=== PATIENT | female | born 1975 | race Caucasian/White ===

== ENCOUNTER 2016-12-26 18:05 | Emergency (ER) | payer MEDICAID ==
[~2016-12-26] VITALS: Ht 165.1 cm; Wt 81.6 kg
[~2016-12-26 18:05] MED LIST: BACTRIM DS 8001 TAB PO; CYMBALTA60 MG PO; IBUPROFEN800 MG PO; KLONOPIN 0.5MG0.5 MG PO; LAMICTAL200 MG PO; LEVOTHYROXINE0.1 MG PO; MIGRAINE RELIE1 EACH PO; NEURONTIN600 MG PO; PRAVACHOL20 MG PO; PYRIDIUM200 MG PO; TOPROL XL 50MG50 MG PO; VOLTAREN50 MG PO
[2016-12-26] MEDS ORDERED: TIZANIDINE2 MG OR (18:30)
[2016-12-26] MEDS ORDERED: TOPAMAX100 MG PO (18:31)
--- NOTE | 2016-12-26 18:31 | Urgent Treatment Center Report ---
History of Present Issue Date/Time Seen by Provider 12/26/16 1830 Visit Reason Pt arrived:Walked Presenting Problem:PT STATES SHE HAS ONGOING BACK PAIN AND HX OF BACK INJURIES. PT FELL IN THE SHOWER 3 DAYS AGO AND HAS HAD PAIN. PAIN SHOOTS DOWN HER LEG. Location if Accident: Onset of symptoms date/time:/ or onset unknown for:MEDICAL HX UNKNOWN Have you (or family members/close friends) recently traveled outside the [place]? If Yes, where/when: Have you had exposure to infectious disease within the past month? TB? Other? Specify: c/o low back pain. Hx of chronic low back pain but currently w/ acute flare. PCP Barbara Pickard. Reports a hx of scoliosis dx at 28, lumbar disc herniation, cervical disc herniation, right hip dislocation as a child, spinal stenosis and then 3 years ago, was told she needed back surgery but hasn't followed through. 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 Despite gabapentin and zanaflex, pain has been slowly increasing over the last 3-4 weeks. Fell out of the shower 3 days ago, hitting lower back on toilet. Then today, was moving boxes for a friend that was having a yard sale when it started raining. Went on in to work but pain too intense and had to leave. Requesting work note. Pain currently 8/10, ceferino low back with right shooting into buttock. Worse with movement or too much rest. "I can be walking and just step the wrong way and pain shoots into my butt and hip". Denies N/T. No incontinence or difficulty urinating. Has had scheduled gabapentin, dose unsure, this morning and at 5pm. Scheduled zanaflex this morning. Hasn't taken any tylenol or ibuprofen. Source patient Exam Limitations no limitations ALLERGIES Coded Allergies: ceftriaxone (From ROCEPHIN) (SHOCK 01/19/16) Home Medications Reported Medications Clonazepam (Klonopin 0.5MG) 0.5 MG PO TID DULOXETINE HCL (Cymbalta 60MG) 60 MG PO DAILY Lamotrigine (Lamictal) 200 MG PO DAILY LEVOTHYROXINE SOD (Synthroid) 0.1 MG PO DAILY Metoprolol Succinate Xl (Toprol Xl) 50 MG PO DAILY Gabapentin (Neurontin) 600 MG PO TID Pravastatin Sodium (Pravachol) 10 MG PO QHS Diclofenac Sodium (Voltaren 50mg) 75 MG PO BID Ibuprofen (Ibuprofen 800MG) 800 MG PO TIDP PRN PAIN Aspirin/Acetaminophen/Caffeine (Migraine Relief Caplet) 1 EACH PO PRN PRN MIGRAINE TIZANIDINE HCL (Tizanidine) 2 MG OR BID Topiramate (Topamax) 100 MG PO BID History Medical History General CAD? No Angina: No [place]: No Hypertension? Yes Hyperlipidemia? Yes CHF? No DVT? No PE? No COPD? Yes Asthma? Yes Anemia? No GERD? No Gastric ulcers? No GI Bleed? No Hernia? No Thyroid Problems? Yes Hypothyroidism? No CVA? No Seizures? No Diabetes? No Renal Insuffiency? No UTI? No Stones? No BPH? No GB Disease: No Nephritic Syndrome? No Asplenia? No Hepatitis? No Sickle Cell Disease? No Arthritis? Yes Migraines? No Cataracts? No Glaucoma? No MRSA? No HIV? No TB? No Anxiety? Yes Depression? Yes Cancer? No More? Yes Additional hx: OSTEOARTHRITIS Immunization HX DT/Tetanus NOT SURE Flu NEVER Pneumonia NEVER Surgical Hx Previous Surgery?Y PARTIAL THYROIDECTOMY X2 THYROID Family History Family HX Diabetes Yes CAD No Hypertension Yes Hyperlipidemia No Cancer Yes TB No Social History Smoking Hx Packs/day < 1 Pack Alcohol Alcohol: No Review of Systems All Other Systems Reviewed and Negative Constitutional denies fever, denies malaise Musculoskeletal see HPI Skin denies change in color, denies lesions Psychiatric/Neurological see HPI Physical Exam Vital Signs Vital Signs Date Time Temp Pulse Resp B/P Pulse O2 O2 Flow FiO2 Ox Delivery Rate 12/26 1855 20 12/26 1828 98.0 78 18 142/77 98 12/26 1809 98.0 78 18 142/77 98 General Appearance moving slow, guarding low back, wincing/moaning with some movements Respiratory Status No: respiratory distress. Cardiovascular no peripheral edema Peripheral Pulses Pulses normal Yes (DP/PT) Back normal inspection, no vertebral tenderness, bowel/bladder continent, gait abnormality (slow, shuffling), strt leg raising(L)-NML, strt leg raising(R)-NML, mild tenderness ceferino lumbar regions w/ mild tenderness left SI joint and moderate tenderness right SI joint, slighlty limited spinal ROM in all directions, c/o "uncomfortable" with ROM Extremities non-tender (BLE), normal range of motion (BLE), normal inspection ( BLE) Strength 5 Lower Ext (L), 5 Lower Ext (R) Neurologic alert, no motor/sensory deficits, oriented x 3 Reflexes Reflexes normal Yes (patellar) Mental status normal mood/affect Skin normal color, warm/dry Medical Decision Making LABS/Meds/Orders Pt receiving controlled substance in ED? No Results/Orders Current Medication Orders Sig/[place] Start time Last Medication Dose Route Stop Time Status Admin Ketorolac 60 MG ONCE ONE 12/26 1844 DC 12/26 Tromethamine IM 12/26 Ketorolac 0 .STK-MED ONE 12/26 1840 DC Tromethamine .ROUTE Orders Procedure Date/time Status LUMBAR SPINE 5 VIEWS 12/26 1838 Active XRAY/CT/US XRAY/CT/US XRAY L-spine XR interpretation by reviewed by me (w/ Dr. Jacobs) Xray Results chronic findings, no acute findings Departure Departure Time of Disposition 1955 Disposition DC Home or Self Care(routine) Clinical Impression Primary Impression: Acute exacerbation of chronic low back pain Condition STABLE Referrals BARBARA PICKARD APRN (Family) Call tomorrow. Schedule follow up appointment. Seek treatment immediately for new or worsening symptoms Patient Instructions DI for Low Back Pain Additional Instructions * Start steroids this evening. Be sure to follow up with primary care * Continue gabapentin and zanaflex * Ibuprofen every 6 hours with meal as needed for pain/inflammation. * Remember you had a toradol shot in clinic. * No additional anti-inflammatories like motrin, aleve, advil with the above amount of ibuprofen. You CAN still take Tylenol every 4 hours as needed if you need something more for pain. * Ice x15-20 mins 3-4 times a day for first 48 hours after the initial injury followed by moist heat x15-20 mins 3-4 times a day to affected area * Keep this area active. No movement leads to more stiffness. However, take it easy too and avoid heavy lifting, pushing, pulling. Discharge Counseling Counseled pt/family regarding diagnosis, test results, medications/RX, home care, follow up needs Prescriptions Current Visit Scripts Methylprednisolone (Medrol Dose Carlos) 4 MG PO UD #1 CARLOS TAKE DIRECTED ON PACKAGING at 2000
[2016-12-26] MEDS ORDERED: MEDROL 4MG. DOSE4 MG PO (19:59)
[2016-12-26 20:01] VITALS: BP 142/77
--- NOTE | 2016-12-27 05:32 | RADIOLOGY REPORT PS360 ---
EXAM: LUMBAR SPINE 5 VIEWS HISTORY: chronic back pain w/ fall 2-3 days ago out of tub, pain ORDERING PHYSICIAN: NORMA OLIVERA APRN PATIENT AGE: 41 years COMPARISON: None FINDINGS: Normal alignment. No fracture or dislocation. No lytic or blastic change. There is degenerative disc disease at L4-L5 and to a lesser degree at L5-S1 with mild facet arthritic changes also at those levels. Unremarkable SI joints. IMPRESSION: Degenerative disc disease with facet arthritic change at L4-5 and L5-S1 No acute fracture
== END 2016-12-26 20:03 | disposition home or self-care (01) ==
LOC: ER 18:05 → UTC 18:05
DX: M54.5 Low back pain (principal); I10 Essential (primary) hypertension; J44.9 Chronic obstructive pulmonary disease, unspecified; F41.8 Other specified anxiety disorders; Z79.899 Other long term (current) drug therapy

== ENCOUNTER 2017-02-11 03:29 | Emergency (ER) | payer MEDICAID ==
[~2017-02-11] VITALS: Ht 165.1 cm; Wt 77.1 kg
[~2017-02-11 03:29] MED LIST changes: +MEDROL 4MG. DOSE4 MG PO; +TIZANIDINE2 MG OR; +TOPAMAX100 MG PO
--- NOTE | 2017-02-11 05:15 | Emergency Room Report ---
History of Present Illness Time Seen by MD Barrow Presenting Problem in Triage Pt arrived:Walked Presenting Problem:MIGRAINE STARTED YESTERDAY, STATES SHE CANT GET ANY RELIEF FROM IT. NO N/VL Onset of symptoms date/time:02/10/17 or onset unknown for: Treatment Prior to Arrival: IBUPROFEN, [employer] MIGRAINES [employer] GUIDE Provided by:SELF Sepsis Risk Assessment: Temp: 97.7 B/P: 155/87 MAP: 109 Pulse: 58 Resp: 18 Recent fever? N Clinical Suspician of Infection? N Mental Status: 1 - Regular (Normal Baseline) Sepsis Risk:Low Sepsis Risk Have you (or family members/close friends) recently traveled outside the [place]? N If Yes, where/when: Have you had exposure to infectious disease within the past month? N TB? Other? Specify: Source patient, RN notes reviewed, EMS, old records Exam Limitations no limitations Comment pt with hx of guillen with hx of migraines Cardiac Chest Pain Chest pain indicative of cardiac No Timing/Duration this evening Severity moderate ALLERGIES Coded Allergies: ceftriaxone (From ROCEPHIN) (SHOCK 01/19/16) Home Medications Active Scripts Methylprednisolone (Medrol Dose Jesse) 4 MG PO UD #1 JESSE Prov: 12/26/16 Reported Medications Clonazepam (Klonopin 0.5MG) 0.5 MG PO TID DULOXETINE HCL (Cymbalta 60MG) 60 MG PO DAILY Lamotrigine (Lamictal) 200 MG PO DAILY LEVOTHYROXINE SOD (Synthroid) 0.1 MG PO DAILY Metoprolol Succinate Xl (Toprol Xl) 50 MG PO DAILY Gabapentin (Neurontin) 600 MG PO TID Pravastatin Sodium (Pravachol) 10 MG PO QHS Diclofenac Sodium (Voltaren 50mg) 75 MG PO BID Ibuprofen (Ibuprofen 800MG) 800 MG PO TIDP PRN PAIN Aspirin/Acetaminophen/Caffeine (Migraine Relief Caplet) 1 EACH PO PRN PRN MIGRAINE TIZANIDINE HCL (Tizanidine) 2 MG OR BID Topiramate (Topamax) 100 MG PO BID History Medical History General CAD? No Angina: No [place]: No Hypertension? Yes Hyperlipidemia? Yes CHF? No DVT? No PE? No COPD? Yes Asthma? Yes Anemia? No GERD? No Gastric ulcers? No GI Bleed? No Hernia? No Thyroid Problems? Yes Hypothyroidism? No CVA? No Seizures? No Diabetes? No Renal Insuffiency? No End Stage Renal Disease? No UTI? No Stones? No BPH? No GB Disease: No Nephritic Syndrome? No Asplenia? No Hepatitis? No Sickle Cell Disease? No Arthritis? Yes Migraines? No Cataracts? No Glaucoma? No MRSA? No HIV? No TB? No Anxiety? Yes Depression? Yes Cancer? No More? 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 Respiratory denies cough, denies shortness of breath Cardiovascular denies chest pain, denies syncope Gastrointestinal denies abdominal pain, denies diarrhea, denies vomiting Genitourinary denies: dysuria, frequency, hesitancy, hematuria. Musculoskeletal denies back pain, denies joint pain, denies neck pain Skin denies rash Psychiatric/Neurological see HPI, headache, denies seizure Physical Exam Vital Signs Vital Signs Date Time Temp Pulse Resp B/P Pulse O2 O2 Flow FiO2 Ox Delivery Rate 02/11 0330 97.7 58 18 155/87 97 - WBC >12,000 or <4,000 or 10% bands? 2 or more SIRS Criteria Met? B/P:155/87 MAP:109 Creatinine >2.0? UA output<0.5ml/kg/hr for 2 hrs? Platelet count >100,000? Lactate >2.0mmol/1? INR >1.2 or PTT > than 60 sec? Evidence of Organ Dysfunction? Provider documented clinical suspician of infection? N Sepsis Criteria Count: 0 Sepsis Risk: Low Sepsis Risk General Appearance no apparent distress Eye Exam - bilateral eye PERRL, bilateral eye EOMI Ear, Nose, Throat normal ENT inspection Neck supple Respiratory Status No: respiratory distress. Cardiovascular regular rate/rhythm Peripheral Pulses Pulses normal Yes Gastrointestinal soft Extremities normal inspection Strength 4 Upper Ext (L), 4 Upper Ext (R), 4 Lower Ext (L), 4 Lower Ext (R) Neurologic alert, hadoop developer II-XII nml as tested, no motor/sensory deficits Reflexes Reflexes normal No Mental status normal mood/affect Skin intact Medical Decision Making LABS/Meds/Orders Pt receiving controlled substance in ED? No Results/Orders Laboratory Tests 02/11/17 0342: CSF Appearance Cancelled, CSF Color Cancelled, CSF WBC Cancelled, CSF RBC Cancelled, CSF Mononuclear Cells Cancelled, CSF Polynuclear WBCs Cancelled Orders Procedure Date/time Status DIET-NOTHING BY MOUTH 02/[address] HEAD W/O CONTRAST 02/[address] HEAD REQ 02/11 342 Active XRAY/CT/US XRAY/CT/US CT head CT interpretation by discussed w/radiologist Time results known: 512 CT Results normal/NAD Departure Departure Time of Disposition 512 Disposition DC Home or Self Care(routine) Clinical Impression Primary Impression: Headache Qualifiers: Headache type: unspecified Headache chronicity pattern: acute headache Intractability: not intractable Qualified Code: R51 - Headache Condition STABLE Referrals LUIS PICKARD APRN (Family) Patient Instructions DI for Headache Additional Instructions see pcp for follow up Discharge Counseling Counseled pt/family regarding diagnosis, test results, follow up needs ED Critical Care Critical Care No at 0514
--- NOTE | 2017-02-11 05:15 | Emergency Room Report ---
History of Present Illness Time Seen by MD Barrow Presenting Problem in Triage Pt arrived:Walked Presenting Problem:MIGRAINE STARTED YESTERDAY, STATES SHE CANT GET ANY RELIEF FROM IT. 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 N Clinical Suspician of Infection? N Mental Status: 1 - Regular (Normal Baseline) Sepsis Risk:Low Sepsis Risk Have you (or family members/close friends) recently traveled outside the [place]? N If Yes, where/when: Have you had exposure to infectious disease within the past month? N TB? Other? Specify: Source patient, RN notes reviewed, EMS, old records Exam Limitations no limitations Comment pt with hx of guillen with hx of migraines Cardiac Chest Pain Chest pain indicative of cardiac No Timing/Duration this evening Severity moderate ALLERGIES Coded Allergies: ceftriaxone (From ROCEPHIN) (SHOCK 01/19/16) Home Medications Active Scripts Methylprednisolone (Medrol Dose Jesse) 4 MG PO UD #1 JESSE Prov: 12/26/16 Reported Medications Clonazepam (Klonopin 0.5MG) 0.5 MG PO TID DULOXETINE HCL (Cymbalta 60MG) 60 MG PO DAILY Lamotrigine (Lamictal) 200 MG PO DAILY LEVOTHYROXINE SOD (Synthroid) 0.1 MG PO DAILY Metoprolol Succinate Xl (Toprol Xl) 50 MG PO DAILY Gabapentin (Neurontin) 600 MG PO TID Pravastatin Sodium (Pravachol) 10 MG PO QHS Diclofenac Sodium (Voltaren 50mg) 75 MG PO BID Ibuprofen (Ibuprofen 800MG) 800 MG PO TIDP PRN PAIN Aspirin/Acetaminophen/Caffeine (Migraine Relief Caplet) 1 EACH PO PRN PRN MIGRAINE TIZANIDINE HCL (Tizanidine) 2 MG OR BID Topiramate (Topamax) 100 MG PO BID History Medical History General CAD? No Angina: No [place]: No Hypertension? Yes Hyperlipidemia? Yes CHF? No DVT? No PE? No COPD? Yes Asthma? Yes Anemia? No GERD? No Gastric ulcers? No GI Bleed? No Hernia? No Thyroid Problems? Yes Hypothyroidism? No CVA? No Seizures? No Diabetes? No Renal Insuffiency? No End Stage Renal Disease? No UTI? No Stones? No BPH? No GB Disease: No Nephritic Syndrome? No Asplenia? No Hepatitis? No Sickle Cell Disease? No Arthritis? Yes Migraines? No Cataracts? No Glaucoma? No MRSA? No HIV? No TB? No Anxiety? Yes Depression? Yes Cancer? No More? 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 Respiratory denies cough, denies shortness of breath Cardiovascular denies chest pain, denies syncope Gastrointestinal denies abdominal pain, denies diarrhea, denies vomiting Genitourinary denies: dysuria, frequency, hesitancy, hematuria. Musculoskeletal denies back pain, denies joint pain, denies neck pain Skin denies rash Psychiatric/Neurological see HPI, headache, denies seizure Physical Exam Vital Signs Vital Signs Date Time Temp Pulse Resp B/P Pulse O2 O2 Flow FiO2 Ox Delivery Rate 02/11 0330 97.7 58 18 155/87 97 - WBC >12,000 or <4,000 or 10% bands? 2 or more SIRS Criteria Met? B/P:155/87 MAP:109 Creatinine >2.0? UA output<0.5ml/kg/hr for 2 hrs? Platelet count >100,000? Lactate >2.0mmol/1? INR >1.2 or PTT > than 60 sec? Evidence of Organ Dysfunction? Provider documented clinical suspician of infection? N Sepsis Criteria Count: 0 Sepsis Risk: Low Sepsis Risk General Appearance no apparent distress Eye Exam - bilateral eye PERRL, bilateral eye EOMI Ear, Nose, Throat normal ENT inspection Neck supple Respiratory Status No: respiratory distress. Cardiovascular regular rate/rhythm Peripheral Pulses Pulses normal Yes Gastrointestinal soft Extremities normal inspection Strength 4 Upper Ext (L), 4 Upper Ext (R), 4 Lower Ext (L), 4 Lower Ext (R) Neurologic alert, heel pricker II-XII nml as tested, no motor/sensory deficits Reflexes Reflexes normal No Mental status normal mood/affect Skin intact Medical Decision Making LABS/Meds/Orders Pt receiving controlled substance in ED? No Results/Orders Laboratory Tests 02/11/17 0342: CSF Appearance Cancelled, CSF Color Cancelled, CSF WBC Cancelled, CSF RBC Cancelled, CSF Mononuclear Cells Cancelled, CSF Polynuclear WBCs Cancelled Orders Procedure Date/time Status DIET-NOTHING BY MOUTH 02/[address] HEAD W/O CONTRAST 02/[address] HEAD REQ 02/11 342 Active XRAY/CT/US XRAY/CT/US CT head CT interpretation by discussed w/radiologist Time results known: 512 CT Results normal/NAD Departure Departure Time of Disposition 512 Disposition DC Home or Self Care(routine) Clinical Impression Primary Impression: Headache Qualifiers: Headache type: unspecified Headache chronicity pattern: acute headache Intractability: not intractable Qualified Code: R51 - Headache Condition STABLE Referrals LUIS PICKRAD APRN (Family) Patient Instructions DI for Headache Additional Instructions see pcp for follow up Discharge Counseling Counseled pt/family regarding diagnosis, test results, follow up needs ED Critical Care Critical Care No at 0514
[2017-02-11 06:03] VITALS: BP 138/77
--- NOTE | 2017-02-11 09:34 | RADIOLOGY REPORT PS360 ---
CT HEAD W/O CONTRAST HISTORY: Severe headache MIGRAINE ORDERING PHYSICIAN: Sergio Jacobs MD PATIENT AGE: 41 years COMPARISON: 04/09/2015 TECHNIQUE: Axial images obtained without contrast. Brain and bone windows reviewed. FINDINGS: No midline shift, mass effect, intracranial hemorrhage, hydrocephalus, or extra-axial fluid collection is evident. The calvarium has an unremarkable appearance. No mastoid effusion. The visualized paranasal sinuses are unremarkable. IMPRESSION: Negative CT head without contrast. No acute finding.
--- OUTSIDE RECORDS SUMMARY | 2017-02-12 03:08 | External Medical Summary Rpt | CCD ---
Author Author , QIANA Organization QIANA Address Unknown Phone Care Team Providers Care Gear Finisher Name Role Phone BIRGIT SOLARES MD, PSC, Unavailable Unavailable BIRGIT SOLARES MD, PSC MARYCHUY OVIEDO, Unavailable Unavailable MARYCHUY OVIEDO MANDUJANO, MANDUJANO Unavailable Unavailable MANDUJANO ALL, MANDUJANO ALL Unavailable Unavailable MARNI MEIR, MARNI Unavailable Unavailable MEIR MARNI MEIR, MARNI Unavailable Unavailable MEIR RUIZ MANDY, RUIZ Unavailable Unavailable MANDY REYES JUS, REYES Unavailable Unavailable JUS REYES JUS, REYES Unavailable Unavailable JUS [facility] Unavailable Unavailable AND REHA, [facility] REHA NATHANAEL ANKIT, Unavailable Unavailable NATHANAEL ANKIT MARY HUFFMAN, Unavailable Unavailable NATHANAEL, MARY DUFF JESSICA, DUFF JESSICA Unavailable Unavailable LISA TAYLOR, Unavailable Unavailable LISA TAYLOR LISA TAYLOR, Unavailable Unavailable LISA TAYLOR HABASH KEF, HABASH Unavailable Unavailable KEF HABASH LUZ, HABASH Unavailable Unavailable LUZ HABASH LUZ, HABASH Unavailable Unavailable LUZ HABASH, KEFAH, Unavailable Unavailable HABASH, KEFAH HAGENSCHELLIS PANKAJ, Unavailable Unavailable HAGENSCHNEIDER PANKAJ [facility] Unavailable Unavailable INC, [facility] CLIFF ALVES, Unavailable Unavailable CLIFF ALVES [facility], Unavailable Unavailable [facility] Unavailable Unavailable [facility] Unavailable Unavailable INC, [facility] NEERAJ, NEERAJ Unavailable Unavailable NEERAJ NAN, NEERAJ Unavailable Unavailable NAN NEERAJ NAN, NEERAJ Unavailable Unavailable NAN RYAN II ELA, RYAN Unavailable Unavailable II ELA [facility] Unavailable Unavailable IM[facility], [facility] ENRIKE KAREEN, ENRIKE KAREEN Unavailable Unavailable ENRIKE KAREEN, ENRIKE KAREEN Unavailable Unavailable [id number], Unavailable Unavailable [id number] # Unavailable Unavailable [id number], [facility] # [id number] [facility] # Unavailable Unavailable [id number], [facility] # [id number] [facility] Unavailable [facility]available [facility], [facility]available Unavailable [facility], [facility] Unavailable Unavailable [facility] Unavailable Unavailable [facility] SHANT TINSLEY, Unavailable Unavailable SHANT TINSLEY KATHERINE AALIYAH, KATHERINE Unavailable Unavailable AALIYAH [facility] CATRACHO MAO, Unavailable Unavailable CATRACHO MAO DENSON AHMET, DENSON Unavailable Unavailable AHMET [facility] Unavailable Unavailable [facility], [facility] HAMLET MOJICA, NIKOLE Unavailable Unavailable F, HAM[facility] MOJICA, CAROL SHELTON, Unavailable Unavailable CAROL STOUT R [facility], TECHNOLOGY AUDITOR JOS[facility] Unavailable Unavailable [facility], [facility] TECHNOLOGY AUDITOR [facility], Unavailable Unavailable BARB BAR[facility] Unavailable Unavailable [facility], [facility], Unavailable Unavailable [facility] Unavailable Unavailable URGENT TREAT, [facility]available [facility] PETTEY JAM, PETTEY Unavailable Unavailable JAM SCIFRES ANG, SCIFRES Unavailable Unavailable ANG SCIFRES ANG, SCIFRES Unavailable Unavailable ANG [facility], Unavailable Unavailable [facility] Unavailable Unavailable [facility], [facility] Unavailable Unavailable [facility], [facility], Unavailable Unavailable [facility] Unavailable Unavailable [place], [facility] Unavailable Unavailable [facility], [facility] CROWDER ANG, Unavailable Unavailable [facility] LAKESHA ANG, Unavailable Unavailable TEMITOPE MCHUGH A, Unavailable Unavailable TEMITOPE BIANCHI A [facility] Unavailable Unavailable #[id number], [id number], Unavailable [facility]available [facility], Unavailable Unavailable [facility] Purpose Continuity of Care Document - 06-30-2007 through 2016 Problems Code Diagnosis DOS Provider Status [id number] MIGRAINE 12-27-2016 [facility] W/O [facility] NOT INTRACT SOLUTIONS W/O STAT IN MIGRAIN J060 ACUTE 12-27-2016 [facility] LARYNGOPHAR HEALTH YNGITIS SOLUTIONS IN M545 LOW BACK 12-27-2016 [facility] PAIN HEALTH SOLUTIONS IN [id number] SPONDYLOSIS 12-26-2016 [facility] [place] W/[facility] MEDICAL MYELOPATH/R IMAGING ASS ADICULOPATH Y LUMB RGN M5136 OTH 12-26-2016 [place] [place] INTERVERTEB MEDICAL RAL DISC IMAGING ASS DEGEN LUMBAR REGION N3001 ACUTE 07-22-2016 [facility] CYSTITIS [facility] WITH HOLDINGS HEMATURIA R309 PAINFUL 07-22-2016 [facility] MICTURITION [facility] UNSPECIFIED R319 HEMATURIA 07-22-2016 [facility] UNSPECIFIED [facility] HOLDINGS Z23 ENCOUNTER 02-25-2016 [facility] IMMUNIZATIO URGENT N TREAT [id number] ENCOUNTER 02-23-2016 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 [facility] OF GENERAL RTN [facility] W/ABNORMAL FIND [id number] ENCOUNTER 02-23-2016 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 [facility] OF GENERAL RTN [facility] W/O ABNORMAL FIND E038 OTHER 02-22-2016 [facility] SPECIFIED [facility] HYPOTHYROID HOLDINGS ISM [id number] UNSPECIFIED 02-15-2016 [place] OVARIAN MEDICAL CYST LEFT IMAGING ASS SIDE N938 OTHER SPEC 02-15-2016 [place] ABNORMAL MEDICAL UTERINE & IMAGING ASS VAGINAL BLEEDING R102 PELVIC AND 02-15-2016 [place] PERINEAL MEDICAL PAIN IMAGING ASS [id number] RIGHT LOWER 02-15-2016 [facility] ABD[facility] TENDERNESS S93934 LEFT LOWER 02-15-2016 [facility] ABDOMINAL INC TENDERNESS R938 ABNORMAL 02-15-2016 [place] [place] FIND ON DX MEDICAL IMAGING OTH IMAGING ASS SPEC BODY STRCT [id number] PAIN IN 01-19-2016 [facility] L67793 PAIN IN 01-19-2016 [facility] M4806 SPINAL 01-19-2016 BIRGIT SOLARES, STENOSIS , PSC LUMBAR REGION M5126 OTH 01-19-2016 BIRGIT SOLARES INTERVERTTEODORO BRAY, PSC RAL DISC DISPLACEMEN T LUMBAR RGN R1011 RIGHT UPPER 12-11-2015 [place] [facility] ASS G608 OTHER 12-07-2015 [facility] IDIOPATH[facility] TREAT NEUROPATHIE S B399 HISTOPLASMO 11-25-2015 [facility] UNSPECIFIED [id number] STAPHYLOMA 11-25-2015 [facility] POSTICUM ANG RIGHT EYE H5211 MYOPIA 11-25-2015 [facility] RIGHT EYE ANG R66218 UNSPECIFIED 11-25-2015 [facility] AMBLYOPIA ANG RIGHT EYE B394 HISTOPLASMO 11-18-2015 [facility] SIS CAPSULATI UNSPECIFIED 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 M39557 REGULAR 11-18-2015 [facility] ASTIGMATISM BILATERAL H524 PRESBYOPIA 11-18-2015 [facility] SCH[facility]TE N925 OTHER 04-17-2015 [facility] IRREGULAR URGENT MENSTRUATIO TREAT N R68651 PAIN IN 04-16-2015 [facility] UNSPECIFIED CLINIC KNEE [facility] H9319 TINNITUS 04-09-2015 [place] UNSPECIFIED MEDICAL EAR IMAGING ASS R569 UNSPECIFIED 04-09-2015 [facility] [place] IMAGING ASS M5117 INTERVERTEB 01-30-2015 [facility] D/O INC W/RADICULOP ATHY LS RGN M5127 OT 01-30-2015 [place] [facility] MEDICAL RAL DISC IMAGING ASS DISPLACEMEN T LS REGION M5137 OT 01-30-2015 [place] INTER[facility]TE[facility] MEDICAL RAL DISC IMAGING ASS DEGEN LUMBOSACRAL REGION 74005 PAIN IN 12-25-2014 [facility] JOINT, [facility] MULTIPLE [facility] SITES 94326 DISPLCMT 12-25-2014 [facility] LUMBAR CLINIC INTERVERT [facility] DISC W/O MYELOPATHY 7231 CERVICALGIA 12-25-2014 [facility] 7242 LUMBAGO 12-25-2014 [facility] 7295 PAIN IN 12-25-2014 [facility] SOFT [facility] TISSUES OF [facility] LIMB 7820 DISTURBANCE 12-25-2014 [facility] OF SKIN CLINIC SENSATION [facility] 7840 HEADACHE 12-25-[address] [place] [facility] V5869 LONG-TERM 12-25-2014 [facility] (CURRENT) CLINIC USE OF [facility] OTHER MEDICATIONS 2448 OTHER 10-30-2014 [facility] SPECIFIED CLINIC ACQUIRED [facility] HYPOTHYROID ISM 2720 PURE 10-30-2014 [facility] HYPERCHOLES CLINIC TEROLEMIA [facility] 66901 RESTLESS 10-30-2014 [facility] LEGS CLINIC SYNDROME [facility] 92675 EXTRINSIC 10-30-2014 [facility] ASTHMA, CLINIC UNSPECIFIED [facility] V571 OTHER 10-29-2014 [facility] THERAPY [place] 27981 ACUTE 05-26-2014 [facility] ATOPIC CONJUNCTIVI TIS 24612 CHEST PAIN 05-26-2014 ENRIKE KAREEN UNSPECIFIED 7962 ELEVATED BP 05-26-2014 [facility] READING WITHOUT DX HYPERTENSIO N V8533 BODY MASS 05-26-2014 [facility] INDEX 33.0-33.9 ADULT 31390 BORDERLINE 04-08-2014 HABASH LUZ GLAUC OPEN ANGLE BL FINDINGS LOW RSK 3674 PRESBYOPIA 04-08-2014 HABASH LUZ 67454 UNSPECIFIED 02-17-2014 [facility] AND ARTHROPATHY [facility]HA OTHER SPECIFIED SITES 7213 LUMBOSACRAL 02-17-2014 [facility] SLEEP AND SPONDYLOSIS REHA WITHOUT MYELOPATHY 20130 DEGEN 02-17-2014 [facility] LUMBAR/LUMB H SLEEP AND OSACRAL REHA INTERVERTEB RAL DISC 27561 SPINAL STEN 02-17-2014 [facility] LUMB REG H SLEEP AND W/O REHA NEUROGENIC CLAUDICATIO N 7244 THORACIC/CARLOS 02-17-2014 [facility] MBOSACRAL H SLEEP AND NEURITIS/RA REHA DICULITIS UNSPEC 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 67521 SCOLIOSIS , 11-11-[address] [facility] IDIOPATHIC EAST V141 PERSONAL 11-11-[address] [facility] HISTORY EAST ALLERGY 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 AGENT 7177 CHONDROMALA 08-30-2013 [facility] OF PHYSICIANS PATELL[facility] GROUP 7262 OTHER 08-30-2013 [facility] AFFECTIONS PHYSICIANS OF SHOULDER GROUP REGION NEC 93322 LEUKOCYTOSI 08-08-2013 [facility] UNSPECIFIED 66148 OSTEOARTHRO 08-06-2013 [facility] UNSPEC RADIOLOGY WHETHER ASSOCIAT GEN/LOC LOWER LEG 51091 PAIN IN 08-06-2013 [facility], RADIOLOGY LOWER LEG ASSOCIAT 3671 MYOPIA 05-31-2013 [facility] 1120 CANDIDIASIS 04-29-2011 [facility] 2449 UNSPECIFIED 04-29-2011 [facility] HYPOTHYROID INTERNAL ISM MED 490 BRONCHITIS 04-29-2011 [facility] NOT VALLEY SPECIFIED INTERNAL ACUTE OR MED CHRONIC 4910 SIMPLE 04-29-2011 [facility] 24601 ASTHMA, 04-29-2011 [facility] UNSPECIFIED HOME , MEDICAL UNSPECIFIED EQUIPME STATUS 87533 UNSPECIFIED 04-15-2011 [facility] NAN ARTHROPATHY , LOWER LEG 7821 RASH AND 04-15-2011 [facility] KELLER OTHER NONSPECIFIC SKIN ERUPTION 31215 OTHER 03-18-2011 [facility] KELLER ANXIETY STATES 7292 UNSPECIFIED 03-18-2011 [facility] KELLER NEURALGIA NEURITIS AND RADICULITIS 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 462 ACUTE 02-09-2011 [facility] PHARYNGITIS [facility] INTERNAL MEDI 4871 INFLUENZA 02-09-2011 [facility] WITH OTHER VALLEY RESPIRATORY INTERNAL MEDI MANIFESTATI ONS 00147 PAIN IN 01-24-2011 [facility] JOINT, VALLEY FOREARM INTERNAL MEDI 7245 UNSPECIFIED 01-24-2011 [facility] BACKACHE VAL[facility] INTERNAL MEDI 27022 OTHER 12-17-2010 [facility] CHRONIC [facility] PAIN INTERNAL MEDI 2409 GOITER, 11-04-2010 [facility] UNSPECIFIED RADIOLOGY ASSOCIAT 13321 UNSPECIFIED 09-24-2010 [facility] ARTHROPATHY INTERNAL MULTIPLE MEDI SITES 48820 ABDOMINAL 04-22-2010 [facility] PAIN RIGHT VALLEY UPPER INTERNAL QUADRANT MEDI 26572 ABDOMINAL 04-22-2010 [facility] PAIN, VALLEY EPIGASTRIC INTERNAL MEDI 5718 OTHER 04-16-2010 [facility] NONALCOHOLI C LIVER DISEASE 98821 DIARRHEA 04-16-2010 [facility] 26654 ESOPHAGEAL 04-07-2010 [facility] REFLUX [facility] INTERNAL MEDI 7226 DEGENERATIO 04-07-2010 [facility] N [facility] INTERVERTEB INTERNAL RAL DISC MEDI SITE UNSPEC 71282 OTH 11-27-2009 [facility] EXTRAPYRAMI [facility] 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 5206 DISTURBANCE 10-23-2009 [facility] S IN TO[facility] 7862 COUGH 10-12-2009 [facility] 53026 UNSPECIFIED 10-10-2009 [facility] SIS RETINITIS 3670 HYPERMETROP 10-10-2009 [facility] 08048 OTHER 10-10-2009 [facility] FIELD DEFECT 81670 PAIN IN 07-10-2009 [facility] TAYLOR PELVIC REGION AND THIGH 18317 OSTEOARTHRO 06-26-2009 [facility] S UNSPEC RADIOLOGY GEN/LOC ASSOCIATES PELV PSC REGION&THIG H 4730 CHRONIC 03-29-2009 [facility] SINUSITIS 4731 CHRONIC 03-29-2009 [facility] SINUSITIS 90994 SPASM OF 01-01-2009 [facility] MUSCLE [facility] INTERNAL MED 66372 SPONDYLOSIS 12-02-2008 [facility] RADIOLOGY SITE W/O ASSOCIATES MENTION PSC MYELOPATHY 7831 ABNORMAL 11-28-2008 [facility] WEIGHT GAIN [facility] INTERNAL MED 70696 ANOMALY OF 09-01-2008 [facility] TOOTH IIIC N02 POSITION UNSPECIFIED 7881 DYSURIA 07-15-2008 [facility] 226 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 2459 UNSPECIFIED 06-12-2008 [facility]LEY THYROIDITIS 5210 DENTAL 04-01-2008 [facility] TRAN CARIES IIIPS N02 14530 CONTACT 08-08-2007 [facility] DERMATITIS& [facility]LEY OTH ECZEMA INTERNAL DUE OTH TECHNICIAN AGENT 7248 OTHER 06-30-2007 [facility] REFERABLE TO BACK 8470 NECK SPRAIN 06-30-2007 [facility] Medications Na ND Rx Da Fi Fi Am Da Di Ph RX Ph St me C No te ll ll ou ys ag ar # ys at rm s nt no ma ic us Or Da si cy ia de te s n re d WA 00 09 10 55 10 00 MA Ac ED 14 -1 -1 .0 00 L- ti NI 39 4- 3- 00 07 MA ve SO 74 20 20 50 RT NE 01 17 17 95 5 0 61 PH AR MG MA CY TA BL #5 ET 91 GA 00 09 10 90 30 00 MA Ac BA 22 -1 -1 .0 00 L- ti PE 82 7- 3- 00 04 MA ve NT 63 20 20 53 RT IN 65 17 17 17 0 43 PH 60 AR 0 MA MG CY TA #5 BL 91 ET CY 68 08 09 30 15 00 MA Ac CL 64 -2 -2 .0 00 L- ti OB 50 9- 2- 00 07 MA ve EN 51 20 20 50 RT ZA 79 17 17 66 WA 0 26 PH IN AR E MA 5 CY MG #5 TA 91 BL ET AM 00 08 09 20 10 00 WA Ac OX 14 -2 -2 .0 00 L- ti IC 39 9- 2- 00 07 MA ve IL 95 20 20 50 RT LI 10 17 17 66 N 1 27 PH 87 AR 5 MA MG CY TA #5 BL 91 ET NA 65 08 09 60 30 00 WA Ac WA 16 -2 -2 .0 00 L- ti OX 20 9- 2- 00 07 MA ve EN 19 20 20 50 RT 01 17 17 66 50 1 28 PH 0 AR MG MA CY TA BL #5 ET 91 TO 68 08 09 30 30 00 WA Ac PI 38 -2 -2 .0 00 L- ti RA 20 9- 2- 00 07 MA ve MA 14 20 20 50 RT TE 01 17 17 66 4 29 PH 10 AR 0 MA MG CY TA #5 BL 91 ET ME 59 08 09 21 6 00 WA Ac TH 74 -2 -2 .0 00 L- ti YL 60 9- 2- 00 07 MA ve WA 00 20 20 50 RT ED 10 17 17 64 NI 3 98 PH SO AR LO MA NE CY 4 #5 MG 91 DO SE PK JACKSON 55 08 09 9. 9 00 WA Ac MA 11 -2 -1 00 00 L- ti TR 10 1- 5- 0 07 MA ve IP 29 20 20 50 RT TA 30 17 17 51 N 9 02 PH JACKSON AR CC MA CY 10 0 #5 MG 91 TA BL ET GA 00 08 09 90 30 00 MA Ac BA 22 -2 -1 .0 00 L- ti PE 82 1- 5- 00 04 MA ve NT 63 20 20 53 RT IN 65 17 17 17 0 43 PH 60 AR 0 MA MG CY TA #5 BL 91 ET DU 57 07 08 60 30 00 MA Ac LO 23 -2 -2 .0 00 L- ti XE 70 8- 5- 00 07 MA ve TI 01 20 20 66 RT NE 93 17 17 89 0 97 PH HC AR L MA DR CY 60 #5 71 MG CA P ME 62 07 08 30 30 00 MA Ac TO 03 -2 -2 .0 00 L- ti WA 70 8- 5- 00 07 MA ve OL 83 20 20 66 RT OL 11 17 17 89 0 95 PH JACKSON AR CC MA CY ER #5 50 71 MG TA B WA 54 07 08 30 30 00 MA Ac AV 45 -2 -2 .0 00 L- ti 80 8- 5- 00 07 MA ve TA 92 20 20 66 RT TI 71 17 17 89 N 6 94 PH SO AR DI MA UM CY 10 #5 71 MG TA B TI 55 07 08 60 30 00 WA Ac ZA 11 -2 -2 .0 00 L- ti NI 10 8- 5- 00 07 MA ve DI 18 20 20 66 RT NE 01 17 17 89 5 96 PH HC AR L MA 4 CY MG #5 TA 71 BL ET LE 00 07 08 30 30 00 WA Ac VO 78 -2 -1 .0 00 L- ti TH 15 1- 8- 00 07 MA ve YR 18 20 20 66 RT OX 69 17 17 24 IN 2 66 PH E AR 12 MA 5 CY MC G #5 TA 71 BL ET TO 68 07 08 30 30 00 WA Ac PI 38 -2 -1 .0 00 L- ti RA 20 1- 8- 00 07 MA ve MA 13 20 20 66 RT TE 91 17 17 60 4 61 PH 50 AR MA MG CY TA #5 BL 71 ET CL 16 07 08 90 30 00 WA Ac ON 72 -2 -1 .0 00 L- ti AZ 90 5- 8- 00 04 MA ve EP 13 20 20 54 RT AM 61 17 17 39 6 49 PH 0. AR 5 MA MG CY TA #5 BL 71 ET GA 00 07 08 90 30 00 WA Ac BA 22 -2 -1 .0 00 L- ti PE 82 5- 8- 00 04 MA ve NT 63 20 20 54 RT IN 65 17 17 39 0 47 PH 60 AR 0 MA MG CY TA #5 BL 71 ET LA 69 07 08 30 30 00 WA Ac MO 09 -2 -1 .0 00 L- ti TR 70 1 8- 00 07 MA ve IG 15 20 20 67 RT IN 20 17 17 35 E 3 76 PH 20 AR 0 MA MG CY TA #5 BL 71 ET JACKSON 55 07 08 9. 9 00 WA Ac MA 11 -2 -1 00 00 L- ti TR 10 3- 8- 0 07 MA ve IP 29 20 20 66 RT TA 30 17 17 24 N 9 59 PH JACKSON AR CC MA CY 10 0 #5 MG 71 TA BL ET WA 54 06 07 30 30 00 WA Ac AV 45 -2 -2 .0 00 L- ti 80 7- 1- 00 07 MA ve TA 92 20 20 66 RT TI 71 17 17 89 N 6 94 PH SO AR DI MA UM CY 10 #5 71 MG TA B ME 62 06 07 30 30 00 WA Ac TO 03 -2 -2 .0 00 L- ti WA 70 7- 1- 00 07 MA ve OL 83 20 20 66 RT OL 11 17 17 89 0 95 PH JACKSON AR CC MA CY ER #5 50 71 MG TA B TI 55 06 07 60 30 00 WA Ac ZA 11 -2 -2 .0 00 L- ti NI 10 7- 1- 00 07 MA ve DI 18 20 20 66 RT NE 01 17 17 89 5 96 PH HC AR L MA 4 CY MG #5 TA 71 BL ET DU 57 06 07 60 30 00 WA Ac LO 23 -2 -2 .0 00 L- ti XE 70 7- 1- 00 07 MA ve TI 01 20 20 66 RT NE 93 17 17 89 0 97 PH HC AR L MA DR CY 60 #5 71 MG CA P LA 69 06 07 30 30 00 WA Ac MO 09 -2 -2 .0 00 L- ti TR 70 3- 1- 00 07 MA ve IG 15 20 20 66 RT IN 20 17 17 24 E 3 49 PH 20 AR 0 MA MG CY TA #5 BL 71 ET GA 00 06 07 90 30 00 WA Ac BA 22 -2 -2 .0 00 L- ti PE 82 3- 1- 00 07 MA ve NT 63 20 20 66 RT IN 65 17 17 24 0 39 PH 60 AR 0 MA MG CY TA #5 BL 71 ET LE 00 06 07 30 30 00 WA Ac VO 78 -2 -2 .0 00 L- ti TH 15 3- 1- 00 07 MA ve YR 18 20 20 66 RT OX 69 17 17 24 IN 2 66 PH E AR 12 MA 5 CY MC G #5 TA 71 BL ET PN 00 06 07 0. 1 00 WA Ac EU 00 -1 -1 50 00 L- ti MO 64 6- 4- 0 07 MA ve VA 94 20 20 66 RT X 30 17 17 69 23 0 63 PH AR MA AL CY #5 71 TO 68 10 05 30 30 00 MA Ac PI 38 -1 -0 .0 00 L- ti RA 20 2- 7- 00 07 MA ve MA 13 20 20 66 RT TE 91 17 17 60 4 61 PH 50 AR MA MG CY TA #5 BL 71 ET DU 57 05 06 60 30 00 MA Ac LO 23 -2 -2 .0 00 L- ti XE 70 5- 3- 00 07 MA ve TI 01 20 20 66 RT NE 93 17 17 24 0 67 PH HC AR L MA DR CY 60 #5 71 MG CA P LE 00 05 06 30 30 00 WA Ac VO 78 -2 -2 .0 00 L- ti TH 15 5- 3- 00 07 MA ve YR 18 20 20 66 RT OX 69 17 17 24 IN 2 66 PH E AR 12 MA 5 CY MC G #5 TA 71 BL ET TO 68 05 06 30 30 00 MA Ac PI 38 -2 -2 .0 00 L- ti RA 20 5- 3- 00 07 MA ve MA 13 20 20 66 RT TE 81 17 17 24 4 63 PH 25 AR MA MG CY TA #5 BL 71 ET JACKSON 55 05 06 9. 9 00 WA Ac MA 11 -2 -2 00 00 L- ti TR 10 5- 3- 0 07 MA ve IP 29 20 20 66 RT TA 30 17 17 24 N 9 59 PH JACKSON AR CC MA CY 10 0 #5 MG 71 TA BL ET TI 55 05 06 60 30 00 WA Ac ZA 11 -2 -2 .0 00 L- ti NI 10 5- 3- 00 07 MA ve DI 18 20 20 66 RT NE 01 17 17 24 5 41 PH HC AR L MA 4 CY MG #5 TA 71 BL ET GA 00 05 06 90 30 00 WA Ac BA 22 -2 -2 .0 00 L- ti PE 82 5- 3- 00 07 MA ve NT 63 20 20 66 RT IN 65 17 17 24 0 39 PH 60 AR 0 MA MG CY TA #5 BL 71 ET ME 62 05 06 30 30 00 WA Ac TO 03 -2 -2 .0 00 L- ti WA 70 5- 3- 00 07 MA ve OL 83 20 20 66 RT OL 11 17 17 24 0 48 PH JACKSON AR CC MA CY ER #5 50 71 MG TA B WA 54 05 06 30 30 00 WA Ac AV 45 -2 -2 .0 00 L- ti 80 5- 3- 00 07 MA ve TA 92 20 20 66 RT TI 71 17 17 24 N 2 68 PH SO AR DI MA UM CY 10 #5 71 MG TA B LA 69 05 06 30 30 00 WA Ac MO 09 -2 -2 .0 00 L- ti TR 70 5- 3- 00 07 MA ve IG 15 20 20 66 RT IN 20 17 17 24 E 3 49 PH 20 AR 0 MA MG CY TA #5 BL 71 ET CL 16 05 06 90 30 00 WA Ac ON 72 -3 -2 .0 00 L- ti AZ 90 0- 3- 00 04 MA ve EP 13 20 20 54 RT AM 61 17 17 30 6 67 PH 0. AR 5 MA MG CY TA #5 BL 71 ET TO 68 05 05 30 30 00 SO Ac PI 38 -0 -2 .0 00 PE ti RA 20 1- 6- 00 00 RS ve MA 13 20 20 56 TE 81 17 17 21 FA 4 78 MO [address] UG TA BL ET JACKSON 65 05 05 9. 10 00 SO Ac MA 86 -0 -2 00 00 PE ti TR 20 1- 6- 0 00 RS ve IP 14 20 20 56 TA 83 17 17 21 FA N 6 82 MO JACKSON LY CC DR 10 UG 0 MG TA BL ET DU 57 05 05 60 30 00 SO Ac LO 23 -0 -2 .0 00 PE ti XE 70 1- 6- 00 00 RS ve TI 01 20 20 54 NE 99 17 17 84 FA 9 20 MO HC LY L DR DR UG 60 MG CA P LA 51 05 05 30 30 00 SO Ac MO 67 -0 -2 .0 00 PE ti TR 24 - 6- 00 00 RS ve IG 13 20 20 54 IN 30 17 17 84 FA E 4 23 MO [address] UG TA BL ET ME 62 05 05 30 30 00 SO Ac TO 03 -0 -2 .0 00 PE ti WA 70 - 6- 00 RS ve OL 83 20 20 54 OL 11 17 17 81 FA 0 56 MO JACKSON LY CC DR ER UG 50 MG TA B CL 00 05 05 90 30 00 SO Ac ON 18 -0 -2 .0 00 PE ti AZ 50 1- 6- 00 00 RS ve EP 06 20 20 56 AM 30 17 17 21 FA 5 77 MO 0. LY [address] UG TA BL ET LE 00 05 05 30 30 00 SO Ac VO 37 -0 -2 .0 00 PE ti TH 81 1- 6- 00 00 RS ve YR 81 20 20 55 OX 37 17 17 37 FA IN 7 65 MO E LY [address] MC UG G TA BL ET WA 68 05 05 30 30 00 SO Ac AV 46 -0 -2 .0 00 PE ti 20 1- 6- 00 00 RS ve TA 19 20 20 54 TI 59 17 17 84 FA N 0 18 MO SO LY DI UM DR UG 10 MG TA B NI 00 05 05 28 28 00 SO Ac CO 53 -0 -2 .0 00 PE ti TI 65 1- 6- 00 00 RS ve NE 89 20 20 56 68 17 17 21 FA 21 8 79 MO LY MG /2 DR 4H UG R PA TC H GA 69 04 05 90 30 00 SO Ac BA 09 -1 -1 .0 00 PE ti PE 70 4- 2- 00 00 RS ve NT 81 20 20 55 IN 21 17 17 37 FA 2 64 MO [address] UG TA BL ET TI 57 04 05 60 30 00 SO Ac ZA 66 -1 -1 .0 00 PE ti NI 40 7- 2- 00 00 RS ve DI 50 20 20 55 NE 31 17 17 77 FA 8 95 MO HC LY L 4 DR MG UG TA BL ET JACKSON 55 03 04 9. 10 00 SO Ac MA 11 -2 -2 00 00 PE ti TR 10 4- 1- 0 00 RS ve IP 29 20 20 55 TA 30 17 17 96 FA N 9 81 MO [place] LY CC DR 10 UG 0 MG TA BL ET ME 62 03 04 30 30 00 SO Ac TO 03 -2 -2 .0 00 PE ti WA 70 4- 1- 00 00 RS ve OL 83 20 20 54 OL 11 17 17 81 FA 0 56 MO [place] LY CC DR ER UG 50 MG TA B LA 51 03 04 30 30 00 SO Ac MO 67 -2 -2 .0 00 PE ti TR 24 4- 1- 00 00 RS ve IG 13 20 20 54 IN 30 17 17 84 FA E 4 23 MO [address] UG TA BL ET DU 57 03 04 60 30 00 SO Ac LO 23 -2 -2 .0 00 PE ti XE 70 4- 1- 00 00 RS ve TI 01 20 20 54 NE 99 17 17 84 FA 9 20 MO HC LY L DR COX UG 60 MG CA P LE 00 03 04 30 30 00 SO Ac VO 37 -2 -2 .0 00 PE ti TH 81 4- 1- 00 00 RS ve YR 81 20 20 55 OX 37 17 17 37 FA IN 7 65 MO E LY [address] MC UG G TA BL ET CL 00 03 04 90 30 00 SO Ac ON 18 -2 -2 .0 00 PE ti AZ 50 4- 1- 00 00 RS ve EP 06 20 20 55 AM 30 17 17 96 FA 5 78 MO 0. LY [address] UG TA BL ET PH 75 03 04 9. 3 00 SO Ac EN 82 -2 -2 00 00 PE ti AZ 60 4- 1- 0 00 RS ve OP 11 20 20 55 YR 41 17 17 96 FA ID 0 79 MO IN LY E 10 DR 0 UG MG TA B CI 16 03 04 20 10 00 SO Ac WA 57 -2 -2 .0 00 PE ti OF 10 4- 1- 00 00 RS ve LO 41 20 20 55 XA 25 17 17 96 FA CI 0 80 MO N LY HC L DR 50 UG 0 MG TA B WA 68 03 04 30 30 00 SO Ac AV 46 -2 -1 .0 00 PE ti 20 1- 4- 00 00 RS ve TA 19 20 20 54 TI 59 17 17 84 FA N 0 18 MO SO LY DI UM DR UG 10 MG TA B GA 69 03 04 90 30 00 SO Ac BA 09 -1 -0 .0 00 PE ti PE 70 5- 7- 00 00 RS ve NT 81 20 20 55 IN 21 17 17 37 FA 2 64 MO [address] UG TA BL ET TI 57 03 03 60 30 00 SO Ac ZA 66 -0 -3 .0 00 PE ti NI 40 3- 1- 00 00 RS ve DI 50 20 20 55 NE 31 17 17 77 FA 8 95 MO HC LY L 4 DR MG UG TA BL ET CL 00 02 03 90 30 00 SO Ac ON 18 -2 -1 .0 00 PE ti AZ 50 1- 7- 00 00 RS ve EP 06 20 20 55 AM 30 17 17 68 FA 5 48 MO 0. LY [address] UG TA BL ET GA 69 02 03 90 30 00 SO Ac BA 09 -1 -1 .0 00 PE ti PE 70 3- 0- 00 00 RS ve NT 81 20 20 55 IN 21 17 17 37 FA 2 64 MO [address] UG TA BL ET DU 57 02 03 60 30 00 SO Ac LO 23 -1 -1 .0 00 PE ti XE 70 0- 0- 00 00 RS ve TI 01 20 20 54 NE 99 17 17 84 FA 9 20 MO HC LY L DR UG 60 MG CA P LA 51 02 03 30 30 00 SO Ac MO 67 -1 -1 .0 00 PE ti TR 24 0- 0- 00 00 RS ve IG 13 20 20 54 IN 30 17 17 84 FA E 4 23 MO [address] ABRIL TA BL ET ME 62 02 03 30 30 00 SO Ac TO 03 -1 -1 .0 00 PE ti WA 70 0- 0- 00 00 RS ve OL 83 20 20 54 OL 11 17 17 81 FA 0 56 MO [place] LY CC DR ER UG 50 MG TA B WA 68 02 03 30 30 00 SO Ac AV 46 -1 -1 .0 00 PE ti 20 0- 0- 00 00 RS ve TA 19 20 20 54 TI 59 17 17 84 FA N 0 18 MO SO LY DI UM DR UG 10 MG TA B VE 00 02 03 18 25 00 SO Ac NT 17 -1 -1 .0 00 PE ti OL 30 0- 0- 00 00 RS ve IN 68 20 20 53 22 17 17 86 FA HF 0 44 MO A LY 90 DR MC UG G IN KENNY LE R TI 57 01 02 60 30 00 SO Ac ZA 66 -3 -2 .0 00 PE ti NI 40 1- 4- 00 00 RS ve DI 50 20 20 54 NE 31 17 17 84 FA 8 19 MO HC LY L 4 DR MG UG TA BL ET CL 00 05 02 89 30 00 SO Ac ON 18 -1 -1 .0 00 PE ti AZ 50 7- 0- 00 00 RS ve EP 06 20 20 55 AM 30 17 17 37 FA 5 63 MO 0. LY [address] UG TA BL ET LE 00 05 02 30 30 00 SO Ac VO 37 -1 -1 .0 00 PE ti TH 81 7- 0- 00 00 RS ve YR 81 20 20 55 OX 37 17 17 37 FA IN 7 65 MO E LY [address] DAHIANA UG G TA BL ET GA 69 05 02 89 30 00 SO Ac BA 09 -1 -1 .0 00 PE ti PE 70 2- 0- 00 00 RS ve NT 81 20 20 54 IN 21 17 17 08 FA 2 85 MO [address] UG TA BL ET TI 57 12 60 30 00 SO Ac ZA 66 -2 -2 .0 00 PE ti NI 40 3- 0- 00 00 RS ve DI 50 20 20 54 NE 31 16 17 84 FA 8 19 MO HC LY L 4 DR MG UG TA BL ET LA 51 12 30 30 00 SO Ac MO 67 -0 -0 .0 00 PE ti TR 24 9- 9- 00 00 RS ve IG 13 20 20 54 IN 30 16 17 84 FA E 4 23 MO [address] UG TA BL ET IB 67 12 30 00 SO Ac UP 87 -0 -0 .0 00 PE ti RO 70 9- 9- 00 00 RS ve FE 32 20 20 54 N 10 16 17 69 FA 80 5 72 MO [address] TA UG BL ET ME 62 12 30 30 00 SO Ac TO 03 -0 -0 .0 00 PE ti WA 70 9- 9- 00 00 RS ve OL 83 20 20 54 OL 11 16 17 81 FA 0 56 MO [place] LY CC DR ER UG 50 MG TA B DU 57 12 60 30 00 SO Ac LO 23 -0 -0 .0 00 PE ti XE 70 9- 9- 00 00 RS ve TI 01 20 20 54 NE 99 16 17 84 FA 9 20 MO HC LY L DR DR UG 60 MG CA P CL 00 03 31 90 30 00 SO Ac ON 18 -0 -0 .0 00 PE ti AZ 50 8- 9- 00 00 RS ve EP 06 20 20 55 AM 31 16 17 05 FA 0 57 MO 0. LY [address] UG TA BL ET WA 68 12 01 30 30 00 SO Ac AV 46 -0 -0 .0 00 PE ti 20 9- 9- 00 00 RS ve TA 19 20 20 54 TI 59 16 17 84 FA N 0 18 MO SO LY DI UM DR UG 10 MG TA B LE 00 12 01 30 30 00 SO Ac VO 37 -0 -0 .0 00 PE ti TH 81 9- 9- 00 00 RS ve YR 81 20 20 54 OX 37 16 17 80 FA IN 7 75 MO E LY [address] DAHIANA UG G TA BL ET GA 69 12 01 90 30 00 SO Ac BA 36 -1 -0 .0 00 PE ti PE 70 3- 9- 00 00 RS ve NT 13 20 20 54 IN 40 16 17 08 FA 6 85 MO [address] ABRIL TA BL ET GA 68 08 10 5 30 30 SO 38 BE Ac BA 46 -1 -2 .0 PE 17 SS ti PE 20 9- 8- 00 RS 78 ON ve NT 12 20 20 IN [address] 5 MO EP 60 LY HE [address] Kevin SAMUELS TA BL ET LE 00 09 10 5 30 30 SO 38 BE Ac VO 52 -2 -2 .0 PE 52 SS ti TH 71 6- 6- 00 RS 17 ON ve YR 34 20 20 OX [address] IN 0 MO EP E LY HE [address] Kevin TALBOT UG G TA BL ET WA 60 10 10 0 12 6 SO 38 HU Ac OM 43 -1 -1 0. PE 68 NT ti ET 20 2- 2- 00 RS 25 ER ve KENNY 60 20 20 0 ZI 41 11 11 FA NA NE 6 MO NC -D LY Y M C SY DR PIERRE UG P 00 10 10 0 30 7 SO 38 MC Ac 59 -0 -0 .0 PE 58 KE ti 10 3- 3- 00 RS 61 MO ve 34 20 20 E 90 11 11 FA JR 5 MO LY WI LL DR IA UG M F GA 68 08 09 5 30 30 SO 38 BE Ac BA 46 -1 -3 .0 PE 17 SS ti PE 20 9- 0- 00 RS 78 ON ve NT 12 20 20 IN [address] 5 MO EP 60 LY HE [address] A UG TA BL ET CY 59 09 09 0 7. 7 SO 38 HU Ac CL 74 -2 -2 00 PE 54 NT ti OB 60 8- 9- 0 RS 82 ER ve EN 21 20 20 ZA 11 11 11 FA NA WA 0 MO NC IN LY Y E C 5 DR UG TA BL ET 59 08 09 5 8. 15 SO 38 BE Ac 31 -1 -2 50 PE 17 SS ti 00 9- 8- 0 RS 75 ON ve 57 20 20 [address] 0 MO EP LY HE N DR Kevin SAMUELS CI 65 08 09 5 30 30 SO 38 BE Ac TA 16 -1 -2 .0 PE 17 SS ti LO 20 9- 8- 00 RS 76 ON ve WA 05 20 20 AM [address] 0 MO EP HB LY HE R N 40 DR Kevin SAMUELS MG TA BL ET 00 09 09 0 30 7 SO 38 BE Ac 59 -2 -2 .0 PE 52 SS ti 10 6- 6- 00 RS 15 ON ve 34 20 20 [address] 5 MO EP LY HE N DR Brown UG 00 09 09 0 55 10 SO 38 BE Ac 14 -2 -2 .0 PE 52 SS ti 31 6- 6- 00 RS 16 ON ve 47 20 20 [address] 0 MO EP LY HE N DR Kevin SAMUELS LE 00 09 09 5 30 30 SO 38 BE Ac VO 52 -2 -2 .0 PE 52 SS ti TH 71 6- 6- 00 RS 17 ON ve YR 34 20 20 OX [address] IN 0 MO EP E LY HE [address] Kevin TALBOT UG G TA BL ET GA 68 08 09 5 30 30 SO 38 BE Ac BA 46 -1 -0 .0 PE 17 SS ti PE 20 9- 2- 00 RS 78 ON ve NT 12 20 20 IN [address] 5 MO EP 60 LY HE [address] Brown UG TA BL ET 00 08 08 0 12 30 SO 38 MC Ac 59 -1 -2 0. PE 18 KE ti 10 9- 3- 00 RS 07 MO ve 34 20 20 0 E 90 11 11 FA JR 5 MO LY WI LL DR ZHENG SAMUELS M F 59 08 08 5 8. 15 SO 38 BE Ac 31 -1 -1 50 PE 17 SS ti 00 9- 9- 0 RS 75 ON ve 57 20 20 [address] 0 MO EP LY HE N DR Kevin SAMUELS CI 65 08 08 5 30 30 SO 38 BE Ac TA 16 -1 -1 .0 PE 17 SS ti LO 20 9- 9- 00 RS 76 ON ve WA 05 20 20 AM [address] 0 MO EP HB LY HE R N 40 DR A UG MG TA BL ET ET 51 08 08 2 60 30 SO 38 BE Ac OD 67 -1 -1 .0 PE 17 SS ti OL 24 9 00 RS 77 ON ve AC 01 20 20 [address] 40 1 MO EP 0 LY HE MG N DR A TA UG BL ET GA 00 06 07 1 30 30 SO 37 HU Ac BA 22 -2 -2 .0 PE 72 NT ti PE 82 8- 8- 00 RS 96 ER ve NT 63 20 20 IN 65 11 11 FA NA 0 MO NC 60 LY Y [address] UG TA BL ET 00 06 06 0 55 10 SO 37 HU Ac 14 -2 -2 .0 PE 74 NT ti 31 9 9 00 RS 13 ER ve 47 20 20 51 11 11 FA NA 0 MO NC LY Y C DR UG IB 55 06 06 0 90 30 SO 37 FL Ac UP 11 -2 -2 .0 PE 72 OR ti RO 10 8- RS 95 EN ve FE 68 20 20 CE N 40 11 11 FA 80 5 MO SA 0 LY RA MG H DR L TA UG BL ET GA 00 06 06 1 30 30 SO 37 FL Ac BA 22 -2 -2 .0 PE 72 OR ti PE 82 8- 8- 00 RS 96 EN ve NT 63 20 20 CE IN 65 11 11 FA 0 MO SA 60 LY RA [address] L UG TA BL ET GA 68 05 05 2 30 30 HO 10 HU Ac BA 46 -3 -3 .0 PK 17 NT ti PE 20 1- 1- 00 IN 01 ER ve NT 12 20 20 S 0 IN [address] NA 1 UG NC 60 Y 0 CO C MG MP AN TA Y BL IN ET C AZ 59 05 05 6. 5 HO 10 HU Ac IT 76 -2 -2 00 PK 16 NT ti HR 23 7- 7- 0 IN 99 ER ve OM 06 20 20 S 0 YC [address] NA IN 1 UG NC Y 25 CO C 0 MP MG AN Y TA IN BL C ET WA 60 05 05 12 6 HO 10 HU Ac OM 43 -2 -2 0. PK 16 NT ti ET 20 7- 7- 00 IN 99 ER ve KENNY 60 20 20 0 S 1 ZI [address] ISAURO NE 6 UG NC -D Y M CO C SY MP RU AN P Y IN C WA 00 05 05 14 7 HO 10 HU Ac ED 60 -2 -2 .0 PK 16 NT ti NI 35 7- 7- 00 IN 99 ER ve SO 33 20 20 S 2 NE [address] UG NC 10 Y CO C MG MP AN TA Y BL IN ET C LE 00 05 05 0 90 90 KR 61 LA Ac VO 52 -2 -2 .0 OG 23 WS ti TH 71 5- 5- 00 ER 60 ON ve YR 34 20 20 0 OX 31 11 11 PH IN [address] E MA OR 75 CY G # MC G 24 TA 71 BL 2 ET GA 53 03 05 5 30 30 HO 10 HU Ac BA 74 -0 -0 .0 PK 15 NT ti PE 60 2- 2- 00 IN 50 ER ve NT 10 20 20 S 8 IN [address] UG NC 30 Y 0 CO C MG MP AN CA Y PS IN UL C E GA 53 03 03 5 30 30 HO 10 HU Ac BA 74 -0 -3 .0 PK 15 NT ti PE 60 2- 1- 00 IN 50 ER ve NT 10 20 20 S 8 IN [address] UG NC 30 Y 0 CO C MG MP AN CA Y PS IN UL C E 00 03 03 30 7 HO 10 MC Ac 59 -1 -1 .0 PK 15 KE ti 10 0- 0- 00 IN 74 MO ve 34 20 20 S 9 E [address] MOJICA 5 UG WI CO LL MP IA AN M Y F IN C WA 00 03 03 55 10 HO 10 HU Ac ED 60 -0 -0 .0 PK 15 NT ti NI 35 3- 3- 00 IN 53 ER ve SO 33 20 20 S 3 NE [address] 1 UG NC Y MG CO C MP TA AN BL Y ET IN C GA 53 03 03 5 30 30 HO 10 HU Ac BA 74 -0 -0 .0 PK 15 NT ti PE 60 2- 2- 00 IN 50 ER ve NT 10 20 20 S 8 IN [address] UG NC 30 Y 0 CO C MG MP AN CA Y PS IN UL C E 00 03 03 30 7 HO 10 HU Ac 59 -0 -0 .0 PK 15 NT ti 10 2- 2- 00 IN 50 ER ve 34 20 20 S [address] UG NC Y CO C MP AN Y IN C AM 00 03 03 5 30 30 HO 10 HU Ac IT 60 -0 -0 .0 PK 15 NT ti RI 32 2- 2- 00 IN 50 ER ve PT 21 20 20 S 5 YL [address] NA IN 2 UG NC E Y HC CO C L MP 50 AN Y MG IN C TA B CI 13 03 03 4. 7 HO 10 HU Ac TA 66 -0 -0 00 PK 15 NT ti LO 80 2- 2- 0 IN 50 ER ve WA 01 20 20 S 3 AM [address] NA 1 UG NC HB Y R CO C 20 MP AN MG Y IN TA C BL ET IB 55 07 01 3 90 30 HO 10 FL Ac UP 11 -3 -2 .0 PK 10 OR ti RO 10 0- 5- 00 IN 05 EN ve FE 68 20 20 S 2 CE N [address] 80 5 UG SA 0 RA MG CO H MP L TA AN BL Y ET IN C GA 62 08 01 2 30 30 HO 10 MC Ac BA 75 -2 -2 .0 PK 10 KE ti PE 60 5- 5- 00 IN 04 MO ve NT 13 20 20 S 1 E IN [address] JR 5 UG 30 WI 0 CO LL MG MP IA AN M CA Y F PS IN UL C E 59 12 01 3 8. 25 HO 10 BE Ac 31 -0 -2 50 PK 13 SS ti 00 8- 5- 0 IN 40 ON ve 57 20 20 S [address] 0 UG EP HE CO N MP A AN Y IN C LE 00 01 01 4 90 90 KR 60 LA Ac VO 52 -0 -0 .0 OG 31 WS ti TH 71 7- 1- 00 ER 84 ON ve YR 34 20 20 2 OX 31 10 11 PH IN [address] E MA OR 75 CY G # MC G 24 TA 71 BL 2 ET 00 12 12 30 7 HO 10 BE Ac 59 -2 -2 .0 PK 13 SS ti 10 3- 3- 00 IN 82 ON ve 34 20 20 S [address] 5 UG EP HE CO N MP A AN Y IN C 00 12 12 30 7 HO 10 BE Ac 59 -0 -0 .0 PK 13 SS ti 10 8- 8- 00 IN 41 ON ve 34 20 20 S [address] 5 UG EP HE CO N MP A AN Y IN C GA 62 08 12 2 30 30 HO 10 MC Ac BA 75 -2 -0 .0 PK 10 KE ti PE 60 5- 8- 00 IN 04 MO ve NT 13 20 20 S 1 E IN [address] JR 5 UG 30 WI 0 CO LL MG MP IA AN M CA Y F PS IN UL C E 59 12 12 3 8. 25 HO 10 BE Ac 31 -0 -0 50 PK 13 SS ti 00 8- 8- 0 IN 40 ON ve 57 20 20 S [address] 0 UG EP HE CO N MP A AN Y IN C WA 37 12 12 2 56 28 HO 10 HU Ac IL 00 -0 -0 .0 PK 13 NT ti OS 00 8- 8- 00 IN 40 ER ve EC 45 20 20 S [address] NA OT 3 UG NC C Y 20 CO C .6 MP AN MG Y IN TA C BL ET WA 00 12 12 30 15 HO 10 HU Ac ED 60 -0 -0 .0 PK 13 NT ti NI 35 8- 8- 00 IN 39 ER ve SO 33 20 20 S 9 NE [address] NA 2 UG NC 10 Y CO C MG MP AN TA Y BL IN ET C LE 00 01 09 4 90 90 KR 60 LA Ac VO 52 -0 -3 .0 OG 31 WS ti TH 71 7- 0- 00 ER 84 ON ve YR 34 20 20 2 OX 31 10 10 PH IN [address] E MA OR 75 CY G # MC G 24 TA 71 BL 2 ET GA 62 08 08 2 30 30 HO 10 MC Ac BA 75 -2 -2 .0 PK 10 KE ti PE 60 5- 5- 00 IN 04 MO ve NT 13 20 20 S 1 E IN [address] JR 5 UG 30 WI 0 CO LL MG MP IA AN M CA Y F PS IN UL C E IB 55 07 08 3 90 30 HO 10 FL Ac UP 11 -3 -2 .0 PK 10 OR ti RO 10 0- 5- 00 IN 05 EN ve FE 68 20 20 S 2 CE N [address] 80 5 UG SA 0 RA MG CO H MP L TA AN BL Y ET IN C 00 06 06 0 24 4 KR 45 MC Ac 59 -2 -2 .0 OG 64 LA ti 10 5- 5- 00 ER 57 UR ve 54 20 20 5 IN 00 10 10 PH 5 AR DO MA NA CY LD # R 24 70 9 IB 53 06 06 0 30 7 KR 64 MC Ac UP 74 -2 -2 .0 OG 33 LA ti RO 60 5- 5- 00 ER 44 UR ve FE 46 20 20 3 IN N 60 10 10 PH 80 5 AR DO 0 MA NA MG CY LD # R TA BL 24 ET 70 9 AM 65 06 06 0 21 7 KR 64 MC Ac OX 86 -2 -2 .0 OG 33 LA ti IC 20 5- 5- 00 ER 44 UR ve IL 01 20 20 4 IN LI 70 10 10 PH N 5 AR DO 50 MA NA 0 CY LD MG # R CA 24 PS 70 UL 9 E 00 06 06 0 24 4 KR 45 MC Ac 59 -2 -2 .0 OG 64 LA ti 10 5- 5- 00 ER 57 UR ve 54 20 20 5 IN 00 10 10 PH 5 AR DO MA NA CY LD # R 24 70 9 59 06 06 8. 25 HO 10 HU Ac 31 -2 -2 50 PK 08 NT ti 00 4- 4- 0 IN 42 ER ve 57 20 20 S [address] NA 0 UG NC Y CO C MP AN Y IN C DO 00 06 06 20 10 HO 10 BE Ac XY 14 -1 -1 .0 PK 08 SS ti CY 33 4- 4- 00 IN 18 ON ve CL 14 20 20 S 2 IN [address] E 5 UG EP HY HE CL CO N AT MP A E AN 10 Y 0 IN MG C CA P 60 06 06 1 12 2 HO 10 BE Ac 25 -1 -1 0. PK 08 SS ti 80 4- 4- 00 IN 18 ON ve 23 20 20 0 S [address] 6 UG EP HE CO N MP A AN Y IN C LE 00 01 06 4 90 90 KR 60 LA Ac VO 52 -0 -0 .0 OG 31 WS ti TH 71 7- 3- 00 ER 84 ON ve YR 34 20 20 2 OX 30 10 10 PH IN [address] E MA OR 75 CY G # MC G 24 TA 71 BL 2 ET 00 04 04 60 10 HO 10 HU Ac 59 -0 -0 .0 PK 06 NT ti 10 2- 2- 00 IN 07 ER ve 34 20 20 S [address] NA 5 UG NC Y CO C MP AN Y IN C 00 03 03 30 5 HO 10 BE Ac 59 -2 -2 .0 PK 05 SS ti 10 6- 6- 00 IN 88 ON ve 34 20 20 S [address] 5 UG EP HE CO N MP A AN Y IN C 00 03 03 30 6 HO 10 BE Ac 59 -2 -2 .0 PK 05 SS ti 10 2- 2- 00 IN 74 ON ve 34 20 20 S [address] 5 UG EP HE CO N MP A AN Y IN C 59 06 03 4 8. 25 HO 10 HU Ac 31 -1 -2 50 PK 00 NT ti 00 6- 2- 0 IN 35 ER ve 57 20 20 S [address] NA 0 UG NC Y CO C MP AN Y IN C ME 51 03 03 21 6 HO 10 FL Ac TH 99 -1 -1 .0 PK 05 OR ti YL 10 2- 2- 00 IN 40 EN ve WA 18 20 20 S 8 CE ED [address] NI 1 UG SA SO RA LO CO H NE MP L 4 AN Y MG IN C DO SE PK DI 16 03 03 1 60 30 HO 10 FL Ac CL 57 -1 -1 .0 PK 05 OR ti OF 10 2- 2- 00 IN 40 EN ve EN 20 20 20 S 7 CE AC [address] 0 UG SA SO RA D CO H EC MP L AN 75 Y IN MG C TA B LE 00 01 02 00 90 90 KR 60 LA Ac VO 52 -0 -1 .0 OG 31 WS ti TH 71 7- 1- 00 ER 84 ON ve YR 34 20 20 2 OX 30 10 10 PH IN [address] E M OR 75 L- G 71 MC 2 G TA BL ET IB 53 01 02 00 30 7 KR 60 MC Ac UP 74 -2 -1 .0 OG 31 LA ti RO 60 9- 1- 00 ER 84 UR ve FE 46 20 20 1 IN N 60 10 10 PH 80 5 AR DO 0 M NA MG L- LD 71 R TA 2 BL ET 00 01 02 00 24 4 KR 44 MC Ac 60 -2 -1 .0 OG 94 LA ti 33 9- 1- 00 ER 08 UR ve 88 20 20 1 IN 82 10 10 PH 8 AR DO M NA L- LD 71 R 2 PE 67 12 12 00 30 7 HO 10 AL Ac NI 25 -2 -3 .0 PK 02 LE ti CI 30 2- 1- 00 IN 92 N ve LL 20 20 20 S 2 BR IN [address] AN 0 UG DO VK N CO I 50 0 IN MG C TA BL ET 59 06 12 01 8. 25 HO 10 HU Ac 31 -1 -1 50 PK 00 NT ti 00 6- 7- 0 IN 35 ER ve 57 20 20 S [address] NA 0 UG NC Y CO C IN C CE 65 11 12 00 28 7 HO 10 HERRERA Ac PH 86 -3 -1 .0 PK 02 SE ti AL 20 0- 7- 00 IN 12 ve EX 01 20 20 S 0 T. IN [address] 5 UG LO 50 RE 0 CO NZ MG O IN MD CA C PS HERRERA UL SE E 59 06 10 00 8. 25 HO 10 HU Ac 31 -1 -2 50 PK 00 NT ti 00 6- 2- 0 IN 35 ER ve 57 20 20 S [address] NA 0 UG NC Y CO C IN C LE 00 03 10 02 90 90 HO 99 LA Ac VO 37 -0 -2 .0 PK 32 WS ti TH 81 3- 2- 00 IN 75 ON ve YR 80 20 20 S OX [address] IN [address] E OR 75 CO G MC IN G C TA BL ET AM 65 09 09 00 30 10 KR 60 SA Ac OX 86 -1 -2 .0 OG 05 MA ti IC 20 3- 4- 00 ER 92 DI ve IL 01 20 20 8 LI 70 09 09 PH N 5 AR JA 50 M YA 0 L- MG 71 2 CA PS UL E CY 59 09 09 00 60 30 HO 99 HU Ac CL 74 -0 -1 .0 PK 89 NT ti OB 60 3- 0- 00 IN 26 ER ve EN 17 20 20 S ZA [address] [place] 6 UG NC IN Y E CO C 10 IN MG C TA BL ET WA 00 09 09 00 36 12 HO 99 HU Ac ED 59 -0 -1 .0 PK 89 NT ti NI 15 3- 0- 00 IN 27 ER ve SO 44 20 20 S NE [address] UG NC 10 Y CO C MG IN TA C BL ET 00 08 08 00 28 7 HO 99 BE Ac 14 -1 -2 .0 PK 81 SS ti 31 3- 7- 00 IN 87 ON ve 47 20 20 S [address] 1 UG EP HE CO N A IN C ET 51 07 08 00 60 30 HO 99 HU Ac OD 67 -3 -1 .0 PK 78 NT ti OL 24 1- 3- 00 IN 31 ER ve AC 01 20 20 S [address] 1 UG NC 0 Y MG CO C TA IN BL C ET CY 00 07 08 00 30 30 HO 99 HU Ac CL 59 -3 -1 .0 PK 78 NT ti OB 13 1- 3- 00 IN 30 ER ve EN 25 20 20 S ZA [address] NA WA 1 UG NC IN Y E CO C 5 MG IN C TA BL ET 59 06 07 00 8. 25 HO 99 HU Ac 31 -1 -0 50 PK 65 NT ti 00 6- 2- 0 IN 35 ER ve 57 20 20 S [address] NA 0 UG NC Y CO C IN C LE 00 03 07 01 90 90 HO 99 LA Ac VO 37 -0 -0 .0 PK 32 WS ti TH 81 3- 2- 00 IN 75 ON ve YR 80 20 20 S OX [address] IN [address] E OR 75 CO G MC IN G C TA BL ET 59 05 05 00 8. 17 HO 99 HU Ac 31 -1 -2 50 PK 57 NT ti 00 4- 1- 0 IN 01 ER ve 57 20 20 S [address] NA 0 UG NC Y CO C IN C 00 05 05 00 24 4 KR 44 MC Ac 60 -0 -2 .0 OG 59 LA ti 33 4- 1- 00 ER 02 UR ve 88 20 20 3 IN 82 09 09 PH 8 AR DO M NA L- LD 71 R 2 AM 00 03 03 00 30 30 HO 99 HU Ac IT 78 -2 -2 .0 PK 39 NT ti RI 11 0- 6- 00 IN 63 ER ve PT 48 20 20 S YL [address] NA IN 1 UG NC E Y HC CO C L 25 IN C MG TA B 59 04 03 01 8. 17 HO 99 HU Ac 31 -0 -1 50 PK 21 NT ti 00 9- 2- 0 IN 16 ER ve 57 20 20 S [address] NA 0 UG NC Y CO C IN C LE 00 03 03 00 90 90 HO 99 LA Ac VO 37 -0 -1 .0 PK 32 WS ti TH 81 3- 2- 00 IN 75 ON ve YR 80 20 20 S OX [address] IN [address] E OR 75 CO G MC IN G C TA BL ET 59 04 01 00 8. 17 HO 99 HU Ac 31 -0 -3 50 PK 21 NT ti 00 9- 0- 0 IN 16 ER ve 57 20 20 S [address] NA 0 UG NC Y CO C IN C LE 00 01 01 00 30 30 HO 99 LA Ac VO 37 -2 -3 .0 PK 21 WS ti TH 81 1- 0- 00 IN 15 ON ve YR 80 20 20 S OX [address] IN [address] E OR 75 CO G MC IN G C TA BL ET 00 12 12 00 24 4 WA 44 MO Ac 40 -0 -1 .0 L- 72 RR ti 60 2- 8- 00 MA 44 IS ve 36 20 20 RT 5 30 08 08 RO 1 PH BE AR RT MA H CY #1 14 0 VE 68 10 11 00 56 28 HO 98 No Ac NL 38 -2 -0 .0 PK 91 t ti AF 20 2- 7- 00 IN 74 Av ve AX 01 20 20 S ai IN [address] sheryl E 1 UG bl HC e L CO 25 IN MG C TA BL ET TR 51 10 11 00 30 7 HO 98 No Ac IA 67 -2 -0 .0 PK 91 t ti MC 21 1- 7- 00 IN 36 Av ve IN 28 20 20 S ai OL [address] saucedo ON 2 UG bl E e 0. CO 1% IN CR C EA M AM 00 10 11 00 30 30 HO 98 No Ac IT 78 -2 -0 .0 PK 91 t ti RI 11 1- 7- 00 IN 37 Av ve PT 48 20 20 S ai YL [address] saucedo IN 1 UG bl E e HC CO L 25 IN C MG TA B LE 00 10 10 03 90 90 HO 97 No Ac VO 37 -2 -2 .0 PK 96 t ti TH 81 9- 3- 00 IN 15 Av ve YR 80 20 20 S ai OX [address] saucedo IN 1 UG bl E e 75 CO MC IN G C TA BL ET LE 00 10 07 02 90 90 HO 97 No Ac VO 37 -2 -1 .0 PK 96 t ti TH 81 9- 7- 00 IN 15 Av ve YR 80 20 20 S ai OX [address] saucedo IN 1 UG bl E e 75 CO MC IN G C TA BL ET 59 04 07 01 17 20 HO 98 No Ac 93 -0 -1 .0 PK 31 t ti 01 9- 7- 00 IN 54 Av ve 56 20 20 S ai [address] saucedo 1 UG bl e CO IN C VE 00 04 04 00 60 30 HO 98 No Ac NL 09 -0 -2 .0 PK 31 t ti AF 37 9- 4- 00 IN 58 Av ve AX 38 20 20 S ai IN [address] saucedo E 1 UG bl HC e L CO 75 IN MG C TA BL ET 59 04 04 00 17 20 HO 98 No Ac 93 -0 -2 .0 PK 31 t ti 01 9- 4- 00 IN 54 Av ve 56 20 20 S ai [address] saucedo 1 UG bl e CO IN C TR 51 04 04 00 30 14 HO 98 No Ac IA 67 -0 -2 .0 PK 31 t ti MC 21 9- 4- 00 IN 56 Av ve IN 28 20 20 S ai OL [address] saucedo ON 2 UG bl E e 0. CO 1% IN CR C EA M LE 00 10 04 01 90 90 HO 97 No Ac VO 37 -2 -1 .0 PK 96 t ti TH 81 9- 0- 00 IN 15 Av ve YR 80 20 20 S ai OX [address] saucedo IN 1 UG bl E e 75 CO MC IN G C TA BL ET Immunization Name Date Rout CVX Reac Dose Comm Prov Is Faci e tion ent ider Refu lity Give sed n IIV3 10-2 141 ALCALA No KATIE 7-20 ER [place] VACC 16 NAN INE COUN SPLI TY T URGE VIRU NT S TU 0.5 T ML DOSA GE IM USE Procedures Procedure DOS Code Location Performer Comment CURRENT 1034F [employer] TOBACCO 7 HEALTH SMOKER SOLUTIONS IN TOBACCO 1000F [employer] USE 7 HEALTH ASSESSED SOLUTIONS IN BODY MASS 3008F [employer] INDEX 7 HEALTH DOCUMENTE SOLUTIONS D IN RADEX 47582 [place] [place] [facility] SPINE 7 MEDICAL LUMBOSACR IMAGING AL ASS MINIMUM 4 VIEWS SUSCEPTIB 75560 [facility] LTY STDY 7 POPPY POPPY ANTIMICRB HOLDINGS HOLDINGS IAL MICRO/AGA R DILUTJ CULTURE 54886 [facility] BACTERIAL 7 POPPY POPPY [facility] HOLD[facility] QUANTTATI VE COLONY COUNT URINE CULTURE 21223 [facility] BCT 7 POPPY POPPY ISOL&PRSM HOLDINGS HOLDINGS PTV ID ISOLATE EA URINE IIV3 [id number] JOSY PICKARD VACCINE 6 [facility] SPLIT URGENT VIRUS 0.5 TREAT ML DOSAGE IM USE IM ADM 08322 JOSY PICKARD PRQ ID 6 [facility] SUBQ/IM URGENT NJXS 1 TREAT VACCINE CYTP 28706 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/ 6 Y [facility] OF Y [facility] OF VAGINAL POPPY POPPY REQ H H INTERP PHYSICIAN CYTP C/V 10-25-201 36445 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 AUTO THIN 6 Y [facility] OF Y [facility] OF LYR POPPY POPPY PREPJ [place] [address] [facility] THYROID 6 POPPY POPPY STIMULATI [place] [address] [facility] TRANSVAGI 6 [facility] NAL [facility] HOSPITAL G0463 L[facility] OUTPATIEN 6 [facility] T CLIN INC [place] VISIT [place] [address] [facility] THYROID 6 POPPY POPPY STIMULATI [place] [address] [place] [facility] ALL ABDOMINAL 6 MEDICAL REAL IMAGING TIME ASS W/IMAGE LIMITED OPHTH 31914 AMY REYES MEDICAL 6 JUS JUS XM&EVAL COMPRE NEW PT 1/> VST COMPUTERI 19811 AMY REYES ZED 6 JUS JUS OPHTHALMI C IMAGING RETINA URINE 53623 JOSY PICKARD 5 [facility] URGENT VISUAL TREAT COLOR CMPRSN [facility] RAD[facility]I [address] EXAMINATI CLINIC ON KNEE PPLLC 1/[address] [place] [address] [facility] HEAD/BRAI 5 [facility] N W/O INC INC CONTRAST MATERIAL ELECTROEN 32409 [facility] CEPHALOGR 5 [facility] AM W/REC INC INC AWAKE&KACY WSY 3D 14077 [facility] RENDERING 5 [facility] W/INTERP INC INC & POSTPROCE SS SUPERVISI ON MRI 48526 [facility] SPINAL 5 [facility] CANAL INC INC LUMBAR W/O CONTRAST MATERIAL PHYSICAL 38542 [facility] THERAPY 5 [facility] RADIOLOGI 93642 [facility] EXAM 5 CHEST 2 VIEWS FRONTAL&L ATERAL XTRNL 64079 HABASH HABASH OCULAR 4 LUZ LUZ PHOTOG W/I&R DOCMT MEDICAL PROGRE VISUAL 05387 HABASH HABASH FIELD XM 4 LUZ LUZ UNI/BI W/INTERP INTERMED EXAM FUNDUS 83828 [facility]ASH HABASH PHOTOGRAP 4 LUZ LUZ HY W/INTERPR ETATION & REPORT 3D 64283 MICKY PERKINSUTCHER RENDERING 4 MEDICAL ANKIT W/INTERP IMAGING & ASS POSTPROCE SS SUPERVISI ON MRI 88614 [facility] SPINAL 4 [facility] CANAL INC INC LUMBAR W/O CONTRAST MATERIAL BLOOD 33646 [facility] AHMET PERIPHERA L INTERP PHYS W/WRIT REPORT HANDLG&/O 21395 Arachno, R CONVEY 4 TECHNOLOGY AUDITOR TECHNOLOGY AUDITOR OF SPEC JOSY FERRIS FOR TR CO HOS CO HOS FROM PT TO LAB RADIOLOGI 73932 Arachno, C 4 TECHNOLOGY AUDITOR TECHNOLOGY AUDITOR EXAMINATI JOSY FERRIS ON KNEE 3 CO HOS CO HOS VIEWS RADIOLOGI 81186 [place] [facility] EXAM 4 [facility] KNEE RADIOLOGY COMPLETE ASSOCIAT 4/MORE VIEWS OPHTH 68180 SCIFRES SCIFRES MEDICAL 4 ANG ANG XM&EVAL COMPRE NEW PT 1/> VST ADMN SET A7003 YOUR YOUR SM VOL 1 PHARMACY [facility] PNEUMAT NEBULIZR DISPBL NEBULIZER E0570 NIC LUCERO WITH 1 HOME HOME COMPRESSO MEDICAL MEDICAL R EQUIPME EQUIPME MRI 56019 [facility] SPINAL 1 [facility] CANAL INC INC LUMBAR W/O CONTRAST MATERIAL 3D 82204 [facility] AGUERO RENDERING 1 [facility] W/INTERP INC INC & POSTPROCE SS SUPERVISI ON US SOFT 02914 MINERVA RUIZ TISSUE 1 [facility] & RADIOLOGY [place] [address] [place] ABDOMINAL 0 [facility] [place] REAL RADIOLOGY TIME ASSOCIAT W/IMAGE LIMITED SCANNING 64534 [facility] OPHTHALMI 0 [facility] POSTERIOR SGM UNI VISUAL 51615 [facility] FIELD XM 0 [facility] W/INTERP EXTENDED EXAM FUNDUS 25189 [facility], PHOTOGRAP [address] [facility] W/INTERPR ETATION & REPORT DETERMINA 74547 [facility], TION 0 [facility] [place] [address] LACI AGUERO THYROID 0 [facility] STIMULATI INC INC NG HORMONE TSH CALCIUM 16013 LACI AGUERO TOTAL 0 [place] [address] LACI AGUERO FREE 0 [facility] [place] [address] MARY C NATHANAEL, SPINAL 0 NATHANAEL MARY CANAL LUMBAR W/O CONTRAST MATERIAL ANTINUCLE 42566 JOSY FERRIS AR 0 CO CO ANTIBODIE [facility] S DEVIN RHEUMATOI 05894 JOSY FERRIS D FACTOR 0 CO CO QUANTITAT [facility] ESAU SEDIMENTA 55327 JOSY FERRIS TION RATE 0 CO CO RBC [facility] NON-AUTOM ATED RADEX HIP 95426 JOSY FERRIS 0 CO CO UNILATERA [facility] L COMPLETE MINIMUM 2 VIEWS BLOOD 87175 JOSY FERRIS COUNT 0 CO CO COMPLETE [facility] AUTO&AUTO DIFRNTL WBC COLLECTIO 35187 JOSY FERRIS N VENOUS 0 CO MS BLOOD [facility] VENIPUNCT URE COMPREHEN 45220 JOSY FERRIS SIVE 0 CO CO METABOLIC [facility] PANEL RADEX 53445 JOSY FERRIS SPINE 9 CO CO CERVICAL [facility] 4 OR 5 VIEWS RADEX 21673 LAUREN ALVES, SPINE 9 CLIFF S CERVICAL RADIOLOGY 6 OR MORE VIEWS ASSOCIATE S PSC RADEX 36476 JOSY FERRIS SPINE 9 CO CO LUMBOSACR [facility] AL MINIMUM 4 VIEWS URNLS DIP 41550 LICK[place] MCKEMIE 9 DYLAN JR, STICK/TAB INTERNAL NIKOLE F LET RGNT MED NON-AUTO W/[place] [address] LACI AGUERO THYROID 9 [facility] STIMULATI INC INC NG HORMONE TSH CALCIUM 62163 LACI LACI TOTAL 9 [place] [address] LACI AGUERO FREE 9 [facility] [place] [address] LACI AGUERO THYROXINE 9 [facility] TOTAL INC INC Encounters Encounter Start End Date Code Location Performer Type Date OFFICE 20787 [facility] OUTPATIEN 7 7 [facility]ALTH T VISIT SOLUTIONS 25 IN MINUTES [facility] - 6 6 [facility] T OFFICE 50364 BIRGIT ELDER [facility] OUTPATI[facility] 6 6 MD BECK, T NEW 30 PSC MINUTES [facility] - 6 6 [facility] LACI - 6 6 [facility] OUTPATIEN INC T OFFICE 71681 JOSY NEERAJ OUTPATIEN 6 6 [facility] T VISIT URGENT 25 TREAT MINUTES OFFICE 68317 LAKESHA CROWDER OUTPATIEN 6 6 [facility] ANG T NEW 45 MINUTES OFFICE 97311 TATUM MURPHY OUTPATIEN 6 6 [facility] VISIT CLINIC 25 PPLLC MINUTES OFFICE 59030 JOSY NEERAJ OUTPATIEN 5 5 [facility] T VISIT URGENT 10 TREAT MINUTES OFFICE 75473 TATUM KATHERINE OUTPATIEN 5 5 [facility] VISIT CLINIC 25 PPLLC MINUTES [facility]OSPITAL LACI - 5 5 [facility] INC T OFFICE 75845 JOSY NEERAJ OUTPATIEN 5 5 [facility] T VISIT URGENT 15 TREAT MINUTES HOSPITAL LACI - 5 5 [facility] OUTPATIEN INC T OFFICE 24708 TATUM ERNSTKATHERINE CONSULTAT 5 5 [facility] CLIN[facility] NEW/ESTAB PPLLC PATIENT 40 MIN OFFICE 92060 MT MARNI OUTPATIEN 5 5 [facility] [facility] [address] [facility] - 5 5 [facility] OUT[facility]IEN ANDRIA T OFFICE 96935 MARNI GRIDER OUTPATIEN 5 5 MEIR WORLEY T NEW 30 MINUTES OFFICE 58030 HABASH HABASH OUTPATIEN 4 4 LUZ LUZ T NEW 45 MINUTES OFFICE 13026 [facility] RYAN II OUTPATIEN 4 4 [facility] SLEEP ELA T VISIT AND REHA 25 MINUTES [facility]OSPITAL [facility] - 4 4 [facility] T OFFICE 24413 [facility] RYAN II OUTPATIEN 4 4 [facility] SLEEP ELA T NEW [address] [facility] - 4 4 [facility] T [facility] 01457 [facility] 4 [facility] T NEW 30 MINUTES OFFICE 92739 [facility] PETTEY OUTPATIEN 4 4 PHYSICIAN JAM T NEW 30 S GROUP MINUTES [facility]OSP[facility], - 4 4 TECHNOLOGY AUDITOR OUTPATIEN [facility], - 4 4 TECHNOLOGY AUDITOR OUTPATIEN JOS[facility] T [facility] OFFICE 68880 [facility] 1 1 [facility] T VISIT INTERNAL 15 MED MINUTES [facility]OSP[facility] - 1 1 [facility] T OFFICE 13715 NEERAJ NEERAJ OUTPATIEN 1 1 ARIANNA KELLER T VISIT 15 MINUTES OFFICE 78513 NEERAJ NEERAJ OUTPATIEN 1 1 ARIANNA KELLER T VISIT 15 MINUTES OFFICE 39479 [place] NEERAJ OUTPATIEN 1 1 DYLAN NAN T VISIT INTERNAL 15 MEDI MINUTES OFFICE 64585 [place] NEERAJ OUTPATIEN 1 1 DYLAN KELLER T VISIT INTERNAL 15 MEDI MINUTES OFFICE 57314 [place] NEERAJ OUTPATIEN 1 1 DYLAN KELLER T VISIT INTERNAL 15 MEDI MINUTES OFFICE 74905 [place] NEERAJ OUTPATIEN 1 1 DYLAN KELLER T VISIT INTERNAL 15 MEDI MINUTES OFFICE 59470 [place] NEERAJ OUTPATIEN 0 0 DYLAN KELLER T VISIT INTERNAL 10 MEDI MINUTES HOSPITAL [facility] - 0 0 [facility] T OFFICE 89657 [place] NEERAJ OUTPATIEN 0 0 DYLAN NAN T VISIT INTERNAL 15 MEDI MINUTES OFFICE 56652 [place] LISA OUTPATIEN 0 0 DYLAN VAZQUEZ T VISIT INTERNAL 15 MEDI MINUTES OFFICE 46214 [facility] 25 MINUTES OFFICE 35436 [facility], OUTPATIEN 0 0 IMPLANT & CAROL R T VISIT 5 ORAL MINUT[address] [facility] OFFICE 36998 [place] B[facility]ON, OUTPATIEN 0 0 [facility] T VISIT INTERNAL 15 MED MINUTES OFFICE 39988 [facility], OUTPATIEN 0 0 [facility] T NEW 45 CENTER MINUTES OFFICE 54760 [place] [facility], CONSULTAT 0 0 MEDICAL TEMITOPE MANTILLA SERV NEW/ESTAB FOUNDATIO PATIENT 40 MIN OFFICE 58713 [place] MCKEMIE OUTPATIEN 0 0 [facility], T VISIT INTERNAL NIKOLE F 10 MED MINUTES HOSPITAL [facility] - 0 0 [facility] OFF[facility] 94762 LISA LISA OUTPATIEN 0 0 [facility] VAZQUEZ T VISIT 15 MINUTES OFFICE 02998 [facility], OUTPATIEN 0 0 [facility] T VISIT INTERNAL 15 MED MINUTES HOSPITAL [facility] - 0 0 [facility] T EMERGENCY 09538 [facility] 9 9 [facility] LIMITED/M INOR PROB EMERGENCY 86164 JOSY MAO, 9 9 [facility] T VISIT MODERATE SEVERITY HOSPITAL JOSY - 9 9 [facility] T OFFICE 63116 [place] MCKEMIE OUTPATIEN 9 9 [facility], T VISIT INTERNAL NIKOLE F 15 MED MINUTES HOSPITAL JOSY - 9 9 [facility] T OFFICE 32584 [place] MCKEMIE OUTPATIEN 9 9 [facility], T VISIT INTERNAL NIKOLE F 15 MED MINUTES OFFICE 50126 MAHIN STOUT OUTPATIEN 9 9 [facility] N02 MIN[facility]ES OFF[facility] 18342 [place] MCKEMIE OUTPATIEN 9 9 [facility], T VISIT INTERNAL NIKOLE F 15 MED MINUTES [facility]OSP[facility] - 9 9 [facility] 32249 LAUREANO TINSLEY, OUTPATIEN 9 9 SHANT Don T VISIT 10 MINUTES OFFICE 35887 MAHIN BARAHONA OUTPATIEN 8 8 [facility]B [facility] N02 [facility]ES OFF[facility] 52699 [place] IVELISSE OUTPATIEN 8 8 DYLAN MARYCHUY Kevin T VISIT INTERNAL 15 MED MINUTES EMERGENCY 90418 JOSY MAO, 8 8 [facility] T [facility]ISIT LIMITED/M INOR PROB HOSPITAL JOSY - 8 8 [facility]
--- OUTSIDE RECORDS SUMMARY | 2017-02-12 03:08 | External Medical Summary Rpt | CCD ---
Author Author , QIANA Organization [facility]IANA Address Unknown Phone Care Team Providers [employer] Foreperson Name Role Phone BIRGIT SOLARES MD, PSC, Unavailable Unavailable BIRGIT SOLARES MD, PSC MARYCHUY OVIEDO, Unavailable Unavailable MARYCHUY OVIEDO MANDUJANO, MANDUJANO Unavailable Unavailable MANDUJANO ALL, MANDUJANO ALL Unavailable Unavailable MARNI MEIR, MARNI Unavailable Unavailable MEIR MARNI MEIR, MARNI Unavailable Unavailable MEIR RUIZ MANDY, RUIZ Unavailable Unavailable MANDY REYES JUS, REYES Unavailable Unavailable JUS REYES JUS, REYES Unavailable Unavailable JUS [facility] Unavailable Unavailable AND REHA, [facility] NATHANAEL ANKIT, Unavailable Unavailable [...] INC CLIFF ALVES, Unavailable Unavailable CLIFF ALVES [facility], Unavailable Unavailable [facility], Unavailable Unavailable [facility] Unavailable Unavailable INC, [facility] NEERJA, NEERAJ Unavailable Unavailable NEERAJ NAN, NEERAJ Unavailable Unavailable NAN NEERAJ NAN, NEERAJ Unavailable Unavailable NAN RYAN II ELA, RYAN Unavailable Unavailable II ELA [facility] Unavailable Unavailable [facility], [facility] ENRIKE KAREEN, ENRIKE KAREEN Unavailable Unavailable ENRIKE KAREEN, ENRIKE KAREEN Unavailable Unavailable [id number], Unavailable Unavailable [id number] # Unavailable Unavailable [id number], [facility] # [id number] [facility] # Unavailable Unavailable [id number], [facility] # [id number] [facility] Unavailable Unavailable [facility], LAB [...] MAO DENSON AHMET, DENSON Unavailable Unavailable AHMET [facility] Unavailable Unavailable ASSOC[facility]AT, [facility] HAMLET MOJICA, NIKOLE Unavailable Unavailable F, HAMLET MOJICA, CAROL SHELTON, Unavailable Unavailable CAROL STOUT R [facility] Unavailable Unavailable CO [facility], [facility] BARB BARAHONA, Unavailable Unavailable BARB BARAHONA [facility] Unavailable Unavailable [facility], [facility], Unavailable Unavailable [facility] Unavailable Unavailable URGENT TREAT, [facility] Unavailable [facility] PETTEY JAM, PETTEY Unavailable Unavailable JAM SCIFRES ANG, SCIFRES Unavailable Unavailable ANG SCIFRES ANG, SCIFRES Unavailable Unavailable ANG [facility], Unavailable Unavailable [facility] Unavailable Unavailable [facility], [facility] Unavailable Unavailable [facility], [facility], Unavailable Unavailable [facility] Unavailable Unavailable [place] Unavailable Unavailable [facility], [facility], Unavailable Unavailable [facility] LAKESHA ANG, Unavailable Unavailable TEMITOPE MCHUGH A, Unavailable Unavailable TEMITOPE BIANCHI A [facility] Unavailable Unavailable #[id number], [id number], Unavailable [facility]available [facility], Unavailable Unavailable [facility] Purpose Continuity of Care Document - 06-30-2007 through 2016 Problems Code Diagnosis DOS Provider Status [id number] MIGRAINE 12-27-2016 [facility] W/O [facility] NOT INTRACT SOLUTIONS W/O STAT IN MIGRAIN J060 ACUTE 12-27-2016 [facility] LARYNGOPHAR HEALTH YNGITIS SOLUTIONS IN M545 LOW BACK 12-27-2016 [facility] PAIN HEALTH SOLUTIONS IN [id number] SPONDYLOSIS 12-26-2016 [facility] W/O MEDICAL MYELOPATH/R IMAGING ASS ADICULOPATH Y LUMB RGN M5136 OTH 12-26-2016 [facility] INTERVERTEB [facility]ICAL RAL DISC IMAGING ASS DEGEN LUMBAR REGION N3001 ACUTE 07-22-2016 [facility] CYSTITIS POPPY WITH HOLDINGS HEMATURIA R309 PAINFUL 07-22-2016 [facility] MICTURITION POP[facility] HOLDINGS UNSPECIFIED R319 HEMATURIA 07-22-2016 [facility] UNSPECIFIED POPPY HOLDINGS Z23 ENCOUNTER 02-25-2016 [facility] IMMUNIZATIO URGENT N TREAT [id number] 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 BRITTANI OF GENERAL RTN POPPY H W/ABNORMAL FIND F18508 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 BRITTANI OF GENERAL RTN POPPY H W/O ABNORMAL FIND E038 OTHER 02-22-2016 [facility] SPECIFIED POPPY HYPOTHYROID HOLDINGS ISM [id number] UNSPECIFIED 02-15-2016 [facility] OVARIAN MEDICAL CYST LEFT IMAGING ASS SIDE N938 OTHER SPEC 02-15-2016 [facility] ABNORMAL MEDICAL UTERINE & IMAGING ASS VAGINAL BLEEDING R102 PELVIC AND 02-15-2016 [facility] PERINEAL [facility]ICAL PAIN IMAGING ASS [id number] RIGHT LOWER 02-15-2016 [facility] ABD[facility] TENDERNESS U02543 LEFT LOWER 02-15-2016 [facility] ABDOM[facility]AL INC TENDERNESS R938 ABNORMAL 02-15-2016 [facility] FIND ON DX MEDICAL IMAGING OTH IMAGING ASS SPEC BODY STRCT P52866 PAIN IN 01-19-2016 [facility] INC B42794 PAIN IN 01-19-2016 [facility] M4806 SPINAL 01-19-2016 BIRGIT SOLARES, STENOSIS , PSC LUMBAR REGION M5126 OTH 01-19-2016 BIRGIT SOLARES INTERVERTTEODORO BRAY, PSC RAL DISC DISPLACEMEN T LUMBAR RGN R1011 RIGHT UPPER 12-11-2015 [facility] G608 OTHER 12-07-2015 [facility] IDIOPATHIC TREAT NEUROPATHIE S B399 HISTOPLASMO 11-25-2015 [facility] SIS [facility]G UNSPECIFIED Q45738 STAPHYLOMA 11-25-2015 [facility] POSTICUM ANG RIGHT EYE H5211 MYOPIA 11-25-2015 [facility] RIGHT EYE ANG T52468 UNSPECIFIED 11-25-2015 [facility] AMBLYOPIA ANG RIGHT EYE B394 HISTOPLASMO 11-18-2015 [facility] SIS CAPSULATI UNSPECIFIED 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 G85327 REGULAR 11-18-2015 [facility] ASTIGMATISM BILATERAL H524 PRESBYOPIA 11-18-2015 [facility] SCH[facility]TE N925 OTHER 04-17-2015 [facility] IR[facility]RGENT MENSTRUATIO TREAT N W41791 PAIN IN 04-16-2015 [facility] UNSPECIFIED CLINIC KNEE [facility] H9319 TINNITUS 04-09-2015 [facility] UNSPECIFIED [facility]ICAL EAR IMAGING ASS R569 UNSPECIFIED 04-09-2015 [facility] IM[facility] ASS M5117 INTERVERTEB 01-30-2015 [facility] D/O INC W/RADICULOP ATHY LS RGN M5127 OT 01-30-2015 [facility] RAL DISC IMAGING ASS DISPLACEMEN T LS REGION M5137 OT 01-30-2015 [facility] RAL DISC IMAGING ASS DEGEN LUMBOSACRAL REGION 06884 PAIN IN 12-25-2014 [facility] JOINT, [facility] MULTIPLE [facility] SITES 76428 DISPLCMT 12-25-2014 [facility] LUMBAR CLINIC INTERVERT [facility] DISC W/O MYELOPATHY 7231 CERVICALGIA 12-25-2014 [facility] 7242 LUMBAGO 12-25-2014 [facility] 7295 PAIN IN 12-25-2014 [facility] SOFT [facility] TISSUES OF [facility] LIMB 7820 DISTURBANCE 12-25-2014 [facility] OF SKIN CLINIC SENSATION [facility] 7840 HEADACHE 12-25-2014 [facility] V5869 LONG-TERM 12-25-2014 [facility] (CURRENT[facility] USE OF [facility] OTHER MEDICATIONS 2448 OTHER 10-30-2014 [facility] SPECIFIED CLINIC ACQUIRED [facility] HYPOTHYROID ISM 2720 PURE 10-30-2014 [facility] HYPERCHOLES CLINIC TEROLEMIA [facility] 50378 RESTLESS 10-30-2014 [facility] LEGS CLINIC SYNDROME [facility] 13287 EXTRINSIC 10-30-2014 [facility] ASTHMA, CLINIC UNSPECIFIED [facility] V571 OTHER 10-29-2014 [facility] THERAPY [place] 00847 ACUTE 05-26-2014 MARNI WORLEY ATOPIC CONJUNCTIVI TIS 02092 CHEST PAIN 05-26-2014 ENRIKE KAREEN UNSPECIFIED 7962 ELEVATED BP 05-26-2014 [facility] READING WITHOUT DX HYPERTENSIO N V8533 BODY MASS 05-26-2014 [facility] WOR[facility] INDEX 33.0-33.9 ADULT 54190 BORDERLINE 04-08-2014 HABASH ULZ GLAUC OPEN ANGLE BL FINDINGS LOW RSK 3674 PRESBYOPIA 04-08-2014 [facility] LUZ 14306 UNSPECIFIED 02-17-2014 [facility] ARTHROPATH[facility] OTHER SPECIFIED SITES 7213 LUMBOSACRAL 02-17-2014 [facility] SLE[facility] AND SPONDYLOSIS REHA WITHOUT MYELOPATHY 16325 DEGEN 02-17-2014 [facility] LUMBAR/LUMB H SLEEP AND OSACRAL REHA INTERVERTEB RAL DISC 93816 SPINAL STEN 02-17-2014 [facility] LUMB REG H SLEEP AND W/O REHA NEUROGENIC CLAUDICATIO N 7244 THORACIC/CARLOS 02-17-2014 [facility] MBOSACRAL H SLEEP AND NEURITIS/RA REHA DICULITIS UNSPEC 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 17123 SCOLIOSIS , 11-11-2013 [facility] IDIOPATHIC EAST V141 PERSONAL 11-11-2013 [facility] HISTORY EAST ALLERGY 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 AGENT 7177 CHONDROMALA 08-30-2013 [facility] ROMAN OF PHYSICIANS [place] GROUP 7262 OTHER 08-30-2013 [facility] AFFECTIONS PHYSICIANS OF SHOULDER GROUP REGION NEC 54992 LEUKOCYTOSI 08-08-2013 [facility] UNSPECIFIED 94580 OSTEOARTHRO 08-06-2013 [facility] UNSPEC RADIOLOGY WHETHER ASSOCIAT GEN/LOC LOWER LEG 35841 PAIN IN 08-06-2013 [facility] JOINT, RADIOLOGY LOWER LEG ASSOCIAT 3671 MYOPIA 05-31-2013 [facility] 1120 CANDIDIASIS 04-29-2011 [facility] INTERNAL MED 2449 UNSPECIFIED 04-29-2011 [facility] HYPOTHYROID INTERNAL ISM MED 490 BRONCHITIS 04-29-2011 [facility] NOT [facility] SPECIFIED INTERNAL ACUTE OR MED CHRONIC 4910 SIMPLE 04-29-2011 [facility] 28651 ASTHMA, 04-29-2011 [facility] UNSPECIFIED HOME , MEDICAL UNSPECIFIED EQUIPME STATUS 71332 UNSPECIFIED 04-15-2011 NEERAJ NAN ARTHROPATHY , LOWER LEG 7821 RASH AND 04-15-2011 NEER[facility] KELLER OTHER NONSPECIFIC SKIN ERUPTION 75605 OTHER 03-18-2011 [facility] KELLER ANXIETY STATES 7292 UNSPECIFIED 03-18-2011 [facility] KELL[facility] NEURALGIA NEURITIS AND RADICULITIS 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 462 ACUTE 02-09-2011 [facility] PHARYNGITIS [facility] INTERNAL MEDI 4871 INFLUENZA 02-09-2011 [facility] WITH OTHER [facility] RESPIRATORY INTERNAL MEDI MANIFESTATI ONS 90838 PAIN IN 01-24-2011 [facility] JOINT, [facility] FOREARM INTERNAL MEDI 7245 UNSPECIFIED 01-24-2011 [facility] BACKACHE VAL[facility] INTERNAL MEDI 84775 OTHER 12-17-2010 [facility] CHRONIC [facility] PAIN INTERNAL MEDI 2409 GOITER, 11-04-2010 [facility] UNSPECIFIED RADIOLOGY ASSOCIAT 41421 UNSPECIFIED 09-24-2010 [facility] ARTHROPATHY INTERNAL MULTIPLE MEDI SITES 30560 ABDOMINAL 04-22-2010 [facility] PAIN RIGHT [facility] UPPER INTERNAL QUADRANT MEDI 81163 ABDOMINAL 04-22-2010 [facility] PAIN, [facility] EPIGASTRIC INTERNAL MEDI 5718 OTHER 04-16-2010 [facility] NONALCOHOLI C LIVER DISEASE 17659 DIARRHEA 04-16-2010 [facility] 97995 ESOPHAGEAL 04-07-2010 [facility] REFLUX [facility] INTERNAL MEDI 7226 DEGENERATIO 04-07-2010 [facility] N [facility] INTERVERTEB INTERNAL RAL DISC MEDI SITE UNSPEC 65471 OTH 11-27-2009 [facility] EXTRAPYRAMI [facility] 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 5206 DISTURBANCE 10-23-2009 [facility] 7862 COUGH 10-12-2009 [facility] INTERNAL MED 39425 UNSPECIFIED 10-10-2009 [facility] SIS RETINITIS 3670 HYPERMETROP 10-10-2009 [facility] 05109 OTHER 10-10-2009 [facility] FIELD DEFECT 67144 PAIN IN 07-10-2009 [facility] PELVIC REGION AND THIGH 70923 OSTEOARTHRO 06-26-2009 [facility] S UNSPEC RADIOLOGY GEN/LOC ASSOCIATES PELV PSC REGION&THIG H 4730 CHRONIC 03-29-2009 [facility] SINUSITIS 4731 CHRONIC 03-29-2009 [facility] 61736 SPASM OF 01-01-2009 [facility] MUSCLE [facility] INTERNAL MED 04285 SPONDYLOSIS 12-02-2008 [facility] RADIOLOGY SITE W/O ASSOCIATES MENTION PSC MYELOPATHY 7831 ABNORMAL 11-28-2008 [facility] WEIGHT GAIN [facility] INTERNAL MED 30566 ANOMALY OF 09-01-2008 [facility] TOOTH IIIC N02 POSITION UNSPECIFIED 7881 DYSURIA 07-15-2008 [facility] INTERNAL MED 226 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 2459 UNSPECIFIED 06-12-2008 [facility] THYROIDITIS 5210 DENTAL 04-01-2008 [facility] TRAN CARIES IIIPS N02 43336 CONTACT 08-08-2007 [facility] DERMATITIS& VALLEY OTH ECZEMA INTERNAL 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 7248 OTHER 06-30-2007 [facility] REFERABLE TO BACK 8470 NECK SPRAIN 06-30-2007 [facility] Medications Na ND Rx Da Fi Fi Am Da Di Ph RX Ph St me C No te ll ll ou ys ag ar # ys at rm s nt no ma ic us Or Da si cy ia de te s n re d NV 00 09 10 55 10 00 ID Ac ED 14 -1 -1 .0 00 L- ti NI 39 4- 3- 00 07 MA ve SO 74 20 20 50 RT NE 01 17 17 95 5 0 61 PH AR MG MA CY TA BL #5 ET 91 GA 00 09 10 90 30 00 ID Ac BA 22 -1 -1 .0 00 L- ti PE 82 7- 3- 00 04 MA ve NT 63 20 20 53 RT IN 65 17 17 17 0 43 PH 60 AR 0 MA MG CY TA #5 BL 91 ET CY 68 08 09 30 15 00 ID Ac CL 64 -2 -2 .0 00 L- ti OB 50 9- 2- 00 07 MA ve EN 51 20 20 50 RT ZA 79 17 17 66 NV 0 26 PH IN AR E MA [...] 08 09 60 30 00 WA Ac NV 16 -2 -2 .0 00 L- ti [...] 60 9- 2- 00 07 MA ve NV 00 20 20 50 RT ED 10 [...] GA 00 08 09 90 30 00 ID Ac BA 22 -2 -1 .0 00 L- ti PE 82 1- 5- 00 04 MA ve NT 63 20 20 53 RT IN 65 17 17 17 0 43 PH 60 AR 0 MA MG CY TA #5 BL 91 ET DU 57 07 08 60 30 00 ID Ac LO 23 -2 -2 .0 00 L- ti XE 70 8- 5- 00 07 MA ve TI 01 20 20 66 RT NE 93 17 17 89 0 97 PH HC AR L MA DR CY 60 #5 71 MG CA P ME 62 07 08 30 30 00 ID Ac TO 03 -2 -2 .0 00 L- ti NV 70 8- 5- 00 07 MA ve OL 83 20 20 66 RT OL 11 17 17 89 0 95 PH JACKSON AR CC MA CY ER #5 50 71 MG TA B NV 54 07 08 30 30 00 ID Ac AV 45 -2 -2 .0 00 [...] 0 #5 MG 71 TA BL ET NV 54 06 07 30 30 00 WA [...] 03 -2 -2 .0 00 L- ti NV 70 7- 1- 00 07 MA ve [...] TO 68 10 05 30 30 00 ID Ac PI 38 -1 -0 .0 00 L- ti RA 20 2- 7- 00 07 MA ve MA 13 20 20 66 RT TE 91 17 17 60 4 61 PH 50 AR MA MG CY TA #5 BL 71 ET DU 57 05 06 60 30 00 ID Ac LO 23 -2 -2 .0 00 [...] TO 68 05 06 30 30 00 ID Ac PI 38 -2 -2 .0 00 [...] 03 -2 -2 .0 00 L- ti NV 70 5- 3- 00 07 MA ve OL 83 20 20 66 RT OL 11 17 17 24 0 48 PH JACKSON AR CC MA CY ER #5 50 71 MG TA B NV 54 05 06 30 30 00 WA [...] 81 17 17 21 FA 4 78 NV [address] UG TA BL ET JACKSON 65 05 05 9. 10 00 SO Ac MA 86 -0 -2 00 00 PE ti TR 20 1- 6- 0 00 RS ve IP 14 20 20 56 TA 83 17 17 21 FA N 6 82 NV [place] LY CC DR 10 UG 0 MG TA BL ET DU 57 05 05 60 30 00 SO Ac LO 23 -0 -2 .0 00 PE ti XE 70 1- 6- 00 00 RS ve TI 01 20 20 54 NE 99 17 17 84 FA 9 20 NV HC LY L DR DR UG 60 MG CA P LA 51 05 05 30 30 00 SO Ac MO 67 -0 -2 .0 00 PE ti TR 24 - 6- 00 00 RS ve IG 13 20 20 54 IN 30 17 17 84 FA E 4 23 NV [address] UG TA BL ET ME 62 05 05 30 30 00 SO Ac TO 03 -0 -2 .0 00 PE ti NV 70 - 6- 00 RS ve OL 83 20 20 54 OL 11 17 17 81 FA 0 56 [place] LY CC DR ER UG 50 MG TA B CL 00 05 05 90 30 00 SO Ac ON 18 -0 -2 .0 00 PE ti AZ 50 1- 6- 00 00 RS ve EP 06 20 20 56 AM 30 17 17 21 FA 5 77 NV 0. LY [address] UG TA BL ET LE 00 05 05 30 30 00 SO Ac VO 37 -0 -2 .0 00 PE ti TH 81 1- 6- 00 00 RS ve YR 81 20 20 55 OX 37 17 17 37 FA IN 7 65 NV E LY [address] MC UG G TA BL ET NV 68 05 05 30 30 00 SO Ac AV 46 -0 -2 .0 00 PE ti 20 1- 6- 00 00 RS ve TA 19 20 20 54 TI 59 17 17 84 FA N 0 18 NV SO LY DI UM DR UG 10 MG TA B NI 00 05 05 28 28 00 SO Ac CO 53 -0 -2 .0 00 PE ti TI 65 1- 6- 00 00 RS ve NE 89 20 20 56 68 17 17 21 FA 21 8 79 NV LY MG /2 DR 4H UG R PA TC H GA 69 04 05 90 30 00 SO Ac BA 09 -1 -1 .0 00 PE ti PE 70 4- 2- 00 00 RS ve NT 81 20 20 55 IN 21 17 17 37 FA 2 64 NV [address] UG TA BL ET TI 57 04 05 60 30 00 SO Ac ZA 66 -1 -1 .0 00 PE ti NI 40 7- 2- 00 00 RS ve DI 50 20 20 55 NE 31 17 17 77 FA 8 95 NV HC LY L 4 DR MG UG TA BL ET JACKSON 55 03 04 9. 10 00 SO Ac MA 11 -2 -2 00 00 PE ti TR 10 4- 1- 0 00 RS ve IP 29 20 20 55 TA 30 17 17 96 FA N 9 81 NV [place] LY CC DR 10 UG 0 MG TA BL ET ME 62 03 04 30 30 00 SO Ac TO 03 -2 -2 .0 00 PE ti NV 70 4- 1- 00 00 RS ve OL 83 20 20 54 OL 11 17 17 81 FA 0 56 NV [place] LY CC DR ER UG 50 MG TA B LA 51 03 04 30 30 00 SO Ac MO 67 -2 -2 .0 00 PE ti TR 24 4- 1- 00 00 RS ve IG 13 20 20 54 IN 30 17 17 84 FA E 4 23 NV [address] UG TA BL ET DU 57 03 04 60 30 00 SO Ac LO 23 -2 -2 .0 00 PE ti XE 70 4- 1- 00 00 RS ve TI 01 20 20 54 NE 99 17 17 84 FA 9 20 NV HC LY L DR COX UG 60 MG CA P LE 00 03 04 30 30 00 SO Ac VO 37 -2 -2 .0 00 PE ti TH 81 4- 1- 00 00 RS ve YR 81 20 20 55 OX 37 17 17 37 FA IN 7 65 NV E LY [address] MC UG G TA BL ET CL 00 03 04 90 30 00 SO Ac ON 18 -2 -2 .0 00 PE ti AZ 50 4- 1- 00 00 RS ve EP 06 20 20 55 AM 30 17 17 96 FA 5 78 NV 0. LY [address] UG TA BL ET PH 75 03 04 9. 3 00 SO Ac EN 82 -2 -2 00 00 PE ti AZ 60 4- 1- 0 00 RS ve OP 11 20 20 55 YR 41 17 17 96 FA ID 0 79 NV IN LY E 10 DR 0 UG MG TA B CI 16 03 04 20 10 00 SO Ac NV 57 -2 -2 .0 00 PE ti OF 10 4- 1- 00 00 RS ve LO 41 20 20 55 XA 25 17 17 96 FA CI 0 80 NV N LY HC L DR 50 UG 0 MG TA B NV 68 03 04 30 30 00 SO Ac AV 46 -2 -1 .0 00 PE ti 20 1- 4- 00 00 RS ve TA 19 20 20 54 TI 59 17 17 84 FA N 0 18 NV SO LY DI UM DR UG 10 MG TA B GA 69 03 04 90 30 00 SO Ac BA 09 -1 -0 .0 00 PE ti PE 70 5- 7- 00 00 RS ve NT 81 20 20 55 IN 21 17 17 37 FA 2 64 NV [address] UG TA BL ET TI 57 03 03 60 30 00 SO Ac ZA 66 -0 -3 .0 00 PE ti NI 40 3- 1- 00 00 RS ve DI 50 20 20 55 NE 31 17 17 77 FA 8 95 NV HC LY L 4 DR MG UG TA BL ET CL 00 02 03 90 30 00 SO Ac ON 18 -2 -1 .0 00 PE ti AZ 50 1- 7- 00 00 RS ve EP 06 20 20 55 AM 30 17 17 68 FA 5 48 NV 0. LY [address] UG TA BL ET GA 69 02 03 90 30 00 SO Ac BA 09 -1 -1 .0 00 PE ti PE 70 3- 0- 00 00 RS ve NT 81 20 20 55 IN 21 17 17 37 FA 2 64 NV [address] UG TA BL ET DU 57 02 03 60 30 00 SO Ac LO 23 -1 -1 .0 00 PE ti XE 70 0- 0- 00 00 RS ve TI 01 20 20 54 NE 99 17 17 84 FA 9 20 NV HC LY L DR UG 60 MG CA P LA 51 02 03 30 30 00 SO Ac MO 67 -1 -1 .0 00 PE ti TR 24 0- 0- 00 00 RS ve IG 13 20 20 54 IN 30 17 17 84 FA E 4 23 NV [address] ABRIL TA BL ET ME 62 02 03 30 30 00 SO Ac TO 03 -1 -1 .0 00 PE ti NV 70 0- 0- 00 00 RS ve OL 83 20 20 54 OL 11 17 17 81 FA 0 56 NV [place] LY CC DR ER UG 50 MG TA B NV 68 02 03 30 30 00 SO Ac AV 46 -1 -1 .0 00 PE ti 20 0- 0- 00 00 RS ve TA 19 20 20 54 TI 59 17 17 84 FA N 0 18 NV SO LY DI UM DR UG 10 MG TA B VE 00 02 03 18 25 00 SO Ac NT 17 -1 -1 .0 00 PE ti OL 30 0- 0- 00 00 RS ve IN 68 20 20 53 22 17 17 86 FA HF 0 44 NV A LY 90 DR MC UG G IN KENNY LE R TI 57 01 02 60 30 00 SO Ac ZA 66 -3 -2 .0 00 PE ti NI 40 1- 4- 00 00 RS ve DI 50 20 20 54 NE 31 17 17 84 FA 8 19 NV HC LY L 4 DR MG UG TA BL ET CL 00 05 02 89 30 00 SO Ac ON 18 -1 -1 .0 00 PE ti AZ 50 7- 0- 00 00 RS ve EP 06 20 20 55 AM 30 17 17 37 FA 5 63 NV 0. LY [address] UG TA BL ET LE 00 05 02 30 30 00 SO Ac VO 37 -1 -1 .0 00 PE ti TH 81 7- 0- 00 00 RS ve YR 81 20 20 55 OX 37 17 17 37 FA IN 7 65 NV E LY [address] DAHIANA UG G TA BL ET GA 69 05 02 89 30 00 SO Ac BA 09 -1 -1 .0 00 PE ti PE 70 2- 0- 00 00 RS ve NT 81 20 20 54 IN 21 17 17 08 FA 2 85 NV [address] UG TA BL ET TI 57 12 60 30 00 SO Ac ZA 66 -2 -2 .0 00 PE ti NI 40 3- 0- 00 00 RS ve DI 50 20 20 54 NE 31 16 17 84 FA 8 19 NV HC LY L 4 DR MG UG TA BL ET LA 51 12 30 30 00 SO Ac MO 67 -0 -0 .0 00 PE ti TR 24 9- 9- 00 00 RS ve IG 13 20 20 54 IN 30 16 17 84 FA E 4 23 NV [address] UG TA BL ET IB 67 12 30 00 SO Ac UP 87 -0 -0 .0 00 PE ti RO 70 9- 9- 00 00 RS ve FE 32 20 20 54 N 10 16 17 69 FA 80 5 72 NV [address] TA UG BL ET ME 62 12 30 30 00 SO Ac TO 03 -0 -0 .0 00 PE ti NV 70 9- 9- 00 00 RS ve OL 83 20 20 54 OL 11 16 17 81 FA 0 56 NV [place] LY CC DR ER UG 50 MG TA B DU 57 12 60 30 00 SO Ac LO 23 -0 -0 .0 00 PE ti XE 70 9- 9- 00 00 RS ve TI 01 20 20 54 NE 99 16 17 84 FA 9 20 NV HC LY L DR DR UG 60 MG CA P CL 00 03 31 90 30 00 SO Ac ON 18 -0 -0 .0 00 PE ti AZ 50 8- 9- 00 00 RS ve EP 06 20 20 55 AM 31 16 17 05 FA 0 57 NV 0. LY [address] UG TA BL ET NV 68 12 01 30 30 00 SO Ac AV 46 -0 -0 .0 00 PE ti 20 9- 9- 00 00 RS ve TA 19 20 20 54 TI 59 16 17 84 FA N 0 18 NV SO LY DI UM DR UG 10 MG TA B LE 00 12 01 30 30 00 SO Ac VO 37 -0 -0 .0 00 PE ti TH 81 9- 9- 00 00 RS ve YR 81 20 20 54 OX 37 16 17 80 FA IN 7 75 NV E LY [address] DAHIANA UG G TA BL ET GA 69 12 01 90 30 00 SO Ac BA 36 -1 -0 .0 00 PE ti PE 70 3- 9- 00 00 RS ve NT 13 20 20 54 IN 40 16 17 08 FA 6 85 NV [address] ABRIL TA BL ET GA 68 08 10 5 30 30 SO 38 BE Ac BA 46 -1 -2 .0 PE 17 SS ti PE 20 9- 8- 00 RS 78 ON ve NT 12 20 20 IN [address] 5 NV EP 60 LY HE [address] Kevin SAMUELS TA BL ET LE 00 09 10 5 30 30 SO 38 BE Ac VO 52 -2 -2 .0 PE 52 SS ti TH 71 6- 6- 00 RS 17 ON ve YR 34 20 20 OX [address] IN 0 NV EP E LY HE [address] Kevin TALBOT UG G TA BL ET NV 60 10 10 0 12 6 SO 38 HU Ac OM 43 -1 -1 0. PE 68 NT ti ET 20 2- 2- 00 RS 25 ER ve KENNY 60 20 20 0 ZI 41 11 11 FA NA NE 6 NV NC -D LY Y M C SY DR PIERRE UG P 00 10 10 0 30 7 SO 38 MC Ac 59 -0 -0 .0 PE 58 KE ti 10 3- 3- 00 RS 61 NV ve 34 20 20 E 90 11 11 FA JR 5 NV LY WI LL DR IA UG M F GA 68 08 09 5 30 30 SO 38 BE Ac BA 46 -1 -3 .0 PE 17 SS ti PE 20 9- 0- 00 RS 78 ON ve NT 12 20 20 IN [address] 5 NV EP 60 LY HE [address] A UG TA BL ET CY 59 09 09 0 7. 7 SO 38 HU Ac CL 74 -2 -2 00 PE 54 NT ti OB 60 8- 9- 0 RS 82 ER ve EN 21 20 20 ZA 11 11 11 FA NA NV 0 NV NC IN LY Y E C 5 DR UG TA BL ET 59 08 09 5 8. 15 SO 38 BE Ac 31 -1 -2 50 PE 17 SS ti 00 9- 8- 0 RS 75 ON ve 57 20 20 [address] 0 NV EP LY HE N DR Kevin SAMUELS CI 65 08 09 5 30 30 SO 38 BE Ac TA 16 -1 -2 .0 PE 17 SS ti LO 20 9- 8- 00 RS 76 ON ve NV 05 20 20 AM [address] 0 NV EP HB LY HE R N 40 DR Kevin SAMUELS MG TA BL ET 00 09 09 0 30 7 SO 38 BE Ac 59 -2 -2 .0 PE 52 SS ti 10 6- 6- 00 RS 15 ON ve 34 20 20 [address] 5 NV EP LY HE N DR Brown UG 00 09 09 0 55 10 SO 38 BE Ac 14 -2 -2 .0 PE 52 SS ti 31 6- 6- 00 RS 16 ON ve 47 20 20 [address] 0 NV EP LY HE N DR Kevin SAMUELS LE 00 09 09 5 30 30 SO 38 BE Ac VO 52 -2 -2 .0 PE 52 SS ti TH 71 6- 6- 00 RS 17 ON ve YR 34 20 20 OX [address] IN 0 NV EP E LY HE [address] Kevin [place] UG G TA BL ET GA 68 08 09 5 30 30 SO 38 BE Ac BA 46 -1 -0 .0 PE 17 SS ti PE 20 9- 2- 00 RS 78 ON ve NT 12 20 20 IN [address] 5 NV EP 60 LY HE [address] Brown UG TA BL ET 00 08 08 0 12 30 SO 38 MC Ac 59 -1 -2 0. PE 18 KE ti 10 9- 3- 00 RS 07 NV ve 34 20 20 0 E 90 11 11 FA JR 5 NV LY WI LL DR ZHENG SAMUELS M F 59 08 08 5 8. 15 SO 38 BE Ac 31 -1 -1 50 PE 17 SS ti 00 9- 9- 0 RS 75 ON ve 57 20 20 [address] 0 NV EP LY HE N DR Kevin SAMUELS CI 65 08 08 5 30 30 SO 38 BE Ac TA 16 -1 -1 .0 PE 17 SS ti LO 20 9- 9- 00 RS 76 ON ve NV 05 20 20 AM [address] 0 NV EP HB LY HE R N 40 DR A UG MG TA BL ET ET 51 08 08 2 60 30 SO 38 BE Ac OD 67 -1 -1 .0 PE 17 SS ti OL 24 9 00 RS 77 ON ve AC 01 20 20 [address] 40 1 NV EP 0 LY HE MG N DR A TA UG BL ET GA 00 06 07 1 30 30 SO 37 HU Ac BA 22 -2 -2 .0 PE 72 NT ti PE 82 8- 8- 00 RS 96 ER ve NT 63 20 20 IN 65 11 11 FA NA 0 NV NC 60 LY Y [address] UG TA BL ET 00 06 06 0 55 10 SO 37 HU Ac 14 -2 -2 .0 PE 74 NT ti 31 9 9 00 RS 13 ER ve 47 20 20 51 11 11 FA NA 0 NV NC LY Y C DR UG IB 55 06 06 0 90 30 SO 37 FL Ac UP 11 -2 -2 .0 PE 72 OR ti RO 10 8- RS 95 EN ve FE 68 20 20 CE N 40 11 11 FA 80 5 NV SA 0 LY RA MG H DR L TA UG BL ET GA 00 06 06 1 30 30 SO 37 FL Ac BA 22 -2 -2 .0 PE 72 OR ti PE 82 8- 8- 00 RS 96 EN ve NT 63 20 20 CE IN 65 11 11 FA 0 NV SA 60 LY RA 0 H MG [...] AN Y TA IN BL C ET NV 60 05 05 12 6 HO 10 HU Ac OM 43 -2 -2 0. PK 16 NT ti ET 20 7- 7- 00 IN 99 ER ve KENNY 60 20 20 0 S 1 ZI [address] ISAURO NE 6 UG NC -D Y M CO C SY MP RU AN P Y IN C NV 00 05 05 14 7 HO 10 [...] ti 10 0- 0- 00 IN 74 NV ve 34 20 20 S 9 E [address] MOJICA 5 UG WI CO LL MP IA AN M Y F IN C NV 00 03 03 55 10 HO 10 [...] 2- 2- 0 IN 50 ER ve NV 01 20 20 S 3 AM 00 [...] PE 60 5- 5- 00 IN 04 NV ve NT 13 20 20 S 1 [...] PE 60 5- 8- 00 IN 04 NV ve NT 13 20 20 S 1 [...] N MP A AN Y IN C NV 37 12 12 2 56 28 HO 10 HU Ac IL 00 -0 -0 .0 PK 13 NT ti OS 00 8- 8- 00 IN 40 ER ve EC 45 20 20 S [address] NA OT 3 UG NC C Y 20 CO C .6 MP AN MG Y IN TA C BL ET NV 00 12 12 30 15 HO 10 [...] PE 60 5- 5- 00 IN 04 NV ve NT 13 20 20 S 1 [...] 2- 2- 00 IN 40 EN ve NV 18 20 20 S 8 CE ED [...] S ZA [address] B[address] NV 6 UG NC IN Y E CO C 10 IN MG C TA BL ET NV 00 09 09 00 36 12 HO [...] S ZA [address] NA NV 1 UG NC IN Y E CO [...] DOS Code Location Performer Comment CURRENT 1034F spotflux TOBACCO 7 HEALTH SMOKER SOLUTIONS IN TOBACCO 1000F spotflux USE 7 HEALTH ASSESSED SOLUTIONS IN BODY MASS 3008F spotflux INDEX 7 HEALTH DOCUMENTE SOLUTIONS D IN RADEX 08283 IOWA MANDUJANO SPINE 7 MEDICAL LUMBOSACR IMAGING AL ASS MINIMUM 4 VIEWS SUSCEPTIB 13958 [facility] LTY STDY 7 POPPY POPPY ANTIMICRB HOLDINGS HOLDINGS IAL MICRO/AGA R DILUTJ CULTURE 47161 [facility] BACTERIAL 7 POPPY POPPY HOLDINGS HOLDINGS QUANTTATI VE COLONY COUNT URINE CULTURE 43294 [facility] BCT 7 POPPY POPPY ISOL&PRSM HOLDINGS HOLDINGS PTV ID ISOLATE EA URINE [id number] JOSY PICKARD VACCINE 6 [facility] SPLIT URGENT VIRUS 0.5 TREAT ML DOSAGE IM USE IM ADM 33729 JOSY PICKARD PRQ ID 6 [facility] SUBQ/IM URGENT NJXS 1 TREAT VACCINE CYTP 84001 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/ 6 Y BRITTANI OF Y BRITTANI OF VAGINAL POPPY POPPY REQ H H INTERP PHYSICIAN CYTP C/V 10-25-201 35371 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 AUTO THIN 6 Y BRITTANI OF Y BRITTANI OF LYR POPPY POPPY PREPJ [place] [address] [facility] THYROID 6 POPPY POPPY STIMULATI [place] [address] L[facility]I AGUERO TRANSVAGI 6 [facility] G0463 LACI AGUERO OUTPATIEN 6 [facility] T CLIN INC INC VISIT ASSESS & [place] [address] LAB [facility] BR[facility] THYROID 6 POPPY POPPY ST[place]ULAT[facility] [place] [address] IOWA MANDUJANO ALL ABDOMINAL 6 MEDICAL REAL IMAGING TIME ASS W/IMAGE LIMITED OPHTH 23179 AMY REYES MEDICAL 6 JUS JUS XM&EVAL COMPRE NEW PT 1/> VST COMPUTERI 25293 AMY REYES ZED 6 JUS JUS OPHTHALMI C IMAGING RETINA URINE 03290 JOSY PICKARD [facility] URGENT VISUAL TREAT COLOR CMPRSN [facility] RADIOLOGI [address] EXAMINATI CLINIC ON KNEE PPLLC 1/[address] [place] [address] L[facility]I AGU[facility] HEAD/BRAI 5 [facility] N W/O INC INC CONTRAST MATERIAL ELECTROEN 00912 [facility] CEPHALOGR 5 [facility] AM W/REC INC INC AWAKE&KACY WSY 3D 55962 [facility] RENDERING 5 [facility] W/INTERP INC INC & POSTPROCE SS SUPERVISI ON MRI 61428 [facility] SPINAL 5 [facility] CANAL INC INC LUMBAR W/O CONTRAST MATERIAL PHYSICAL 54048 [facility] THERAPY 5 [facility] 48815 [facility] EXAM 5 CHEST 2 VIEWS FRONTAL&L ATERAL XTRNL 42810 [facility] H[facility] OCULAR 4 LUZ LUZ PHOTOG W/I&R DOCMT MEDICAL PROGRE VISUAL 24733 [facility] HABASH FIELD XM 4 LZU LUZ UNI/BI W/INTERP INTERMED EXAM FUNDUS 44940 [facility] PHOTOGRAP 4 LUZ LUZ HY W/INTERPR ETATION & REPORT 3D 89158 MICKY PERKINSUTCHER RENDERING 4 MEDICAL ANKIT W/INTERP IMAGING & ASS POSTPROCE SS SUPERVISI ON MRI 61007 [facility] SPINAL 4 [facility] CANAL INC INC LUMBAR W/O CONTRAST MATERIAL BLOOD 71438 [facility] AHMET PERIPHERA L INTERP PHYS W/WRIT REPORT HANDLG&/O 87003 [employer] [place], R CONVEY 4 WAITER/WAITRESS THIRD CLASS WAITER/WAITRESS THIRD CLASS OF SPEC JOSY FERRIS FOR TR CO HOS CO HOS FROM PT TO LAB RADIOLOGI 35511 [employer] [place], C 4 WAITER/WAITRESS THIRD CLASS WAITER/WAITRESS THIRD CLASS EXAMINATI JOSY FERRIS ON KNEE 3 CO HOS CO HOS VIEWS RADIOLOGI 46633 [facility] [place] C EXAM 4 [facility] KNEE RADIOLOGY COMPLETE ASSOCIAT 4/MORE VIEWS OPHTH 07860 SCIFRES SCIFRES MEDICAL 4 ANG ANG XM&EVAL COMPRE NEW PT 1/> VST ADMN SET A7003 YOUR YOUR SM VOL 1 [facility] P[facility] NEBULIZR DISPBL NEBULIZER E0570 NIC LUCERO WITH 1 HOME HOME COMPRESSO MEDICAL MEDICAL R EQUIPME EQUIPME MRI 20777 [facility] SPINAL 1 [facility] CANAL INC INC LUMBAR W/O CONTRAST MATERIAL 3D 53180 [facility] AGU[facility] RENDERING 1 [facility] W/INTERP INC INC & POSTPROCE SS SUPERVISI ON US SOFT 40239 HYDE RUIZ TISSUE 1 MANDY HEAD & RADIOLOGY NECK [place] [address] [place] [place] ABDOMINAL 0 [facility] [place] REAL RADIOLOGY TIME ASSOCIAT W/IMAGE LIMITED SCANNING 73495 [facility] OPHTHALMI 0 [facility] POSTERIOR SGM UNI VISUAL 95059 [facility] FIELD XM 0 [facility] UNI/BI CENTER W/INTERP EXTENDED EXAM FUNDUS 99987 [facility], PHOTOGRAP 0 [facility] W/INTERPR ETATION & REPORT DETERMINA 09782 [facility], TION 0 [facility] [place] [address] LACI AGUERO THYROID 0 [facility] STIMULATI INC INC NG HORMONE TSH CALCIUM 79347 LACI AGUERO TOTAL 0 [place] [address] LACI AGUERO FREE 0 [facility] THYROXINE INC INC MRI 00889 MARY C NATHANAEL, SPINAL 0 NATHANAEL MARY CANAL LUMBAR W/O CONTRAST MATERIAL ANTINUCLE 02866 JOSY FERRIS AR 0 CO CO ANTIBODIE [facility] S DEVIN RHEUMATOI 52834 JOSY FERRIS D FACTOR 0 CO CO QUANTITAT [facility] ESAU SEDIMENTA 75476 JOSY FERRIS TION RATE 0 CO CO RBC [facility] NON-AUTOM ATED RADEX HIP 87526 JOSY FERRIS 0 CO CO UNILATERA [facility] L COMPLETE MINIMUM 2 VIEWS BLOOD 37310 JOSY FERRIS COUNT 0 CO CO COMPLETE [facility] AUTO&AUTO DIFRNTL WBC COLLECTIO 49753 JOSY FERRIS N VENOUS 0 CO SC BLOOD [facility] VENIPUNCT URE COMPREHEN 83865 JOSY FERRIS SIVE 0 CO CO METABOLIC [facility] PANEL RADEX 58440 JOSY FERRIS SPINE 9 CO CO CERVICAL [facility] 4 OR 5 VIEWS RADEX 00083 LAUREN ALVES, SPINE 9 CLIFF S CERVICAL RADIOLOGY 6 OR MORE VIEWS ASSOCIATE S PSC RADEX 02562 JOSY FERRIS SPINE 9 CO CO LUMBOSACR [facility] AL MINIMUM 4 VIEWS URNLS DIP 01115 [place] MCKEMIE 9 DYLAN JR, STICK/TAB INTERNAL NIKOLE F LET RGNT MED NON-AUT[place] W/[place] [address] L[facility]I AGU[facility] THYROID 9 [facility] STIMULATI INC INC NG HORMONE TSH CALCIUM 82720 LACI LACI TOTAL 9 [place] [address] LACI AGUERO FREE 9 [facility] [place] [address] LACI AGUERO THYROXINE 9 [facility] TOTAL INC INC Encounters Encounter Start End Date Code Location Performer Type Date OFFICE 60973 ANDRIA PICKARD OUTPATIEN 7 7 HEALTH T VISIT SOLUTIONS 25 IN MINUTES [facility]OSPITAL [facility] - 6 6 [facility] T OFFICE 15339 [facility] OUT[facility] 6 6 MD BECK, T NEW 30 PSC MINUTES [facility] 6 [facility] L[facility] - 6 6 [facility] OUTPATI[facility] INC T OFFICE 69785 JOSY NEERAJ OUTPATIEN 6 6 [facility] T VISIT URGENT 25 TREAT MINUTES OFFICE 18064 LAKESHA CROWDER OUTPATIEN 6 6 [facility] ANG T NEW 45 MINUTES OFFICE 07905 [facility]AT[facility] MURPHY OUTPATIEN 6 6 [facility] AALIYAH T VISIT CLINIC 25 PPLLC MINUTES OFFICE 62618 JOSY NEERAJ OUTPATIEN 5 5 [facility] T VISIT URGENT 10 TREAT MINUTES OFFICE 19274 TATUM KATHERINE OUTPATIEN 5 5 [facility] AALIYAH T VISIT CLINIC 25 PPLLC MINUTES HOSPITAL LACI - 5 5 [facility] OUTPATIEN INC T OFFICE 75313 JOSY NEERAJ OUTPATIEN 5 5 [facility] T VISIT URGENT 15 TREAT MINUTES HOSPITAL LACI - 5 5 [facility] OUTPATIEN INC T OFFICE 18672 TATUM ERNSTKATHERINE CONSULTAT 5 5 [facility] AALIYAH ION CLINIC NEW/ESTAB PPLLC PATIENT 40 MIN OFFICE 69517 MT MARNI OUTPATIEN 5 5 [facility] MEIR T VISIT CLINIC [address] [facility] - 5 5 [facility] OUT[facility] T OFFICE 11277 MARNI GRIDER OUTPATIEN 5 5 MEIR WORLEY T NEW 30 MINUTES OFFICE 51665 HABASH HABASH OUTPATIEN 4 4 LUZ LUZ T NEW 45 MINUTES OFFICE 39571 [facility] RYAN II OUTPATIEN 4 4 [facility] SLEEP ELA T VISIT AND REHA 25 MINUTES HOSPITAL LACI - 4 4 [facility] OUTPATIEN INC T OFFICE 28293 [facility]ON[facility] RYAN II OUTPATIEN 4 4 [facility] SLEEP ELA T NEW [address] [facility] - 4 4 [facility] OUTPATIEN T OFFICE 08446 [facility] OUTPATIEN 4 4 [facility] T NEW 30 MINUTES OFFICE 40393 [facility] PETTEY OUTPATIEN 4 4 PHYSICIAN JAM T NEW 30 S GROUP MINUTES HOSPITAL MHC INC, - 4 4 WAITER/WAITRESS THIRD CLASS OUTPATIEN JOSY T CO HOS [facility]PITAL [facility], - 4 4 WAITER/WAITRESS THIRD CLASS OUTPATIEN JOSY T CO HOS OFFICE 38663 [place] OUT[facility] 1 1 [place] T VISIT INTERNAL 15 MED MINUTES HOSPITAL LACI - 1 1 [facility] OUTPATIEN INC T OFFICE 50288 NEERAJ NEERAJ OUTPATIEN 1 1 ARIANNA KELLER T VISIT 15 MINUTES OFFICE 20550 NEERAJ NEERAJ OUTPATIEN 1 1 ARIANNA KELLER T VISIT 15 MINUTES OFFICE 64122 [place] NEERAJ OUTPATIEN 1 1 DYLAN NAN T VISIT INTERNAL 15 MEDI MINUTES OFFICE 34904 [place] NEERAJ OUTPATIEN 1 1 DYLAN KELLER T VISIT INTERNAL 15 MEDI MINUTES OFFICE 55627 [place] NEERAJ OUTPATIEN 1 1 DYLAN KELLER T VISIT INTERNAL 15 MEDI MINUTES OFFICE 31989 [place] NEERAJ OUTPATIEN 1 1 DYLAN KELLER T VISIT INTERNAL 15 MEDI MINUTES OFFICE 57369 [place] NEERAJ OUTPATIEN 0 0 DYLAN KELLER T VISIT INTERNAL 10 MEDI MINUTES HOSPITAL JOSY - 0 0 [facility] T OFFICE 63340 [place] NEERAJ OUTPATIEN 0 0 DYLAN NAN T VISIT INTERNAL 15 MEDI MINUTES OFFICE 87469 [place] LISA OUTPATIEN 0 0 DYLAN VAZQUEZ T VISIT INTERNAL 15 MEDI MINUTES OFFICE 78049 [facility] OUTPATIEN 0 0 [facility] VISIT CENTER 25 MINUTES OFFICE 40966 [facility], OUTPATIEN 0 0 IMPLANT & CAROL R T VISIT 5 ORAL [address] [facility] OFFICE 69868 [place] BESSON, OUTPATIEN 0 0 [facility] T VISIT INTERNAL 15 MED MINUTES OFFICE 08923 [facility], OUTPATIEN 0 0 [facility] LICENSE [facility] T NEW 45 CENTER MINUTES OFFICE 80205 [place] ARIAS, CONSULTAT 0 0 MEDICAL TEMITOPE MANTILLA SERV NEW/ESTAB FOUNDATIO PATIENT 40 MIN OFFICE 15007 [place] MCKEMIE OUTPATIEN 0 0 [facility], T VISIT INTERNAL NIKOLE F 10 MED MINUTES HOSPITAL LACI - 0 0 [facility] 40376 LISA LISA OUTPATIEN 0 0 TAYLOR VAZQUEZ T VISIT 15 MINUTES OFFICE 61070 [place] B[facility], OUTPATIEN 0 0 [facility] T VISIT INTERNAL 15 MED MINUTES HOSPITAL JOSY - 0 0 [facility] T EMERGENCY 48573 JOSY [address] [facility] T VISIT LIMITED/M INOR PROB EMERGENCY 31755 JOSY MAO, 9 9 [facility] T VISIT MODERATE SEVERITY HOSPITAL JOSY - 9 9 [facility] T OFFICE 98553 [place] MCKEMIE OUTPATIEN 9 9 [facility], T VISIT INTERNAL NIKOLE F 15 MED MINUTES HOSPITAL JOSY - 9 9 [facility] T OFFICE 48415 [place] MCKEMIE OUTPATIEN 9 9 [facility], T VISIT INTERNAL NIKOLE F 15 MED MINUTES OFFICE 09257 MAHIN STOUT OUTPATIEN 9 9 [facility] 10 N02 MINUTES OFFICE 29139 [place] MCKEMIE OUTPATIEN 9 9 [facility], T VISIT INTERNAL NIKOLE F 15 MED MINUTES HOSPITAL LACI - 9 9 [facility] OFF[facility] 84597 LAUREANO TINSLEY, OUTPATIEN 9 9 SHANT Don T VISIT 10 MINUTES OFFICE 29476 MAHIN BARAHONA OUTPATIEN 8 8 [facility]B [facility] 10 N02 MINUTES OFFICE 69720 [place] IVELISSE OUTPATIEN 8 8 DYLAN MARYCHUY Kevin T VISIT INTERNAL 15 MED MINUTES EMERGENCY 89888 JOSY MAO, 8 8 [facility] T VISIT LIMITED/M INOR PROB HOSPITAL JOSY - 8 8 [facility] T
--- OUTSIDE RECORDS SUMMARY | 2017-02-12 03:17 | External Medical Summary Rpt | CCD ---
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 Name Role Phone BIRGIT SOLARES MD, PSC, Unavailable Unavailable BIRGIT SOLARES MD, PSC MARYCHUY OVIEDO, Unavailable Unavailable MARYCHUY OVIEDO MANDUJANO, MANDUJANO Unavailable Unavailable MANDUJANO ALL, MANDUJANO ALL Unavailable Unavailable MARNI MEIR, MARNI Unavailable Unavailable MEIR MARNI MEIR, MARNI Unavailable Unavailable MEIR RUIZ MANDY, RUIZ Unavailable Unavailable MANDY REYES JUS, REYES Unavailable Unavailable JUS REYES JUS, REYES Unavailable Unavailable JUS [facility] Un[facility] Unavailable AND REHA, REPLACED BY [facility] NATHANAEL ANKIT, Unavailable Unavailable NATHANAEL ANKIT MARY HUFFMAN, Unavailable Unavailable MARY HUFFMAN DUFF JESSICA, DUFF JESSICA Unavailable Unavailable LISA TAYLOR, Unavailable Unavailable LISA TAYLOR LISA TAYLOR, Unavailable Unavailable LISA TAYLOR HABASH KEF, HABASH Unavailable Unavailable KEF HABASH LUZ, HABASH Unavailable Unavailable LUZ HABASH LUZ, HABASH Unavailable Unavailable LUZ HABASH, KEFAH, Unavailable Unavailable HABASH, KEFAH JAYNAIDER PANKAJ, Unavailable Unavailable HAGENSCHNEIDER PANKAJ [facility] Unavailable Unavailable INC, [facility] CLIFF ALVES, Unavailable Unavailable CLIFF ALVES [facility], Unavailable Unavailable [facility], Unavailable Unavailable [facility] Unavailable Unavailable INC, [facility] NEERAJ NEERAJ Unavailable Unavailable NEERAJ ARIANNA, NEERAJ Unavailable Unavailable NAN NEERAJ NAN, NEERAJ Unavailable Unavailable NAN RYAN II ELA, RYAN Unavailable Unavailable II ELA [facility] Unavailable Unavailable IM[facility], [facility] ENRIKE KAREEN, ENRIKE KAREEN Unavailable Unavailable ENRIKE KAREEN, ENRIKE KAREEN Unavailable Unavailable [id number], Unavailable Unavailable [id number] # Unavailable Unavailable [id number], [facility] # [id number] [facility] # Unavailable Unavailable [id number], [facility] # [id number] [facility] Unavailable [facility]available [facility], [facility] Unavailable Unavailable [facility], [facility] Unavailable Unavailable [facility] Unavailable Unavailable [facility] SHANT TINSLEY, Unavailable Unavailable SHANT TINSLEY KATHERINE AALIYAH, KATHERINE Unavailable Unavailable AALIYAH [facility] CATRACHO MAO, Unavailable Unavailable CATRACHO MAO DENSON AHMET, DENSON Unavailable Unavailable AHMET [facility] Unavailable Unavailable ASSOCIAT, [facility] DEJAE , NIKOLE Unavailable Unavailable F, HAMLET JR, NIKOLE F GIRISHCAROL MAE R, Unavailable Unavailable [facility] Unavailable Unavailable [facility], [facility], Unavailable Unavailable [facility] Unavailable Unavailable [facility], [facility], Unavailable Unavailable [facility] Unavailable Unavailable [facility], [facility] PETTEY JAM, PETTEY Unavailable Unavailable JAM SCIFRES ANG, SCIFRES Unavailable Unavailable ANG SCIFRES ANG, SCIFRES Unavailable Unavailable ANG [facility], Unavailable Unavailable [facility] Unavailable Unavailable [facility], [facility] Unavailable Unavailable [facility], [facility] Unavailable Unavailable [facility] Unavailable Unavailable [facility] Unavailable Unavailable [facility], [facility] CORWDER ANG, Unavailable Unavailable CROW[facility] AN[facility] LAKESHA ANG, Unavailable Unavailable TEMITOPE MCHUGH A, Unavailable Unavailable ARIAS, TEMITOPE A [facility] Unavailable Unavailable #[id number], [id number], Unavailable [facility]available [facility], Unavailable Unavailable [facility] Purpose Continuity of Care Document - 06-30-2007 through 2016 Problems Code Diagnosis DOS Provider Status [id number] MIGRAINE 12-27-2016 [facility] W/O [facility] NOT INTRACT SOLUTIONS W/O STAT IN MIGRAIN J060 ACUTE 12-27-2016 [facility] LARYNGOPHAR HEALTH YNGITIS SOLUTIONS IN M545 LOW BACK 12-27-2016 [facility] PAIN HEALTH SOLUTIONS IN [id number] SPONDYLOSIS 12-26-2016 [place] [facility] MYELOPATH/R IMAGING ASS ADICULOPATH Y LUMB RGN M5136 OTH 12-26-2016 [place] INTER[facility]ICAL RAL DISC IMAGING ASS DEGEN LUMBAR REGION N3001 ACUTE 07-22-2016 [facility] CYSTITIS [facility] WITH HOLDINGS HEMATURIA R309 PAINFUL 07-22-2016 [facility] MICTURITION [facility] UNSPECIFIED R319 HEMATURIA 07-22-2016 [facility] UNSPECIFIED [facility]INGS Z23 ENCOUNTER 02-25-2016 [facility] IMMUNIZATIO URGENT N TREAT D20643 ENCOUNTER 02-23-2016 LAB[facility] DAUB COLOR 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 EXAM [facility] OF GENERAL RTN [facility] W/ABNORMAL FIND V47102 ENCOUNTER 02-23-2016 [facility] COLOR MIXER EXAM [facility] OF GENERAL RTN [facility] W/O ABNORMAL FIND E038 OTHER 02-22-2016 [facility] SPECIFIED [facility] HYPOTHYROID HOLDINGS ISM [id number] UNSPECIFIED 02-15-2016 [place] O[facility]IAN [facility] CYST LEFT IMAGING ASS SIDE N938 OTHER SPEC 02-15-2016 [place] ABNORMAL MEDICAL UTERINE & IMAGING ASS VAGINAL BLEEDING R102 PELVIC AND 02-15-2016 [place] PERINEAL [facility]ICAL PAIN IMAG[facility] ASS X70901 RIGHT LOWER 02-15-2016 [facility] TENDERNESS R09207 LEFT LOWER 02-15-2016 [facility] ABDOM[facility] TENDERNESS R938 ABNORMAL 02-15-2016 [place] FIND ON DX MEDICAL IMAGING OTH IMAGING ASS SPEC BODY STRCT E39920 PAIN IN 01-19-2016 [facility] X64298 PAIN IN 01-19-2016 [facility] M4806 SPINAL 01-19-2016 BIRGIT SOLARES, STENOSIS , PSC LUMBAR REGION M5126 OTH 01-19-2016 BIRGIT SOLARES INTERVERTEB , PSC RAL DISC DISPLACEMEN T LUMBAR RGN R1011 RIGHT UPPER 12-11-2015 [place] [facility] G608 OTHER 12-07-2015 [facility] IDIOPATH[facility] TREAT NEUROPATHIE S B399 HISTOPLASMO 11-25-2015 [facility] UNSPECIFIED [id number] STAPHYLOMA 11-25-2015 [facility] POSTICUM ANG RIGHT EYE H5211 MYOPIA 11-25-2015 [facility] RIGHT EYE ANG I37922 UNSPECIFIED 11-25-2015 [facility] AMBLYOPIA ANG RIGHT EYE B394 HISTOPLASMO 11-18-2015 [facility] SIS CAPSULATI UNSPECIFIED 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 C90287 REGULAR 11-18-2015 [facility] ASTIGMATISM BILATERAL H524 PRESBYOPIA 11-18-2015 [facility] N925 OTHER 04-17-2015 [facility] IRREGULAR URGENT MENSTRUATIO TREAT N M42918 PAIN IN 04-16-2015 [facility] UNSPECIFIED CLINIC KNEE PPLLC H9319 TINNITUS 04-09-2015 [place] UNSPECIFIED MEDICAL EAR IMAGING ASS R569 UNSPECIFIED 04-09-2015 [facility] M5117 INTERVERTEB 01-30-2015 [facility] D/O INC W/RADICULOP ATHY LS RGN M5127 OT 01-30-2015 [place] [facility] RAL DISC IMAGING ASS DISPLACEMEN T LS REGION M5137 OT 01-30-2015 [facility] [facility] RAL DISC IMAGING ASS DEGEN LUMBOSACRAL REGION 56535 PAIN IN 12-25-2014 [facility] JOINT, [employer] MULTIPLE [facility] SITES 22888 DISPLCMT 12-25-2014 [facility] LUMBAR CLINIC INTERVERT [facility] DISC W/O MYELOPATHY 7231 CERVICALGIA 12-25-2014 [facility] 7242 LUMBAGO 12-25-2014 [facility] 7295 PAIN IN 12-25-2014 [facility] SOFT [employer] TISSUES OF [facility] LIMB 7820 DISTURBANCE 12-25-2014 [facility] OF SKIN CLINIC SENSATION [facility] 7840 HEADACHE 12-25-2014 [facility] V5869 LONG-TERM 12-25-2014 [facility] (CURRENT) [facility]IN[facility] USE OF [facility] OTHER MEDICATIONS 2448 OTHER 10-30-2014 [facility] SPECIFIED CLINIC ACQUIRED [facility] HYPOTHYROID ISM 2720 PURE 10-30-2014 [facility] HYPERCHOLES CLINIC TEROLEMIA [facility] 44570 RESTLESS 10-30-2014 [facility] LEGS [facility]INIC SYNDROME [facility] 22343 EXTRINSIC 10-30-2014 [facility] ASTHMA, CLINIC UNSPECIFIED [facility] V571 OTHER 10-29-2014 [facility] THERAPY [place] 81180 ACUTE 05-26-2014 MARNI MEIR ATOPIC CONJUNCTIVI TIS 71968 CHEST PAIN 05-26-2014 ENRIKE KAREEN UNSPECIFIED 7962 ELEVATED BP 05-26-2014 [facility] WORLEY READING WITHOUT DX HYPERTENSIO N V8533 BODY MASS 05-26-2014 [facility] WORLEY INDEX 33.0-33.9 ADULT 26290 BORDERLINE 04-08-2014 HABASH LUZ GLAUC OPEN ANGLE BL FINDINGS LOW RSK 3674 PRESBYOPIA 04-08-2014 HABASH LUZ 06459 UNSPECIFIED 02-17-2014 [facility] ARTHROPATH[facility] OTHER SPECIFIED SITES 7213 LUMBOSACRAL 02-17-2014 [facility] AND SPONDYLOSIS REHA WITHOUT MYELOPATHY 66775 DEGEN 02-17-2014 [facility] LUMBAR/LUMB H SLEEP AND OSACRAL REHA INTERVERTEB RAL DISC 27339 SPINAL STEN 02-17-2014 [facility] LUMB REG H SLEEP AND W/O REHA NEUROGENIC CLAUDICATIO N 7244 THORACIC/CARLOS 02-17-2014 [facility] MBOSACRAL H SLEEP AND NEURITIS/RA REHA DICULITIS UNSPEC 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 33710 SCOLIOSIS , 11-11-[address] [facility] IDIOPATHIC EAST V141 PERSONAL 11-11-[address] [facility] HISTORY EAST ALLERGY 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 AGENT 7177 CHONDROMALA 08-30-2013 [facility] 7262 OTHER 08-30-2013 [facility] AFFECTIONS PHYSICIANS OF SHOULDER GROUP REGION NEC 51632 LEUKOCYTOSI 08-08-2013 [facility] UNSPECIFIED 13784 OSTEOARTHRO 08-06-2013 [facility] SIS UNSPEC RADIOLOGY WHETHER ASSOCIAT GEN/LOC LOWER LEG 32606 PAIN IN 08-06-2013 [facility] JOINT, RADIOLOGY LOWER LEG ASSOCIAT 3671 MYOPIA 05-31-2013 [facility] 1120 CANDIDIASIS 04-29-2011 [facility] 2449 UNSPECIFIED 04-29-2011 [facility] HYPOTHYROID INTERNAL ISM MED 490 BRONCHITIS 04-29-2011 [facility] NOT VALLEY SPECIFIED INTERNAL ACUTE OR MED CHRONIC 4910 SIMPLE 04-29-2011 [facility] 59225 ASTHMA, 04-29-2011 [facility] UNSPECIFIED HOME , MEDICAL UNSPECIFIED EQUIPME STATUS 94138 UNSPECIFIED 04-15-2011 [facility] KELLER ARTHROPATHY , LOWER LEG 7821 RASH AND 04-15-2011 [facility] KELLER OTHER NONSPECIFIC SKIN ERUPTION 69792 OTHER 03-18-2011 [facility] KELLER ANXIETY STATES 7292 UNSPECIFIED 03-18-2011 [facility] KELLER NEURALGIA NEURITIS AND RADICULITIS 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 462 ACUTE 02-09-2011 [facility] PHARYNGITIS [facility] INTERNAL MEDI 4871 INFLUENZA 02-09-2011 [facility] WITH OTHER VALLEY RESPIRATORY INTERNAL MEDI MANIFESTATI ONS 30929 PAIN IN 01-24-2011 [facility] JOINT, VALLEY FOREARM INTERNAL MEDI 7245 UNSPECIFIED 01-24-2011 [facility] BACKACHE VAL[facility] INTERNAL MEDI 87290 OTHER 12-17-2010 [facility] CHRONIC [facility] PAIN INTERNAL MEDI 2409 GOITER, 11-04-2010 [facility] UNSPECIFIED RADIOLOGY ASSOCIAT 84020 UNSPECIFIED 09-24-2010 [facility] ARTHROPATHY INTERNAL MULTIPLE MEDI SITES 25330 ABDOMINAL 04-22-2010 [facility] PAIN RIGHT VAL[facility] UPPER INTERNAL [facility] MED[facility] 58673 ABDOMINAL 04-22-2010 [facility] PAIN, VAL[facility] EPIGASTRIC INTERNAL MEDI 5718 OTHER 04-16-2010 [facility] NONALCOHOLI C LIVER DISEASE 11828 DIARRHEA 04-16-2010 [facility] 12517 ESOPHAGEAL 04-07-2010 [facility] REFLUX [facility] INTERNAL MEDI 7226 DEGENERATIO 04-07-2010 [facility] N VALLEY INTERVERTEB INTERNAL RAL DISC MEDI SITE UNSPEC 93606 OTH 11-27-2009 [facility] EXTRAPYRAMI [facility] 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 5206 DISTURBANCE 10-23-2009 [facility]PLANT S IN TOOTH & [facility] 7862 COUGH 10-12-2009 [facility] 25921 UNSPECIFIED 10-10-2009 [facility] SIS RETINITIS 3670 HYPERMETROP 10-10-2009 [facility] 84038 OTHER 10-10-2009 [facility] FIELD DEFECT 41800 PAIN IN 07-10-2009 [facility] TAYLOR PELVIC REGION AND THIGH 27184 OSTEOARTHRO 06-26-2009 [facility] S UNSPEC RADIOLOGY GEN/LOC ASSOCIATES PELV PSC REGION&THIG H 4730 CHRONIC 03-29-2009 [facility] SINUSITIS 4731 CHRONIC 03-29-2009 [facility] FRONTAL [facility] SINUSITIS 83465 SPASM OF 01-01-2009 [facility] MUSCLE [facility] INTERNAL MED 03277 SPONDYLOSIS 12-02-2008 [place] UNSPEC RADIOLOGY SITE W/O ASSOCIATES MENTION PSC MYELOPATHY 7831 ABNORMAL 11-28-2008 [facility] WEIGHT GAIN [facility]OXI INTERNAL MED 13674 ANOMALY OF 09-01-2008 [facility] N[facility] POSITION UNSPECIFIED 7881 DYSURIA 07-15-2008 [facility] 226 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 2459 UNSPECIFIED 06-12-2008 [facility] TINSLEY THYROIDITIS 5210 DENTAL 04-01-2008 [facility] TRAN [facility] N02 98011 CONTACT 08-08-2007 [facility] DERMATITIS& VALLEY OTH ECZEMA INTERNAL DUE OTH BIOLOGY INSTRUCTOR AGENT 7248 OTHER 06-30-2007 [facility] REFERABLE TO BACK 8470 NECK SPRAIN 06-30-2007 [facility] Medications Na ND Rx Da Fi Fi Am Da Di Ph RX Ph St me C No te ll ll ou ys ag ar # ys at rm s nt no ma ic us Or Da si cy ia de te s n re d VT 00 09 10 55 10 00 OR Ac ED 14 -1 -1 .0 00 L- ti NI 39 4- 3- 00 07 MA ve SO 74 20 20 50 RT NE 01 17 17 95 5 0 61 PH AR MG MA CY TA BL #5 ET 91 GA 00 09 10 90 30 00 WA Ac BA 22 -1 -1 .0 00 L- ti PE 82 7- 3- 00 04 MA ve NT 63 20 20 53 RT IN 65 17 17 17 0 43 PH 60 AR 0 MA MG CY TA #5 BL 91 ET CY 68 08 09 30 15 00 OR Ac CL 64 -2 -2 .0 00 L- ti OB 50 9- 2- 00 07 MA ve EN 51 20 20 50 RT ZA 79 17 17 66 VT 0 26 PH IN AR E MA [...] NA 65 08 09 60 30 00 OR Ac VT 16 -2 -2 .0 00 L- ti OX 20 9- 2- 00 07 MA ve EN 19 20 20 50 RT 01 17 17 66 50 1 28 PH 0 AR MG MA CY TA BL #5 ET 91 TO 68 08 09 30 30 00 OR Ac PI 38 -2 -2 .0 00 L- ti RA 20 9- 2- 00 07 MA ve MA 14 20 20 50 RT TE 01 17 17 66 4 29 PH 10 AR 0 MA MG CY TA #5 BL 91 ET ME 59 08 09 21 6 00 OR Ac TH 74 -2 -2 .0 00 L- ti YL 60 9- 2- 00 07 MA ve VT 00 20 20 50 RT ED 10 17 17 64 NI 3 98 PH SO AR LO MA NE CY 4 #5 MG 91 DO SE PK [facility] 55 08 09 9. 9 00 OR Ac MA 11 -2 -1 00 00 L- ti TR 10 1- 5- 0 07 MA ve IP 29 20 20 50 RT TA 30 17 17 51 N 9 02 PH J[facility] AR CC MA CY 10 0 #5 MG 91 TA BL ET GA 00 08 09 90 30 00 OR Ac BA 22 -2 -1 .0 00 L- ti PE 82 1- 5- 00 04 MA ve NT 63 20 20 53 RT IN 65 17 17 17 0 43 PH 60 AR 0 MA MG CY TA #5 BL 91 ET VT 54 07 08 30 30 00 [facility] AV 45 -2 -2 .0 00 L- ti 80 8- 5- 00 07 MA ve TA 92 20 20 66 RT TI 71 17 17 89 N 6 94 PH SO AR DI MA UM CY 10 #5 71 MG TA B TI 55 07 08 60 30 00 OR Ac ZA 11 -2 -2 .0 00 L- ti NI 10 8- 5- 00 07 MA ve DI 18 20 20 66 RT NE 01 17 17 89 5 96 PH HC AR L MA 4 CY MG #5 TA 71 BL ET DU 57 07 08 60 30 00 OR Ac LO 23 -2 -2 .0 00 L- ti XE 70 8- 5- 00 07 MA ve TI 01 20 20 66 RT NE 93 17 17 89 0 97 PH HC AR L MA DR CY 60 #5 71 MG CA P ME 62 07 08 30 30 00 OR Ac TO 03 -2 -2 .0 00 L- ti VT 70 8- 5- 00 07 MA ve OL 83 20 20 66 RT OL 11 17 17 89 0 95 PH JACKSON AR CC MA CY ER #5 50 71 MG TA B TO 68 07 08 30 30 00 OR Ac PI 38 -2 -1 .0 00 L- ti RA 20 1- 8- 00 07 MA ve MA 13 20 20 66 RT TE 91 17 17 60 4 61 PH 50 AR MA MG CY TA #5 BL 71 ET LA 69 07 08 30 30 00 WA Ac MO 09 -2 -1 .0 00 L- ti TR 70 1- 8- 00 07 MA ve IG 15 [...] 0 #5 MG 71 TA BL ET GA 00 07 08 90 30 00 WA Ac BA 22 -2 -1 .0 00 L- ti PE 82 5- 8- 00 04 MA ve NT 63 20 20 54 RT IN 65 17 17 39 0 47 PH 60 AR 0 MA MG CY TA #5 BL 71 ET CL 16 07 08 90 30 00 OR Ac ON 72 -2 -1 .0 00 L- ti AZ 90 5- 8- 00 04 MA ve EP 13 20 20 54 RT AM 61 17 17 39 6 49 PH 0. AR 5 MA MG CY TA #5 BL 71 ET LE 00 07 08 30 30 00 WA Ac VO 78 -2 -1 .0 00 L- ti TH 15 1- 8- 00 07 MA ve YR 18 20 20 66 RT OX 69 17 17 24 IN 2 66 PH E AR 12 MA 5 CY MC G #5 TA 71 BL ET TI 55 06 07 60 30 00 OR Ac ZA 11 -2 -2 .0 00 [...] TA #5 BL 71 ET LE 00 10 05 30 30 00 OR Ac VO 78 -2 -2 .0 00 L- ti TH 15 3- 1- 00 07 MA ve YR 18 20 20 66 RT OX 69 17 17 24 IN 2 66 PH E AR 12 MA 5 CY MC G #5 TA 71 BL ET VT 54 10 05 30 30 00 OR Ac AV 45 -2 -2 .0 00 L- ti 80 7- 1- 00 07 MA ve TA 92 20 20 66 RT TI 71 17 17 89 N 6 94 PH SO AR DI MA UM CY 10 #5 71 MG TA B ME 62 10 05 30 30 00 OR Ac TO 03 -2 -2 .0 00 L- ti VT 70 7- 1- 00 07 MA ve OL 83 20 20 66 RT OL 11 17 17 89 0 95 PH JACKSON AR CC MA CY ER #5 50 71 MG TA B PN 00 06 07 0. 1 00 OR Ac EU 00 -1 -1 50 00 L- ti MO 64 6- 4- 0 07 MA ve VA 94 20 20 66 RT X 30 17 17 69 23 0 63 PH AR MA AL CY #5 71 TO 68 10 05 29 30 00 OR Ac PI 38 -1 -0 .0 00 L- ti RA 20 2- 7- 00 07 MA ve MA 13 20 20 66 RT TE 91 17 17 60 4 61 PH 50 AR MA MG CY TA #5 BL 71 ET LA 69 05 30 30 00 OR Ac MO 09 -2 -2 .0 00 L- ti TR 70 5- 3- 00 07 MA ve IG 15 20 20 66 RT IN 20 17 17 24 E 3 49 PH 20 AR 0 MA MG CY TA #5 BL 71 ET CL 16 05 90 30 00 OR Ac ON 72 -3 -2 .0 00 L- ti AZ 90 0- 3- 00 04 MA ve EP 13 20 20 54 RT AM 61 17 17 30 6 67 PH 0. AR 5 MA MG CY TA #5 BL 71 ET TO 68 05 30 30 00 OR Ac PI 38 -2 -2 .0 00 [...] TA 71 BL ET GA 00 05 90 30 00 WA Ac BA 22 -2 -2 .0 00 L- ti PE 82 5- 3- 00 07 MA ve NT 63 20 20 66 RT IN 65 17 17 24 0 39 PH 60 AR 0 MA MG CY TA #5 BL 71 ET ME 62 05 30 30 00 OR Ac TO 03 -2 -2 .0 00 L- ti VT 70 5- 3- 00 07 MA ve OL 83 20 20 66 RT OL 11 17 17 24 0 48 PH JACKSON AR CC MA CY ER #5 50 71 MG TA B VT 54 05 30 30 00 OR Ac AV 45 -2 -2 .0 00 L- ti 80 5- 3- 00 07 MA ve TA 92 20 20 66 RT TI 71 17 17 24 N 2 68 PH SO AR DI MA UM CY 10 #5 71 MG TA B DU 57 05 60 30 00 OR Ac LO 23 -2 -2 .0 00 L- ti XE 70 5- 3- 00 07 MA ve TI 01 20 20 66 RT NE 93 17 17 24 0 67 PH HC AR L MA DR CY 60 #5 71 MG CA P LE 00 09 03 30 30 00 WA Ac VO 78 -2 -2 .0 00 L- ti TH 15 5- 3- 00 07 MA ve YR 18 20 20 66 RT OX 69 17 17 24 IN 2 66 PH E AR 12 MA 5 CY MC G #5 TA 71 BL ET CL 00 09 02 89 30 00 SO Ac ON 18 -0 -2 .0 00 PE ti AZ 50 1- 6- 00 00 RS ve EP 06 20 20 56 AM 30 17 17 21 FA 5 77 PA 0. LY [address] UG TA BL ET LE 00 09 02 30 30 00 SO Ac VO 37 -0 -2 .0 00 PE ti TH 81 1- 6- 00 00 RS ve YR 81 20 20 55 OX 37 17 17 37 FA IN 7 65 PA E LY [address] MC UG G TA BL ET VT 68 05 05 30 30 00 SO Ac AV 46 -0 -2 .0 00 PE ti 20 1- 6- 00 00 RS ve TA 19 20 20 54 TI 59 17 17 84 FA N 0 18 PA SO LY DI UM DR UG 10 MG TA B NI 00 05 05 28 28 00 SO Ac CO 53 -0 -2 .0 00 PE ti TI 65 1- 6- 00 00 RS ve NE 89 20 20 56 68 17 17 21 FA 21 8 79 PA LY MG /2 DR 4H UG R PA TC H TO 68 05 05 30 30 00 SO Ac PI 38 -0 -2 .0 00 PE ti RA 20 1- 6- 00 00 RS ve MA 13 20 20 56 TE 81 17 17 21 FA 4 78 PA [address] UG TA BL ET JACKSON 65 05 05 9. 10 00 SO Ac MA 86 -0 -2 00 00 PE ti TR 20 1- 6- 0 00 RS ve IP 14 20 20 56 TA 83 17 17 21 FA N 6 82 PA JACKSON LY CC DR 10 UG 0 MG TA BL ET DU 57 05 05 60 30 00 SO Ac LO 23 -0 -2 .0 00 PE ti XE 70 1- 6- 00 00 RS ve TI 01 20 20 54 NE 99 17 17 84 FA 9 20 PA HC LY L DR DR UG 60 MG CA P LA 51 05 05 30 30 00 SO Ac MO 67 -0 -2 .0 00 PE ti TR 24 1- 6- 00 00 RS ve IG 13 20 20 54 IN 30 17 17 84 FA E 4 23 PA [address] UG TA BL ET ME 62 05 05 30 30 00 SO Ac TO 03 -0 -2 .0 00 PE ti VT 70 1- 6- 00 00 RS ve OL 83 20 20 54 OL 11 17 17 81 FA 0 56 PA JACKSON LY CC DR ER UG 50 MG TA B TI 57 04 05 60 30 00 SO Ac ZA 66 -1 -1 .0 00 PE ti NI 40 7- 2- 00 00 RS ve DI 50 20 20 55 NE 31 17 17 77 FA 8 95 PA HC LY L 4 DR MG UG TA BL ET GA 69 04 05 90 30 00 SO Ac BA 09 -1 -1 .0 00 PE ti PE 70 4- 2- 00 00 RS ve NT 81 20 20 55 IN 21 17 17 37 FA 2 64 PA [address] UG TA BL ET LE 00 03 04 30 30 00 SO Ac VO 37 -2 -2 .0 00 PE ti TH 81 4- 1- 00 00 RS ve YR 81 20 20 55 OX 37 17 17 37 FA IN 7 65 PA E LY [address] MC UG G TA BL ET PH 75 03 04 9. 3 00 SO Ac EN 82 -2 -2 00 00 PE ti AZ 60 4- 1- 0 00 RS ve OP 11 20 20 55 YR 41 17 17 96 FA ID 0 79 PA IN LY E 10 DR 0 UG MG TA B CI 16 03 04 20 10 00 SO Ac VT 57 -2 -2 .0 00 PE ti OF 10 4- 1- 00 00 RS ve LO 41 20 20 55 XA 25 17 17 96 FA CI 0 80 PA N LY HC L DR 50 UG 0 MG TA B JACKSON 55 03 04 9. 10 00 SO Ac MA 11 -2 -2 00 00 PE ti TR 10 4- 1- 0 00 RS ve IP 29 20 20 55 TA 30 17 17 96 FA N 9 81 PA JACKSON LY CC DR 10 UG 0 MG TA BL ET ME 62 03 04 30 30 00 SO Ac TO 03 -2 -2 .0 00 PE ti VT 70 4- 1- 00 00 RS ve OL 83 20 20 54 OL 11 17 17 81 FA 0 56 PA JACKSON LY CC DR ER UG 50 MG TA B LA 51 03 04 30 30 00 SO Ac MO 67 -2 -2 .0 00 PE ti TR 24 4- 1- 00 00 RS ve IG 13 20 20 54 IN 30 17 17 84 FA E 4 23 PA [address] UG TA BL ET DU 57 03 04 60 30 00 SO Ac LO 23 -2 -2 .0 00 PE ti XE 70 4- 1- 00 00 RS ve TI 01 20 20 54 NE 99 17 17 84 FA 9 20 PA HC LY L DR UG 60 MG CA P CL 00 03 04 90 30 00 SO Ac ON 18 -2 -2 .0 00 PE ti AZ 50 4- 1- 00 00 RS ve EP 06 20 20 55 AM 30 17 17 96 FA 5 78 PA 0. LY [address] UG TA BL ET VT 68 03 04 30 30 00 SO Ac AV 46 -2 -1 .0 00 PE ti 20 1- 4- 00 00 RS ve TA 19 20 20 54 TI 59 17 17 84 FA N 0 18 PA SO LY DI UM DR UG 10 MG TA B GA 69 03 04 90 30 00 SO Ac BA 09 -1 -0 .0 00 PE ti PE 70 5- 7- 00 00 RS ve NT 81 20 20 55 IN 21 17 17 37 FA 2 64 PA [address] UG TA BL ET TI 57 03 03 60 30 00 SO Ac ZA 66 -0 -3 .0 00 PE ti NI 40 3- 1- 00 00 RS ve DI 50 20 20 55 NE 31 17 17 77 FA 8 95 PA HC LY L 4 DR MG UG TA BL ET CL 00 02 03 90 30 00 SO Ac ON 18 -2 -1 .0 00 PE ti AZ 50 1- 7- 00 00 RS ve EP 06 20 20 55 AM 30 17 17 68 FA 5 48 PA 0. LY [address] UG TA BL ET DU 57 02 03 60 30 00 SO Ac LO 23 -1 -1 .0 00 PE ti XE 70 0- 0- 00 00 RS ve TI 01 20 20 54 NE 99 17 17 84 FA 9 20 PA HC LY L DR DR UG 60 MG CA P LA 51 02 03 30 30 00 SO Ac MO 67 -1 -1 .0 00 PE ti TR 24 0- 0- 00 00 RS ve IG 13 20 20 54 IN 30 17 17 84 FA E 4 23 PA [address] UG TA BL ET ME 62 02 03 30 30 00 SO Ac TO 03 -1 -1 .0 00 PE ti VT 70 0- 0- 00 00 RS ve OL 83 20 20 54 OL 11 17 17 81 FA 0 56 PA JACK[place] LY CC DR ER UG 50 MG TA B VT 68 02 03 30 30 00 SO Ac AV 46 -1 -1 .0 00 PE ti 20 0- 0- 00 00 RS ve TA 19 20 20 54 TI 59 17 17 84 FA N 0 18 PA SO LY DI UM DR UG 10 MG TA B VE 00 02 03 18 25 00 SO Ac NT 17 -1 -1 .0 00 PE ti OL 30 0- 0- 00 00 RS ve IN 68 20 20 53 22 17 17 86 FA HF 0 44 PA A LY 90 DR MC UG G IN KENNY LE R GA 69 02 03 90 30 00 SO Ac BA 09 -1 -1 .0 00 PE ti PE 70 3- 0- 00 00 RS ve NT 81 20 20 55 IN 21 17 17 37 FA 2 64 PA [address] UG TA BL ET TI 57 01 02 60 30 00 SO Ac ZA 66 -3 -2 .0 00 PE ti NI 40 1- 4- 00 00 RS ve DI 50 20 20 54 NE 31 17 17 84 FA 8 19 PA HC LY L 4 DR MG UG TA BL ET GA 69 05 02 90 30 00 SO Ac BA 09 -1 -1 .0 00 PE ti PE 70 2- 0- 00 00 RS ve NT 81 20 20 54 IN 21 17 17 08 FA 2 85 PA [address] UG TA BL ET CL 00 05 02 90 30 00 SO Ac ON 18 -1 -1 .0 00 PE ti AZ 50 7- 0- 00 00 RS ve EP 06 20 20 55 AM 30 17 17 37 FA 5 63 PA 0. LY [address] UG TA BL ET LE 00 02 30 30 00 SO Ac VO 37 -1 -1 .0 00 PE ti TH 81 7- 0- 00 00 RS ve YR 81 20 20 55 OX 37 17 17 37 FA IN 7 65 PA E LY [address] DAHIANA UG G TA BL ET TI 57 12 60 30 00 SO Ac ZA 66 -2 -2 .0 00 PE ti NI 40 3- 0- 00 00 RS ve DI 50 20 20 54 NE 31 16 17 84 FA 8 19 PA HC LY L 4 DR MG UG TA BL ET LE 00 12 01 30 30 00 SO Ac VO 37 -0 -0 .0 00 PE ti TH 81 9- 9- 00 00 RS ve YR 81 20 20 54 OX 37 16 17 80 FA IN 7 75 PA E LY [address] DAHIANA UG G TA BL ET GA 69 12 90 30 00 SO Ac BA 36 -1 -0 .0 00 PE ti PE 70 3- 9- 00 00 RS ve NT 13 20 20 54 IN 40 16 17 08 FA 6 85 PA [address] UG TA BL ET CL 00 12 90 30 00 SO Ac ON 18 -0 -0 .0 00 PE ti AZ 50 8- 9- 00 00 RS ve EP 06 20 20 55 AM 31 16 17 05 FA 0 57 PA 0. LY [address] UG TA BL ET LA 51 12 30 30 00 SO Ac MO 67 -0 -0 .0 00 PE ti TR 24 9- 9- 00 00 RS ve IG 13 20 20 54 IN 30 16 17 84 FA E 4 23 PA [address] UG TA BL ET IB 67 12 90 30 00 SO Ac UP 87 -0 -0 .0 00 PE ti RO 70 9- 9- 00 00 RS ve FE 32 20 20 54 N 10 16 17 69 FA 80 5 72 PA [address] TA UG BL ET ME 62 12 01 30 30 00 SO Ac TO 03 -0 -0 .0 00 PE ti VT 70 9- 00 00 RS ve OL 83 20 20 54 OL 11 16 17 81 FA 0 56 PA JACKSON LY CC DR ER UG 50 MG TA B DU 57 12 01 60 30 00 SO Ac LO 23 -0 -0 .0 00 PE ti XE 70 00 RS ve TI 01 20 20 54 NE 99 16 17 84 FA 9 20 PA HC LY L DR DR SAMUELS 60 MG CA P VT 68 12 01 30 30 00 SO Ac AV 46 -0 -0 .0 00 PE ti 20 00 RS ve TA 19 20 20 54 TI 59 16 17 84 FA N 0 18 PA SO LY DI UM UG 10 MG TA B GA 68 08 10 5 30 30 SO 38 BE Ac BA 46 -1 -2 .0 PE 17 SS ti PE 20 9- 8- 00 RS 78 ON ve NT 12 20 20 IN [address] 5 PA EP 60 LY HE [address] Kevin SAMUELS TA BL ET LE 00 09 10 5 30 30 SO 38 BE Ac VO 52 -2 -2 .0 PE 52 SS ti TH 71 6- 6- 00 RS 17 ON ve YR 34 20 20 OX [address] IN 0 PA EP E LY HE [address] Kevin MC UG G TA BL ET VT 60 10 10 0 12 6 SO 38 HU Ac OM 43 -1 -1 0. PE 68 NT ti ET 20 2- 2- 00 RS 25 ER ve KENNY 60 20 20 0 ZI 41 11 11 FA NA NE 6 PA NC -D LY Y M C SY DR RU UG P 00 10 10 0 30 7 SO 38 MC Ac 59 -0 -0 .0 PE 58 KE ti 10 3- 3- 00 RS 61 PA ve 34 20 20 E 90 11 11 FA JR 5 PA LY WI LL DR IA UG M F GA 68 08 09 5 30 30 SO 38 BE Ac BA 46 -1 -3 .0 PE 17 SS ti PE 20 9- 0- 00 RS 78 ON ve NT 12 20 20 IN [address] 5 PA EP 60 LY HE [address] Kevin UG TA BL ET CY 59 09 09 0 7. 7 SO 38 HU Ac CL 74 -2 -2 00 PE 54 NT ti OB 60 8- 9- 0 RS 82 ER ve EN 21 20 20 ZA 11 11 11 FA NA VT 0 PA NC IN LY Y E C 5 DR UG TA BL ET 59 08 09 5 8. 15 SO 38 BE Ac 31 -1 -2 50 PE 17 SS ti 00 9- 8- 0 RS 75 ON ve 57 20 20 [address] 0 PA EP LY HE N DR Kevin SAMUELS CI 65 08 09 5 30 30 SO 38 BE Ac TA 16 -1 -2 .0 PE 17 SS ti LO 20 9- 8- 00 RS 76 ON ve VT 05 20 20 AM [address] 0 PA EP HB LY HE R N 40 DR Kevin SAMUELS MG TA BL ET 00 09 09 0 30 7 SO 38 BE Ac 59 -2 -2 .0 PE 52 SS ti 10 6- 6- 00 RS 15 ON ve 34 20 20 [address] 5 PA EP LY HE N DR Brown UG 00 09 09 0 55 10 SO 38 BE Ac 14 -2 -2 .0 PE 52 SS ti 31 6- 6- 00 RS 16 ON ve 47 20 20 [address] 0 PA EP LY HE N DR Kevin SAMUELS LE 00 09 09 5 30 30 SO 38 BE Ac VO 52 -2 -2 .0 PE 52 SS ti TH 71 6- 6- 00 RS 17 ON ve YR 34 20 20 OX [address] IN 0 PA EP E LY HE [address] Brown UG G TA BL ET GA 68 08 09 5 30 30 SO 38 BE Ac BA 46 -1 -0 .0 PE 17 SS ti PE 20 9- 2- 00 RS 78 ON ve NT 12 20 20 IN [address] 5 PA EP 60 LY HE [address] Brown UG TA BL ET 00 08 08 0 12 30 SO 38 MC Ac 59 -1 -2 0. PE 18 KE ti 10 9- 3- 00 RS 07 PA ve 34 20 20 0 E 90 11 11 FA JR 5 PA LY WI LL DR CALZADA UG M F 59 08 08 5 8. 15 SO 38 BE Ac 31 -1 -1 50 PE 17 SS ti 00 9- 9- 0 RS 75 ON ve 57 20 20 [address] 0 PA EP LY HE N DR Kevin SAMUELS CI 65 08 08 5 30 30 SO 38 BE Ac TA 16 -1 -1 .0 PE 17 SS ti LO 20 9- 9- 00 RS 76 ON ve VT 05 20 20 AM [address] 0 PA EP HB LY HE R N 40 DR A UG MG TA BL ET ET 51 08 08 2 60 30 SO 38 BE Ac OD 67 -1 -1 .0 PE 17 SS ti OL 24 9- 9- 00 RS 77 ON ve AC 01 20 20 [address] 40 1 PA EP 0 LY HE MG N DR A TA UG BL ET GA 00 06 07 1 30 30 SO 37 HU Ac BA 22 -2 -2 .0 PE 72 NT ti PE 82 8- 8- 00 RS 96 ER ve NT 63 20 20 IN 65 11 11 FA NA 0 PA NC 60 LY Y [address] UG TA BL ET 00 06 06 0 55 10 SO 37 HU Ac 14 -2 -2 .0 PE 74 NT ti 31 9 9- 00 RS 13 ER ve 47 20 20 51 11 11 FA NA 0 PA NC LY Y C DR UG IB 55 06 06 0 90 30 SO 37 FL Ac UP 11 -2 -2 .0 PE 72 OR ti RO 10 8 8 RS 95 EN ve FE 68 20 20 CE N 40 11 11 FA 80 5 PA SA 0 LY RA MG H DR L TA UG BL ET GA 00 06 06 1 30 30 SO 37 FL Ac BA 22 -2 -2 .0 PE 72 OR ti PE 82 8- 8- 00 RS 96 EN ve NT 63 20 20 CE IN 65 11 11 FA 0 PA SA 60 LY RA 0 H MG [...] S 0 YC [address] IN 1 UG NC Y 25 CO C 0 MP MG AN Y TA IN BL C ET VT 60 05 05 12 6 HO 10 HU Ac OM 43 -2 -2 0. PK 16 NT ti ET 20 7- 7- 00 IN 99 ER ve KENNY 60 20 20 0 S 1 ZI [address] 6 UG NC -D Y M CO C SY MP RU AN P Y IN C VT 00 05 05 14 7 HO 10 [...] ti 10 0- 0- 00 IN 74 PA ve 34 20 20 S 9 E [address] MOJICA 5 UG WI CO LL MP IA AN M Y F IN C VT 00 03 03 55 10 HO 10 HU Ac ED 60 -0 -0 .0 PK 15 NT ti NI 35 3- 3- 00 IN 53 ER ve SO 33 20 20 S 3 NE [address] 1 UG NC Y MG CO C MP TA AN BL Y ET IN C AM 00 03 03 5 30 30 HO 10 HU Ac IT 60 -0 -0 .0 PK 15 NT ti RI 32 2- 2- 00 IN 50 ER ve PT 21 20 20 S 5 YL [address] IN 2 UG NC E Y HC CO C L MP 50 AN Y MG IN C TA B 00 03 03 30 7 HO 10 HU Ac 59 -0 -0 .0 PK 15 NT ti 10 2- 2- 00 IN 50 ER ve 34 20 20 S [address] UG NC Y CO C MP AN Y IN C GA 53 03 03 5 30 30 HO 10 HU Ac BA 74 -0 -0 .0 PK 15 NT ti PE 60 2- 2- 00 IN 50 ER ve NT 10 20 20 S 8 IN [address] NA 5 UG NC 30 Y 0 CO C MG MP AN CA Y PS IN UL C E CI 13 03 03 4. 7 HO 10 HU Ac TA 66 -0 -0 00 PK 15 NT ti LO 80 2- 2- 0 IN 50 ER ve VT 01 20 20 S 3 AM [address] NA 1 UG NC HB Y R CO C 20 MP AN MG Y IN TA C BL ET GA 62 08 01 2 30 30 HO 10 MC Ac BA 75 -2 -2 .0 PK 10 KE ti PE 60 5- 5- 00 IN 04 PA ve NT 13 20 20 S 1 [...] N MP A AN Y IN C IB 55 07 01 3 90 30 HO 10 FL Ac UP 11 -3 -2 .0 PK 10 OR ti RO 10 0- 5- 00 IN 05 EN ve FE 68 20 20 S 2 CE N [address] 80 5 UG SA 0 RA MG CO H MP L TA AN BL Y ET IN C LE 00 01 01 4 [...] PE 60 5- 8- 00 IN 04 PA ve NT 13 20 20 S 1 [...] N MP A AN Y IN C VT 00 12 12 30 15 HO 10 HU Ac ED 60 -0 -0 .0 PK 13 NT ti NI 35 8- 8- 00 IN 39 ER ve SO 33 20 20 S 9 NE [address] NA 2 UG NC 10 Y CO C MG MP AN TA Y BL IN ET C VT 37 12 12 2 56 28 HO 10 HU Ac IL 00 -0 -0 .0 PK 13 NT ti OS 00 8- 8- 00 IN 40 ER ve EC 45 20 20 S [address] ISAURO OT 3 UG NC C Y 20 CO C .6 MP AN MG Y IN TA C BL ET LE 00 01 09 4 90 90 [...] PE 60 5- 5- 00 IN 04 PA ve NT 13 20 20 S 1 [...] CO C MP AN Y IN C 60 06 06 1 12 2 HO 10 BE Ac 25 -1 -1 0. PK 08 SS ti 80 4- 4- 00 IN 18 ON ve 23 20 20 0 S [address] 6 UG EP HE CO N MP A AN Y IN C DO 00 06 [...] Y 0 IN MG C CA P LE 00 01 06 4 90 90 [...] CO C MP AN Y IN C DI 16 03 03 1 60 30 HO 10 FL Ac CL 57 -1 -1 .0 PK 05 OR ti OF 10 2- 2- 00 IN 40 EN ve EN 20 20 20 S 7 CE AC [address] 0 UG SA SO RA D CO H EC MP L AN 75 Y IN MG C TA B ME 51 03 03 21 6 HO 10 FL Ac TH 99 -1 -1 .0 PK 05 OR ti YL 10 2- 2- 00 IN 40 EN ve VT 18 20 20 S 8 CE ED [address] NI 1 UG SA SO RA LO CO H NE MP L 4 AN Y MG IN C DO SE PK LE 00 01 02 00 90 90 KR 60 LA Ac VO 52 -0 -1 .0 OG 31 WS ti TH 71 7- 1- 00 ER 84 ON ve YR 34 20 20 2 OX 30 10 10 PH IN [address] E M OR 75 L- G 71 MC 2 G TA BL ET 00 01 02 00 24 4 KR 44 MC Ac 60 -2 -1 .0 OG 94 LA ti 33 9- 1- 00 ER 08 UR ve 88 20 20 1 IN 82 10 10 PH 8 AR DO M NA L- LD 71 R 2 IB 53 01 02 00 30 7 KR 60 MC Ac UP 74 -2 -1 .0 OG 31 LA ti RO 60 9- 1- 00 ER 84 UR ve FE 46 20 20 1 IN N 60 10 10 PH 80 5 AR DO 0 M NA MG L- LD 71 R TA 2 BL ET PE 67 12 12 00 30 7 [...] CA C PS HERRERA UL SE E LE 00 03 10 02 90 90 HO 99 LA Ac VO 37 -0 -2 .0 PK 32 WS ti TH 81 3- 2- 00 IN 75 ON ve YR 80 20 20 S OX [address] [place] [address] E OR 75 CO G MC IN G C TA BL ET 59 06 10 00 8. 25 HO 10 HU Ac 31 -1 -2 50 PK 00 NT ti 00 6- 2- 0 IN 35 ER ve 57 20 20 S [address] 0 UG NC Y CO C IN C AM 65 09 09 00 30 10 [...] 20 S ZA [address] ISAURO VT 6 UG NC IN Y E CO C 10 IN MG C TA BL ET VT 00 09 09 00 36 12 HO [...] 47 20 20 S [address] 1 UG EP HE CO N A IN C ET 51 07 08 00 60 30 HO 99 HU Ac OD 67 -3 -1 .0 PK 78 NT ti OL 24 1- 3- 00 IN 31 ER ve AC 01 20 20 S [address] NA 40 1 UG NC 0 Y MG CO C TA IN BL C ET CY 00 07 08 00 30 30 HO 99 HU Ac CL 59 -3 -1 .0 PK 78 NT ti OB 13 1- 3- 00 IN 30 ER ve EN 25 20 20 S ZA [address] NA VT 1 UG NC IN Y E CO C 5 MG IN C TA BL ET LE 00 03 07 01 90 90 HO 99 LA Ac VO 37 -0 -0 .0 PK 32 WS ti TH 81 3- 2- 00 IN 75 ON ve YR 80 20 20 S OX [address] IN [address] E OR 75 CO G MC IN G C TA BL ET 59 06 07 [...] M NA L- LD 71 R 2 59 05 05 00 8. 17 HO 99 HU Ac 31 -1 -2 50 PK 57 NT ti 00 4- 1- 0 IN 01 ER ve 57 20 20 S [address] NA 0 UG NC Y CO C IN C AM 00 03 03 00 30 30 HO 99 HU Ac IT 78 -2 -2 .0 PK 39 NT ti RI 11 0- 6- 00 IN 63 ER ve PT 48 20 20 S YL [address] NA IN 1 UG NC E Y HC CO C L 25 IN C MG TA B LE 00 03 03 00 90 90 HO 99 LA Ac VO 37 -0 -1 .0 PK 32 WS ti TH 81 3- 2- 00 IN 75 ON ve YR 80 20 20 S OX [address] IN [address] E OR 75 CO G MC IN G C TA BL ET 59 04 03 01 8. 17 HO [...] NC Y CO C IN C 00 12 12 00 24 4 WA 44 MO Ac 40 -0 -1 .0 L- 72 RR ti 60 2- 8- 00 MA 44 IS ve 36 20 20 RT 5 30 08 08 RO 1 PH BE AR RT MA H CY #1 14 0 TR 51 10 11 00 30 7 [...] L 25 IN C MG TA B VE 68 10 11 00 56 28 HO 98 No Ac NL 38 -2 -0 .0 PK 91 t ti AF 20 2- 7- 00 IN 74 Av ve AX 01 20 20 S ai IN [address] saucedo E 1 UG bl HC e L CO 25 IN MG C TA BL ET LE 00 10 10 03 90 90 [...] 1 UG bl e CO IN C 59 04 04 00 17 20 HO [...] CO 1% IN CR C EA M VE 00 04 04 00 60 30 HO 98 No Ac NL 09 -0 -2 .0 PK 31 t ti AF 37 9- 4- 00 IN 58 Av ve AX 38 20 20 S ai IN [address] saucedo E 1 UG bl HC e L CO 75 IN MG C TA BL ET LE 00 10 04 01 90 90 [...] Procedures Procedure DOS Code Location Performer Comment BODY MASS 3008F [employer] INDEX 7 HEALTH DOCUMENTE SOLUTIONS D IN CURRENT 1034F [employer] TOBACCO 7 HEALTH SMOKER SOLUTIONS IN TOBACCO 1000F [employer] USE 7 HEALTH ASSESSED SOLUTIONS IN RADEX 52320 [place] [facility] SPINE 7 MEDICAL LUMBOSACR IMAGING AL ASS MINIMUM 4 VIEWS SUSCEPTIB 42874 [facility] LTY STDY 7 POPPY POPPY ANTIMICRB HOLDINGS HOLDINGS IAL MICRO/AGA R DILUTJ CULTURE 95132 [facility] BACTERIAL 7 POPPY POPPY [facility] QUANTTATI VE COLONY COUNT URINE CULTURE 40558 [facility] BCT 7 POPPY POPPY ISOL&PRSM [facility] PTV ID ISOLATE EA URINE IIV3 [id number] J[facility] PICKARD VACCINE 6 [facility] SPLIT URGENT VIRUS 0.5 TREAT ML DOSAGE IM USE IM ADM 26715 JOS[facility] PICKARD PRQ ID 6 [facility] SUBQ/IM URGENT NJXS 1 TREAT VACCINE CYTP 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/ 6 Y [facility] OF Y [facility] OF VAGINAL POPPY POPPY REQ H H INTERP PHYSICIAN CYTP C/V 68984 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 AUTO THIN 6 Y [facility] OF Y [facility] OF LYR POPPY POPPY [place] [address] [facility] THYROID 6 POPPY POPPY STIMULATI [place] [address] [place] ALL TRANSVAGI 6 [facility] NAL [facility] G0463 [facility] OUTPATIEN 6 [facility] T CLIN INC INC VISIT ASSESS & [place] [address] [facility] THYROID 6 POPPY POPPY STIMULATI [place] [address] [facility] ABDOMINAL 6 [facility] REAL INC INC TIME W/IMAGE LIMITED COMPUTERI 94031 AMY OCONNELLD 6 JUS JUS OPHTHALMI C IMAGING RETINA OPHTH 50856 AMY REYES MEDICAL 6 JUS JUS XM&EVAL COMPRE NEW PT 1/> VST URINE 80973 [facility] PICKARD [facility] NAN TEST URGENT VISUAL TREAT COLOR CMPRSN METHS RADIOLOGI 13622 [facility] 5 [facility] EXAMINATI CLINIC ON KNEE PPLLC 1/2 VIEWS ELECTROEN 97850 [facility] CEPHALOGR 5 [facility] AM W/REC INC INC AWAKE&[place] [address] [place] ALL HEAD/BRAI 5 MEDICAL N W/O IMAGING CONTRAST ASS MATERIAL 3D 66073 [facility] ALL RENDERING 5 MEDICAL W/INTERP IMAGING & ASS POSTPROCE SS SUPERVISI ON MRI 12448 [facility] ALL SPINAL 5 MEDICAL CANAL IMAGING LUMBAR ASS W/O CONTRAST MATERIAL PHYSICAL 63404 [facility] THERAPY 5 [facility] EVALUATIO ANDRIA ANDRIA N RADIOLOGI 86392 [facility] EXAM 5 CHEST 2 VIEWS FRONTAL&L ATERAL XTRNL 94436 [facility] OCULAR 4 LUZ LUZ PHOTOG W/I&R DOCMT MEDICAL PROGRE VISUAL 67284 [facility] FIELD XM 4 LUZ LUZ UNI/BI W/INTERP INTERMED EXAM FUNDUS 27486 [facility] PHOTOGRAP 4 LUZ LUZ HY W/INTERPR ETATION & REPORT MRI 50473 [facility]EL SPINAL 4 MEDICAL ANKIT CANAL IMAGING LUMBAR ASS W/O CONTRAST MATERIAL 3D 21232 [facility] NAT[facility]EL RENDERING 4 MEDICAL ANKIT W/INTERP IMAGING & ASS POSTPROCE SS SUPERVISI ON HANDLG&/O 43045 [employer], R CONVEY 4 [facility] [employer] OF SPEC JOSY FERRIS FOR TR CO HOS CO HOS FROM PT TO LAB BLOOD 89435 [facility] AHMET PERIPHERA L INTERP PHYS W/WRIT REPORT RADIOLOGI 90729 [employer], C 4 [employer] EXAMINATI JOSY FERRIS ON KNEE 3 CO HOS CO HOS VIEWS RADIOLOGI 32228 [facility] C EXAM 4 EIDER PANKAJ KNEE RADIOLOGY COMPLETE ASSOCIAT 4/MORE VIEWS OPHTH 01428 SCIFRES SCIFRES MEDICAL 4 ANG ANG XM&EVAL COMPRE NEW PT 1/> VST ADMN SET A7003 YOUR YOUR SM VOL 1 PHARMACY PH[facility]ACY [facility] PNEUMAT NEBULIZR DISPBL NEBULIZER E0570 NIC NIC WITH 1 HOME HOME COMPRESSO MEDICAL MEDICAL R EQUIPME EQUIPME 3D 97947 [facility] AGUERO RENDERING 1 [facility] W/INTERP INC INC & POSTPROCE SS SUPERVISI ON MRI 10637 [place] NATHANAEL SPINAL 1 MEDICAL ANKIT CANAL IMAGING LUMBAR ASS W/O CONTRAST MATERIAL US SOFT 26989 [place] RUIZ TISSUE 1 [facility]Y [facility] & RADIOLOGY NECK [place] [address] JOSY FERRIS ABDOMINAL 0 CO CO REAL HOSPITAL HOSPITAL TIME W/IMAGE LIMITED VISUAL 79934 [facility] FIELD XM 0 [facility] KE UNI/BI CENTER W/INTERP EXTENDED EXAM SCANNING 14454 [facility] OPHTHALMI 0 [facility]ARE KE C IMAGING CENTER POSTERIOR SGM UNI DETERMINA 72452 [facility], TION 0 [facility] E STATE FUNDUS 08249 [facility], PHOTOGRAP 0 [facility] CENTER W/INTERPR ETATION & REPORT CALCIUM 00633 [facility] AGU[facility] TOTAL 0 [place] [address] LACI AGUERO FREE 0 [facility] [place] [address] LACI AGUERO THYROID 0 [facility]OS[facility] STIMULATI INC INC NG HORMONE TSH MRI 72740 MARY C NATHANAEL, SPINAL 0 NATHANAEL MARY CANAL LUMBAR W/O CONTRAST MATERIAL ANTINUCLE 08681 JOSY FERRIS AR 0 CO CO ANTIBODIE [facility] S DEVIN COLLECTIO 06052 JOSY FERRIS N VENOUS 0 CO FL BLOOD [facility] VENIPUNCT URE COMPREHEN 85779 JOSY FERRIS SIVE 0 CO CO METABOLIC [facility] PANEL SEDIMENTA 74226 JOSY FERRIS TION RATE 0 CO CO RBC [facility] NON-AUTOM ATED RADEX HIP 90702 [facility] [place] RADIOLOGY L COMPLETE ASSOCIATE MINIMUM 2 S PSC VIEWS BLOOD 08737 JOSY FERRIS COUNT 0 CO [facility] AUTO&AUTO DIFRNTL WBC RHEUMATOI 60231 JOSY FERRIS D FACTOR 0 [facility] ESAU RADEX 10424 JOSY FERRIS SPINE 9 CO [place] CERVICAL [facility] 4 OR 5 VIEWS RADEX 46390 [facility] SPINE 9 CLIFF S LUMBOSACR RADIOLOGY AL MINIMUM 4 ASSOCIATE VIEWS S PSC RADEX 60598 [facility] SPINE 9 CLIFF S CERVICAL RADIOLOGY 6 OR MORE VIEWS ASSOCIATE S PSC URNLS DIP 38505 [facility] 9 DYLAN JR, STICK/TAB INTERNAL NIKOLE F LET RGNT MED NON-AUTO W/O MICRSCP CALCIUM 76049 [facility] AGUERO TOTAL 9 [place] [address] LACI AGUERO THYROID 9 [facility] STIMULATI [place] [address] LACI AGUERO FREE 9 [facility] [place] [address] LACI AGUERO THYROXINE 9 [facility] TOTAL INC INC Encounters Encounter Start End Date Code Location Performer Type Date OFFICE 38634 [facility] P[facility] OUTPATIEN 7 7 HEALTH T VISIT SOLUTIONS 25 IN MINUTES HOSPITAL L[facility] - 6 6 [facility]EN [facility] T OFFICE 03375 BIRGITCAIO ELDER [facility] OUTPATIEN 6 6 MD BECK, T NEW 30 PSC [facility] LACI [facility] 6 6 [facility] OUTPATIEN [facility] LACI - 6 6 [facility] OUTPATIEN [facility] T OFFICE 29227 JOSY NEERAJ OUTPATIEN 6 6 [facility] T VISIT URGENT 25 TREAT MINUTES OFFICE 77578 LAKESHA CROWDER OUTPATIEN 6 6 ANG ANG T NEW 45 MINUTES OFFICE 76496 [facility] KATHERINE OUTPATIEN 6 6 [facility] AALIYAH T VISIT CLINIC 25 PPLLC MINUTES OFFICE 28082 JOSY NEERAJ OUTPATIEN 5 5 [facility] T VISIT URGENT 10 TREAT MINUTES OFFICE 44218 [facility] KATHERINE OUTPATIEN 5 5 [facility] AALIYAH T VISIT CLINIC 25 PPLLC MINUTES HOSPITAL LACI - 5 5 [facility] OUTPATIEN [facility] T OFFICE 00965 JOSY NEERAJ OUTPATIEN 5 5 [facility] T VISIT URGENT 15 TREAT MINUTES HOSPITAL LACI - 5 5 [facility] OUTPATIEN [facility] T OFFICE 38976 [facility] KATHERINE CONSULTAT 5 5 [facility] AALIYAH ION CLINIC NEW/ESTAB PPLLC PATIENT 40 MIN OFFICE 81051 [facility] GRIDER OUTPATIEN 5 5 [facility] MEIR T VISIT CLINIC [address] [facility] - 5 5 [facility] T OFFICE 45597 MARNI MARNI OUTPATIEN 5 5 MEIR MEIR T NEW 30 MINUTES OFFICE 02155 [facility] HABASH OUTPATIEN 4 4 LUZ LUZ T NEW 45 MINUTES OFFICE 87593 [facility] RYAN II OUTPATIEN 4 4 [facility] SLEEP ELA T VISIT AND REHA 25 MINUTES HOSPITAL LACI - 4 4 [facility] OUTPATIEN INC T OFFICE 85577 [facility] RYAN II OUTPATIEN 4 4 LT SLEEP ELA T NEW 45 AND REHA MINUTES OFFICE 93016 [facility] OUTPATIEN 4 4 [facility] T NEW [address] [facility] - 4 4 [facility] OUTPATIEN T OFFICE 51802 [facility] OUTPATIEN 4 4 PHYSICIAN JAM T NEW 30 S GROUP MINUTES HOSPITAL MHC INC, - 4 4 [facility] [facility] [employer] OUTPATIEN [facility] T [facility], - 4 4 [facility] [employer] OUTPATIEN JOSY T CO HOS OFFICE 06538 [facility] OUT[facility] 1 1 DYLAN T VISIT INTERNAL 15 MED MINUTES HOSPITAL LACI - 1 1 [facility] OUTPATIEN INC T OFFICE 55978 NEERAJ NEERAJ OUTPATIEN 1 1 ARIANNA NAN T VISIT 15 MINUTES OFFICE 63224 NEERAJ NEERAJ OUTPATIEN 1 1 ARIANNA NAN T VISIT 15 MINUTES OFFICE 97676 [facility] NEERAJ OUTPATIEN 1 1 DYLAN NAN T VISIT INTERNAL 15 MEDI MINUTES OFFICE 01661 [facility] NEERAJ OUTPATIEN 1 1 DYLAN NAN T VISIT INTERNAL 15 MEDI MINUTES OFFICE 87866 [facility] NEERAJ OUTPATIEN 1 1 DYLAN NAN T VISIT INTERNAL 15 MEDI MINUTES OFFICE 80963 [facility] NEERAJ OUTPATIEN 1 1 DYLAN NAN T VISIT INTERNAL 15 MEDI MINUTES OFFICE 89753 [facility] NEERAJ OUTPATIEN 0 0 [facility] NAN T VISIT INTERNAL 10 MEDI MINUTES HOSPITAL [facility] 0 [facility] OFFICE 46864 [place] NEERAJ OUTPATIEN 0 0 [facility] NAN T VISIT INTERNAL 15 MEDI MINUTES OFFICE 47155 [place] LISA OUTPATIEN 0 0 [facility] TAYLOR T VISIT INTERNAL 15 MEDI MINUTES OFFICE 49648 [facility] 0 0 [facility] T VISIT CENTER 25 MINUTES OFFICE 11160 [facility], OUTPATIEN 0 0 IMPLANT & CAROL R T VISIT 5 ORAL MINUTES [facility] OFFICE 83909 [place] BESSON, OUTPATIEN 0 0 [facility] MARYCHUY A T VISIT INTERNAL 15 MED MINUTES OFFICE 06405 [facility], OUTPATIEN 0 0 [facility] T NEW 45 CENTER MINUTES OFFICE 23981 DERIK BIANCHI, CONSULTAT 0 0 MEDICAL TEMITOPE MANTILLA SERV NEW/ESTAB FOUNDATIO PATIENT 40 MIN OFFICE 40102 [facility] OUTPATIEN 0 0 DYLAN MOJICA, T VISIT INTERNAL NIKOLE F 10 MED MINUTES HOSPITAL [facility]ACI - 0 0 [facility] 66741 LISA LISA OUTPATIEN 0 0 [facility]AYL[facility] TAYLOR T VISIT 15 MINUTES OFFICE 80345 [facility] B[facility], OUTPATIEN 0 0 [facility] MARY[facility] A T VISIT INTERNAL 15 MED MINUTES HOSPITAL [facility] - 0 0 [facility] T EMERGENCY 35577 JOSY 9 9 [facility] T VISIT LIMITED/M INOR [facility] JOSY - 9 9 [facility] EMERGENCY 27076 JOSY MAO, 9 9 [facility] MODERATE SEVERITY OFFICE 25114 [facility] OUTPATIEN 9 9 [facility], T VISIT INTERNAL NIKOLE F 15 MED MINUTES HOSPITAL JOS[facility] - 9 9 [facility] OFF[facility] 12573 [facility], T VISIT INTERNAL NIKOLE F 15 MED MINUTES OFFICE 25964 MAHIN STOUT OUTPATIEN 9 9 CHELSEA Luciano [facility] 10 N02 MINUTES OFFICE 23847 [facility] 9 [facility], T VISIT INTERNAL NIKOLE F 15 MED MINUTES OFFICE 87934 LAUREANO TINSLEY[facility] 9 9 SHANT Don T VISIT 10 MINUTES HOSPITAL LACI - 9 9 [facility] OFFICE 92803 MAHIN BARAHONA OUTPATIEN 8 8 CHELSEA DAY T [facility] 10 N02 MINUTES OFFICE 65138 [place] [facility] 8 8 DYLAN Brown T VISIT INTERNAL 15 MED MINUTES EMERGENCY 71890 JOSY 8 8 CO [facility] T VISIT LIMITED/M INOR [facility] JOSY - 8 8 [facility] T
--- OUTSIDE RECORDS SUMMARY | 2017-02-12 03:17 | External Medical Summary Rpt | CCD ---
Author Author , QIANA Thomson QIANA Address Unknown Phone [email or web address] Care Team Providers Care Dry House Attendant Name Role Phone BIRGIT SOLARES MD, PSC, Unavailable Unavailable BIRGIT SOALRES MD, PSC MARYCHUY OVIEDO, Unavailable Unavailable MARYCHUY OVIEDO MANDUJANO, MANDUJANO Unavailable Unavailable MANDUJANO ALL, MANDUJANO ALL Unavailable Unavailable MARNI MEIR, MARNI Unavailable Unavailable MEIR MARNI MEIR, MARNI Unavailable Unavailable MEIR RUIZ MANDY, RUIZ Unavailable Unavailable MANDY REYES JUS, REYES Unavailable Unavailable JUS REYES JUS, REYES Unavailable Unavailable JUS [facility] Unavailable Unavailable AND REHA, [facility] REHA NATHANAEL ANKIT, Unavailable Unavailable [...] INC CLIFF ALVES, Unavailable Unavailable CLIFF ALVES [facility], Unavailable Unavailable [facility], Unavailable Unavailable [facility] Unavailable Unavailable INC, [facility] NEERAJ NEERAJ Unavailable Unavailable NEERAJ ARIANNA, NEERAJ Unavailable Unavailable NAN NEERAJ NAN, NEERAJ Unavailable Unavailable NAN RYAN II ELA, RYAN Unavailable Unavailable II ELA [facility] Unavailable Unavailable IM[facility]ING [facility], [facility] ENRIKE KAREEN, ENRIKE KAREEN Unavailable Unavailable ENRIKE KAREEN, ENRIKE KAREEN Unavailable Unavailable [id number], Unavailable Unavailable [id number] # Unavailable Unavailable [id number], [facility] # [id number] [facility] # Unavailable Unavailable [id number], [facility] # [id number] [facility] Unavailable Unavailable HOLD[facility], LAB [...] MAO DENSON AHMET, DENSON Unavailable Unavailable AHMET [facility] Unavailable Unavailable ASSOCIAT, [facility] DEJAE , NIKOLE Unavailable Unavailable F, HAMLET JR, NIKOLE F GIRISHCAROL MAE R, Unavailable Unavailable GIRISH CAROL R [facility] Unavailable Unavailable CO [facility], [facility], Unavailable Unavailable [facility] Unavailable Unavailable [facility], Unavailable Unavailable [facility] Unavailable Unavailable URGENT TREAT, [facility] Unavailable [facility] PETTEY JAM, PETTEY Unavailable Unavailable JAM SCIFRES ANG, SCIFRES Unavailable Unavailable ANG SCIFRES ANG, SCIFRES Unavailable Unavailable ANG [facility], Unavailable Unavailable [facility] Unavailable Unavailable E[facility], [facility] Unavailable Unavailable [facility], [facility] Unavailable Unavailable [facility] Unavailable Unavailable [place], [facility] Unavailable Unavailable [facility], [facility] CROW[facility] ANG, Unavailable Unavailable [facility] LAKESHA ANG, Unavailable Unavailable TEMITOPE MCHUGH A, Unavailable Unavailable ARIAS, TEMITOPE A [facility] Unavailable Unavailable #[id number], [id number], Unavailable [facility]available [facility], Unavailable Unavailable [facility] Purpose Continuity of Care Document - 06-30-2007 through 2016 Problems Code Diagnosis DOS Provider Status [id number] MIGRAINE 12-27-2016 [facility] W/O [facility] NOT INTRACT SOLUTIONS W/O STAT IN MIGRAIN J060 ACUTE 12-27-2016 [facility] LARYNGOPHAR HEALTH YNGITIS SOLUTIONS IN M545 LOW BACK 12-27-2016 [facility] PAIN HEALTH SOLUTIONS IN [id number] SPONDYLOSIS 12-26-2016 [facility] W/[facility]ICAL MYELOPATH/R IMAGING ASS ADICULOPATH Y LUMB RGN M5136 OTH 12-26-2016 [facility] INTER[facility]TE[facility]ICAL RAL DISC IMAGING ASS DEGEN LUMBAR REGION N3001 ACUTE 07-22-2016 [facility] CYSTITIS POPPY WITH HOLDINGS HEMATURIA R309 PAINFUL 07-22-2016 [facility] MICTURITION [facility]INGS UNSPECIFIED R319 HEMATURIA 07-22-2016 LAB [facility] UNSPECIFIED POP[facility] HOLDINGS Z23 ENCOUNTER 02-25-2016 [facility] IMMUNIZATIO URGENT N TREAT [id number] ENCOUNTER 02-23-2016 LABORATORY ARCHITECTURE CONSULTANT EXAM BRITTANI OF GENERAL RTN POPPY H W/ABNORMAL FIND [id number] ENCOUNTER 02-23-2016 LABORATORY ARCHITECTURE CONSULTANT EXAM BRITTANI OF GENERAL RTN POPPY H W/O ABNORMAL FIND E038 OTHER 02-22-2016 [facility] SPECIFIED POP[facility] HYPOTHYROID [facility] ISM [id number] UNSPECIFIED 02-15-2016 [facility] OVARIAN [facility]ICAL CYST LEFT IMAGING ASS SIDE N938 OTHER SPEC 02-15-2016 [facility] ABNORMAL MEDICAL UTERINE & IMAGING ASS VAGINAL BLEEDING R102 PELVIC AND 02-15-2016 [facility] PERINEAL [facility]ICAL PAIN IMAGING ASS X48912 RIGHT LOWER 02-15-2016 [facility] ABD[facility] TENDERNESS P22589 LEFT LOWER 02-15-2016 [facility] ABDOM[facility] INC TENDERNESS R938 ABNORMAL 02-15-2016 [facility] FIND ON DX MEDICAL IMAGING OTH IMAGING ASS SPEC BODY STRCT Y20756 PAIN IN 01-19-2016 [facility] INC V24692 PAIN IN 01-19-2016 [facility] M4806 SPINAL 01-19-2016 BIRGIT SOLARES, STENOSIS , PSC LUMBAR REGION M5126 OTH 01-19-2016 BIRGIT SOLARES INTERVERTEB , PSC RAL DISC DISPLACEMEN T LUMBAR RGN R1011 RIGHT UPPER 12-11-2015 [facility] G608 OTHER 12-07-2015 [facility] IDIOPATHIC TREAT NEUROPATHIE S B399 HISTOPLASMO 11-25-2015 [facility] S[facility] UNSPECIFIED V12796 STAPHYLOMA 11-25-2015 [facility] POSTICUM ANG RIGHT EYE H5211 MYOPIA 11-25-2015 [facility] RIGHT EYE ANG R17418 UNSPECIFIED 11-25-2015 [facility] AMBLYOPIA ANG RIGHT EYE B394 HISTOPLASMO 11-18-2015 AMY SCHULTE SIS CAPSULATI UNSPECIFIED 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 IRREGULAR URGENT MENSTRUATIO TREAT N B15229 PAIN IN 04-16-2015 [facility] UNSPECIFIED CLINIC KNEE PPLLC H9319 TINNITUS 04-09-2015 [facility] UNSPECIFIED MEDICAL EAR IMAGING ASS R569 UNSPECIFIED 04-09-2015 [facility] IM[facility] M5117 INTERVERTEB 01-30-2015 [facility] D/O INC W/RADICULOP ATHY LS RGN M5127 OT 01-30-2015 [facility] RAL DISC IMAGING ASS DISPLACEMEN T LS REGION M5137 OT 01-30-2015 [facility] RAL DISC IMAGING ASS DEGEN LUMBOSACRAL REGION 78898 PAIN IN 12-25-2014 [facility] JOINT, [facility] MULTIPLE [facility] SITES 49140 DISPLCMT 12-25-2014 [facility] LUMBAR CLINIC INTERVERT [facility] DISC W/O MYELOPATHY 7231 CERVICALGIA 12-25-2014 [facility] 7242 LUMBAGO 12-25-2014 [facility] 7295 PAIN IN 12-25-2014 [facility] SOFT [facility] TISSUES OF [facility] LIMB 7820 DISTURBANCE 12-25-2014 ID [facility] OF SKIN CLINIC SENSATION [facility] 7840 HEADACHE 12-25-2014 [facility] V5869 LONG-TERM 12-25-2014 ID [facility] (CURRENT) CLINIC USE OF [facility] OTHER MEDICATIONS 2448 OTHER 10-30-2014 ID [facility] SPECIFIED CLINIC ACQUIRED [facility] HYPOTHYROID ISM 2720 PURE 10-30-2014 ID [facility] HYPERCHOLES CLINIC TEROLEMIA [facility] 17937 RESTLESS 10-30-2014 ID [facility] LEGS CLINIC SYNDROME [facility] 48136 EXTRINSIC 10-30-2014 [facility] ASTHMA, CLINIC UNSPECIFIED [facility] V571 OTHER 10-29-2014 [facility] THERAPY [place] [address] ACUTE 05-26-2014 MARNI MEIR ATOPIC CONJUNCTIVI TIS 47663 CHEST PAIN 05-26-2014 ENRIKE KAREEN UNSPECIFIED 7962 ELEVATED BP 05-26-2014 MARNI WORLEY READING WITHOUT DX HYPERTENSIO N V8533 BODY MASS 05-26-2014 MARNI WORLEY INDEX 33.0-33.9 ADULT 78958 BORDERLINE 04-08-2014 HABASH LUZ GLAUC OPEN ANGLE BL FINDINGS LOW RSK 3674 PRESBYOPIA 04-08-2014 HABASH LUZ 60179 UNSPECIFIED 02-17-2014 [facility] ARTHROPATHY [facility] OTHER SPECIFIED SITES 7213 LUMBOSACRAL 02-17-2014 [facility] SLE[facility] AND SPONDYLOSIS REHA WITHOUT MYELOPATHY 06301 DEGEN 02-17-2014 [facility] LUMBAR/LUMB H SLEEP AND OSACRAL REHA INTERVERTEB RAL DISC 01118 SPINAL STEN 02-17-2014 [facility] LUMB REG H SLEEP AND W/O REHA NEUROGENIC CLAUDICATIO N 7244 THORACIC/CARLOS 02-17-2014 [facility] MBOSACRAL H SLEEP AND NEURITIS/RA REHA DICULITIS UNSPEC 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 87942 SCOLIOSIS , 11-11-[address] [facility] IDIOPATHIC EAST V141 PERSONAL 11-11-2013 [facility] HISTORY EAST ALLERGY 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 AGENT 7177 CHONDROMALA 08-30-2013 [facility] PHYSICI[facility] GROUP 7262 OTHER 08-30-2013 [facility] AFFECTIONS PHYSICIANS OF SHOULDER GROUP REGION NEC 18075 LEUKOCYTOSI 08-08-2013 [facility] UNSPECIFIED 74626 OSTEOARTHRO 08-06-2013 [facility] UNSPEC RADIOLOGY WHETHER ASSOCIAT GEN/LOC LOWER LEG 20516 PAIN IN 08-06-2013 [facility] JOINT, RADIOLOGY LOWER LEG ASSOCIAT 3671 MYOPIA 05-31-2013 [facility] 1120 CANDIDIASIS 04-29-2011 [facility] INTERNAL MED 2449 UNSPECIFIED 04-29-2011 [facility] HYPOTHYROID INTERNAL ISM MED 490 BRONCHITIS 04-29-2011 [facility] NOT [facility]LEY SPECIFIED INTERNAL ACUTE OR MED CHRONIC 4910 SIMPLE 04-29-2011 [facility] 82974 ASTHMA, 04-29-2011 [facility] UNSPECIFIED HOME , MEDICAL UNSPECIFIED EQUIPME STATUS 35332 UNSPECIFIED 04-15-2011 NE[facility] KELLER ARTHROPATHY , LOWER LEG 7821 RASH AND 04-15-2011 NEERAJ KELLER OTHER NONSPECIFIC SKIN ERUPTION 73463 OTHER 03-18-2011 [facility] KELLER ANXIETY STATES 7292 UNSPECIFIED 03-18-2011 [facility] KELLER NEURALGIA NEURITIS AND RADICULITIS 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 462 ACUTE 02-09-2011 [facility] PHARYNGITIS [facility] INTERNAL MEDI 4871 INFLUENZA 02-09-2011 [facility] WITH OTHER [facility] RESPIRATORY INTERNAL MEDI MANIFESTATI ONS 02670 PAIN IN 01-24-2011 [facility] JOINT, VAL[facility] FOREARM INTERNAL MEDI 7245 UNSPECIFIED 01-24-2011 [facility] BACKACHE VAL[facility] INTERNAL MEDI 46016 OTHER 12-17-2010 [facility] CHRONIC [facility] PAIN INTERNAL MEDI 2409 GOITER, 11-04-2010 [facility] UNSPECIFIED RADIOLOGY ASSOCIAT 87782 UNSPECIFIED 09-24-2010 [facility] ARTHROPATHY INTERNAL MULTIPLE MEDI SITES 51873 ABDOMINAL 04-22-2010 [facility] PAIN RIGHT VAL[facility] UPPER INTERNAL QUADRANT MEDI 60818 ABDOMINAL 04-22-2010 [facility] PAIN, VAL[facility] EPIGASTRIC INTERNAL MEDI 5718 OTHER 04-16-2010 [facility] [place] NONALCOHOLI C LIVER DISEASE 00575 DIARRHEA 04-16-2010 [facility] 43697 ESOPHAGEAL 04-07-2010 [facility] REFLUX [facility] INTERNAL MEDI 7226 DEGENERATIO 04-07-2010 [facility] N [facility] INTERVERTEB INTERNAL RAL DISC MEDI SITE UNSPEC 43661 OTH 11-27-2009 [facility] EXTRAPYRAMI [facility] 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 5206 DISTURBANCE 10-23-2009 [facility]PLANT S IN TOOTH & [facility] 7862 COUGH 10-12-2009 [facility] INTERNAL MED 82060 UNSPECIFIED 10-10-2009 [facility] SIS RETINITIS 3670 HYPERMETROP 10-10-2009 [facility] 75821 OTHER 10-10-2009 [facility] FIELD DEFECT 07529 PAIN IN 07-10-2009 [facility] PELVIC REGION AND THIGH 80924 OSTEOARTHRO 06-26-2009 [facility] S UNSPEC RADIOLOGY GEN/LOC ASSOCIATES PELV PSC REGION&THIG H 4730 CHRONIC 03-29-2009 [facility] MAXILLARY [facility] SINUSITIS 4731 CHRONIC 03-29-2009 [facility] FRONTAL [facility] SINUSITIS 03619 SPASM OF 01-01-2009 [facility] MUSCLE [facility] INTERNAL MED 24207 SPONDYLOSIS 12-02-2008 [place] UNSPEC RADIOLOGY SITE W/O ASSOCIATES MENTION PSC MYELOPATHY 7831 ABNORMAL 11-28-2008 [facility] WEIGHT GAIN [facility]ERETT INTERNAL MED 89449 ANOMALY OF 09-01-2008 [facility] POSITION UNSPECIFIED 7881 DYSURIA 07-15-2008 [facility] INTERNAL MED 226 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 2459 UNSPECIFIED 06-12-2008 [facility] THYROIDITIS 5210 DENTAL 04-01-2008 [facility] TRAN [facility] N02 00358 CONTACT 08-08-2007 [facility] DERMATITIS& VALLEY OTH ECZEMA INTERNAL DUE OTH BROOMCORN SCRAPER AGENT 7248 OTHER 06-30-2007 [facility] REFERABLE TO BACK 8470 NECK SPRAIN 06-30-2007 [facility] Medications Na ND Rx Da Fi Fi Am Da Di Ph RX Ph St me C No te ll ll ou ys ag ar # ys at rm s nt no ma ic us Or Da si cy ia de te s n re d TX 00 09 10 55 10 00 ME Ac ED 14 -1 -1 .0 00 [...] CY 68 08 09 30 15 00 ME Ac CL 64 -2 -2 .0 00 L- ti OB 50 9- 2- 00 07 MA ve EN 51 20 20 50 RT ZA 79 17 17 66 TX 0 26 PH IN AR E MA [...] NA 65 08 09 60 30 00 ME Ac TX 16 -2 -2 .0 00 L- ti OX 20 9- 2- 00 07 MA ve EN 19 20 20 50 RT 01 17 17 66 50 1 28 PH 0 AR MG MA CY TA BL #5 ET 91 TO 68 08 09 30 30 00 ME Ac PI 38 -2 -2 .0 00 L- ti RA 20 9- 2- 00 07 MA ve MA 14 20 20 50 RT TE 01 17 17 66 4 29 PH 10 AR 0 MA MG CY TA #5 BL 91 ET ME 59 08 09 21 6 00 ME Ac TH 74 -2 -2 .0 00 L- ti YL 60 9- 2- 00 07 MA ve TX 00 20 20 50 RT ED 10 17 17 64 NI 3 98 PH SO AR LO MA NE CY 4 #5 MG 91 DO SE PK JACKSON 55 08 09 9. 9 00 ME Ac MA 11 -2 -1 00 00 L- ti TR 10 1- 5- 0 07 MA ve IP 29 20 20 50 RT TA 30 17 17 51 N 9 02 PH JACKSON AR CC MA CY 10 0 #5 MG 91 TA BL ET GA 00 08 09 90 30 00 ME Ac BA 22 -2 -1 .0 00 L- ti PE 82 1- 5- 00 04 MA ve NT 63 20 20 53 RT IN 65 17 17 17 0 43 PH 60 AR 0 MA MG CY TA #5 BL 91 ET TX 54 07 08 30 30 00 [facility] AV 45 -2 -2 .0 00 L- ti 80 8- 5- 00 07 MA ve TA 92 20 20 66 RT TI 71 17 17 89 N 6 94 PH SO AR DI MA UM CY 10 #5 71 MG TA B TI 55 07 08 60 30 00 ME Ac ZA 11 -2 -2 .0 00 L- ti NI 10 8- 5- 00 07 MA ve DI 18 20 20 66 RT NE 01 17 17 89 5 96 PH HC AR L MA 4 CY MG #5 TA 71 BL ET DU 57 07 08 60 30 00 ME Ac LO 23 -2 -2 .0 00 L- ti XE 70 8- 5- 00 07 MA ve TI 01 20 20 66 RT NE 93 17 17 89 0 97 PH HC AR L MA DR CY 60 #5 71 MG CA P ME 62 07 08 30 30 00 ME Ac TO 03 -2 -2 .0 00 L- ti TX 70 8- 5- 00 07 MA ve OL 83 20 20 66 RT OL 11 17 17 89 0 95 PH JACKSON AR CC MA CY ER #5 50 71 MG TA B TO 68 07 08 30 30 00 ME Ac PI 38 -2 -1 .0 00 [...] CL 16 07 08 90 30 00 ME Ac ON 72 -2 -1 .0 00 [...] TI 55 06 07 60 30 00 ME Ac ZA 11 -2 -2 .0 00 [...] LE 00 10 05 30 30 00 ME Ac VO 78 -2 -2 .0 00 L- ti TH 15 3- 1- 00 07 MA ve YR 18 20 20 66 RT OX 69 17 17 24 IN 2 66 PH E AR 12 MA 5 CY MC G #5 TA 71 BL ET TX 54 10 05 30 30 00 ME Ac AV 45 -2 -2 .0 00 L- ti 80 7- 1- 00 07 MA ve TA 92 20 20 66 RT TI 71 17 17 89 N 6 94 PH SO AR DI MA UM CY 10 #5 71 MG TA B ME 62 10 05 30 30 00 ME Ac TO 03 -2 -2 .0 00 L- ti TX 70 7- 1- 00 07 MA ve OL 83 20 20 66 RT OL 11 17 17 89 0 95 PH JACKSON AR CC MA CY ER #5 50 71 MG TA B PN 00 06 07 0. 1 00 ME Ac EU 00 -1 -1 50 00 L- ti MO 64 6- 4- 0 07 MA ve VA 94 20 20 66 RT X 30 17 17 69 23 0 63 PH AR MA AL CY #5 71 TO 68 10 05 29 30 00 ME Ac PI 38 -1 -0 .0 00 L- ti RA 20 2- 7- 00 07 MA ve MA 13 20 20 66 RT TE 91 17 17 60 4 61 PH 50 AR MA MG CY TA #5 BL 71 ET LA 69 05 30 30 00 ME Ac MO 09 -2 -2 .0 00 L- ti TR 70 5- 3- 00 07 MA ve IG 15 20 20 66 RT IN 20 17 17 24 E 3 49 PH 20 AR 0 MA MG CY TA #5 BL 71 ET CL 16 05 90 30 00 ME Ac ON 72 -3 -2 .0 00 L- ti AZ 90 0- 3- 00 04 MA ve EP 13 20 20 54 RT AM 61 17 17 30 6 67 PH 0. AR 5 MA MG CY TA #5 BL 71 ET TO 68 05 30 30 00 ME Ac PI 38 -2 -2 .0 00 [...] ET ME 62 05 30 30 00 ME Ac TO 03 -2 -2 .0 00 L- ti TX 70 5- 3- 00 07 MA ve OL 83 20 20 66 RT OL 11 17 17 24 0 48 PH JACKSON AR CC MA CY ER #5 50 71 MG TA B TX 54 05 30 30 00 ME Ac AV 45 -2 -2 .0 00 L- ti 80 5- 3- 00 07 MA ve TA 92 20 20 66 RT TI 71 17 17 24 N 2 68 PH SO AR DI MA UM CY 10 #5 71 MG TA B DU 57 05 60 30 00 ME Ac LO 23 -2 -2 .0 00 [...] 30 17 17 21 FA 5 77 CO 0. LY [address] UG TA BL ET LE 00 09 02 30 30 00 SO Ac VO 37 -0 -2 .0 00 PE ti TH 81 1- 6- 00 00 RS ve YR 81 20 20 55 OX 37 17 17 37 FA IN 7 65 CO E LY [address] MC UG G TA BL ET TX 68 05 05 30 30 00 SO Ac AV 46 -0 -2 .0 00 PE ti 20 1- 6- 00 00 RS ve TA 19 20 20 54 TI 59 17 17 84 FA N 0 18 CO SO LY DI UM DR UG 10 MG TA B NI 00 05 05 28 28 00 SO Ac CO 53 -0 -2 .0 00 PE ti TI 65 1- 6- 00 00 RS ve NE 89 20 20 56 68 17 17 21 FA 21 8 79 CO LY MG /2 DR 4H UG R PA TC H TO 68 05 05 30 30 00 SO Ac PI 38 -0 -2 .0 00 PE ti RA 20 1- 6- 00 00 RS ve MA 13 20 20 56 TE 81 17 17 21 FA 4 78 CO [address] UG TA BL ET JACKSON 65 05 05 9. 10 00 SO Ac MA 86 -0 -2 00 00 PE ti TR 20 1- 6- 0 00 RS ve IP 14 20 20 56 TA 83 17 17 21 FA N 6 82 CO JACKSON LY CC DR 10 UG 0 MG TA BL ET DU 57 05 05 60 30 00 SO Ac LO 23 -0 -2 .0 00 PE ti XE 70 1- 6- 00 00 RS ve TI 01 20 20 54 NE 99 17 17 84 FA 9 20 CO HC LY L DR DR UG 60 MG CA P LA 51 05 05 30 30 00 SO Ac MO 67 -0 -2 .0 00 PE ti TR 24 1- 6- 00 00 RS ve IG 13 20 20 54 IN 30 17 17 84 FA E 4 23 CO [address] UG TA BL ET ME 62 05 05 30 30 00 SO Ac TO 03 -0 -2 .0 00 PE ti TX 70 1- 6- 00 00 RS ve OL 83 20 20 54 OL 11 17 17 81 FA 0 [address] CO [address] LY CC DR ER UG 50 MG TA B TI 57 04 05 60 30 00 SO Ac ZA 66 -1 -1 .0 00 PE ti NI 40 7- 2- 00 00 RS ve DI 50 20 20 55 NE 31 17 17 77 FA 8 95 CO HC LY L 4 DR MG UG TA BL ET GA 69 04 05 90 30 00 SO Ac BA 09 -1 -1 .0 00 PE ti PE 70 4- 2- 00 00 RS ve NT 81 20 20 55 IN 21 17 17 37 FA 2 64 CO [address] UG TA BL ET LE 00 03 04 30 30 00 SO Ac VO 37 -2 -2 .0 00 PE ti TH 81 4- 1- 00 00 RS ve YR 81 20 20 55 OX 37 17 17 37 FA IN 7 65 CO E LY [address] MC UG G TA BL ET PH 75 03 04 9. 3 00 SO Ac EN 82 -2 -2 00 00 PE ti AZ 60 4- 1- 0 00 RS ve OP 11 20 20 55 YR 41 17 17 96 FA ID 0 79 CO IN LY E 10 DR 0 UG MG TA B CI 16 03 04 20 10 00 SO Ac TX 57 -2 -2 .0 00 PE ti OF 10 4- 1- 00 00 RS ve LO 41 20 20 55 XA 25 17 17 96 FA CI 0 80 CO N LY HC L DR 50 UG 0 MG TA B JACKSON 55 03 04 9. 10 00 SO Ac MA 11 -2 -2 00 00 PE ti TR 10 4- 1- 0 00 RS ve IP 29 20 20 55 TA 30 17 17 96 FA N 9 81 CO [place]ACK[place] LY CC DR 10 UG 0 MG TA BL ET ME 62 03 04 30 30 00 SO Ac TO 03 -2 -2 .0 00 PE ti TX 70 4- 1- 00 00 RS ve OL 83 20 20 54 OL 11 17 17 81 FA 0 [address] [place] LY CC DR ER UG 50 MG TA B LA 51 03 04 30 30 00 SO Ac MO 67 -2 -2 .0 00 PE ti TR 24 4- 1- 00 00 RS ve IG 13 20 20 54 IN 30 17 17 84 FA E 4 23 CO [address] UG TA BL ET DU 57 03 04 60 30 00 SO Ac LO 23 -2 -2 .0 00 PE ti XE 70 4- 1- 00 00 RS ve TI 01 20 20 54 NE 99 17 17 84 FA 9 20 CO HC LY L DR UG 60 MG CA P CL 00 03 04 90 30 00 SO Ac ON 18 -2 -2 .0 00 PE ti AZ 50 4- 1- 00 00 RS ve EP 06 20 20 55 AM 30 17 17 96 FA 5 78 CO 0. LY [address] UG TA BL ET TX 68 03 04 30 30 00 SO Ac AV 46 -2 -1 .0 00 PE ti 20 1- 4- 00 00 RS ve TA 19 20 20 54 TI 59 17 17 84 FA N 0 18 CO SO LY DI UM DR UG 10 MG TA B GA 69 03 04 90 30 00 SO Ac BA 09 -1 -0 .0 00 PE ti PE 70 5- 7- 00 00 RS ve NT 81 20 20 55 IN 21 17 17 37 FA 2 64 CO [address] UG TA BL ET TI 57 03 03 60 30 00 SO Ac ZA 66 -0 -3 .0 00 PE ti NI 40 3- 1- 00 00 RS ve DI 50 20 20 55 NE 31 17 17 77 FA 8 95 CO HC LY L 4 DR MG UG TA BL ET CL 00 02 03 90 30 00 SO Ac ON 18 -2 -1 .0 00 PE ti AZ 50 1- 7- 00 00 RS ve EP 06 20 20 55 AM 30 17 17 68 FA 5 48 CO 0. LY [address] UG TA BL ET DU 57 02 03 60 30 00 SO Ac LO 23 -1 -1 .0 00 PE ti XE 70 0- 0- 00 00 RS ve TI 01 20 20 54 NE 99 17 17 84 FA 9 20 CO HC LY L DR DR UG 60 MG CA P LA 51 02 03 30 30 00 SO Ac MO 67 -1 -1 .0 00 PE ti TR 24 0- 0- 00 00 RS ve IG 13 20 20 54 IN 30 17 17 84 FA E 4 23 CO [address] UG TA BL ET ME 62 02 03 30 30 00 SO Ac TO 03 -1 -1 .0 00 PE ti TX 70 0- 0- 00 00 RS ve OL 83 20 20 54 OL 11 17 17 81 FA 0 56 CO [place]ACK[place] LY CC DR ER UG 50 MG TA B TX 68 02 03 30 30 00 SO Ac AV 46 -1 -1 .0 00 PE ti 20 0- 0- 00 00 RS ve TA 19 20 20 54 TI 59 17 17 84 FA N 0 18 CO SO LY DI UM DR UG 10 MG TA B VE 00 02 03 18 25 00 SO Ac NT 17 -1 -1 .0 00 PE ti OL 30 0- 0- 00 00 RS ve IN 68 20 20 53 22 17 17 86 FA HF 0 44 CO A LY 90 DR MC UG G IN KENNY LE R GA 69 02 03 90 30 00 SO Ac BA 09 -1 -1 .0 00 PE ti PE 70 3- 0- 00 00 RS ve NT 81 20 20 55 IN 21 17 17 37 FA 2 64 CO [address] UG TA BL ET TI 57 01 02 60 30 00 SO Ac ZA 66 -3 -2 .0 00 PE ti NI 40 1- 4- 00 00 RS ve DI 50 20 20 54 NE 31 17 17 84 FA 8 19 CO HC LY L 4 DR MG UG TA BL ET GA 69 05 02 90 30 00 SO Ac BA 09 -1 -1 .0 00 PE ti PE 70 2- 0- 00 00 RS ve NT 81 20 20 54 IN 21 17 17 08 FA 2 85 CO [address] UG TA BL ET CL 00 05 02 90 30 00 SO Ac ON 18 -1 -1 .0 00 PE ti AZ 50 7- 0- 00 00 RS ve EP 06 20 20 55 AM 30 17 17 37 FA 5 63 CO 0. LY [address] UG TA BL ET LE 00 02 30 30 00 SO Ac VO 37 -1 -1 .0 00 PE ti TH 81 7- 0- 00 00 RS ve YR 81 20 20 55 OX 37 17 17 37 FA IN 7 65 CO E LY [address] DAHIANA UG G TA BL ET TI 57 12 60 30 00 SO Ac ZA 66 -2 -2 .0 00 PE ti NI 40 3- 0- 00 00 RS ve DI 50 20 20 54 NE 31 16 17 84 FA 8 19 CO HC LY L 4 DR MG UG TA BL ET LE 00 12 01 30 30 00 SO Ac VO 37 -0 -0 .0 00 PE ti TH 81 9- 9- 00 00 RS ve YR 81 20 20 54 OX 37 16 17 80 FA IN 7 75 CO E LY [address] DAHIANA UG G TA BL ET GA 69 12 90 30 00 SO Ac BA 36 -1 -0 .0 00 PE ti PE 70 3- 9- 00 00 RS ve NT 13 20 20 54 IN 40 16 17 08 FA 6 85 CO [address] UG TA BL ET CL 00 12 90 30 00 SO Ac ON 18 -0 -0 .0 00 PE ti AZ 50 8- 9- 00 00 RS ve EP 06 20 20 55 AM 31 16 17 05 FA 0 57 CO 0. LY [address] UG TA BL ET LA 51 12 30 30 00 SO Ac MO 67 -0 -0 .0 00 PE ti TR 24 9- 9- 00 00 RS ve IG 13 20 20 54 IN 30 16 17 84 FA E 4 23 CO [address] UG TA BL ET IB 67 12 90 30 00 SO Ac UP 87 -0 -0 .0 00 PE ti RO 70 9- 9- 00 00 RS ve FE 32 20 20 54 N 10 16 17 69 FA 80 5 72 CO [address] TA UG BL ET ME 62 12 01 30 30 00 SO Ac TO 03 -0 -0 .0 00 PE ti TX 70 9- 00 00 RS ve OL 83 20 20 54 OL 11 16 17 81 FA 0 56 CO [place] LY CC DR ER UG 50 MG TA B DU 57 12 01 60 30 00 SO Ac LO 23 -0 -0 .0 00 PE ti XE 70 00 RS ve TI 01 20 20 54 NE 99 16 17 84 FA 9 20 CO HC LY L [facility] DR SAMUELS 60 MG CA P TX 68 12 01 30 30 00 SO Ac AV 46 -0 -0 .0 00 PE ti 20 00 RS ve TA 19 20 20 54 TI 59 16 17 84 FA N 0 18 CO SO LY DI UM UG 10 MG TA B GA 68 08 10 5 30 30 SO 38 BE Ac BA 46 -1 -2 .0 PE 17 SS ti PE 20 9- 8- 00 RS 78 ON ve NT 12 20 20 IN [address] 5 CO EP 60 LY HE [address] Kevin SAMUELS TA BL ET LE 00 09 10 5 30 30 SO 38 BE Ac VO 52 -2 -2 .0 PE 52 SS ti TH 71 6- 6- 00 RS 17 ON ve YR 34 20 20 OX [address] IN 0 CO EP E LY HE [address] Kevin MC UG G TA BL ET TX 60 10 10 0 12 6 SO 38 HU Ac OM 43 -1 -1 0. PE 68 NT ti ET 20 2- 2- 00 RS 25 ER ve KENNY 60 20 20 0 ZI 41 11 11 FA NA NE 6 CO NC -D LY Y M C SY DR RU UG P 00 10 10 0 30 7 SO 38 MC Ac 59 -0 -0 .0 PE 58 KE ti 10 3- 3- 00 RS 61 CO ve 34 20 20 E 90 11 11 FA JR 5 CO LY WI LL DR IA UG M F GA 68 08 09 5 30 30 SO 38 BE Ac BA 46 -1 -3 .0 PE 17 SS ti PE 20 9- 0- 00 RS 78 ON ve NT 12 20 20 IN [address] 5 CO EP 60 LY HE [address] Kevin UG TA BL ET CY 59 09 09 0 7. 7 SO 38 HU Ac CL 74 -2 -2 00 PE 54 NT ti OB 60 8- 9- 0 RS 82 ER ve EN 21 20 20 ZA 11 11 11 FA NA TX 0 CO NC IN LY Y E C 5 DR UG TA BL ET 59 08 09 5 8. 15 SO 38 BE Ac 31 -1 -2 50 PE 17 SS ti 00 9- 8- 0 RS 75 ON ve 57 20 20 [address] 0 CO EP LY HE N DR Kevin SAMUELS CI 65 08 09 5 30 30 SO 38 BE Ac TA 16 -1 -2 .0 PE 17 SS ti LO 20 9- 8- 00 RS 76 ON ve TX 05 20 20 AM [address] 0 CO EP HB LY HE R N 40 DR Kevin SAMUELS MG TA BL ET 00 09 09 0 30 7 SO 38 BE Ac 59 -2 -2 .0 PE 52 SS ti 10 6- 6- 00 RS 15 ON ve 34 20 20 [address] 5 CO EP LY HE N DR Brown UG 00 09 09 0 55 10 SO 38 BE Ac 14 -2 -2 .0 PE 52 SS ti 31 6- 6- 00 RS 16 ON ve 47 20 20 [address] 0 CO EP LY HE N DR Kevin SAMUELS LE 00 09 09 5 30 30 SO 38 BE Ac VO 52 -2 -2 .0 PE 52 SS ti TH 71 6- 6- 00 RS 17 ON ve YR 34 20 20 OX [address] IN 0 CO EP E LY HE [address] Brown UG G TA BL ET GA 68 08 09 5 30 30 SO 38 BE Ac BA 46 -1 -0 .0 PE 17 SS ti PE 20 9- 2- 00 RS 78 ON ve NT 12 20 20 IN [address] 5 CO EP 60 LY HE [address] Brown UG TA BL ET 00 08 08 0 12 30 SO 38 MC Ac 59 -1 -2 0. PE 18 KE ti 10 9- 3- 00 RS 07 CO ve 34 20 20 0 E 90 11 11 FA JR 5 CO LY WI LL DR CALZADA UG M F 59 08 08 5 8. 15 SO 38 BE Ac 31 -1 -1 50 PE 17 SS ti 00 9- 9- 0 RS 75 ON ve 57 20 [address] 0 CO EP LY HE N DR Kevin SAMUELS CI 65 08 08 5 30 30 SO 38 BE Ac TA 16 -1 -1 .0 PE 17 SS ti LO 20 9- 9- 00 RS 76 ON ve TX 05 20 20 AM [address] 0 CO EP HB LY HE R N 40 DR A UG MG TA BL ET ET 51 08 08 2 60 30 SO 38 BE Ac OD 67 -1 -1 .0 PE 17 SS ti OL 24 9- 9- 00 RS 77 ON ve AC 01 20 20 [address] 40 1 CO EP 0 LY HE MG N DR A TA UG BL ET GA 00 06 07 1 30 30 SO 37 HU Ac BA 22 -2 -2 .0 PE 72 NT ti PE 82 8- 8- 00 RS 96 ER ve NT 63 20 20 IN 65 11 11 FA NA 0 CO NC 60 LY Y [address] UG TA BL ET 00 06 06 0 55 10 SO 37 HU Ac 14 -2 -2 .0 PE 74 NT ti 31 9 9- 00 RS 13 ER ve 47 20 20 51 11 11 FA NA 0 CO NC LY Y C DR UG IB 55 06 06 0 90 30 SO 37 FL Ac UP 11 -2 -2 .0 PE 72 OR ti RO 10 8 8 RS 95 EN ve FE 68 20 20 CE N 40 11 11 FA 80 5 CO SA 0 LY RA MG H DR L TA UG BL ET GA 00 06 06 1 30 30 SO 37 FL Ac BA 22 -2 -2 .0 PE 72 OR ti PE 82 8- 8- 00 RS 96 EN ve NT 63 20 20 CE IN 65 11 11 FA 0 CO SA 60 LY RA 0 H MG [...] AN Y TA IN BL C ET TX 60 05 05 12 6 HO 10 HU Ac OM 43 -2 -2 0. PK 16 NT ti ET 20 7- 7- 00 IN 99 ER ve KENNY 60 20 20 0 S 1 ZI [address] 6 UG NC -D Y M CO C SY MP RU AN P Y IN C TX 00 05 05 14 7 HO 10 [...] ti 10 0- 0- 00 IN 74 CO ve 34 20 20 S 9 E [address] MOJICA 5 UG WI CO LL MP IA AN M Y F IN C TX 00 03 03 55 10 HO 10 [...] 2- 2- 0 IN 50 ER ve TX 01 20 20 S 3 AM [address] NA 1 UG NC HB Y R CO C 20 MP AN MG Y IN TA C BL ET GA 62 08 01 2 30 30 HO 10 MC Ac BA 75 -2 -2 .0 PK 10 KE ti PE 60 5- 5- 00 IN 04 CO ve NT 13 20 20 S 1 [...] PE 60 5- 8- 00 IN 04 CO ve NT 13 20 20 S 1 [...] N MP A AN Y IN C TX 00 12 12 30 15 HO 10 HU Ac ED 60 -0 -0 .0 PK 13 NT ti NI 35 8- 8- 00 IN 39 ER ve SO 33 20 20 S 9 NE [address] NA 2 UG NC 10 Y CO C MG MP AN TA Y BL IN ET C TX 37 12 12 2 56 28 HO [...] PE 60 5- 5- 00 IN 04 CO ve NT 13 20 20 S 1 [...] 2- 2- 00 IN 40 EN ve TX 18 20 20 S 8 CE ED [...] S ZA [address] [place]AURO TX 6 UG NC IN Y E CO C 10 IN MG C TA BL ET TX 00 09 09 00 36 12 HO [...] S ZA [address] NA TX 1 UG NC IN Y E CO [...] Code Location Performer Comment BODY MASS 3008F [facility] INDEX 7 HEALTH DOCUMENTE SOLUTIONS D IN CURRENT 1034F [facility] TOBACCO 7 HEALTH SMOKER SOLUTIONS IN TOBACCO 1000F [facility] USE 7 HEALTH ASSESSED SOLUTIONS IN RADEX 12866 [facility] SPINE 7 MEDICAL LUMBOSACR IMAGING AL ASS MINIMUM 4 VIEWS SUSCEPTIB 57072 [facility] LTY STDY 7 POPPY POPPY ANTIMICRB HOLDINGS HOLDINGS IAL MICRO/AGA R DILUTJ CULTURE 12027 [facility] BACTERIAL 7 POPPY OPPPY [facility] QUANTTATI VE COLONY COUNT URINE CULTURE 04210 [facility] BCT 7 POPPY POPPY ISOL&PRSM [facility] HOLDINGS PTV ID ISOLATE EA URINE IIV3 07216 [facility] P[facility] VACCINE 6 [facility] SPLIT URGENT VIRUS 0.5 TREAT ML DOSAGE IM USE IM ADM 75972 [facility] PICKARD PRQ ID 6 [facility] SUBQ/IM URGENT NJXS 1 TREAT VACCINE 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/ 6 Y [facility] OF Y [facility] OF VAGINAL POPPY POPPY REQ H H INTERP PHYSICIAN CYTP C/V 07337 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 AUTO THIN 6 Y [facility] OF Y [facility] OF LYR POPPY POPPY [place]PJ [place] [address] [facility] BR[facility] THYROID 6 POPPY POPPY STIMULATI [place] [address] [place] [facility] ALL TRANSVAGI 6 [facility] NAL [facility] G0463 [facility] AGU[facility] OUTPATIEN 6 [facility] T CLIN INC INC VISIT ASSESS & [place] [address] [facility] THYROID 6 POPPY POPPY STIMULAT[employer] [place] [address] [facility] ABDOMINAL 6 [facility] REAL INC INC TIME W/IMAGE LIMITED COMPUTERI 83409 AMY OCONNELLD 6 JUS JUS OPHTHALMI C IMAGING RETINA OPHTH 90358 AMY REYES MEDICAL 6 JUS JUS XM&EVAL COMPRE NEW PT 1/> VST URINE 22312 JOSY PICKARD 5 [facility] NAN TEST URGENT VISUAL TREAT COLOR CMPRSN METHS RADIOLOGI 80561 [facility] 5 ANDRIA EXAMINATI CLINIC ON KNEE PPLLC 1/2 VIEWS ELECTROEN 32379 [facility] CEPHALOGR 5 [facility] AM W/REC INC INC AWAKE&[place] [address] [place] [facility] ALL HEAD/BRAI 5 MEDICAL N W/O IMAGING CONTRAST ASS MATERIAL 3D 85294 [facility] ALL RENDERING 5 MEDICAL W/INTERP IMAGING & ASS POSTPROCE SS SUPERVISI ON MRI 86902 [facility] ALL SPINAL 5 MEDICAL CANAL IMAGING LUMBAR ASS W/O CONTRAST MATERIAL PHYSICAL 97335 [facility] THERAPY 5 [facility] EVALUATIO ANDRIA ANDRIA N RADIOLOGI 56354 [facility] EXAM 5 CHEST 2 VIEWS FRONTAL&L ATERAL XTRNL 54772 [facility] OCULAR 4 LUZ LUZ PHOTOG W/I&R DOCMT MEDICAL PROGRE VISUAL 34311 [facility] FIELD XM 4 LUZ LUZ UNI/BI W/INTERP INTERMED EXAM FUNDUS 70108 [facility] PHOTOGRAP 4 LUZ LUZ HY W/INTERPR ETATION & REPORT MRI 99516 [facility]EL SPINAL 4 MEDICAL ANKIT CANAL IMAGING LUMBAR ASS W/O CONTRAST MATERIAL 3D 67614 [facility] NAT[facility]NAEL RENDERING 4 MEDICAL ANKIT W/INTERP IMAGING & ASS POSTPROCE SS SUPERVISI ON HANDLG&/O 97513 [employer], R CONVEY 4 PUBLIC SPEAKING COACH PUBLIC SPEAKING COACH OF SPEC JOSY FERRIS FOR TR CO HOS CO HOS FROM PT TO LAB BLOOD 58361 [facility] AHMET PERIPHERA L INTERP PHYS W/WRIT REPORT RADIOLOGI 92592 [employer], C 4 PUBLIC SPEAKING COACH PUBLIC SPEAKING COACH EXAMINATI JOSY FERRIS ON KNEE 3 CO HOS CO HOS VIEWS RADIOLOGI 80955 [facility] C EXAM 4 EIDER PANKAJ KNEE RADIOLOGY COMPLETE ASSOCIAT 4/MORE VIEWS OPHTH 96081 SCIFRES SCIFRES MEDICAL 4 ANG ANG XM&EVAL COMPRE NEW PT 1/> VST ADMN SET A7003 YOUR YOUR SM VOL 1 PHARMACY [facility] PNEUMAT NEBULIZR DISPBL NEBULIZER E0570 NIC NIC WITH 1 HOME HOME COMPRESSO MEDICAL MEDICAL R EQUIPME EQUIPME 3D 19567 [facility] RENDERING 1 [facility] W/INTERP INC INC & POSTPROCE [place] MRI [address]251 [place] NATHANAEL SPINAL 1 MEDICAL ANKIT CANAL IMAGING LUMBAR ASS W/O CONTRAST MATERIAL US SOFT 59713 [place] RUIZ TISSUE 1 [facility]Y [facility] & RADIOLOGY NECK [place] [address] JOSY FERRIS ABDOMINAL 0 CO CO [facility]ITAL HOSPITAL TIME W/IMAGE LIMITED VISUAL 69636 [facility] FIELD XM 0 [facility] KE UNI/BI CENTER W/INTERP EXTENDED EXAM SCANNING 45091 [facility] OPHTHALMI 0 [facility] KE C IMAGING CENTER POSTERIOR SGM UNI DETERMINA 13805 [facility], TION 0 [facility] REFRACTIV CENTER E STATE FUNDUS 01066 [facility], PHOTOGRAP 0 [facility] W/INTERPR ETATION & REPORT CALCIUM 60538 [facility] AGU[facility] TOTAL 0 [place] [address] LACI AGUERO FREE 0 [facility] [place] [address] L[facility] AGUERO THYROID 0 [facility] STIMULATI INC INC NG HORMONE TSH MRI 41767 MARY C NATHANAEL, SPINAL 0 NATHANAEL MARY CANAL LUMBAR W/O CONTRAST MATERIAL ANTINUCLE 24491 JOSY FERRIS AR 0 CO CO ANTIBODIE [facility] S DEVIN COLLECTIO 07485 JOSY FERRIS N VENOUS 0 CO [place] BLOOD [facility] VENIPUNCT URE COMPREHEN 61669 JOSY FERRIS SIVE 0 CO CO METABOLIC [facility] PANEL SEDIMENTA 84442 JOSY FERRIS TION RATE 0 CO CO RBC [facility] NON-AUTOM ATED RADEX HIP 35973 [facility] [place] RADIOLOGY L COMPLETE ASSOCIATE MINIMUM 2 S PSC VIEWS BLOOD 89952 JOSY FERRIS COUNT 0 CO [facility] AUTO&AUTO DIFRNTL WBC RHEUMATOI 94449 J[facility]Y FERRIS D FACTOR 0 [facility] ESAU RADEX 81461 JOSY FERRIS SPINE 9 CO [place] CERVICAL [facility] 4 OR 5 VIEWS RADEX 05906 [facility] 9 CLIFF S LUMBOSACR RADIOLOGY AL MINIMUM 4 ASSOCIATE VIEWS S PSC RADEX 75380 [facility] 9 CLIFF S CERVICAL RADIOLOGY 6 OR MORE VIEWS ASSOCIATE S PSC URNLS DIP 11027 [facility] M[facility] 9 DYLAN JR, STICK/TAB INTERNAL NIKOLE F LET RGNT MED NON-AUTO W/O MICRSCP CALCIUM 37903 [facility] AGU[facility] TOTAL 9 [place] [address] L[facility]I AGUERO THYROID 9 [facility] STIMULATI [place] [address] LACI AGUERO FREE 9 [facility] [place] [address] LACI AGUERO THYROXINE 9 [facility] HOSP TOTAL INC INC Encounters Encounter Start End Date Code Location Performer Type Date OFFICE 72506 [facility] P[facility]ARD OUTPATIEN 7 7 HEALTH T VISIT SOLUTIONS 25 IN MINUTES HOSPITAL LACI - 6 6 [facility] OUTPATIEN [facility] T OFFICE [address] [facility] OUTPATIEN 6 6 MD BECK, T NEW 30 PSC [facility] LACI - 6 6 [facility] OUTPATIEN [facility] LACI [facility] 6 6 [facility] OUTPATIEN [facility] T OFFICE 54750 JOSY NEERAJ OUTPATIEN 6 6 [facility] VISIT URGENT 25 TREAT MINUTES OFFICE 01006 LAKESHA CROWDER OUTPATIEN 6 6 ANG ANG T NEW 45 MINUTES OFFICE 77166 [facility] KATHERINE OUTPATIEN 6 6 [facility] AALIYAH T VISIT CLINIC 25 PPLLC MINUTES OFFICE 80500 JOSY NEERAJ OUTPATIEN 5 5 [facility] T VISIT URGENT 10 TREAT MINUTES OFFICE 60155 [facility] KATHERINE OUTPATIEN 5 5 [facility] AALIYAH T VISIT CLINIC 25 PPLLC MINUTES HOSPITAL LACI - 5 5 [facility] OUTPATIEN [facility] T OFFICE 96380 JOSY NEERAJ OUTPATIEN 5 5 [facility] T VISIT URGENT 15 TREAT MINUTES HOSPITAL LACI - 5 5 [facility] OUTPATIEN [facility] T OFFICE 23221 TAT[facility] KATHERINE CONSULTAT 5 5 [facility] AALIYAH ION CLINIC NEW/ESTAB PPLLC PATIENT 40 MIN OFFICE 97548 [facility] GRIDER OUTPATIEN 5 5 [facility] MEIR T VISIT CLINIC [address] [facility] - 5 5 [facility] OUT[facility]IEN [facility] T OFFICE 14467 MARNI MARNI OUTPATIEN 5 5 MEIR MEIR T NEW 30 MINUTES OFFICE 42484 [facility]ASH HABASH OUTPATIEN 4 4 LUZ LUZ T NEW 45 MINUTES OFFICE 75193 [facility] RYAN II OUTPATIEN 4 4 [facility] SLEEP ELA T VISIT AND REHA 25 MINUTES HOSPITAL LACI - 4 4 [facility] OUTPATIEN INC T OFFICE 02168 [facility] RYAN II OUTPATIEN 4 4 LT SLEEP ELA T NEW 45 AND REHA MINUTES OFFICE 37661 [facility] OUTPATIEN 4 4 [facility] T NEW [address] [facility] - 4 4 EAST OUTPATIEN T OFFICE 49678 [facility] PETTEY OUTPATIEN 4 4 PHYSICIAN JAM T NEW 30 S GROUP MINUTES HOSPITAL MHC INC, - 4 4 PUBLIC SPEAKING COACH OUTPATIEN JOSY T CO HOS [facility]OSPITAL [facility] INC, - 4 4 PUBLIC SPEAKING COACH OUTPATIEN JOSY T CO HOS OFFICE 64317 [facility] OUT[facility]IEN 1 1 DYLAN T VISIT INTERNAL 15 MED MINUTES HOSPITAL LACI - 1 1 [facility] OUTPATIEN INC T OFFICE 73530 NEERAJ NEERAJ OUTPATIEN 1 1 ARIANNA NAN T VISIT 15 MINUTES OFFICE 71780 NEERAJ NEERAJ OUTPATIEN 1 1 ARIANNA NAN T VISIT 15 MINUTES OFFICE 15509 [place] NEERAJ OUTPATIEN 1 1 DYLAN NAN T VISIT INTERNAL 15 MEDI MINUTES OFFICE 51988 [place] NEERAJ OUTPATIEN 1 1 DYLAN NAN T VISIT INTERNAL 15 MEDI MINUTES OFFICE 56665 [facility] NEERAJ OUTPATIEN 1 1 DYLAN NAN T VISIT INTERNAL 15 MEDI MINUTES OFFICE 99490 [place] NEERAJ OUTPATIEN 1 1 DYLAN NAN T VISIT INTERNAL 15 MEDI MINUTES OFFICE 43404 [place] NEERAJ OUTPATIEN 0 0 [facility] NAN T VISIT INTERNAL 10 MEDI MINUTES HOSPITAL JOSY - 0 0 [facility] T OFFICE 29347 [place] NEERAJ OUTPATIEN 0 0 [facility] NAN T VISIT INTERNAL 15 MEDI MINUTES OFFICE 70033 [place] LISA OUTPATIEN 0 0 [facility] TAYLOR T VISIT INTERNAL 15 MEDI MINUTES OFFICE 83545 [facility] OUTPATI[facility] 0 0 [facility] T VISIT CENTER 25 MINUTES OFFICE 08027 [facility], OUTPATIEN 0 0 IMPLANT & CAROL R T VISIT 5 ORAL MINUTES [facility] OFFICE 28330 [place] BESSON, OUTPATIEN 0 0 [facility] MARYCHUY A T VISIT INTERNAL 15 MED MINUTES OFFICE 52998 [facility], OUTPATIEN 0 0 [facility] T NEW 45 CENTER MINUTES OFFICE 76283 DERIK BIANCHI, CONSULTAT 0 0 MEDICAL TEMITOPE MANTILLA SERV NEW/ESTAB FOUNDATIO PATIENT 40 MIN OFFICE 75744 [facility] MCKEMIE OUTPATIEN 0 0 DYLAN MOJICA, T VISIT INTERNAL NIKOLE F 10 MED MINUTES HOSPITAL LACI - 0 0 [facility] 96413 LISA LISA OUTPATIEN 0 0 [facility] TAYLOR T VISIT 15 MINUTES OFFICE 08075 [facility] B[facility]ON, OUTPATIEN 0 0 [facility] MARY[facility] A T VISIT INTERNAL 15 MED MINUTES HOSPITAL JOSY - 0 0 [facility] T EMERGENCY 35238 JOSY 9 9 [facility] T VISIT LIMITED/M INOR [facility] HOSPITAL JOSY - 9 9 [facility] T EMERGENCY 05048 JOSY MAO, 9 9 [facility] T VISIT MODERATE SEVERITY OFFICE 43697 [facility] MCKEMIE OUTPATIEN 9 9 [facility], T VISIT INTERNAL NIKOLE F 15 MED MINUTES HOSPITAL JOSY - 9 9 [facility] T OFFICE 17649 [facility] 9 9 [facility], T VISIT INTERNAL NIKOLE F 15 MED MINUTES OFFICE 78686 MAHIN STOUT OUTPATIEN 9 9 CHELSEA Luciano T [facility] 10 N02 MINUTES OFFICE 67666 [facility] 9 9 [facility], T VISIT INTERNAL NIKOLE F 15 MED MINUTES OFFICE 70651 LAUREANO TINSLEY, [facility] 9 9 SHANT Don T VISIT 10 MINUTES HOSPITAL LACI - 9 9 [facility] OFFICE 37303 MAHIN BARAHONA OUTPATIEN 8 8 CHELSEA DAY T V[facility] 10 N02 MINUTES OFFICE 97415 [place] [facility]SE [facility] 8 8 DYLAN Brown T VISIT INTERNAL 15 MED MINUTES EMERGENCY 94391 JOSY 8 8 CO [facility] T VISIT LIMITED/M INOR [facility] HOSPITAL JOSY - 8 8 [facility] T
--- OUTSIDE RECORDS SUMMARY | 2017-02-12 03:19 | External Medical Summary Rpt | CCD ---
Author Author Conduent Organization Conduent Address Unknown Phone Unavailable Purpose Continuity of Care Document - through 2016
== END 2017-02-11 06:04 | disposition home or self-care (01) ==
LOC: ER 03:29
DX: R51 Headache (principal); Z87.891 Personal history of nicotine dependence; F41.8 Other specified anxiety disorders; J44.9 Chronic obstructive pulmonary disease, unspecified; I10 Essential (primary) hypertension; Z79.82 Long term (current) use of aspirin

== ENCOUNTER 2017-02-17 18:43 | Emergency (ER) | payer MEDICAID ==
[~2017-02-17] VITALS: Ht 165.1 cm; Wt 62.1 kg
--- OUTSIDE RECORDS SUMMARY | 2017-02-17 19:09 | External Medical Summary Rpt | CCD ---
Author Author , QIANA Organization [facility] Address Unknown Phone Care Team Providers Care Lining Sewer Name Role Phone BIRGIT SOLARES MD, PSC, Unavailable Unavailable BIRGIT SOLARES MD, PSC MARYCHUY OVIEDO, Unavailable Unavailable MARYCHUY OVIEDO MANDUJANO, MANDUJANO Unavailable Unavailable MANDUJANO ALL, MANDUJANO ALL Unavailable Unavailable MARNI MEIR, MARNI Unavailable Unavailable MEIR MARNI MEIR, MARNI Unavailable Unavailable MEIR RUIZ MANDY, RUIZ Unavailable Unavailable MANDY REYES JUS, REYES Unavailable Unavailable JUS REYES JUS, REYES Unavailable Unavailable JUS [facility] Unavailable Unavailable AND REHA, [facility] AND REHA NATHANAEL ANKIT, Unavailable Unavailable NATHANAEL ANKIT MARY HUFFMAN, Unavailable Unavailable NATHANAEL MARY DUFF JESSICA, DUFF JESSICA Unavailable Unavailable [...] INC CL[facility], Unavailable Unavailable CLIFF ALVES [facility], Unavailable Unavailable [facility], Unavailable Unavailable [facility] Unavailable Unavailable INC, [facility] NEERAJ, NEERAJ Unavailable Unavailable NEERAJ NAN, NEERAJ Unavailable Unavailable NAN NEERAJ NAN, NEERAJ Unavailable Unavailable NAN RYAN II ELA, RYAN Unavailable Unavailable II ELA [facility] Unavailable Unavailable IM[facility]ING [facility], [facility] ENRIKE KAREEN, ENRIKE KAREEN Unavailable Unavailable ENRIKE KAREEN, ENRIKE KAREEN Unavailable Unavailable [id number], Unavailable Unavailable [id number] # Unavailable Unavailable [id number], [facility] # [id number] [facility] # Unavailable Unavailable [id number], [facility] # [id number] [facility] Unavailable Unavailable [facility], LAB [...] MAO DENSON AHMET, DENSON Unavailable Unavailable AHMET [facility] Unavailable Unavailable ASSOCIAT, [facility] HAMLET MOJICA, NIKOLE Unavailable Unavailable F, HAMLET MOJICA, CAROL SHELTON, Unavailable Unavailable CAROL STOUT R [facility], SENIOR CYTOGENETIC TECHNOLOGIST JOSY Unavailable Unavailable CO [facility], [facility], SENIOR CYTOGENETIC TECHNOLOGIST [facility] BARB BARAHONA, Unavailable Unavailable BARB BARAHONA [facility] Unavailable Unavailable PPLL, [facility], Unavailable Unavailable [facility] Unavailable Unavailable URGENT TREAT, [facility] Unavailable [facility] PETTEY JAM, PETTEY Unavailable Unavailable JAM SCIFRES ANG, SCIFRES Unavailable Unavailable ANG SCIFRES ANG, SCIFRES Unavailable Unavailable ANG [facility], Unavailable Unavailable [facility] Unavailable Unavailable [facility], [facility] Unavailable Unavailable [facility], [facility], Unavailable Unavailable [facility] Unavailable Unavailable [place], [facility] Unavailable Unavailable [facility], [facility], Unavailable Unavailable [facility] LAKESHA ANG, Unavailable Unavailable TEMITOPE MCHUGH A, Unavailable Unavailable TEMITOPE BIANCHI A [facility] Unavailable Unavailable #[id number], [id number], Unavailable [facility], Unavailable Unavailable [facility] Purpose Continuity of Care Document - 06-30-2007 through 2016 Problems Code Diagnosis DOS Provider Status [id number] MIGRAINE 12-27-2016 [facility] W/O [facility] NOT INTRACT SOLUTIONS W/O STAT IN MIGRAIN J060 ACUTE 12-27-2016 [facility] LARYNGOPHAR HEALTH YNGITIS SOLUTIONS IN M545 LOW BACK 12-27-2016 [facility] PAIN HEALTH SOLUTIONS IN [id number] SPONDYLOSIS 12-26-2016 [facility]ICAL MYELOPATH/R IMAGING ASS ADICULOPATH Y LUMB RGN M5136 OTH 12-26-2016 [facility] INTER[facility] RAL DISC IMAGING ASS DEGEN LUMBAR REGION N3001 ACUTE 07-22-2016 [facility] CYSTITIS POPPY WITH HOLDINGS HEMATURIA R309 PAINFUL 07-22-2016 [facility] MICTURITION POPPY HOLDINGS UNSPECIFIED R319 HEMATURIA 07-22-2016 [facility] UNSPECIFIED POP[facility] HOLDINGS Z23 ENCOUNTER 02-25-2016 [facility] IMMUNIZATIO URGENT N TREAT [id number] ENCOUNTER 02-23-2016 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 EXAM BRITTANI OF GENERAL RTN POPPY H W/ABNORMAL FIND Q29088 ENCOUNTER 02-23-2016 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 EXAM BRITTANI OF GENERAL RTN POPPY H W/O ABNORMAL FIND E038 OTHER 02-22-2016 [facility] SPECIFIED POPPY HYPOTHYROID HOLDINGS ISM H28712 UNSPECIFIED 02-15-2016 [facility] CYST LEFT IMAGING ASS SIDE N938 OTHER SPEC 02-15-2016 [facility] ABNORMAL [facility]ICAL UTERINE & IMAGING ASS VAGINAL BLEEDING R102 PELVIC AND 02-15-2016 [facility] PERINEAL [facility] PAIN IM[facility] ASS [id number] RIGHT LOWER 02-15-2016 [facility] ABD[facility] TENDERNESS Z67740 LEFT LOWER 02-15-2016 [facility] ABDOM[facility] TENDERNESS R938 ABNORMAL 02-15-2016 [facility] F[facility] DX [facility] OTH IMAGING ASS SPEC BODY STRCT X53284 PAIN IN 01-19-2016 [facility] L60724 PAIN IN 01-19-2016 [facility] M4806 SPINAL 01-19-2016 BIRGIT SOLARES, STENOSIS , PSC LUMBAR REGION M5126 OTH 01-19-2016 BIRGIT SOLARES INTERVERTTEODORO BRAY, PSC RAL DISC DISPLACEMEN T LUMBAR RGN R1011 RIGHT UPPER 12-11-2015 [facility] G608 OTHER 12-07-2015 [facility] IDIOPATHIC TREAT NEUROPATHIE S B399 HISTOPLASMO 11-25-2015 [facility] SIS ANG UNSPECIFIED G78088 STAPHYLOMA 11-25-2015 [facility] POSTICUM ANG RIGHT EYE H5211 MYOPIA 11-25-2015 [facility] RIGHT EYE ANG W57841 UNSPECIFIED 11-25-2015 [facility] AMBLYOPIA ANG RIGHT EYE B394 HISTOPLASMO 11-18-2015 AM[facility] SCHULTE SIS CAPSULATI UNSPECIFIED 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 Q20203 REGULAR 11-18-2015 [facility] ASTIGMATISM BILATERAL H524 PRESBYOPIA 11-18-2015 [facility] SCHULTE N925 OTHER 04-17-2015 [facility] IRREGULAR URGENT MENSTRUATIO TREAT N W53578 PAIN IN 04-16-2015 [facility] UNSPECIFIED CLINIC KNEE [facility] H9319 TINNITUS 04-09-2015 [facility] UNSPECIFIED MED[facility] EAR IMAGING ASS R569 UNSPECIFIED 04-09-2015 [facility] M5117 INTERVERTEB 01-30-2015 [facility] D/O INC W/RADICULOP ATHY LS RGN M5127 OT 01-30-2015 [facility] RAL DISC IMAGING ASS DISPLACEMEN T LS REGION M5137 OT 01-30-2015 [facility] RAL DISC IMAGING ASS DEGEN LUMBOSACRAL REGION 69241 PAIN IN 12-25-2014 [facility] JOINT, [facility] MULTIPLE [facility] SITES 56786 DISPLCMT 12-25-2014 [facility] LUMBAR CLINIC INTERVERT [facility] DISC W/O MYELOPATHY 7231 CERVICALGIA 12-25-2014 [facility] 7242 LUMBAGO 12-25-2014 [facility] 7295 PAIN IN 12-25-2014 [facility] SOFT [facility] TISSUES OF [facility] LIMB 7820 DISTURBANCE 12-25-2014 [facility] OF SKIN CLINIC SENSATION [facility] 7840 HEADACHE 12-25-2014 [facility] V5869 LONG-TERM 12-25-2014 [facility] (CURRENT) CLINIC USE OF [facility] OTHER MEDICATIONS 2448 OTHER 10-30-2014 [facility] SPECIFIED CLINIC ACQUIRED [facility] HYPOTHYROID ISM 2720 PURE 10-30-2014 [facility] HYPERCHOLES CLINIC TEROLEMIA [facility] 15960 RESTLESS 10-30-2014 [facility] LEGS CLINIC SYNDROME [facility] 07483 EXTRINSIC 10-30-2014 [facility] ASTHMA, CLINIC UNSPECIFIED [facility] V571 OTHER 10-29-2014 [facility] THERAPY WINGINA 00527 ACUTE 05-26-2014 MARNI WORLEY ATOPIC CONJUNCTIVI TIS 23725 CHEST PAIN 05-26-2014 ENRIKE KAREEN UNSPECIFIED 7962 ELEVATED BP 05-26-2014 [facility] WORLEY READING WITHOUT DX HYPERTENSIO N V8533 BODY MASS 05-26-2014 MAR[facility] WORLEY INDEX 33.0-33.9 ADULT 31077 BORDERLINE 04-08-2014 HABASH LUZ GLAUC OPEN ANGLE BL FINDINGS LOW RSK 3674 PRESBYOPIA 04-08-2014 HABASH LUZ 45379 UNSPECIFIED 02-17-2014 [facility] ARTHROPATHY [facility] OTHER SPECIFIED SITES 7213 LUMBOSACRAL 02-17-2014 [facility] SLEEP AND SPONDYLOSIS REHA WITHOUT MYELOPATHY 17054 DEGEN 02-17-2014 [facility] LUMBAR/LUMB H SLEEP AND OSACRAL RE[facility] INTERVERTEB RAL DISC 23149 SPINAL STEN 02-17-2014 [facility] LUMB REG H SLEEP AND W/O REHA NEUROGENIC CLAUDICATIO N 7244 THORACIC/CARLOS 02-17-2014 [facility] MBOSACRAL H SLEEP AND NEURITIS/RA REHA DICULITIS UNSPEC 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 95364 SCOLIOSIS , 11-11-2013 [facility] IDIOPATHIC EAST V141 PERSONAL 11-11-2013 [facility] HISTORY EAST ALLERGY 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 AGENT 7177 CHONDROMALA 08-30-2013 [facility] ROMAN OF PHYSICIANS [facility] GROUP 7262 OTHER 08-30-2013 [facility] AFFECTIONS PHYSICIANS OF SHOULDER GROUP REGION NEC 25420 LEUKOCYTOSI 08-08-2013 [facility] [place] [employer] UNSPECIFIED 75079 OSTEOARTHRO 08-06-2013 [facility] UNSPEC RADIOLOGY WHETHER ASSOCIAT GEN/LOC LOWER LEG 46371 PAIN IN 08-06-2013 [facility] JO[facility], RADIOLOGY LOWER LEG ASSOCIAT 3671 MYOPIA 05-31-2013 [facility] ANG 1120 CANDIDIASIS 04-29-2011 [facility] INTERNAL MED 2449 UNSPECIFIED 04-29-2011 [facility] HYPOTHYROID INTERNAL ISM MED 490 BRONCHITIS 04-29-2011 [facility] NOT [facility]LEY SPECIFIED INTERNAL ACUTE OR MED CHRONIC 4910 SIMPLE 04-29-2011 [facility] 75191 ASTHMA, 04-29-2011 [facility] UNSPECIFIED HOME , MEDICAL UNSPECIFIED EQUIPME STATUS 65584 UNSPECIFIED 04-15-2011 NEERAJ NAN ARTHROPATHY , LOWER LEG 7821 RASH AND 04-15-2011 NEERAJ KELLER OTHER NONSPECIFIC SKIN ERUPTION 88286 OTHER 03-18-2011 [facility] KELLER ANXIETY STATES 7292 UNSPECIFIED 03-18-2011 [facility] KELLER NEURALGIA NEURITIS AND RADICULITIS 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 462 ACUTE 02-09-2011 [facility] PHARYNGITIS [facility] INTERNAL MEDI 4871 INFLUENZA 02-09-2011 [facility] WITH OTHER [facility]LEY RESPIRATORY INTERNAL MEDI MANIFESTATI ONS 61815 PAIN IN 01-24-2011 [facility] JOINT, VAL[facility] FOREARM INTERNAL MEDI 7245 UNSPECIFIED 01-24-2011 [facility] BACKACHE VAL[facility] INTERNAL MEDI 41976 OTHER 12-17-2010 [facility] CHRONIC [facility] PAIN INTERNAL MEDI 2409 GOITER, 11-04-2010 [facility] UNSPECIFIED RADIOLOGY ASSOCIAT 15658 UNSPECIFIED 09-24-2010 [facility] ARTHROPATHY INTERNAL MULTIPLE MEDI SITES 05927 ABDOMINAL 04-22-2010 [facility] PAIN RIGHT VAL[facility] UPPER INTERNAL QUADRANT MEDI 07562 ABDOMINAL 04-22-2010 [facility] PAIN, VAL[facility] EPIGASTRIC INTERNAL MEDI 5718 OTHER 04-16-2010 [facility] NONALCOHOLI C LIVER DISEASE 37673 DIARRHEA 04-16-2010 [facility] 72967 ESOPHAGEAL 04-07-2010 [facility] REFLUX [facility] INTERNAL MEDI 7226 DEGENERATIO 04-07-2010 [facility] N [facility] INTERVERTEB INTERNAL RAL DISC MEDI SITE UNSPEC 05608 OTH 11-27-2009 [facility] EXTRAPYRAMI [facility] 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 5206 DISTURBANCE 10-23-2009 [facility]PL[facility] S IN [facility] 7862 COUGH 10-12-2009 [facility] 79667 UNSPECIFIED 10-10-2009 [facility] SIS RETINITIS 3670 HYPERMETROP 10-10-2009 [facility] 63460 OTHER 10-10-2009 [facility] FIELD DEFECT 07926 PAIN IN 07-10-2009 [facility] PELVIC REGION AND THIGH 74076 OSTEOARTHRO 06-26-2009 [facility] S UNSPEC RADIOLOGY GEN/LOC ASSOCIATES PELV PSC REGION&THIG H 4730 CHRONIC 03-29-2009 [facility] SINUSITIS 4731 CHRONIC 03-29-2009 [facility] FRONTAL [facility] SINUSITIS 52288 SPASM OF 01-01-2009 [facility] MUSCLE [facility] INTERNAL MED 23064 SPONDYLOSIS 12-02-2008 [facility] RADIOLOGY SITE W/O ASSOCIATES MENTION PSC MYELOPATHY 7831 ABNORMAL 11-28-2008 [facility] INTERNAL MED 41871 ANOMALY OF 09-01-2008 [facility] TOOTH IIIC N02 POSITION UNSPECIFIED 7881 DYSURIA 07-15-2008 [facility] 226 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 2459 UNSPECIFIED 06-12-2008 [facility] THYROIDITIS 5210 DENTAL 04-01-2008 [facility] TRAN CARIES IIIPSC N02 44799 CONTACT 08-08-2007 [facility] DERMATITIS& VALLEY OTH ECZEMA INTERNAL DUE OTH ROADS AND 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 7248 OTHER 06-30-2007 [facility] REFERABLE TO BACK 8470 NECK SPRAIN 06-30-2007 [facility] R51 HEADACHE Medications Na ND Rx Da Fi Fi Am Da Di Ph RX Ph St me C No te ll ll ou ys ag ar # ys at rm s nt no ma ic us Or Da si cy ia de te s n re d PA 00 09 10 55 10 00 NM Ac ED 14 -1 -1 .0 00 L- ti NI 39 4- 3- 00 07 MA ve SO 74 20 20 50 RT NE 01 17 17 95 5 0 61 PH AR MG MA CY TA BL #5 ET 91 GA 00 09 10 90 30 00 NM Ac BA 22 -1 -1 .0 00 L- ti PE 82 7- 3- 00 04 MA ve NT 63 20 20 53 RT IN 65 17 17 17 0 43 PH 60 AR 0 MA MG CY TA #5 BL 91 ET CY 68 08 09 30 15 00 NM Ac CL 64 -2 -2 .0 00 L- ti OB 50 9- 2- 00 07 MA ve EN 51 20 20 50 RT ZA 79 17 17 66 PA 0 26 PH IN AR E MA 5 CY MG #5 TA 91 BL ET ME 59 08 09 21 6 00 NM Ac TH 74 -2 -2 .0 00 L- ti YL 60 9- 2- 00 07 MA ve PA 00 20 20 50 RT ED 10 17 17 64 NI 3 98 PH SO AR LO MA NE CY 4 #5 MG 91 DO SE PK TO 68 08 09 30 30 00 NM Ac PI 38 -2 -2 .0 00 L- ti RA 20 9- 2- 00 07 MA ve MA 14 20 20 50 RT TE 01 17 17 66 4 29 PH 10 AR 0 MA MG CY TA #5 BL 91 ET NA 65 08 09 60 30 00 WA Ac PA 16 -2 -2 .0 00 L- ti OX 20 9- 2- 00 07 MA ve EN 19 20 20 50 RT 01 17 17 66 50 1 28 PH 0 AR MG MA CY TA BL #5 ET 91 AM 00 08 09 20 10 00 NM Ac OX 14 -2 -2 .0 00 L- ti IC 39 9- 2- 00 07 MA ve IL 95 20 20 50 RT LI 10 17 17 66 N 1 27 PH 87 AR 5 MA MG CY TA #5 BL 91 ET JACKSON 55 08 09 9. 9 00 NM Ac MA 11 -2 -1 00 00 L- ti TR 10 1- 5- 0 07 MA ve IP 29 20 20 50 RT TA 30 17 17 51 N 9 02 PH JACKSON AR CC MA CY 10 0 #5 MG 91 TA BL ET GA 00 08 09 90 30 00 NM Ac BA 22 -2 -1 .0 00 L- ti PE 82 1- 5- 00 04 MA ve NT 63 20 20 53 RT IN 65 17 17 17 0 43 PH 60 AR 0 MA MG CY TA #5 BL 91 ET PA 54 07 08 30 30 00 NM Ac AV 45 -2 -2 .0 00 L- ti 80 8- 5- 00 07 MA ve TA 92 20 20 66 RT TI 71 17 17 89 N 6 94 PH SO AR DI MA UM CY 10 #5 71 MG TA B TI 55 07 08 60 30 00 NM Ac ZA 11 -2 -2 .0 00 L- ti NI 10 8- 5- 00 07 MA ve DI 18 20 20 66 RT NE 01 17 17 89 5 96 PH HC AR L MA 4 CY MG #5 TA 71 BL ET DU 57 07 08 60 30 00 NM Ac LO 23 -2 -2 .0 00 L- ti XE 70 8- 5- 00 07 MA ve TI 01 20 20 66 RT NE 93 17 17 89 0 97 PH HC AR L MA DR CY 60 #5 71 MG CA P ME 62 07 08 30 30 00 NM Ac TO 03 -2 -2 .0 00 L- ti PA 70 8- 5- 00 07 MA ve OL 83 20 20 66 RT OL 11 17 17 89 0 95 PH JACKSON AR CC MA CY ER #5 50 71 MG TA B JACKSON 55 07 08 9. 9 00 NM Ac MA 11 -2 -1 00 00 L- ti TR 10 3- 8- 0 07 MA ve IP 29 20 20 66 RT TA 30 17 17 24 N 9 59 PH JACKSON AR CC MA CY 10 0 #5 MG 71 TA BL ET LE 00 08 30 30 00 WA Ac VO 78 -2 -1 .0 00 L- ti TH 15 8- 00 07 MA ve YR 18 [...] TA #5 BL 71 ET LA 69 08 30 30 00 WA Ac MO 09 -2 -1 .0 00 L- ti TR 70 1 8- 00 07 MA ve IG 15 20 20 67 RT IN 20 17 17 35 E 3 76 PH 20 AR 0 MA MG CY TA #5 BL 71 ET GA 00 11 05 89 30 00 NM Ac BA 22 -2 -1 .0 00 L- ti PE 82 5- 8- 00 04 MA ve NT 63 20 20 54 RT IN 65 17 17 39 0 47 PH 60 AR 0 MA MG CY TA #5 BL 71 ET CL 16 11 05 89 30 00 NM Ac ON 72 -2 -1 .0 00 L- ti AZ 90 5- 8- 00 04 MA ve EP 13 20 20 54 RT AM 61 17 17 39 6 49 PH 0. AR 5 MA MG CY TA #5 BL 71 ET PA 54 10 05 30 30 00 NM Ac AV 45 -2 -2 .0 00 L- ti 80 7- 1- 00 07 MA ve TA 92 20 20 66 RT TI 71 17 17 89 N 6 94 PH SO AR DI MA UM CY 10 #5 71 MG TA B LA 69 06 30 30 00 WA Ac MO 09 -2 -2 .0 00 L- ti TR 70 3- 1- 00 07 MA ve IG 15 20 20 66 RT IN 20 17 17 24 E 3 49 PH 20 AR 0 MA MG CY TA #5 BL 71 ET GA 00 10 05 90 30 00 WA Ac BA [...] MC G #5 TA 71 BL ET DU 57 06 07 60 30 00 NM Ac LO 23 -2 -2 .0 00 L- ti XE 70 7- 1- 00 07 MA ve TI 01 20 20 66 RT NE 93 17 17 89 0 97 PH HC AR L MA DR CY 60 #5 71 MG CA P TI 55 06 07 60 30 00 NM Ac ZA 11 -2 -2 .0 00 L- ti NI 10 7- 1- 00 07 MA ve DI 18 20 20 66 RT NE 01 17 17 89 5 96 PH HC AR L MA 4 CY MG #5 TA 71 BL ET ME 62 06 30 30 00 NM Ac TO 03 -2 -2 .0 00 L- ti PA 70 7- 1- 00 07 MA ve OL 83 20 20 66 RT OL 11 17 17 89 0 95 PH JACKSON AR CC MA CY ER #5 50 71 MG TA B PN 00 06 07 0. 1 00 NM Ac EU 00 -1 -1 50 00 L- ti MO 64 6- 4- 0 07 MA ve VA 94 20 20 66 RT X 30 17 17 69 23 0 63 PH AR MA AL CY #5 71 TO 68 10 05 30 30 00 NM Ac PI 38 -1 -0 .0 00 L- ti RA 20 2- 7- 00 07 MA ve MA 13 20 20 66 RT TE 91 17 17 60 4 61 PH 50 AR MA MG CY TA #5 BL 71 ET LE 00 05 06 30 30 00 NM Ac VO 78 -2 -2 .0 00 L- ti TH 15 5- 3- 00 07 MA ve YR 18 20 20 66 RT OX 69 17 17 24 IN 2 66 PH E AR 12 MA 5 CY MC G #5 TA 71 BL ET TO 68 05 06 30 30 00 NM Ac PI 38 -2 -2 .0 00 L- ti RA 20 5- 3- 00 07 MA ve MA 13 20 20 66 RT TE 81 17 17 24 4 63 PH 25 AR MA MG CY TA #5 BL 71 ET JACKSON 55 05 06 9. 9 00 NM Ac MA 11 -2 -2 00 00 L- ti TR 10 5- 3- 0 07 MA ve IP 29 20 20 66 RT TA 30 17 17 24 N 9 59 PH JACKSON AR CC MA CY 10 0 #5 MG 71 TA BL ET TI 55 05 60 30 00 WA Ac ZA 11 -2 -2 .0 00 L- ti NI 10 5- 3- 00 07 MA ve DI 18 20 20 66 RT NE 01 17 17 24 5 41 PH HC AR L MA 4 CY MG #5 TA 71 BL ET GA 00 05 30 00 WA Ac BA 22 -2 -2 .0 00 L- ti PE 82 5- 3- 00 07 MA ve NT 63 20 20 66 RT IN 65 17 17 24 0 39 PH 60 AR 0 MA MG CY TA #5 BL 71 ET ME 62 05 30 30 00 WA Ac TO 03 -2 -2 .0 00 L- ti PA 70 5- 3- 00 07 MA ve OL 83 20 20 66 RT OL 11 17 17 24 0 48 PH JACKSON AR CC MA CY ER #5 50 71 MG TA B PA 54 05 30 30 00 WA Ac AV 45 -2 -2 .0 00 L- ti 80 5- 3- 00 07 MA ve TA 92 20 20 66 RT TI 71 17 17 24 N 2 68 PH SO AR DI MA UM CY 10 #5 71 MG TA B LA 69 05 30 30 00 WA Ac MO 09 -2 -2 .0 00 L- ti TR 70 5- 3- 00 07 MA ve IG 15 20 20 66 RT IN 20 17 17 24 E 3 49 PH 20 AR 0 MA MG CY TA #5 BL 71 ET DU 57 05 60 30 00 WA Ac LO 23 -2 -2 .0 00 L- ti XE 70 5- 3- 00 07 MA ve TI 01 20 20 66 RT NE 93 17 17 24 0 67 PH HC AR L MA DR CY 60 #5 71 MG CA P CL 16 09 03 89 30 00 WA Ac ON 72 -3 -2 .0 00 L- ti AZ 90 0- 3- 00 04 MA ve EP 13 20 20 54 RT AM 61 17 17 30 6 67 PH 0. AR 5 MA MG CY TA #5 BL 71 ET CL 00 09 02 89 30 [...] DR MC UG G TA BL ET PA 68 05 05 30 30 00 SO [...] 03 -0 -2 .0 00 PE ti PA 70 1- 6- 00 00 RS ve [...] DR UG TA BL ET CL 00 03 04 [...] 03 04 20 10 00 SO Ac PA 57 -2 -2 .0 00 PE ti [...] 03 -2 -2 .0 00 PE ti PA 70 4- 1- 00 00 RS ve [...] L DR UG 60 MG CA P LE 00 03 04 30 30 00 SO Ac VO 37 -2 -2 .0 00 PE ti TH 81 4- 1- 00 00 RS ve YR 81 20 20 55 OX 37 17 17 37 FA IN 7 65 MO E LY [address] MC UG G TA BL ET PA 68 03 04 30 30 00 SO [...] 64 MO [address] ABRIL TA BL ET DU 57 02 03 [...] 23 MO [address] SAMUELS TA BL ET ME 62 02 03 30 30 00 SO Ac TO 03 -1 -1 .0 00 PE ti PA 70 0- 0- 00 00 RS ve OL 83 20 20 54 OL 11 17 17 81 FA 0 56 MO JACKSON LY CC DR ER UG 50 MG TA B PA 68 02 03 30 30 00 SO [...] 0 44 MO A LY 90 DR SERNA G IN KENNY LE R TI 57 [...] DR UG TA BL ET GA 69 05 [...] MG UG TA BL ET CL 00 03 31 90 30 00 [...] 03 -0 -0 .0 00 PE ti PA 70 9- 9- 00 00 RS ve [...] 20 MO HC LY L DR DR SAMUELS 60 MG CA P PA 68 12 01 30 30 00 SO Ac AV 46 -0 -0 .0 00 PE ti 20 9- 9- 00 00 RS ve TA 19 20 20 54 TI 59 16 17 84 FA N 0 18 MO SO LY DI UM DR SAMUELS 10 MG TA B LE 00 12 01 30 30 00 SO Ac VO 37 -0 -0 .0 00 PE ti TH 81 9- 9- 00 00 RS ve YR 81 20 20 54 OX 37 16 17 80 FA IN 7 75 MO E LY [address] TALBOT UG G TA BL ET GA 69 12 01 90 30 00 SO Ac BA 36 -1 -0 .0 00 PE ti PE 70 3- 9- 00 00 RS ve NT 13 20 20 54 IN 40 16 17 08 FA 6 85 MO [address] SAMUELS TA BL ET GA 68 08 10 [...] E LY HE [address] Kevin SERNA G TA BL ET PA 60 10 10 0 12 6 SO 38 HU Ac OM 43 -1 -1 0. PE 68 NT ti ET 20 2- 2- 00 RS 25 ER ve KENNY 60 20 20 0 ZI 41 11 11 FA NA NE 6 MO NC -D LY Y M C SY DR IGNACIO SAMUELS P 00 10 10 0 30 7 [...] MG DR Kevin SAMUELS TA BL ET CY 59 09 09 0 7. 7 SO 38 HU Ac CL 74 -2 -2 00 PE 54 NT ti OB 60 8- 9- 0 RS 82 ER ve EN 21 20 20 ZA 11 11 11 FA NA PA 0 MO NC IN LY Y E [...] 9- 8- 00 RS 76 ON ve PA 05 20 20 AM [address] 0 MO EP HB LY HE R N 40 DR Brown UG MG TA BL ET 00 09 09 [...] 0 MO EP LY HE N DR Kevni SAMUELS LE 00 09 09 5 30 [...] .0 PE 17 SS ti LO 20 RS 76 ON ve PA 05 20 20 AM [address] 0 MO EP HB LY HE R N 40 DR A UG MG TA BL ET ET 51 08 08 2 60 30 SO 38 BE Ac OD 67 -1 -1 .0 PE 17 SS ti OL 24 9 RS 77 ON ve AC 01 20 [...] .0 PE 74 NT ti 31 9 00 RS 13 ER ve 47 20 20 51 11 11 FA NA 0 MO NC LY Y C DR UG IB 55 06 06 0 90 30 SO 37 FL Ac UP 11 -2 -2 .0 PE 72 OR ti RO 10 8 RS 95 EN ve FE 68 [...] S 0 YC [address] ISAURO IN 1 UG NC Y 25 CO C 0 MP MG AN Y TA IN BL C ET PA 60 05 05 12 6 HO 10 HU Ac OM 43 -2 -2 0. PK 16 NT ti ET 20 7- 7- 00 IN 99 ER ve KENNY 60 20 20 0 S 1 ZI [address] ISAURO NE 6 UG NC -D Y M CO C SY MP RU AN P Y IN C PA 00 05 05 14 7 HO 10 [...] IA AN M Y F IN C PA 00 03 03 55 10 HO 10 [...] S 5 YL [address] ISAURO IN 2 UG NC E Y HC CO C L MP 50 AN Y MG IN C TA B CI 13 03 03 4. 7 HO 10 HU Ac TA 66 -0 -0 00 PK 15 NT ti LO 80 2- 2- 0 IN 50 ER ve PA 01 20 20 S 3 AM [address] NA 1 UG NC HB Y R CO C 20 MP AN MG Y IN TA C BL ET 59 12 01 3 8. 25 HO [...] S 1 E IN 80 10 11 JR 5 UG 30 WI 0 CO LL MG MP IA AN M CA Y F PS IN UL C E LE 00 01 01 4 90 90 [...] MP A AN Y IN C 59 12 12 3 8. 25 HO 10 BE Ac 31 -0 -0 50 PK 13 SS ti 00 8- 8- 0 IN 40 ON ve 57 20 20 S [address] 0 UG EP HE CO N MP A AN Y IN C PA 00 12 12 30 15 HO 10 HU Ac ED 60 -0 -0 .0 PK 13 NT ti NI 35 8- 8- 00 IN 39 ER ve SO 33 20 20 S 9 NE [address] NA 2 UG NC 10 Y CO C MG MP AN TA Y BL IN ET C PA 37 12 12 2 56 28 HO 10 HU Ac IL 00 -0 -0 .0 PK 13 NT ti OS 00 8- 8- 00 IN 40 ER ve EC 45 20 20 S [address] NA OT 3 UG NC C Y 20 CO C .6 MP AN MG Y IN TA C BL ET GA 62 08 12 2 30 30 HO 10 MC Ac BA 75 -2 -0 .0 PK 10 KE ti PE 60 5- 8- 00 IN 04 MO ve NT 13 20 20 S 1 E IN [address] JR 5 UG 30 WI 0 CO LL MG MP IA AN M CA Y F PS IN UL C E 00 12 12 30 7 HO 10 BE Ac 59 -0 -0 .0 PK 13 SS ti 10 8- 8- 00 IN 41 ON ve 34 20 20 S [address] 5 UG EP HE CO N MP A AN Y IN C LE 00 01 09 4 90 90 KR 60 LA Ac VO 52 -0 -3 .0 OG 31 WS ti TH 71 7- 0- 00 ER 84 ON ve YR 34 20 20 2 OX 31 10 10 PH IN [address] E MA OR 75 CY G # MC G 24 TA 71 BL 2 ET IB 55 07 08 3 90 30 HO 10 FL Ac UP 11 -3 -2 .0 PK 10 OR ti RO 10 0- 5- 00 IN 05 EN ve FE 68 20 20 S 2 CE N [address] 80 5 UG SA 0 RA MG CO H MP L TA AN BL Y ET IN C GA 62 08 08 2 30 30 HO 10 MC Ac BA 75 -2 -2 .0 PK 10 KE ti PE 60 5- 5- 00 IN 04 MO ve NT 13 20 20 S 1 E IN [address] JR 5 UG 30 WI 0 CO LL MG MP IA AN M CA Y F PS IN UL C E 00 06 06 0 24 4 KR 45 MC Ac 59 -2 -2 .0 OG 64 LA ti 10 5- 5- 00 ER 57 UR ve 54 20 20 5 IN 00 10 10 PH 5 AR DO MA NA CY LD # R 24 70 9 00 06 06 0 24 4 KR [...] CA 24 PS 70 UL 9 E 59 06 06 8. 25 HO 10 [...] 2- 2- 00 IN 40 EN ve PA 18 20 20 S 8 CE ED [...] S ZA [address] ISAURO PA 6 UG NC IN Y E CO C 10 IN MG C TA BL ET PA 00 09 09 00 36 12 HO 99 HU Ac ED 59 -0 -1 .0 PK 89 NT ti NI 15 3- 0- 00 IN 27 ER ve SO 44 20 20 S NE [address] NA 1 UG NC 10 Y CO C [...] S ZA [address] NA PA 1 UG NC IN Y E CO [...] IN G C TA BL ET 00 05 05 00 24 4 KR [...] G C TA BL ET LE 00 01 01 00 30 30 [...] .0 PK 91 t ti MC 21 IN 36 Av ve IN 28 20 20 S ai OL [address] saucedo ON 2 UG bl E e 0. CO 1% IN CR C EA M AM 00 10 11 00 30 30 HO 98 No Ac IT 78 -2 -0 .0 PK 91 t ti RI 11 7- 00 IN 37 Av ve PT [...] S ai OX [address] saucdeo IN 1 UG bl E e 75 [...] 31 t ti MC 21 9- 4- IN 56 Av ve IN 28 20 [...] Code Location Performer Comment BODY MASS 3008F [employer] INDEX 7 HEALTH DOCUMENTE SOLUTIONS D IN CURRENT 1034F [employer] TOBACCO 7 HEALTH SMOKER SOLUTIONS IN TOBACCO 1000F [employer] USE 7 HEALTH ASSESSED SOLUTIONS IN RADEX 06347 [facility] [facility] SPINE 7 MEDICAL LUMBOSACR IMAGING AL ASS MINIMUM 4 VIEWS SUSCEPTIB 09626 [facility] LTY STDY 7 POPPY POPPY ANTIMICRB HOLDINGS HOLDINGS IAL MICRO/AGA R DILUTJ CULTURE 79359 LAB [facility] LAB BRITTANI BACTERIAL 7 POPPY POPPY HOLDINGS HOLDINGS QUANTTATI VE COLONY COUNT URINE CULTURE 29638 LAB [facility] LAB BR[facility]ANI BCT 7 Rapp IT Up ISOL&PRSM HOLDINGS HOLDINGS PTV ID ISOLATE EA URINE IM ADM [id number] JOSY PICKARD PRQ ID 6 [facility] SUBQ/IM URGENT NJXS 1 TREAT VACCINE IIV3 89549 JOSY PICKARD VACCINE 6 [facility] NAN SPLIT URGENT VIRUS 0.5 TREAT ML DOSAGE IM USE CYTP 60836 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/ 6 Y BRITTANI OF Y BRITTANI OF VAGINAL POPPY POPPY REQ H H INTERP PHYSICIAN CYTP C/V 85521 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 AUTO THIN 6 Y BRITTANI OF Y BRITTANI OF LYR POPPY POPPY PREPJ [place] [address] LAB BR[facility] LAB BR[facility]ANI THYROID 6 POPPY POPPY STIMULATI [place] [address] [place] TRANSVAGI 6 [facility] G0463 LACI AGUERO OUTPATIEN 6 [facility] T CLIN INC INC VISIT ASSESS & [place] [address] LAB BRITTANI LAB BRITTANI THYROID 6 [facility] STIMULATI [place] [address] [place] ALL ABDOMINAL 6 MEDICAL REAL IMAGING TIME ASS W/IMAGE LIMITED COMPUTERI 52089 AMY REYES ZED 6 JUS JUS OPHTHALMI C IMAGING RETINA OPHTH 82273 AMY REYES MEDICAL 6 JUS JUS XM&EVAL COMPRE NEW PT 1/> VST URINE 68940 JOSY PICKARD 5 [facility] NAN TEST URGENT VISUAL TREAT COLOR CMPRSN [facility] RAD[facility] [address] EXAMINATI CLINIC ON KNEE PPLLC 1/2 VIEWS ELECTROEN 08755 LACI AGUERO CEPHALOGR 5 [facility] AM W/REC INC INC AWAKE&[place] [address] LACI AGUERO HEAD/BRAI 5 [facility] N W/O INC INC CONTRAST MATERIAL [place] 05523 LACI AGUERO SPINAL 5 [facility] CANAL INC INC LUMBAR W/O CONTRAST MATERIAL 3D 01093 LACI AGUERO RENDERING 5 [facility] W/INTERP INC INC & POSTPROCE SS SUPERVISI ON PHYSICAL 75895 [facility] THERAPY 5 [facility] RADIOLOGI 36276 [facility] EXAM 5 CHEST 2 VIEWS FRONTAL&L ATERAL XTRNL 87977 HABASH HABASH OCULAR 4 LUZ LUZ PHOTOG W/I&R DOCMT MEDICAL PROGRE FUNDUS 83434 [facility]ASH PHOTOGRAP 4 LUZ LUZ HY W/INTERPR ETATION & REPORT VISUAL 05559 [facility] H[facility]ASH FIELD XM 4 LUZ LUZ UNI/BI W/INTERP INTERMED EXAM 3D 72482 MICKY NATHANAEL RENDERING 4 MEDICAL ANKIT W/INTERP IMAGING & ASS POSTPROCE SS SUPERVISI [place] MRI 36328 LACI AGUERO SPINAL 4 [facility] CANAL INC INC LUMBAR W/O CONTRAST MATERIAL HANDLG&/O 64599 [employer], R CONVEY 4 SENIOR CYTOGENETIC TECHNOLOGIST SENIOR CYTOGENETIC TECHNOLOGIST OF SPEC JOSY FERRIS FOR TR CO HOS CO HOS FROM PT TO LAB BLOOD 74623 [facility] AHMET PERIPHERA L INTERP PHYS W/WRIT REPORT RADIOLOGI 23737 [employer], C 4 SENIOR CYTOGENETIC TECHNOLOGIST SENIOR CYTOGENETIC TECHNOLOGIST EXAMINATI JOSY FERRIS ON KNEE 3 CO HOS CO HOS VIEWS RADIOLOGI 32777 [facility] EXAM 4 EIDER PANKAJ KNEE RADIOLOGY COMPLETE ASSOCIAT 4/MORE VIEWS OPHTH 32111 SCIFRES SCIFRES MEDICAL 4 ANG ANG XM&EVAL COMPRE NEW PT 1/> VST ADMN SET A7003 YOUR YOUR SM VOL 1 [facility] PNEUMAT NEBULIZR DISPBL NEBULIZER E0570 NIC LUCERO WITH 1 HOME HOME COMPRESSO MEDICAL MEDICAL R EQUIPME EQUIPME 3D 63070 LACI AGUERO RENDERING 1 [facility] W/INTERP INC INC & POSTPROCE SS SUPERVISI ON MRI 33658 MICKY NATHANAEL SPINAL 1 MEDICAL ANKIT CANAL IMAGING LUMBAR ASS W/O CONTRAST MATERIAL US SOFT 54660 PONCE RUIZ TISSUE 1 MANDY HEAD & RADIOLOGY [place] [address] [facility] E[facility] REAL RADIOLOGY TIME ASSOCIAT W/IMAGE LIMITED VISUAL 74440 [facility] FIELD XM 0 [facility] KEF UNI/BI CENTER W/INTERP EXTENDED EXAM SCANNING 70509 [facility] OPHTHALMI 0 [facility] C IMAGING CENTER POSTERIOR SGM UNI DETERMINA 79687 [facility], TION 0 [facility] E STATE FUNDUS 26882 [facility], PHOTOGRAP 0 [facility] W/INTERPR ETATION & REPORT MRI 37645 MARY C NATHANAEL, SPINAL 0 NATHANAEL MARY CANAL LUMBAR W/O CONTRAST MATERIAL CALCIUM 39258 LACI LACI TOTAL 0 [place] [address] LACI LACI FREE 0 [facility] [place] [address] LACI LACI THYROID 0 [facility] STIMULATI INC INC NG HORMONE TSH COMPREHEN 50776 JOSY FERRIS SIVE 0 CO CO METABOLIC [facility] PANEL COLLECTIO 41480 JOSY FERRIS N VENOUS 0 CO CO BLOOD [facility] VENIPUNCT URE SEDIMENTA 40998 JOSY FERRIS TION RATE 0 CO CO RBC [facility] NON-AUTOM ATED ANTINUCLE 61148 JOSY FERRIS AR 0 CO CO ANTIBODIE [facility] S DEVIN RHEUMATOI 59394 JOSY FERRIS D FACTOR 0 CO CO QUANTITAT [facility] ESAU RADEX HIP 31044 [facility] [place] RADIOLOGY L COMPLETE ASSOCIATE MINIMUM 2 S PSC VIEWS BLOOD 11370 JOSY FERRIS COUNT 0 CO CO COMPLETE [facility] AUTO&AUTO DIFRNTL WBC RADEX 45575 JOSY FERRIS SPINE 9 CO CO CERVICAL [facility] 4 OR 5 VIEWS RADEX 10856 JOSY FERRIS SPINE 9 CO CO LUMBOSACR [facility] AL MINIMUM 4 VIEWS RADEX 30814 [facility] 9 CLIFF S CERVICAL RADIOLOGY 6 OR MORE VIEWS ASSOCIATE S PSC URNLS DIP 01192 [facility] 9 [facility] JR, STICK/TAB INTERNAL NIKOLE F LET RGNT MED NON-AUTO W/O MICRSCP CALCIUM 49642 LACI SANON TOTAL 9 [place] [address] LACI AGUERO THYROID 9 [facility] STIMULATI [place] [address] LACI AGUERO FREE 9 [facility] [place] [address] LACI AGUERO THYROXINE 9 [facility] TOTAL INC INC Encounters Encounter Start End Date Code Location Performer Type Date OFFICE 98785 ANDRIA PICKARD OUTPATIEN 7 7 HEALTH T VISIT SOLUTIONS 25 IN [facility] LACI - 6 6 [facility] OUTPATIEN INC T OFFICE 86519 [facility]GIT ELDER [facility] OUTPATIEN 6 6 MD BECK, T [facility] 30 PSC [facility] LACI [facility] 6 6 [facility] OUTPATIEN [facility] LACI - 6 6 [facility] OUTPATIEN INC T OFFICE 93941 JOSY PICKARD OUTPATIEN 6 6 [facility] T VISIT URGENT 25 TREAT MINUTES OFFICE 24004 LAKESHA CROWDER OUTPATIEN 6 6 [facility] T NEW 45 MINUTES OFFICE 81705 TATUM MURPHY OUTPATIEN 6 6 [facility]RIA AALIYAH T VISIT CLINIC 25 PPLLC MINUTES OFFICE 12077 JOSY NEERAJ OUTPATIEN 5 5 [facility] T VISIT URGENT 10 TREAT MINUTES OFFICE 58524 TATUM KATHERINE OUTPATIEN 5 5 [facility]RIA AALIYAH T VISIT CLINIC 25 PPLLC MINUTES HOSPITAL LACI - 5 5 [facility] OUTPATIEN INC T OFFICE 37491 JOSY NEERAJ OUTPATIEN 5 5 [facility] T VISIT URGENT 15 TREAT MINUTES HOSPITAL LACI - 5 5 [facility] OUTPATIEN INC T OFFICE 03517 TATUM ERNSTKATHERINE CONSULTAT 5 5 [facility]RI[facility] AALIYAH ION CLINIC NEW/ESTAB PPLLC PATIENT 40 MIN OFFICE 55054 MT MARNI OUTPATIEN 5 5 [facility] WORLEY T VISIT CLINIC [address] [facility] - 5 5 [facility] OUT[facility]IEN ANDRIA T OFFICE 40600 MARNI MARNI OUTPATIEN 5 5 MEIR MEIR T NEW 30 MINUTES OFFICE 63355 HABASH HABASH OUTPATIEN 4 4 LUZ LUZ T NEW 45 MINUTES OFFICE 26561 COMMON[place]A RYAN II OUTPATIEN 4 4 [facility] SLEEP ELA T VISIT AND REHA 25 MINUTES HOSPITAL LACI - 4 4 [facility] OUTPATIEN INC T OFFICE 86330 [facility] NEW [facility] 4 4 [facility] OUTPATIEN T OFFICE 05694 COMMONWEA RYAN II OUTPATIEN 4 4 [facility] SLEEP ELA T NEW 45 AND REHA MINUTES OFFICE 10824 [facility] PETTEY OUTPATIEN 4 4 PHYSICIAN JAM T NEW 30 S GROUP MINUTES HOSPITAL MHC INC, - 4 4 SENIOR CYTOGENETIC TECHNOLOGIST OUTPATIEN JOSY T CO HOS HOSPITAL [facility] INC, - 4 4 SENIOR CYTOGENETIC TECHNOLOGIST OUTPATIEN JOSY T CO HOS OFFICE 94506 [facility] OUT[facility]IEN 1 1 DYLAN T VISIT INTERNAL 15 MED MINUTES HOSPITAL LACI - 1 1 [facility] OUTPATIEN INC T OFFICE 08086 NEERAJ NEERAJ OUTPATIEN 1 1 ARIANNA KELLER T VISIT 15 MINUTES OFFICE 85232 NEERAJ NEERAJ OUTPATIEN 1 1 ARIANNA KELLER T VISIT 15 MINUTES OFFICE 14060 [place] NEERAJ OUTPATIEN 1 1 DYLAN NAN T VISIT INTERNAL 15 MEDI MINUTES OFFICE 17775 [place] NEERAJ OUTPATIEN 1 1 DYLAN KELLER T VISIT INTERNAL 15 MEDI MINUTES OFFICE 87363 [place] NEERAJ OUTPATIEN 1 1 DYLAN NAN T VISIT INTERNAL 15 MEDI MINUTES OFFICE 62664 [place] NEERAJ OUTPATIEN 1 1 DYLAN NAN T VISIT INTERNAL 15 MEDI MINUTES OFFICE 98227 [place] NEERAJ OUTPATIEN 0 0 [place] NAN T VISIT INTERNAL 10 MEDI MINUTES HOSPITAL JOSY - 0 0 [facility] T OFFICE 83191 [place] NEERAJ OUTPATIEN 0 0 [facility] NAN T VISIT INTERNAL 15 MEDI MINUTES OFFICE 04585 [place] LISA OUTPATIEN 0 0 [place] TAYLOR T VISIT INTERNAL 15 MEDI MINUTES OFFICE 56870 [facility] OUTPATIEN 0 0 [facility] CENTER 25 MINUTES OFFICE 71168 [facility], OUTPATIEN 0 0 IMPLANT & CAROL R T VISIT 5 ORAL MINUTES [facility] OFFICE 52965 [place] BESSON, OUTPATIEN 0 0 [place] MARYCHUY A T VISIT INTERNAL 15 MED MINUTES OFFICE 02300 [facility], OUTPATIEN [address] [facility] 45 CENTER MINUTES OFFICE 61337 [place] ARIAS, CONSULTAT 0 0 MEDICAL TEMITOPE A ION SERV NEW/ESTAB FOUNDATIO PATIENT 40 MIN OFFICE 83823 [facility] MCKEMIE OUTPATIEN 0 0 DYLAN , T VISIT INTERNAL NIKOLE F 10 MED MINUTES HOSPITAL LACI - 0 0 [facility]EN [facility] T OFF[facility] 53528 LISA LISA OUTPATIEN 0 0 [place] T[facility]OR T VISIT 15 MINUTES HOSPITAL JOSY - 0 0 [facility] T OFFICE 56893 [facility] B[facility], OUTPATIEN 0 0 [facility] MARYCHUY A T VISIT INTERNAL 15 MED MINUTES EMERGENCY 65927 JOSY MAO, 9 9 CO [facility] T VISIT MODERATE SEVERITY HOSPITAL JOSY - 9 9 [facility] T EMERGENCY 63535 JOSY 9 9 [facility] T VISIT LIMITED/M INOR PROB OFFICE 08816 [facility] MCKEM[facility] OUTPATIEN 9 9 [place] , T VISIT INTERNAL NIKOLE F 15 MED MINUTES HOSPITAL JOSY - 9 9 [facility] T OFFICE 69986 [place] MCK[facility] OUTPATIEN 9 9 [place] , T VISIT INTERNAL NIKOLE F 15 MED MINUTES OFFICE 54801 MAHNI STOUT OUTPATIEN 9 9 [place] Luciano T [facility] 10 N02 MINUTES OFFICE 17938 [facility] 9 9 [facility], T VISIT INTERNAL NIKOLE F 15 MED MINUTES OFFICE 50433 LAUREANO TINSLEY, OUTPATIEN 9 9 SHANT Don T VISIT 10 MINUTES HOSPITAL LACI - 9 9 [facility] T OFFICE 70487 MAHIN BARAHONA OUTPATIEN 8 8 [place] BARB T [facility]ISIT [facility] 10 N02 MINUTES OFFICE 38220 [place] IVELISSE OUTPATIEN 8 8 DYLAN Brown T VISIT INTERNAL 15 MED MINUTES HOSPITAL JOSY - 8 8 [facility] T EMERGENCY 46778 JOSY MAO, 8 8 CO [facility] T VISIT LIMITED/M INOR PROB
--- OUTSIDE RECORDS SUMMARY | 2017-02-17 19:09 | External Medical Summary Rpt | CCD ---
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 Name Role Phone BIRGIT SOLARES MD, PSC, Unavailable Unavailable BIRGIT SOLARES MD, PSC MARYCHUY OVIEDO, Unavailable Unavailable MARYCHUY OVIEDO MANDUJANO, MANDUJANO Unavailable Unavailable MANDUJANO ALL, MANDUJANO ALL Unavailable Unavailable MARNI MEIR, MARNI Unavailable Unavailable MEIR MARNI MEIR, MARNI Unavailable Unavailable MEIR RUIZ MANDY, RUIZ Unavailable Unavailable MANDY REYES JUS, REYES Unavailable Unavailable JUS REYES JUS, REYES Unavailable Unavailable JUS [facility] Unavailable Unavailable AND REHA, [facility] REHA NATHANAEL ANKIT, Unavailable [...] INC CLIFF ALVES, Unavailable Unavailable CLIFF ALVES [facility], Unavailable Unavailable [facility], Unavailable Unavailable [facility] Unavailable Unavailable INC, [facility] NEERAJ, NEERAJ Unavailable Unavailable NEERAJ NAN, NEERAJ Unavailable Unavailable NAN NEERAJ NAN, NEERAJ Unavailable Unavailable NAN RYAN II ELA, RYAN Unavailable Unavailable II ELA [facility] Unavailable Unavailable [facility], [facility] ENRIKE KAREEN, ENRIKE KAREEN Unavailable Unavailable ENRIKE KAREEN, ENRIKE KAREEN Unavailable Unavailable [id number], Unavailable Unavailable [id number] # Unavailable Unavailable [id number], [facility] # [id number] [facility] # Unavailable Unavailable [id number], [facility] # [id number] [facility] Unavailable Unavailable [facility], LAB [...] MAO DENSON AHMET, DENSON Unavailable Unavailable AHMET [facility] Unavailable Unavailable ASSOCIAT, [facility] HAMLET MOJICA, NIKOLE Unavailable Unavailable F, HAMLET MOJICA, CAROL SHELTON, Unavailable Unavailable CAROL STOUT R [facility], 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DEL [employer]KER JOSY Unavailable Unavailable CO [facility], 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 BARB BARAHONA, Unavailable Unavailable BARB BARAHONA [facility] Unavailable Unavailable PP[facility], [facility], Unavailable Unavailable [facility] Unavailable Unavailable URG[facility], [facility] Unavailable [facility] PETTEY JAM, PETTEY Unavailable Unavailable JAM SCIFRES ANG, SCIFRES Unavailable Unavailable ANG SCIFRES ANG, SCIFRES Unavailable Unavailable ANG [facility], Unavailable Unavailable [facility] Unavailable Unavailable [facility], [facility] Unavailable Unavailable [facility], [facility], Unavailable Unavailable [facility] Unavailable Unavailable [place], [facility] Unavailable Unavailable [facility], [facility], Unavailable Unavailable [facility] LAKESHA ANG, Unavailable Unavailable TEMITOPE MCHUGH A, Unavailable Unavailable TEMITOPE BIANCHI A [facility] Unavailable Unavailable #[id number], [id number], Unavailable [facility]available [facility], Unavailable Unavailable [facility] Purpose Continuity of Care Document - 06-30-2007 through 2016 Problems Code Diagnosis DOS Provider Status [id number] MIGRAINE 12-27-2016 [facility] W/O [facility] NOT INTRACT SOLUTIONS W/O STAT IN MIGRAIN J060 ACUTE 12-27-2016 [facility] LARYNGOPHAR HEALTH YNGITIS SOLUTIONS IN M545 LOW BACK 12-27-2016 [facility] PAIN HEALTH SOLUTIONS IN [id number] SPONDYLOSIS 12-26-2016 [place] W/O MEDICAL MYELOPATH/R IMAGING ASS ADICULOPATH Y LUMB RGN M5136 OTH 12-26-2016 [place] INTERVERTEB MEDICAL RAL DISC IMAGING ASS DEGEN LUMBAR REGION N3001 ACUTE 07-22-2016 [facility] CYSTITIS POPPY WITH HOLDINGS HEMATURIA R309 PAINFUL 07-22-2016 [facility] MICTURITION [facility] HOLDINGS UNSPECIFIED R319 HEMATURIA 07-22-2016 [facility] UNSPECIFIED POP[facility] HOLDINGS Z23 ENCOUNTER 02-25-2016 [facility] IMMUNIZATIO URGENT N TREAT Q29458 ENCOUNTER 02-23-2016 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 FILM EXAM BRITTANI OF GENERAL RTN POPPY H W/ABNORMAL FIND V20539 ENCOUNTER 02-23-2016 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 FILM EXAM BR[facility] OF GENERAL RTN POPPY H W/O ABNORMAL FIND E038 OTHER 02-22-2016 [facility] SPECIFIED POPPY HYPOTHYROID HOLDINGS ISM [id number] UNSPECIFIED 02-15-2016 [place] OVARIAN MEDICAL CYST LEFT IMAGING ASS SIDE N938 OTHER SPEC 02-15-2016 [place] ABNORMAL MEDICAL UTERINE & IMAGING ASS VAGINAL BLEEDING R102 PELVIC AND 02-15-2016 [place] PERINEAL MEDICAL PAIN IMAGING ASS C88645 RIGHT LOWER 02-15-2016 [facility] ABD[facility] TENDERNESS I44672 LEFT LOWER 02-15-2016 [facility] ABD[facility] TENDERNESS R938 ABNORMAL 02-15-2016 [place] FIND ON DX MEDICAL IMAGING OTH IMAGING ASS SPEC BODY STRCT A91591 PAIN IN 01-19-2016 [facility] INC Q74403 PAIN IN 01-19-2016 [facility] M4806 SPINAL 01-19-2016 BIRGIT SOLARES, STENOSIS , PSC LUMBAR REGION M5126 OTH 01-19-2016 BIRGIT SOLARES INTERVERTTEODORO BRAY, PSC RAL DISC DISPLACEMEN T LUMBAR RGN R1011 RIGHT UPPER 12-11-2015 [place] [facility] PAIN IM[facility] ASS G608 OTHER 12-07-2015 [facility] IDIOPATHIC TREAT NEUROPATHIE S B399 HISTOPLASMO 11-25-2015 [facility] UNSPECIFIED U16507 STAPHYLOMA 11-25-2015 [facility] POSTICUM ANG RIGHT EYE H5211 MYOPIA 11-25-2015 [facility] RIGHT EYE ANG A45767 UNSPECIFIED 11-25-2015 [facility] AMBLYOPIA ANG RIGHT EYE B394 HISTOPLASMO 11-18-2015 [facility] SCH[facility] SIS CAPSULATI UNSPECIFIED 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 [id number] REGULAR 11-18-2015 [facility] ASTIGMATISM BILATERAL H524 PRESBYOPIA 11-18-2015 [facility] SCHULTE N925 OTHER 04-17-2015 [facility] IRREGULAR URGENT MENSTRUATIO TREAT N F23441 PAIN IN 04-16-2015 [facility] UNSPECIFIED CLINIC KNEE [facility] H9319 TINNITUS 04-09-2015 [place] UNSPECIFIED MEDICAL EAR IMAGING ASS R569 UNSPECIFIED 04-09-2015 [place] [facility] CONVULSIONS IMAGING ASS M5117 INTERVERTEB 01-30-2015 [facility] D/O INC W/RADICULOP ATHY LS RGN M5127 OT 01-30-2015 [place] INTER[facility]TE[facility] MEDICAL RAL DISC IMAGING ASS DISPLACEMEN T LS REGION M5137 OT 01-30-2015 [place] INTER[facility]TE[facility] MEDICAL RAL DISC IMAGING ASS DEGEN LUMBOSACRAL REGION 46122 PAIN IN 12-25-2014 [facility] JOINT, [facility] MULTIPLE [facility] SITES 90087 DISPLCMT 12-25-2014 [facility] LUMBAR CLINIC INTERVERT [facility] DISC W/O MYELOPATHY 7231 CERVICALGIA 12-25-2014 [facility] 7242 LUMBAGO 12-25-2014 [facility] 7295 PAIN IN 12-25-2014 [facility] SOFT [facility] TISSUES OF [facility] LIMB 7820 DISTURBANCE 12-25-2014 [facility] OF SKIN CLINIC SENSATION [facility] 7840 HEADACHE 12-25-2014 [place] [facility] V5869 LONG-TERM 12-25-2014 [place] [facility] USE OF [facility] OTHER MEDICATIONS 2448 OTHER 10-30-2014 [place] SPECIFIED CLINIC ACQUIRED [facility] HYPOTHYROID ISM 2720 PURE 10-30-2014 [facility] HYPERCHOLES CLINIC TEROLEMIA [facility] 22778 RESTLESS 10-30-2014 [place] LEGS CLINIC SYNDROME [facility] 59843 EXTRINSIC 10-30-2014 [facility] ASTHMA, CLINIC UNSPECIFIED [facility] V571 OTHER 10-29-2014 [facility] THERAPY KENOSHA 71789 ACUTE 05-26-2014 [facility] WORLEY ATOPIC CONJUNCTIVI TIS 71352 CHEST PAIN 05-26-2014 ENRIKE KAREEN UNSPECIFIED 7962 ELEVATED BP 05-26-2014 [facility] OWRLEY READING WITHOUT DX HYPERTENSIO N V8533 BODY MASS 05-26-2014 [facility] WORLEY INDEX 33.0-33.9 ADULT 68462 BORDERLINE 04-08-2014 HABASH LUZ GLAUC OPEN ANGLE BL FINDINGS LOW RSK 3674 PRESBYOPIA 04-08-2014 HABASH LUZ 64706 UNSPECIFIED 02-17-2014 [facility] ARTHROPATHY [facility] OTHER SPECIFIED SITES 7213 LUMBOSACRAL 02-17-2014 [facility] AND SPONDYLOSIS REHA WITHOUT MYELOPATHY 56715 DEGEN 02-17-2014 [facility] LUMBAR/LUMB H SLEEP AND OSACRAL REHA INTERVERTEB RAL DISC 45887 SPINAL STEN 02-17-2014 [facility] LUMB REG H SLEEP AND W/O REHA NEUROGENIC CLAUDICATIO N 7244 THORACIC/CARLOS 02-17-2014 [facility] MBOSACRAL H SLEEP AND NEURITIS/RA REHA DICULITIS UNSPEC 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 13540 SCOLIOSIS , 11-11-[address] [facility] IDIOPATHIC EAST V141 PERSONAL 11-11-2013 [facility] HISTORY EAST ALLERGY 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 AGENT 7177 CHONDROMALA 08-30-2013 [facility] ROMAN OF PHYSICIANS [facility] GROUP 7262 OTHER 08-30-2013 [facility] AFFECTIONS PHYSICIANS OF SHOULDER GROUP REGION NEC 40682 LEUKOCYTOSI 08-08-2013 [facility] [employer] UNSPECIFIED 04834 OSTEOARTHRO 08-06-2013 [facility] UNSPEC RADIOLOGY WHETHER ASSOCIAT GEN/LOC LOWER LEG 42455 PAIN IN 08-06-2013 [facility] JOINT, RADIOLOGY LOWER LEG ASSOCIAT 3671 MYOPIA 05-31-2013 [facility] 1120 CANDIDIASIS 04-29-2011 [facility] INTERNAL MED 2449 UNSPECIFIED 04-29-2011 [facility] HYPOTHYROID INTERNAL ISM MED 490 BRONCHITIS 04-29-2011 [facility] NOT [facility] SPECIFIED INTERNAL ACUTE OR MED CHRONIC 4910 SIMPLE 04-29-2011 [facility] 52963 ASTHMA, 04-29-2011 [facility] UNSPECIFIED HOME , MEDICAL UNSPECIFIED EQUIPME STATUS 95851 UNSPECIFIED 04-15-2011 NE[facility] NAN ARTHROPATHY , LOWER LEG 7821 RASH AND 04-15-2011 [facility] KELLER OTHER NONSPECIFIC SKIN ERUPTION 53538 OTHER 03-18-2011 [facility] KELLER ANXIETY STATES 7292 UNSPECIFIED 03-18-2011 [facility] KELLER NEURALGIA NEURITIS AND RADICULITIS 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 462 ACUTE 02-09-2011 [facility] PHARYNGITIS [facility] INTERNAL MEDI 4871 INFLUENZA 02-09-2011 [facility] WITH OTHER [facility] RESPIRATORY INTERNAL MEDI MANIFESTATI ONS 91055 PAIN IN 01-24-2011 [facility] JOINT, VAL[facility] FOREARM INTERNAL MEDI 7245 UNSPECIFIED 01-24-2011 [facility] BACKACHE VAL[facility] INTERNAL MEDI 57309 OTHER 12-17-2010 [facility] CHRONIC [facility] PAIN INTERNAL MEDI 2409 GOITER, 11-04-2010 [facility] UNSPECIFIED RADIOLOGY ASSOCIAT 67295 UNSPECIFIED 09-24-2010 [facility] ARTHROPATHY INTERNAL MULTIPLE MEDI SITES 41916 ABDOMINAL 04-22-2010 [facility] PAIN RIGHT VAL[facility] UPPER INTERNAL QUADRANT MEDI 77775 ABDOMINAL 04-22-2010 [facility] PAIN, VAL[facility] EPIGASTRIC INTERNAL MEDI 5718 OTHER 04-16-2010 [facility] NONALCOHOLI C LIVER DISEASE 04697 DIARRHEA 04-16-2010 [facility] 74765 ESOPHAGEAL 04-07-2010 [facility] REFLUX [facility] INTERNAL MEDI 7226 DEGENERATIO 04-07-2010 [facility] N [facility] INTERVERTEB INTERNAL RAL DISC MEDI SITE UNSPEC 12756 OTH 11-27-2009 [facility] EXTRAPYRAMI [facility] 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 5206 DISTURBANCE 10-23-2009 [facility]PL[facility] S IN TOOTH & [facility] 7862 COUGH 10-12-2009 [facility] INTERNAL MED 53022 UNSPECIFIED 10-10-2009 [facility] SIS RETINITIS 3670 HYPERMETROP 10-10-2009 [facility] 66428 OTHER 10-10-2009 [facility] FIELD DEFECT 61293 PAIN IN 07-10-2009 [facility] PELVIC REGION AND THIGH 93187 OSTEOARTHRO 06-26-2009 [facility] UNSPEC RADIOLOGY GEN/LOC ASSOCIATES PELV PSC REGION&THIG H 4730 CHRONIC 03-29-2009 [facility] SINUSITIS 4731 CHRONIC 03-29-2009 [facility] SINUSITIS 61570 SPASM OF 01-01-2009 [facility] MUSCLE [facility] INTERNAL MED 41305 SPONDYLOSIS 12-02-2008 [facility] RADIOLOGY SITE W/O ASSOCIATES MENTION PSC MYELOPATHY 7831 ABNORMAL 11-28-2008 [facility] WEIGHT GAIN LAWNDALE INTERNAL MED 06475 ANOMALY OF 09-01-2008 [facility] TOOTH IIIC N02 POSITION UNSPECIFIED 7881 DYSURIA 07-15-2008 [facility] INTERNAL MED 226 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 2459 UNSPECIFIED 06-12-2008 [facility] THYROIDITIS 5210 DENTAL 04-01-2008 [facility] TRAN CARIES IIIPSC N02 25016 CONTACT 08-08-2007 [facility] DERMATITIS& VALLEY OTH ECZEMA INTERNAL DUE OTH ASPHALT RAKER AGENT 7248 OTHER 06-30-2007 [facility] REFERABLE TO BACK 8470 NECK SPRAIN 06-30-2007 [facility] R51 HEADACHE Medications Na ND Rx Da Fi Fi Am Da Di Ph RX Ph St me C No te ll ll ou ys ag ar # ys at rm s nt no ma ic us Or Da si cy ia de te s n re d HI 00 09 10 55 10 00 DE Ac ED 14 -1 -1 .0 00 L- ti NI 39 4- 3- 00 07 MA ve SO 74 20 20 50 RT NE 01 17 17 95 5 0 61 PH AR MG MA CY TA BL #5 ET 91 GA 00 09 10 90 30 00 DE Ac BA 22 -1 -1 .0 00 L- ti PE 82 7- 3- 00 04 MA ve NT 63 20 20 53 RT IN 65 17 17 17 0 43 PH 60 AR 0 MA MG CY TA #5 BL 91 ET CY 68 08 09 30 15 00 DE Ac CL 64 -2 -2 .0 00 L- ti OB 50 9- 2- 00 07 MA ve EN 51 20 20 50 RT ZA 79 17 17 66 HI 0 26 PH IN AR E MA 5 CY MG #5 TA 91 BL ET ME 59 08 09 21 6 00 DE Ac TH 74 -2 -2 .0 00 L- ti YL 60 9- 2- 00 07 MA ve HI 00 20 20 50 RT ED 10 17 17 64 NI 3 98 PH SO AR LO MA NE CY 4 #5 MG 91 DO SE PK TO 68 08 09 30 30 00 DE Ac PI 38 -2 -2 .0 00 L- ti RA 20 9- 2- 00 07 MA ve MA 14 20 20 50 RT TE 01 17 17 66 4 29 PH 10 AR 0 MA MG CY TA #5 BL 91 ET NA 65 08 09 60 30 00 WA Ac HI 16 -2 -2 .0 00 L- ti OX 20 9- 2- 00 07 MA ve EN 19 20 20 50 RT 01 17 17 66 50 1 28 PH 0 AR MG MA CY TA BL #5 ET 91 AM 00 08 09 20 10 00 DE Ac OX 14 -2 -2 .0 00 L- ti IC 39 9- 2- 00 07 MA ve IL 95 20 20 50 RT LI 10 17 17 66 N 1 27 PH 87 AR 5 MA MG CY TA #5 BL 91 ET JACKSON 55 08 09 9. 9 00 DE Ac MA 11 -2 -1 00 00 L- ti TR 10 1- 5- 0 07 MA ve IP 29 20 20 50 RT TA 30 17 17 51 N 9 02 PH JACKSON AR CC MA CY 10 0 #5 MG 91 TA BL ET GA 00 08 09 90 30 00 DE Ac BA 22 -2 -1 .0 00 L- ti PE 82 1- 5- 00 04 MA ve NT 63 20 20 53 RT IN 65 17 17 17 0 43 PH 60 AR 0 MA MG CY TA #5 BL 91 ET HI 54 07 08 30 30 00 DE Ac AV 45 -2 -2 .0 00 L- ti 80 8- 5- 00 07 MA ve TA 92 20 20 66 RT TI 71 17 17 89 N 6 94 PH SO AR DI MA UM CY 10 #5 71 MG TA B TI 55 07 08 60 30 00 DE Ac ZA 11 -2 -2 .0 00 L- ti NI 10 8- 5- 00 07 MA ve DI 18 20 20 66 RT NE 01 17 17 89 5 96 PH HC AR L MA 4 CY MG #5 TA 71 BL ET DU 57 07 08 60 30 00 DE Ac LO 23 -2 -2 .0 00 L- ti XE 70 8- 5- 00 07 MA ve TI 01 20 20 66 RT NE 93 17 17 89 0 97 PH HC AR L MA DR CY 60 #5 71 MG CA P ME 62 07 08 30 30 00 DE Ac TO 03 -2 -2 .0 00 L- ti HI 70 8- 5- 00 07 MA ve OL 83 20 20 66 RT OL 11 17 17 89 0 95 PH JACKSON AR CC MA CY ER #5 50 71 MG TA B JACKSNO 55 07 08 9. 9 00 DE Ac MA 11 -2 -1 00 00 [...] GA 00 11 05 89 30 00 DE Ac BA 22 -2 -1 .0 00 L- ti PE 82 5- 8- 00 04 MA ve NT 63 20 20 54 RT IN 65 17 17 39 0 47 PH 60 AR 0 MA MG CY TA #5 BL 71 ET CL 16 11 05 89 30 00 DE Ac ON 72 -2 -1 .0 00 L- ti AZ 90 5- 8- 00 04 MA ve EP 13 20 20 54 RT AM 61 17 17 39 6 49 PH 0. AR 5 MA MG CY TA #5 BL 71 ET HI 54 10 05 30 30 00 DE Ac AV 45 -2 -2 .0 00 [...] DU 57 06 07 60 30 00 DE Ac LO 23 -2 -2 .0 00 L- ti XE 70 7- 1- 00 07 MA ve TI 01 20 20 66 RT NE 93 17 17 89 0 97 PH HC AR L MA DR CY 60 #5 71 MG CA P TI 55 06 07 60 30 00 DE Ac ZA 11 -2 -2 .0 00 L- ti NI 10 7- 1- 00 07 MA ve DI 18 20 20 66 RT NE 01 17 17 89 5 96 PH HC AR L MA 4 CY MG #5 TA 71 BL ET ME 62 06 30 30 00 DE Ac TO 03 -2 -2 .0 00 L- ti HI 70 7- 1- 00 07 MA ve OL 83 20 20 66 RT OL 11 17 17 89 0 95 PH JACKSON AR CC MA CY ER #5 50 71 MG TA B PN 00 06 07 0. 1 00 DE Ac EU 00 -1 -1 50 00 L- ti MO 64 6- 4- 0 07 MA ve VA 94 20 20 66 RT X 30 17 17 69 23 0 63 PH AR MA AL CY #5 71 TO 68 10 05 30 30 00 DE Ac PI 38 -1 -0 .0 00 L- ti RA 20 2- 7- 00 07 MA ve MA 13 20 20 66 RT TE 91 17 17 60 4 61 PH 50 AR MA MG CY TA #5 BL 71 ET LE 00 05 06 30 30 00 DE Ac VO 78 -2 -2 .0 00 L- ti TH 15 5- 3- 00 07 MA ve YR 18 20 20 66 RT OX 69 17 17 24 IN 2 66 PH E AR 12 MA 5 CY MC G #5 TA 71 BL ET TO 68 05 06 30 30 00 DE Ac PI 38 -2 -2 .0 00 L- ti RA 20 5- 3- 00 07 MA ve MA 13 20 20 66 RT TE 81 17 17 24 4 63 PH 25 AR MA MG CY TA #5 BL 71 ET JACKSON 55 05 06 9. 9 00 DE Ac MA 11 -2 -2 00 00 [...] 03 -2 -2 .0 00 L- ti HI 70 5- 3- 00 07 MA ve OL 83 20 20 66 RT OL 11 17 17 24 0 48 PH JACKSON AR CC MA CY ER #5 50 71 MG TA B HI 54 05 30 30 00 WA Ac [...] 30 17 17 21 FA 5 77 SC 0. LY [address] UG TA BL ET LE 00 09 02 30 30 00 SO Ac VO 37 -0 -2 .0 00 PE ti TH 81 1- 6- 00 00 RS ve YR 81 20 20 55 OX 37 17 17 37 FA IN 7 65 SC E LY [address] MC UG G TA BL ET HI 68 05 05 30 30 00 SO Ac AV 46 -0 -2 .0 00 PE ti 20 1- 6- 00 00 RS ve TA 19 20 20 54 TI 59 17 17 84 FA N 0 18 SC SO LY DI UM DR UG 10 MG TA B NI 00 05 05 28 28 00 SO Ac CO 53 -0 -2 .0 00 PE ti TI 65 1- 6- 00 00 RS ve NE 89 20 20 56 68 17 17 21 FA 21 8 79 SC LY MG /2 DR 4H UG R PA TC H TO 68 05 05 30 30 00 SO Ac PI 38 -0 -2 .0 00 PE ti RA 20 1- 6- 00 00 RS ve MA 13 20 20 56 TE 81 17 17 21 FA 4 78 SC [address] UG TA BL ET JACKSON 65 05 05 9. 10 00 SO Ac MA 86 -0 -2 00 00 PE ti TR 20 1- 6- 0 00 RS ve IP 14 20 20 56 TA 83 17 17 21 FA N 6 82 SC JACKSON LY CC DR 10 UG 0 MG TA BL ET DU 57 05 05 60 30 00 SO Ac LO 23 -0 -2 .0 00 PE ti XE 70 1- 6- 00 00 RS ve TI 01 20 20 54 NE 99 17 17 84 FA 9 20 SC HC LY L DR DR UG 60 MG CA P LA 51 05 05 30 30 00 SO Ac MO 67 -0 -2 .0 00 PE ti TR 24 1- 6- 00 00 RS ve IG 13 20 20 54 IN 30 17 17 84 FA E 4 23 SC [address] UG TA BL ET ME 62 05 05 30 30 00 SO Ac TO 03 -0 -2 .0 00 PE ti HI 70 1- 6- 00 00 RS ve OL 83 20 20 54 OL 11 17 17 81 FA 0 56 SC JACKSON LY CC DR ER UG 50 MG TA B TI 57 04 05 60 30 00 SO Ac ZA 66 -1 -1 .0 00 PE ti NI 40 7- 2- 00 00 RS ve DI 50 20 20 55 NE 31 17 17 77 FA 8 95 SC HC LY L 4 DR MG UG TA BL ET GA 69 04 05 90 30 00 SO Ac BA 09 -1 -1 .0 00 PE ti PE 70 4- 2- 00 00 RS ve NT 81 20 20 55 IN 21 17 17 37 FA 2 64 SC [address] UG TA BL ET CL 00 03 04 90 30 00 SO Ac ON 18 -2 -2 .0 00 PE ti AZ 50 4- 1- 00 00 RS ve EP 06 20 20 55 AM 30 17 17 96 FA 5 78 SC 0. LY [address] UG TA BL ET PH 75 03 04 9. 3 00 SO Ac EN 82 -2 -2 00 00 PE ti AZ 60 4- 1- 0 00 RS ve OP 11 20 20 55 YR 41 17 17 96 FA ID 0 79 SC IN LY E 10 DR 0 UG MG TA B CI 16 03 04 20 10 00 SO Ac HI 57 -2 -2 .0 00 PE ti OF 10 4- 1- 00 00 RS ve LO 41 20 20 55 XA 25 17 17 96 FA CI 0 80 SC N LY HC L DR 50 UG 0 MG TA B JACKSON 55 03 04 9. 10 00 SO Ac MA 11 -2 -2 00 00 PE ti TR 10 4- 1- 0 00 RS ve IP 29 20 20 55 TA 30 17 17 96 FA N 9 81 SC JACKSON LY CC DR 10 UG 0 MG TA BL ET ME 62 03 04 30 30 00 SO Ac TO 03 -2 -2 .0 00 PE ti HI 70 4- 1- 00 00 RS ve OL 83 20 20 54 OL 11 17 17 81 FA 0 56 SC JACKSON LY CC DR ER UG 50 MG TA B LA 51 03 04 30 30 00 SO Ac MO 67 -2 -2 .0 00 PE ti TR 24 4- 1- 00 00 RS ve IG 13 20 20 54 IN 30 17 17 84 FA E 4 23 SC [address] UG TA BL ET DU 57 03 04 60 30 00 SO Ac LO 23 -2 -2 .0 00 PE ti XE 70 4- 1- 00 00 RS ve TI 01 20 20 54 NE 99 17 17 84 FA 9 20 SC HC LY L DR UG 60 MG CA P LE 00 03 04 30 30 00 SO Ac VO 37 -2 -2 .0 00 PE ti TH 81 4- 1- 00 00 RS ve YR 81 20 20 55 OX 37 17 17 37 FA IN 7 65 SC E LY [address] MC UG G TA BL ET HI 68 03 04 30 30 00 SO Ac AV 46 -2 -1 .0 00 PE ti 20 1- 4- 00 00 RS ve TA 19 20 20 54 TI 59 17 17 84 FA N 0 18 SC SO LY DI UM DR UG 10 MG TA B GA 69 03 04 90 30 00 SO Ac BA 09 -1 -0 .0 00 PE ti PE 70 5- 7- 00 00 RS ve NT 81 20 20 55 IN 21 17 17 37 FA 2 64 SC [address] UG TA BL ET TI 57 03 03 60 30 00 SO Ac ZA 66 -0 -3 .0 00 PE ti NI 40 3- 1- 00 00 RS ve DI 50 20 20 55 NE 31 17 17 77 FA 8 95 SC HC LY L 4 DR MG UG TA BL ET CL 00 02 03 90 30 00 SO Ac ON 18 -2 -1 .0 00 PE ti AZ 50 1- 7- 00 00 RS ve EP 06 20 20 55 AM 30 17 17 68 FA 5 48 SC 0. LY [address] UG TA BL ET GA 69 02 03 90 30 00 SO Ac BA 09 -1 -1 .0 00 PE ti PE 70 3- 0- 00 00 RS ve NT 81 20 20 55 IN 21 17 17 37 FA 2 64 SC [address] ABRIL TA BL ET DU 57 02 03 60 30 00 SO Ac LO 23 -1 -1 .0 00 PE ti XE 70 0- 0- 00 00 RS ve TI 01 20 20 54 NE 99 17 17 84 FA 9 20 SC HC LY L DR UG 60 MG CA P LA 51 02 03 30 30 00 SO Ac MO 67 -1 -1 .0 00 PE ti TR 24 0- 0- 00 00 RS ve IG 13 20 20 54 IN 30 17 17 84 FA E 4 23 SC [address] SAMUELS TA BL ET ME 62 02 03 30 30 00 SO Ac TO 03 -1 -1 .0 00 PE ti HI 70 0- 0- 00 00 RS ve OL 83 20 20 54 OL 11 17 17 81 FA 0 56 SC JACKSON LY CC DR ER UG 50 MG TA B HI 68 02 03 30 30 00 SO Ac AV 46 -1 -1 .0 00 PE ti 20 0- 0- 00 00 RS ve TA 19 20 20 54 TI 59 17 17 84 FA N 0 18 SC SO LY DI UM DR UG 10 MG TA B VE 00 02 03 18 25 00 SO Ac NT 17 -1 -1 .0 00 PE ti OL 30 0- 0- 00 00 RS ve IN 68 20 20 53 22 17 17 86 FA HF 0 44 SC A LY 90 DR SERNA G IN KENNY LE R TI 57 01 02 60 30 00 SO Ac ZA 66 -3 -2 .0 00 PE ti NI 40 1- 4- 00 00 RS ve DI 50 20 20 54 NE 31 17 17 84 FA 8 19 SC HC LY L 4 DR MG UG TA BL ET CL 00 05 02 90 30 00 SO Ac ON 18 -1 -1 .0 00 PE ti AZ 50 7- 0- 00 00 RS ve EP 06 20 20 55 AM 30 17 17 37 FA 5 63 SC 0. LY [address] UG TA BL ET GA 69 05 02 90 30 00 SO Ac BA 09 -1 -1 .0 00 PE ti PE 70 2- 0- 00 00 RS ve NT 81 20 20 54 IN 21 17 17 08 FA 2 85 SC [address] UG TA BL ET LE 00 02 30 30 00 SO Ac VO 37 -1 -1 .0 00 PE ti TH 81 7- 0- 00 00 RS ve YR 81 20 20 55 OX 37 17 17 37 FA IN 7 65 SC E LY [address] DAHIANA UG G TA BL ET TI 57 12 60 30 00 SO Ac ZA 66 -2 -2 .0 00 PE ti NI 40 3- 0- 00 00 RS ve DI 50 20 20 54 NE 31 16 17 84 FA 8 19 SC HC LY L 4 DR MG UG TA BL ET CL 00 03 31 90 30 00 SO Ac ON 18 -0 -0 .0 00 PE ti AZ 50 8- 9- 00 00 RS ve EP 06 20 20 55 AM 31 16 17 05 FA 0 57 SC 0. LY [address] UG TA BL ET LA 51 12 30 30 00 SO Ac MO 67 -0 -0 .0 00 PE ti TR 24 9- 9- 00 00 RS ve IG 13 20 20 54 IN 30 16 17 84 FA E 4 23 SC [address] UG TA BL ET IB 67 12 90 30 00 SO Ac UP 87 -0 -0 .0 00 PE ti RO 70 9- 9- 00 00 RS ve FE 32 20 20 54 N 10 16 17 69 FA 80 5 72 SC [address] TA UG BL ET ME 62 12 30 30 00 SO Ac TO 03 -0 -0 .0 00 PE ti HI 70 9- 9- 00 00 RS ve OL 83 20 20 54 OL 11 16 17 81 FA 0 56 SC [place] LY CC DR ER UG 50 MG TA B DU 57 12 60 30 00 SO Ac LO 23 -0 -0 .0 00 PE ti XE 70 9- 9- 00 00 RS ve TI 01 20 20 54 NE 99 16 17 84 FA 9 20 SC HC LY L DR DR SAMUELS 60 MG CA P HI 68 12 01 30 30 00 SO Ac AV 46 -0 -0 .0 00 PE ti 20 9- 9- 00 00 RS ve TA 19 20 20 54 TI 59 16 17 84 FA N 0 18 SC SO LY DI UM DR SAMUELS 10 MG TA B LE 00 12 01 30 30 00 SO Ac VO 37 -0 -0 .0 00 PE ti TH 81 9- 9- 00 00 RS ve YR 81 20 20 54 OX 37 16 17 80 FA IN 7 75 SC E LY [address] TALBOT UG G TA BL ET GA 69 12 01 90 30 00 SO Ac BA 36 -1 -0 .0 00 PE ti PE 70 3- 9- 00 00 RS ve NT 13 20 20 54 IN 40 16 17 08 FA 6 85 SC [address] SAMUELS TA BL ET GA 68 08 10 5 30 30 SO 38 BE Ac BA 46 -1 -2 .0 PE 17 SS ti PE 20 9- 8- 00 RS 78 ON ve NT 12 20 20 IN [address] 5 SC EP 60 LY HE [address] Kevin SAMUELS TA BL ET LE 00 09 10 5 30 30 SO 38 BE Ac VO 52 -2 -2 .0 PE 52 SS ti TH 71 6- 6- 00 RS 17 ON ve YR 34 20 20 OX [address] IN 0 SC EP E LY HE [address] Kevin SERNA G TA BL ET HI 60 10 10 0 12 6 SO 38 HU Ac OM 43 -1 -1 0. PE 68 NT ti ET 20 2- 2- 00 RS 25 ER ve KENNY 60 20 20 0 ZI 41 11 11 FA NA NE 6 SC NC -D LY Y M C SY DR IGNACIO SAMUELS P 00 10 10 0 30 7 SO 38 MC Ac 59 -0 -0 .0 PE 58 KE ti 10 3- 3- 00 RS 61 SC ve 34 20 20 E 90 11 11 FA JR 5 SC LY WI LL DR IA UG M F GA 68 08 09 5 30 30 SO 38 BE Ac BA 46 -1 -3 .0 PE 17 SS ti PE 20 9- 0- 00 RS 78 ON ve NT 12 20 20 IN [address] 5 SC EP 60 LY HE [address] Kevin SAMUELS TA BL ET CY 59 09 09 0 7. 7 SO 38 HU Ac CL 74 -2 -2 00 PE 54 NT ti OB 60 8- 9- 0 RS 82 ER ve EN 21 20 20 ZA 11 11 11 FA NA HI 0 SC NC IN LY Y E C 5 DR UG TA BL ET 59 08 09 5 8. 15 SO 38 BE Ac 31 -1 -2 50 PE 17 SS ti 00 9- 8- 0 RS 75 ON ve 57 20 20 [address] 0 SC EP LY HE N DR Kevin SAMUELS CI 65 08 09 5 30 30 SO 38 BE Ac TA 16 -1 -2 .0 PE 17 SS ti LO 20 9- 8- 00 RS 76 ON ve HI 05 20 20 AM [address] 0 SC EP HB LY HE R N 40 DR Brown UG MG TA BL ET 00 09 09 0 30 7 SO 38 BE Ac 59 -2 -2 .0 PE 52 SS ti 10 6- 6- 00 RS 15 ON ve 34 20 [address] 5 SC EP LY HE N DR Brown UG 00 09 09 0 55 10 SO 38 BE Ac 14 -2 -2 .0 PE 52 SS ti 31 6- 6- 00 RS 16 ON ve 47 20 20 [address] 0 SC EP LY HE N DR Kevin SAMUELS LE 00 09 09 5 30 30 SO 38 BE Ac VO 52 -2 -2 .0 PE 52 SS ti TH 71 6- 6- 00 RS 17 ON ve YR 34 20 20 OX [address] IN 0 SC EP E LY HE [address] Kevin TALBOT UG G TA BL ET GA 68 08 09 5 30 30 SO 38 BE Ac BA 46 -1 -0 .0 PE 17 SS ti PE 20 9- 2- 00 RS 78 ON ve NT 12 20 20 IN [address] 5 SC EP 60 LY HE [address] Brown UG TA BL ET 00 08 08 0 12 30 SO 38 MC Ac 59 -1 -2 0. PE 18 KE ti 10 9- 3- 00 RS 07 SC ve 34 20 20 0 E 90 11 11 FA JR 5 SC LY WI LL DR ZHENG SAMUELS M F 59 08 08 5 8. 15 SO 38 BE Ac 31 -1 -1 50 PE 17 SS ti 00 9- 9- 0 RS 75 ON ve 57 20 20 [address] 0 SC EP LY HE N DR Kevin SAMUELS CI 65 08 08 5 30 30 SO 38 BE Ac TA 16 -1 -1 .0 PE 17 SS ti LO 20 RS 76 ON ve HI 05 20 20 AM [address] 0 SC EP HB LY HE R N 40 DR A UG MG TA BL ET ET 51 08 08 2 60 30 SO 38 BE Ac OD 67 -1 -1 .0 PE 17 SS ti OL 24 9 RS 77 ON ve AC 01 20 20 [address] 40 1 SC EP 0 LY HE MG N DR A TA UG BL ET GA 00 06 07 1 30 30 SO 37 HU Ac BA 22 -2 -2 .0 PE 72 NT ti PE 82 8- 8- 00 RS 96 ER ve NT 63 20 20 IN 65 11 11 FA NA 0 SC NC 60 LY Y [address] UG TA BL ET 00 06 06 0 55 10 SO 37 HU Ac 14 -2 -2 .0 PE 74 NT ti 31 9 00 RS 13 ER ve 47 20 20 51 11 11 FA NA 0 SC NC LY Y C DR UG IB 55 06 06 0 90 30 SO 37 FL Ac UP 11 -2 -2 .0 PE 72 OR ti RO 10 8 RS 95 EN ve FE 68 20 20 CE N 40 11 11 FA 80 5 SC SA 0 LY RA MG H DR L TA UG BL ET GA 00 06 06 1 30 30 SO 37 FL Ac BA 22 -2 -2 .0 PE 72 OR ti PE 82 8- 8- 00 RS 96 EN ve NT 63 20 20 CE IN 65 11 11 FA 0 SC SA 60 LY RA 0 H MG [...] AN Y TA IN BL C ET HI 60 05 05 12 6 HO 10 HU Ac OM 43 -2 -2 0. PK 16 NT ti ET 20 7- 7- 00 IN 99 ER ve KENNY 60 20 20 0 S 1 ZI [address] ISAURO NE 6 UG NC -D Y M CO C SY MP RU AN P Y IN C HI 00 05 05 14 7 HO 10 [...] ti 10 0- 0- 00 IN 74 SC ve 34 20 20 S 9 E [address] MOJICA 5 UG WI CO LL MP IA AN M Y F IN C HI 00 03 03 55 10 HO 10 [...] 2- 2- 0 IN 50 ER ve HI 01 20 20 S 3 AM 00 [...] PE 60 5- 5- 00 IN 04 SC ve NT 13 20 20 S 1 [...] N MP A AN Y IN C HI 00 12 12 30 15 HO 10 HU Ac ED 60 -0 -0 .0 PK 13 NT ti NI 35 8- 8- 00 IN 39 ER ve SO 33 20 20 S 9 NE [address] NA 2 UG NC 10 Y CO C MG MP AN TA Y BL IN ET C HI 37 12 12 2 56 28 HO [...] PE 60 5- 8- 00 IN 04 SC ve NT 13 20 20 S 1 [...] PE 60 5- 5- 00 IN 04 SC ve NT 13 20 20 S 1 [...] 2- 2- 00 IN 40 EN ve HI 18 20 20 S 8 CE ED [...] S ZA [address] ISAURO HI 6 UG NC IN Y E CO C 10 IN MG C TA BL ET HI 00 09 09 00 36 12 HO [...] S ZA [address] NA HI 1 UG NC IN Y E CO [...] Code Location Performer Comment BODY MASS 3008F WDT Acquisition INDEX 7 HEALTH DOCUMENTE SOLUTIONS D IN CURRENT 1034F WDT Acquisition TOBACCO 7 HEALTH SMOKER SOLUTIONS IN TOBACCO 1000F WDT Acquisition USE 7 HEALTH ASSESSED SOLUTIONS IN RADEX 19881 [place] SPINE 7 MEDICAL LUMBOSACR IMAGING AL ASS MINIMUM 4 VIEWS SUSCEPTIB 81689 [facility] LTY STDY 7 POPPY POPPY ANTIMICRB HOLDINGS HOLDINGS IAL MICRO/AGA R DILUTJ CULTURE 57182 [facility] BACTERIAL 7 POPPY POPPY [facility]INGS HOLDINGS QUANTTATI VE COLONY COUNT URINE CULTURE 18623 [facility] BCT 7 Bambisa ISOL&PRSM HOLDINGS HOLDINGS PTV ID ISOLATE EA URINE IM ADM [id number] JOSY PICKARD PRQ ID 6 [facility] SUBQ/IM URGENT NJXS 1 TREAT VACCINE IIV3 25492 JOSY PICKARD VACCINE 6 [facility] NAN SPLIT URGENT VIRUS 0.5 TREAT ML DOSAGE IM USE CYTP 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/ 6 Y BRITTANI OF Y BRITTANI OF VAGINAL POPPY POPPY REQ H H INTERP PHYSICIAN CYTP C/V 70875 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 AUTO THIN 6 Y BRITTANI OF Y BRITTANI OF LYR POPPY POPPY [place]PJ [place] [address] [facility] THYROID 6 POPPY POPPY STIMULATI [place] [address] [place] ALL TRANSVAGI 6 [facility]ICAL [facility]AL [facility] G0463 LACI AGUERO OUTPATIEN 6 [facility] T CLIN INC [place] VISIT [place] & [place] [address] LAB [facility] TH[facility]ROID 6 [facility] STIM[facility] [place] [address] [place] ALL ABDOMINAL 6 MEDICAL REAL IMAGING TIME ASS W/IMAGE LIMITED COMPUTERI 10259 AMY REYES ZED 6 JUS JUS OPHTHALMI C IMAGING RETINA OPHTH 73106 AMY REYES MEDICAL 6 JUS JUS XM&EVAL COMPRE NEW PT 1/> VST URINE 23220 JOSY PICKARD 5 [facility] NAN TEST URGENT VISUAL TREAT COLOR [facility]SN [facility] RADIOLOGI [address] EXAMINATI CLINIC ON KNEE PPLLC 1/2 VIEWS ELECTROEN 13456 LACI AGUERO CEPHALOGR 5 [facility] AM W/REC INC INC [place]WA[place] [address] LACI AGUERO HEAD/BRAI 5 [facility] N W/O INC INC CONTRAST MATERIAL MRI 20291 L[facility]I AGUERO SPINAL 5 [facility] CANAL INC INC LUMBAR W/O CONTRAST MATERIAL 3D 89549 LACI AGUERO RENDERING 5 [facility] W/INTERP INC INC & POSTPROCE SS SUPERVISI ON PHYSICAL 48076 [facility] THERAPY 5 [facility] RADIOLOGI 96735 [facility] EXAM 5 CHEST 2 VIEWS FRONTAL&L ATERAL XTRNL 45710 HABASH HABASH OCULAR 4 LUZ LUZ PHOTOG W/I&R DOCMT MEDICAL PROGRE FUNDUS 56879 HABASH HABASH PHOTOGRAP 4 LUZ LUZ HY W/INTERPR ETATION & REPORT VISUAL 19343 HABASH HABASH FIELD XM 4 LUZ LUZ UNI/BI W/INTERP INTERMED EXAM 3D 94178 MICKY NATHANAEL RENDERING 4 MEDICAL ANKIT W/INTERP IMAGING & ASS POSTPROCE SS SUPERVISI [place] MRI 25818 LACI AGUERO SPINAL 4 [facility] CANAL INC INC LUMBAR W/O CONTRAST MATERIAL HANDLG&/O 85502 Symphony Concierge, R CONVEY 4 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 MODEL MAKER 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 MODEL MAKER OF SPEC JOSY FERRIS FOR TR CO HOS CO HOS FROM PT TO LAB BLOOD 94669 [facility] AHMET PERIPHERA L INTERP PHYS W/WRIT REPORT RADIOLOGI 15229 Symphony Concierge, C 4 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 MODEL MAKER 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 MODEL MAKER EXAMINATI JOSY FERRIS ON KNEE 3 CO HOS CO HOS VIEWS RADIOLOGI 52278 DRESDENDALI SOUTH C EXAM 4 EIDER PANKAJ KNEE RADIOLOGY COMPLETE ASSOCIAT 4/MORE VIEWS OPHTH 68765 SCIFRES SCIFRES MEDICAL 4 ANG ANG XM&EVAL COMPRE NEW PT 1/> VST ADMN SET A7003 YOUR YOUR SM VOL 1 [facility] PNEUMAT NEBULIZR DISPBL NEBULIZER E0570 NIC LUCERO WITH 1 HOME HOME COMPRESSO MEDICAL MEDICAL R EQUIPME EQUIPME 3D 73674 LACI AGUERO RENDERING 1 [facility] W/INTERP INC INC & POSTPROCE SS SUPERVISI ON MRI 86236 MICKY NATHANAEL SPINAL 1 MEDICAL ANKIT CANAL IMAGING LUMBAR ASS W/O CONTRAST MATERIAL US SOFT 78610 SEWARD RUIZ TISSUE 1 MANDY HEAD & RADIOLOGY [place] [address] [facility] E[facility] REAL RADIOLOGY TIME ASSOCIAT W/IMAGE LIMITED VISUAL 74847 [facility] FIELD XM 0 [facility] UNI/BI CENTER W/INTERP EXTENDED EXAM SCANNING 07563 [facility] OPHTHALMI 0 [facility] C IMAGING CENTER POSTERIOR SGM UNI DETERMINA 70722 [facility], TION 0 E[facility] REFRACTIV CENTER E STATE FUNDUS 70877 [facility], PHOTOGRAP 0 [facility] HY CENTER W/INTERPR ETATION & REPORT MRI 80682 MARY C NATHANAEL, SPINAL 0 NATHANAEL MARY CANAL LUMBAR W/O CONTRAST MATERIAL CALCIUM 60026 LACI LACI TOTAL 0 [place] [address] LACI LACI FREE 0 [facility] [place] [address] LACI LACI THYROID 0 MEM [facility] STIMULATI INC INC NG HORMONE TSH COMPREHEN 34933 JOSY FERRIS SIVE 0 CO CO METABOLIC [facility] PANEL COLLECTIO 56919 JOSY FERRIS N VENOUS 0 CO CO BLOOD [facility] VENIPUNCT URE SEDIMENTA 62101 JOSY FERRIS TION RATE 0 CO CO RBC [facility] NON-AUTOM ATED ANTINUCLE 67397 JOSY FERRIS AR 0 CO CO ANTIBODIE [facility] S DEVIN RHEUMATOI 12597 JOSY FERRIS D FACTOR 0 CO CO QUANTITAT [facility] ESAU RADEX HIP 72551 [facility] [place] RADIOLOGY L COMPLETE ASSOCIATE MINIMUM 2 S PSC VIEWS BLOOD 80026 JOSY FERRIS COUNT 0 CO CO COMPLETE [facility] AUTO&AUTO DIFRNTL WBC RADEX 08262 JOSY FERRIS SPINE 9 CO CO CERVICAL [facility] 4 OR 5 VIEWS RADEX 98107 JOSY FERRIS SPINE 9 CO CO LUMBOSACR [facility] AL MINIMUM [address] V[address] [facility] SPINE 9 CLIFF S CERVICAL RADIOLOGY 6 OR MORE VIEWS ASSOCIATE S PSC URNLS DIP 46950 [facility] M[facility] 9 [facility] JR, STICK/TAB INTERNAL NIKOLE F LET RGNT MED NON-AUTO W/O MICRSCP CALCIUM 31696 LACI SANON TOTAL 9 [place] [address] LACI AGUERO THYROID 9 [facility] STIMULATI [place] [address] LACI AGUERO FREE 9 [facility] [place] [address] LACI AGUERO THYROXINE 9 [facility] TOTAL INC INC Encounters Encounter Start End Date Code Location Performer Type Date OFFICE 07406 ANDRIA PICKARD OUTPATIEN 7 7 HEALTH T VISIT SOLUTIONS 25 IN [facility] LACI - 6 6 [facility] INC T OFFICE 44810 BIRGIT ELDER [facility] OUTPATIEN 6 6 MD BECK, T [facility] 30 PSC [facility] LACI - 6 6 [facility] LACI - 6 6 [facility] INC T OFFICE 17116 JOSY PICKARD OUTPATIEN 6 6 [facility] T VISIT URGENT 25 TREAT MINUTES OFFICE 57829 LAKESHA CROWDER OUTPATIEN 6 6 [facility] T NEW 45 MINUTES OFFICE 00246 TATUM MURPHY OUTPATIEN 6 6 [facility]RIA AALIYAH T VISIT CLINIC 25 PPLLC MINUTES OFFICE 59427 JOSY NEERAJ OUTPATIEN 5 5 [facility] T VISIT URGENT 10 TREAT MINUTES OFFICE 04048 TATUM KATHERINE OUTPATIEN 5 5 [facility] AALIYAH T VISIT CLINIC 25 PPLLC MINUTES HOSPITAL LACI - 5 5 [facility] OUT[facility] INC T OFFICE 41176 JOSY NEERAJ OUTPATIEN 5 5 [facility] T VISIT URGENT 15 TREAT MINUTES HOSPITAL LACI - 5 5 [facility] OUTPAT[facility] INC T OFFICE 60025 TATUM ERNSTKATHERINE CONSULTAT 5 5 [facility]RI[facility] AALIYAH ION CLINIC NEW/ESTAB PPLLC PATIENT 40 MIN OFFICE 15592 MT MARNI OUTPATIEN 5 5 [facility] WORLEY T VISIT CLINIC [address] [facility] - 5 5 [facility] OUT[facility] ANDRI[facility] T OFFICE 67573 MARNI MARNI OUTPATIEN 5 5 MEIR MEIR T NEW 30 MINUTES OFFICE 29960 HABASH HABASH OUTPATIEN 4 4 LUZ LUZ T NEW 45 MINUTES OFFICE 22002 [facility] RYAN II OUTPATIEN 4 4 [facility] SLEEP ELA T VISIT AND REHA 25 MINUTES HOSPITAL LACI - 4 4 [facility] OUTPATIEN INC T OFFICE 28698 [facility] OUTPATIEN 4 4 [facility] T NEW 30 MINUTES HOSPITAL [facility] - 4 4 EAST OUTPATIEN T OFFICE 98602 [facility] RYAN II OUTPATIEN 4 4 [facility] SLEEP ELA T NEW 45 AND REHA MINUTES OFFICE 95920 [facility] PETTEY OUTPATIEN 4 4 PHYSICIAN JAM T NEW 30 S GROUP MINUTES HOSPITAL [facility], - 4 4 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 MODEL MAKER OUTPATIEN JOSY T CO HOS [facility], - 4 4 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 MODEL MAKER OUTPATIEN JOSY T CO HOS OFFICE 47428 [facility] OUTPATIEN 1 1 DYLAN T VISIT INTERNAL 15 MED MINUTES HOSPITAL LACI - 1 1 [facility] OUTPATIEN INC T OFFICE 22752 NEERAJ NEERAJ OUTPATIEN 1 1 ARIANNA KELLER T VISIT 15 MINUTES OFFICE 96960 NEERAJ NEERAJ OUTPATIEN 1 1 ARIANNA KELLER T VISIT 15 MINUTES OFFICE 00266 [facility] NEERAJ OUTPATIEN 1 1 DYLAN NAN T VISIT INTERNAL 15 MEDI MINUTES OFFICE 20243 [facility] NEERAJ OUTPATIEN 1 1 DYLAN KELLER T VISIT INTERNAL 15 MEDI MINUTES OFFICE 24115 [facility] NEERAJ OUTPATIEN 1 1 DYLAN NAN T VISIT INTERNAL 15 MEDI MINUTES OFFICE 33172 [facility] NEERAJ OUTPATIEN 1 1 DYLAN NAN T VISIT INTERNAL 15 MEDI MINUTES OFFICE 47353 [facility] NEERAJ OUTPATIEN 0 0 [place] NAN T VISIT INTERNAL 10 MEDI MINUTES HOSPITAL JOSY - 0 0 [facility] T OFFICE 97591 [place] NEERAJ OUTPATIEN 0 0 [facility] NAN T VISIT INTERNAL 15 MEDI MINUTES OFFICE 75996 [facility] LISA OUTPATIEN 0 0 [place] TAYLOR T VISIT INTERNAL 15 MEDI MINUTES OFFICE 10742 [facility] OUTPATIEN 0 0 [facility] T VISIT CENTER 25 MINUTES OFFICE 35564 [facility], OUTPATIEN 0 0 IMPLANT & CAROL R T VISIT 5 ORAL MINUTES [facility] OFFICE 82601 [facility] BESSON, OUTPATIEN 0 0 [place] MARYCHUY A T VISIT INTERNAL 15 MED MINUTES OFFICE 48375 [facility], OUTPATIEN 0 0 E[facility]ARE [facility] 45 CENTER MINUTES OFFICE 31013 [place] ARIAS, CONSULTAT 0 0 MEDICAL TEMITOPE A ION SERV NEW/ESTAB FOUNDATIO PATIENT 40 MIN OFFICE 76632 [facility] M[facility]EM[facility] OUTPATIEN 0 0 DYLAN , T VISIT INTERNAL NIKOLE F 10 MED MINUTES HOSPITAL LACI - 0 0 [facility] OUTPATIEN [facility] T OFFICE 25847 LISA LISA OUTPATIEN 0 0 TAYLOR TAYLOR T VISIT 15 MINUTES HOSPITAL JOSY - 0 0 [facility] T OFFICE 12126 [facility] BESSON, OUTPATIEN 0 0 [facility] MARYCHUY A T VISIT INTERNAL 15 MED MINUTES EMERGENCY 55715 JOSY MAO, 9 9 CO [facility] T VISIT MODERATE SEVERITY HOSPITAL JOSY - 9 9 MS [facility] T EMERGENCY 30519 JOSY 9 9 [facility] T VISIT LIMITED/M INOR PROB OFFICE 42467 [facility] MCKEMIE OUTPATIEN 9 9 [place] , T VISIT INTERNAL NIKOLE F 15 MED MINUTES HOSPITAL JOSY - 9 9 [facility] T OFFICE 36871 [facility] MCKEMIE OUTPATIEN 9 9 [place] , T VISIT INTERNAL NIKOLE F 15 MED MINUTES OFFICE 83579 MAHIN STOUT OUTPATIEN 9 9 [facility] Luciano [facility] 10 N02 MINUTES OFFICE 48990 [facility] 9 9 [facility], T VISIT INTERNAL NIKOLE F 15 MED MINUTES OFFICE 51111 LAUREANO TINSLEY, OUTPATIEN 9 9 SHANT Don T VISIT 10 MINUTES HOSPITAL LACI - 9 9 [facility] T OFFICE 73766 MAHIN BARAHONA OUTPATIEN 8 8 [facility] BARB [facility] 10 N02 MINUTES OFFICE 63658 [facility] IVELISSE OUTPATIEN 8 8 DYLAN Brown T VISIT INTERNAL 15 MED MINUTES HOSPITAL JOSY - 8 8 [facility] T EMERGENCY 66707 JOSY MAO, 8 8 CO [facility] T VISIT LIMITED/M INOR PROB
--- NOTE | 2017-02-17 19:13 | Urgent Treatment Center Report ---
History of Present Issue Date/Time Seen by Provider 02/17/17 190 Visit Reason Pt arrived:Walked Presenting Problem:PT STATES THAT SHE HAS BEEN WITHOUT HER THYROID MEDICATION FOR A MONTH AND IS FEELING VERY WEAK AND TIRED FOR A MONTH. Location if Accident: Onset of symptoms date/time:01/18/17 or onset unknown for: Have you (or family members/close friends) recently traveled outside the [place]? N If Yes, where/when: Have you had exposure to infectious disease within the past month? TB? Other? Specify: requesting TSH level and refill of thyroid medication. Hx of partial thyroidectomy. Reports loosing ALL medication approx one month ago while moving. Recently found it and restarted medications just 4 days ago. Worried because only has one levothyroxine remaining. Unsure of dose. "you should have it on file" pt reports but thinks 125mcg however chart list 100mcg. Increasing fatigue over the last 3 weeks since being without medications "and I just know it is my thyroid level". PCP Barbara Santos, has not discussed medications or symptoms with her. Pt reports she is aware of the dangers of abruptly stopping her medications Source patient Exam Limitations no limitations ALLERGIES Coded Allergies: ceftriaxone (From ROCEPHIN) (SHOCK 01/19/16) Home Medications Active Scripts Methylprednisolone (Medrol Dose Carlos) 4 MG PO UD #1 CARLOS Prov: 12/26/16 Reported Medications Clonazepam (Klonopin 0.5MG) 0.5 MG PO TID DULOXETINE HCL (Cymbalta 60MG) 60 MG PO DAILY Lamotrigine (Lamictal) 200 MG PO DAILY LEVOTHYROXINE SOD (Synthroid) 0.1 MG PO DAILY Metoprolol Succinate Xl (Toprol Xl) 50 MG PO DAILY Gabapentin (Neurontin) 600 MG PO TID Pravastatin Sodium (Pravachol) 10 MG PO QHS Diclofenac Sodium (Voltaren 50mg) 75 MG PO BID Ibuprofen (Ibuprofen 800MG) 800 MG PO TIDP PRN PAIN Aspirin/Acetaminophen/Caffeine (Migraine Relief Caplet) 1 EACH PO PRN PRN MIGRAINE TIZANIDINE HCL (Tizanidine) 2 MG OR BID Topiramate (Topamax) 100 MG PO BID History Medical History General CAD? No Angina: No NM: No Hypertension? Yes Hyperlipidemia? Yes CHF? No DVT? No PE? No COPD? Yes Asthma? Yes Anemia? No GERD? No Gastric ulcers? No GI Bleed? No Hernia? No Thyroid Problems? Yes Hypothyroidism? No CVA? No Seizures? No Diabetes? No Renal Insuffiency? No UTI? No Stones? No BPH? No GB Disease: No Nephritic Syndrome? No Asplenia? No Hepatitis? No Sickle Cell Disease? No Arthritis? Yes Migraines? No Cataracts? No Glaucoma? No MRSA? No HIV? No TB? No Anxiety? Yes Depression? Yes Cancer? No More? 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 Respiratory denies shortness of breath, denies wheezing Cardiovascular denies chest pain, denies edema, denies palpitations Gastrointestinal denies nausea, denies vomiting Skin denies change in hair/nails, denies lumps, denies rash Psychiatric/Neurological anxiety ("no more then normal"), depressed ("no more then typical"), denies emotional problems, headache (1-2 weeks ago), denies numbness, denies tingling, denies other (SI, HI, dizziness, confusion) Physical Exam Vital Signs Vital Signs Date Time Temp Pulse Resp B/P Pulse O2 O2 Flow FiO2 Ox Delivery Rate 02/17 1903 98.5 78 18 123/79 100 02/17 185 98.5 78 18 100 General Appearance no apparent distress, unkept appearance Eye Exam - bilateral eye normal exam Ear, Nose, Throat normal ENT inspection Neck non-tender, supple, full range of motion, no thyromegaly Respiratory Status No: respiratory distress, productive cough, non productive cough. Lung Sounds anterior: lungs clear. posterior: lungs clear. bilateral: lungs clear. Cardiovascular regular rate/rhythm, no peripheral edema, no murmur Gastrointestinal normal bowel sounds, non tender, soft Neurologic alert, oriented x 3 Mental status normal mood/affect Skin normal color, warm/dry Lymphatic no adenopathy (neck) Medical Decision Making LABS/Meds/Orders Pt receiving controlled substance in ED? No Results/Orders Laboratory Tests 02/17/171919: TSH 7.63 H Orders Procedure Date/time Status THYROID STIMULATING HORMONE 02/18 1920 Complete Progress [facility] Progress Notes 1 Date 02/17/17 Time 1940 Comment Called to verify levothyroxine at [facility] in [place] per pt stating that is where it was filled. No levothyroxine on file. Pt forgot she hadn't transferred it from [facility]. Called [facility]. Levothyroxine 125mcg PO daily last filled October 2016. Original prescription had 2 refills for a total of 3 month supply. No refills remaining. [facility] Progress Notes 2 Date 02/17/17 Time 2009 Comment Discussed TSH level with patient as well as myxedema. Pt agrees that is not likely the case and it is likely due to being off all her medications and just restarting them. Reports again that she is aware how dangerous it is to abruptly stop medication. "I already feel so much better. Just you checking that for me and getting me medication until I can see Dr. santos. Thank you so much. I will call her Monday." as pt request to shake provider's hand. Departure Departure Time of Disposition 2013 Disposition DC Home or Self Care(routine) Clinical Impression Primary Impression: Hypothyroidism Qualifiers: Hypothyroidism type: acquired Qualified Code: E03.9 - Hypothyroidism, unspecified Secondary Impressions: Encounter for medication refill Condition STABLE Referrals BARBARA SANTOS APRN (Family) Call first thing Monday for follow up appointment Patient Instructions DI for Hypothyroidism Additional Instructions take one tablet, 125mcg, daily alone without any other medications and full glass of water. Store your medication is a cool dry safe place where you won't loose it. levothyroxine is sensitive to moisture and elevated temps You will need repeat labs in 6 weeks in order for medication to then be adjusted correctly. I did not prescribe you medication for this length of time so a follow up with your primary care BEFORE you run out of medication is VERY important. We want to test your levels while you are ON medication. report to ER for increasing weakness, confusion, lethargy as we discussed Follow up with primary care on Monday Discharge Counseling Counseled pt/family regarding diagnosis, test results, medications/RX, home care, follow up needs Prescriptions Current Visit Scripts Levothyroxine Sodium (Levothyroxine 0.125MG) 0.125 MG PO DAILY #30 TAB at 2018
--- OUTSIDE RECORDS SUMMARY | 2017-02-17 19:17 | External Medical Summary Rpt | CCD ---
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 Name Role Phone BIRGIT SOLARES MD, PSC, Unavailable Unavailable BIRGIT SOLARES MD, PSC MARYCHUY OVIEDO, Unavailable Unavailable MARYCHUY OVIEDO MANDUJANO, MANDUJANO Unavailable Unavailable MANDUJANO ALL, MANDUJANO ALL Unavailable Unavailable MARNI MEIR, MARNI Unavailable Unavailable MEIR MARNI MEIR, MARNI Unavailable Unavailable MEIR RUIZ MANDY, RUIZ Unavailable Unavailable MANDY REYES JUS, REYES Unavailable Unavailable JUS REYES JUS, REYES Unavailable Unavailable JUS [facility] Unavailable Unavailable AND REHA, [facility] NATHANAEL ANKIT, Unavailable Unavailable [...] INC CLIFF ALVES, Unavailable Unavailable CLIFF ALVES [facility], Unavailable Unavailable [facility], Unavailable Unavailable [facility] Unavailable Unavailable INC, [facility] NEERAJ NEERAJ Unavailable Unavailable NEERAJ ARIANNA, NEERAJ Unavailable Unavailable NAN NEERAJ NAN, NEERAJ Unavailable Unavailable NAN RYAN II ELA, RYAN Unavailable Unavailable II ELA [facility] Unavailable Unavailable IM[facility]ING [facility], [facility] ENRIKE KAREEN, ENRIKE KAREEN Unavailable Unavailable ENRIKE KAREEN, ENRIKE KAREEN Unavailable Unavailable [id number], Unavailable Unavailable [id number] # Unavailable Unavailable [id number], [facility] # [id number] [facility] # Unavailable Unavailable [id number], [facility] # [id number] [facility] Unavailable Unavailable [facility], LAB [...] CATRACHO MAO, Unavailable Unavailable CATRACHO MAO DENSON AMHET, DENSON Unavailable Unavailable [facility] Unavailable Unavailable ASSOC[facility]AT, [facility] DEJAE , NIKOLE Unavailable Unavailable F, HAMLET JR, NIKOLE F GIRISHCAROL MAE R, Unavailable Unavailable GIRISH CAROL R [facility] Unavailable Unavailable [facility], [facility], Unavailable Unavailable [facility] Unavailable Unavailable [facility], [facility], Unavailable Unavailable [facility] Unavailable Unavailable URGENT TREAT, [facility] Unavailable [facility] PETTEY JAM, PETTEY Unavailable Unavailable JAM SCIFRES ANG, SCIFRES Unavailable Unavailable ANG SCIFRES ANG, SCIFRES Unavailable Unavailable ANG [facility], Unavailable Unavailable [facility] Unavailable Unavailable [facility], [facility] Unavailable Unavailable [facility], [facility] Unavailable Unavailable [facility] Unavailable Unavailable [place], [facility] Unavailable Unavailable [facility], [facility], Unavailable Unavailable [facility] LAKESHA ANG, Unavailable Unavailable TEMITOPE MCHUGH A, Unavailable Unavailable ARIAS, TEMITOPE A [facility] Unavailable Unavailable #[id number], [id number], Unavailable [facility]available [facility], Unavailable Unavailable [facility] Purpose Continuity of Care Document - 06-30-2007 through 2016 Problems Code Diagnosis DOS Provider Status [id number] MIGRAINE 12-27-2016 [facility] W/O [facility] NOT INTRACT SOLUTIONS W/O STAT IN MIGRAIN J060 ACUTE 12-27-2016 [facility] LARYNGOPHAR HEALTH YNGITIS SOLUTIONS IN M545 LOW BACK 12-27-2016 [facility] PAIN HEALTH SOLUTIONS IN [id number] SPONDYLOSIS 12-26-2016 [place] W/[facility]ICAL MYELOPATH/R IMAGING ASS ADICULOPATH Y LUMB RGN M5136 OTH 12-26-2016 [facility] INTERVERTEB MEDICAL RAL DISC IMAGING ASS DEGEN LUMBAR REGION N3001 ACUTE 07-22-2016 [facility] CYSTITIS POPPY WITH HOLDINGS HEMATURIA R309 PAINFUL 07-22-2016 [facility] MICTURITION [facility] HOLDINGS UNSPECIFIED R319 HEMATURIA 07-22-2016 [facility] UNSPECIFIED [facility] HOLDINGS Z23 ENCOUNTER 02-25-2016 [facility] IMMUNIZATIO URGENT N TREAT G68316 ENCOUNTER 02-23-2016 [facility] INDUSTRIAL WELDER EXAM BRITTANI OF GENERAL RTN POPPY H W/ABNORMAL FIND C32933 ENCOUNTER 02-23-2016 LABORATORY INDUSTRIAL WELDER EXAM BR[facility]ANI OF GENERAL RTN POPPY H W/O ABNORMAL FIND E038 OTHER 02-22-2016 [facility] SPECIFIED [facility] HYPOTHYROID HOLDINGS ISM A95094 UNSPECIFIED 02-15-2016 [place] OVARIAN MEDICAL CYST LEFT IMAGING ASS SIDE N938 OTHER SPEC 02-15-2016 [place] ABNORMAL MEDICAL UTERINE & IMAGING ASS VAGINAL BLEEDING R102 PELVIC AND 02-15-2016 [place] PERINEAL [facility]ICAL PAIN IMAGING ASS K62528 RIGHT LOWER 02-15-2016 [facility] ABD[facility] TENDERNESS P83223 LEFT LOWER 02-15-2016 [facility] ABDOM[facility]AL INC TENDERNESS R938 ABNORMAL 02-15-2016 [place] FIND ON DX MEDICAL IMAGING OTH IMAGING ASS SPEC BODY STRCT U06198 PAIN IN 01-19-2016 [facility] INC J98294 PAIN IN 01-19-2016 [facility] M4806 SPINAL 01-19-2016 BIRGIT SOLARES, STENOSIS , PSC LUMBAR REGION M5126 OTH 01-19-2016 BIRGIT SOLARES INTERVERTEB , PSC RAL DISC DISPLACEMEN T LUMBAR RGN R1011 RIGHT UPPER 12-11-2015 [place] [facility] ASS G608 OTHER 12-07-2015 [facility] IDIOPATHIC TREAT NEUROPATHIE S B399 HISTOPLASMO 11-25-2015 [facility] UNSPECIFIED B79360 STAPHYLOMA 11-25-2015 [facility] POSTICUM ANG RIGHT EYE H5211 MYOPIA 11-25-2015 [facility] RIGHT EYE ANG F35484 UNSPECIFIED 11-25-2015 [facility] AMBLYOPIA ANG RIGHT EYE B394 HISTOPLASMO 11-18-2015 [facility] SIS CAPSULATI UNSPECIFIED 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 X71560 REGULAR 11-18-2015 [facility] ASTIGMATISM BILATERAL H524 PRESBYOPIA 11-18-2015 [facility] SCH[facility]TE N925 OTHER 04-17-2015 [facility] IRREGULAR URGENT MENSTRUATIO TREAT N G69807 PAIN IN 04-16-2015 [facility] UNSPECIFIED CLINIC KNEE PPLLC H9319 TINNITUS 04-09-2015 [place] UNSPECIFIED MEDICAL EAR IMAGING ASS R569 UNSPECIFIED 04-09-2015 [facility] IM[facility]ING ASS M5117 INTERVERTEB 01-30-2015 [facility] D/O INC W/RADICULOP ATHY LS RGN M5127 OT 01-30-2015 [place] RAL DISC IMAGING ASS DISPLACEMEN T LS REGION M5137 OT 01-30-2015 [facility]ICAL RAL DISC IMAGING ASS DEGEN LUMBOSACRAL REGION 30352 PAIN IN 12-25-2014 [facility] JOINT, [facility] MULTIPLE [facility] SITES 13253 DISPLCMT 12-25-2014 [facility] LUMBAR CLINIC INTERVERT [facility] DISC W/O MYELOPATHY 7231 CERVICALGIA 12-25-2014 [facility] 7242 LUMBAGO 12-25-2014 [facility] 7295 PAIN IN 12-25-2014 [facility] SOFT [facility] TISSUES OF [facility] LIMB 7820 DISTURBANCE 12-25-2014 [facility] OF SKIN CLINIC SENSATION [facility] 7840 HEADACHE 12-25-2014 [facility] V5869 LONG-TERM 12-25-2014 [facility] (CURRENT) CLINIC USE OF [facility] OTHER MEDICATIONS 2448 OTHER 10-30-2014 [facility] SPECIFIED CLINIC ACQUIRED [facility] HYPOTHYROID ISM 2720 PURE 10-30-2014 [facility] HYPERCHOLES CLINIC TEROLEMIA [facility] 37783 RESTLESS 10-30-2014 [facility] LEGS CLINIC SYNDROME [facility] 06475 EXTRINSIC 10-30-2014 [facility] ASTHMA, CLINIC UNSPECIFIED [facility] V571 OTHER 10-29-2014 [facility] THERAPY [place] 59993 ACUTE 05-26-2014 MARNI MEIR ATOPIC CONJUNCTIVI TIS 68439 CHEST PAIN 05-26-2014 ENRIKE KAREEN UNSPECIFIED 7962 ELEVATED BP 05-26-2014 MARNI WORLEY READING WITHOUT DX HYPERTENSIO N V8533 BODY MASS 05-26-2014 MARNI WORLEY INDEX 33.0-33.9 ADULT 88072 BORDERLINE 04-08-2014 HABASH LUZ GLAUC OPEN ANGLE BL FINDINGS LOW RSK 3674 PRESBYOPIA 04-08-2014 HAB[facility] LU[facility] 84666 UNSPECIFIED 02-17-2014 [facility] ARTH[facility]ATH[facility] OTHER SPECIFIED SITES 7213 LUMBOSACRAL 02-17-2014 [facility] AND SPONDYLOSIS REHA WITHOUT MYELOPATHY 66679 DEGEN 02-17-2014 [facility] LUMBAR/LUMB H SLEEP AND OSACRAL REHA INTERVERTEB RAL DISC 98423 SPINAL STEN 02-17-2014 [facility] LUMB REG H SLEEP AND W/O REHA NEUROGENIC CLAUDICATIO N 7244 THORACIC/CARLOS 02-17-2014 [facility] MBOSACRAL H SLEEP AND NEURITIS/RA REHA DICULITIS UNSPEC 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 02207 SCOLIOSIS , 11-11-2013 [facility] IDIOPATHIC EAST V141 PERSONAL 11-11-2013 [facility] HISTORY EAST ALLERGY 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 AGENT 7177 CHONDROMALA 08-30-2013 [facility] ROMAN OF PHYSICIANS [place] GROUP 7262 OTHER 08-30-2013 [facility] AFFECTIONS PHYSICIANS OF SHOULDER GROUP REGION [place] 34121 LEUKOCYTOSI 08-08-2013 [facility] UNSPECIFIED 11755 OSTEOARTHRO 08-06-2013 [facility] UNSPEC RADIOLOGY WHETHER ASSOCIAT GEN/LOC LOWER LEG 87067 PAIN IN 08-06-2013 [facility] JO[facility], RADIOLOGY LOWER LEG ASSOCIAT 3671 MYOPIA 05-31-2013 [facility] 1120 CANDIDIASIS 04-29-2011 [facility] INTERNAL MED 2449 UNSPECIFIED 04-29-2011 [facility] HYPOTHYROID INTERNAL ISM MED 490 BRONCHITIS 04-29-2011 [facility] NOT [facility]LEY SPECIFIED INTERNAL ACUTE OR MED CHRONIC 4910 SIMPLE 04-29-2011 [facility] 03169 ASTHMA, 04-29-2011 [facility] UNSPECIFIED HOME , MEDICAL UNSPECIFIED EQUIPME STATUS 37548 UNSPECIFIED 04-15-2011 NE[facility] KELLER ARTHROPATHY , LOWER LEG 7821 RASH AND 04-15-2011 NE[facility] KELLER OTHER NONSPECIFIC SKIN ERUPTION 99219 OTHER 03-18-2011 [facility] KELL[facility] ANXIETY STATES 7292 UNSPECIFIED 03-18-2011 [facility] KELL[facility] NEURALGIA NEURITIS AND RADICULITIS 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 462 ACUTE 02-09-2011 [facility] PHARYNGITIS [facility] INTERNAL MEDI 4871 INFLUENZA 02-09-2011 [facility] WITH OTHER [facility] RESPIRATORY INTERNAL MEDI MANIFESTATI ONS 08302 PAIN IN 01-24-2011 [facility] JOINT, VALLEY FOREARM INTERNAL MEDI 7245 UNSPECIFIED 01-24-2011 [facility] BACKACHE VAL[facility] INTERNAL MEDI 49374 OTHER 12-17-2010 [facility] CHRONIC [facility] PAIN INTERNAL MEDI 2409 GOITER, 11-04-2010 [facility] UNSPECIFIED RADIOLOGY ASSOCIAT 99797 UNSPECIFIED 09-24-2010 [facility] ARTHROPATHY INTERNAL MULTIPLE MEDI SITES 84731 ABDOMINAL 04-22-2010 [facility] PAIN RIGHT VAL[facility] UPPER INTERNAL QUADRANT MEDI 89610 ABDOMINAL 04-22-2010 [facility] PAIN, VAL[facility] EPIGASTRIC INTERNAL MEDI 5718 OTHER 04-16-2010 [facility] NONALCOHOLI C LIVER DISEASE 57892 DIARRHEA 04-16-2010 [facility] 45389 ESOPHAGEAL 04-07-2010 [facility] REFLUX [facility] INTERNAL MEDI 7226 DEGENERATIO 04-07-2010 [facility] N [facility] INTERVERTEB INTERNAL RAL DISC MEDI SITE UNSPEC 11459 OTH 11-27-2009 [facility] EXTRAPYRAMI [facility] 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 5206 DISTURBANCE 10-23-2009 [facility] 7862 COUGH 10-12-2009 [facility] INTERNAL MED 46861 UNSPECIFIED 10-10-2009 [facility] SIS RETINITIS 3670 HYPERMETROP 10-10-2009 [facility] 60717 OTHER 10-10-2009 [facility] FIELD DEFECT 00801 PAIN IN 07-10-2009 [facility] PELVIC REGION AND THIGH 17917 OSTEOARTHRO 06-26-2009 [facility] S UNSPEC RADIOLOGY GEN/LOC ASSOCIATES PELV PSC REGION&THIG H 4730 CHRONIC 03-29-2009 [facility] MAXILLARY [facility] SINUSITIS 4731 CHRONIC 03-29-2009 [facility] FRONTAL [facility] SINUSITIS 70924 SPASM OF 01-01-2009 [facility] MUSCLE [facility] INTERNAL MED 42128 SPONDYLOSIS 12-02-2008 [facility] UNSPEC RADIOLOGY SITE W/O ASSOCIATES MENTION PSC MYELOPATHY 7831 ABNORMAL 11-28-2008 [facility] WEIGHT GAIN HACKENSACK INTERNAL MED 99125 ANOMALY OF 09-01-2008 [facility] POSITION UNSPECIFIED 7881 DYSURIA 07-15-2008 [facility] INTERNAL MED 226 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 2459 UNSPECIFIED 06-12-2008 [facility] THYROIDITIS 5210 DENTAL 04-01-2008 [facility] N02 76329 CONTACT 08-08-2007 [facility] DERMATITIS& VALLEY OTH ECZEMA INTERNAL DUE OTH SOFT WORK WRAPPER EXAMINER AGENT 7248 OTHER 06-30-2007 [facility] REFERABLE TO BACK 8470 NECK SPRAIN 06-30-2007 [facility] Medications Na ND Rx Da Fi Fi Am Da Di Ph RX Ph St me C No te ll ll ou ys ag ar # ys at rm s nt no ma ic us Or Da si cy ia de te s n re d SD 00 09 10 55 10 00 PA Ac ED 14 -1 -1 .0 00 [...] CY 68 08 09 30 15 00 PA Ac CL 64 -2 -2 .0 00 L- ti OB 50 9- 2- 00 07 MA ve EN 51 20 20 50 RT ZA 79 17 17 66 SD 0 26 PH IN AR E MA [...] NA 65 08 09 60 30 00 PA Ac SD 16 -2 -2 .0 00 L- ti OX 20 9- 2- 00 07 MA ve EN 19 20 20 50 RT 01 17 17 66 50 1 28 PH 0 AR MG MA CY TA BL #5 ET 91 TO 68 08 09 30 30 00 PA Ac PI 38 -2 -2 .0 00 L- ti RA 20 9- 2- 00 07 MA ve MA 14 20 20 50 RT TE 01 17 17 66 4 29 PH 10 AR 0 MA MG CY TA #5 BL 91 ET ME 59 08 09 21 6 00 PA Ac TH 74 -2 -2 .0 00 L- ti YL 60 9- 2- 00 07 MA ve SD 00 20 20 50 RT ED 10 17 17 64 NI 3 98 PH SO AR LO MA NE CY 4 #5 MG 91 DO SE PK JACKSON 55 08 09 9. 9 00 PA Ac MA 11 -2 -1 00 00 L- ti TR 10 1- 5- 0 07 MA ve IP 29 20 20 50 RT TA 30 17 17 51 N 9 02 PH JACKSON AR CC MA CY 10 0 #5 MG 91 TA BL ET GA 00 08 09 90 30 00 PA Ac BA 22 -2 -1 .0 00 L- ti PE 82 1- 5- 00 04 MA ve NT 63 20 20 53 RT IN 65 17 17 17 0 43 PH 60 AR 0 MA MG CY TA #5 BL 91 ET SD 54 07 08 30 30 00 [facility] AV 45 -2 -2 .0 00 L- ti 80 8- 5- 00 07 MA ve TA 92 20 20 66 RT TI 71 17 17 89 N 6 94 PH SO AR DI MA UM CY 10 #5 71 MG TA B TI 55 07 08 60 30 00 PA Ac ZA 11 -2 -2 .0 00 L- ti NI 10 8- 5- 00 07 MA ve DI 18 20 20 66 RT NE 01 17 17 89 5 96 PH HC AR L MA 4 CY MG #5 TA 71 BL ET DU 57 07 08 60 30 00 PA Ac LO 23 -2 -2 .0 00 L- ti XE 70 8- 5- 00 07 MA ve TI 01 20 20 66 RT NE 93 17 17 89 0 97 PH HC AR L MA DR CY 60 #5 71 MG CA P ME 62 07 08 30 30 00 PA Ac TO 03 -2 -2 .0 00 L- ti SD 70 8- 5- 00 07 MA ve OL 83 20 20 66 RT OL 11 17 17 89 0 95 PH JACKSON AR CC MA CY ER #5 50 71 MG TA B LE 00 07 08 30 30 00 PA Ac VO 78 -2 -1 .0 00 [...] GA 00 07 08 90 30 00 PA Ac BA 22 -2 -1 .0 00 [...] MG CY TA #5 BL 71 ET SD 54 06 07 30 30 00 PA Ac AV 45 -2 -2 .0 00 L- ti 80 7- 1- 00 07 MA ve TA 92 20 20 66 RT TI 71 17 17 89 N 6 94 PH SO AR DI MA UM CY 10 #5 71 MG TA B ME 62 06 07 30 30 00 WA Ac TO 03 -2 -2 .0 00 L- ti SD 70 7- 1- 00 07 MA ve [...] GA 00 06 07 90 30 00 PA Ac BA 22 -2 -2 .0 00 L- ti PE 82 3- 1- 00 07 MA ve NT 63 20 20 66 RT IN 65 17 17 24 0 39 PH 60 AR 0 MA MG CY TA #5 BL 71 ET LE 00 10 05 30 30 00 PA Ac VO 78 -2 -2 .0 00 L- ti TH 15 3- 1- 00 07 MA ve YR 18 20 20 66 RT OX 69 17 17 24 IN 2 66 PH E AR 12 MA 5 CY MC G #5 TA 71 BL ET PN 00 06 07 0. 1 00 PA Ac EU 00 -1 -1 50 00 L- ti MO 64 6- 4- 0 07 MA ve VA 94 20 20 66 RT X 30 17 17 69 23 0 63 PH AR MA AL CY #5 71 TO 68 10 05 30 30 00 PA Ac PI 38 -1 -0 .0 00 L- ti RA 20 2- 7- 00 07 MA ve MA 13 20 20 66 RT TE 91 17 17 60 4 61 PH 50 AR MA MG CY TA #5 BL 71 ET DU 57 05 06 60 30 00 PA Ac LO 23 -2 -2 .0 00 L- ti XE 70 5- 3- 00 07 MA ve TI 01 20 20 66 RT NE 93 17 17 24 0 67 PH HC AR L MA DR CY 60 #5 71 MG CA P LE 00 05 06 30 30 00 PA Ac VO 78 -2 -2 .0 00 L- ti TH 15 5- 3- 00 07 MA ve YR 18 20 20 66 RT OX 69 17 17 24 IN 2 66 PH E AR 12 MA 5 CY MC G #5 TA 71 BL ET TO 68 05 06 30 30 00 PA Ac PI 38 -2 -2 .0 00 [...] TI 55 05 06 60 30 00 PA Ac ZA 11 -2 -2 .0 00 L- ti NI 10 5- 3- 00 07 MA ve DI 18 20 20 66 RT NE 01 17 17 24 5 41 PH HC AR L MA 4 CY MG #5 TA 71 BL ET GA 00 09 03 90 30 00 PA Ac BA 22 -2 -2 .0 00 L- ti PE 82 5- 3- 00 07 MA ve NT 63 20 20 66 RT IN 65 17 17 24 0 39 PH 60 AR 0 MA MG CY TA #5 BL 71 ET ME 62 05 30 30 00 PA Ac TO 03 -2 -2 .0 00 L- ti SD 70 5- 3- 00 07 MA ve OL 83 20 20 66 RT OL 11 17 17 24 0 48 PH JACKSON AR CC MA CY ER #5 50 71 MG TA B SD 54 09 03 30 30 00 [facility] AV 45 -2 -2 .0 00 L- ti 80 5- 3- 00 07 MA ve TA 92 20 20 66 RT TI 71 17 17 24 N 2 68 PH SO AR DI MA UM CY 10 #5 71 MG TA B LA 69 05 30 30 00 PA Ac MO 09 -2 -2 .0 00 L- ti TR 70 5- 3- 00 07 MA ve IG 15 20 20 66 RT IN 20 17 17 24 E 3 49 PH 20 AR 0 MA MG CY TA #5 BL 71 ET CL 16 09 03 89 30 00 PA Ac ON 72 -3 -2 .0 00 [...] 30 17 17 21 FA 5 77 DE 0. LY [address] UG TA BL ET LE 00 09 02 30 30 00 SO Ac VO 37 -0 -2 .0 00 PE ti TH 81 1- 6- 00 00 RS ve YR 81 20 20 55 OX 37 17 17 37 FA IN 7 65 DE E LY [address] MC UG G TA BL ET SD 68 05 05 30 30 00 SO Ac AV 46 -0 -2 .0 00 PE ti 20 1- 6- 00 00 RS ve TA 19 20 20 54 TI 59 17 17 84 FA N 0 18 DE SO LY DI UM DR UG 10 MG TA B NI 00 05 05 28 28 00 SO Ac CO 53 -0 -2 .0 00 PE ti TI 65 1- 6- 00 00 RS ve NE 89 20 20 56 68 17 17 21 FA 21 8 79 DE LY MG /2 DR 4H UG R PA TC H TO 68 05 05 30 30 00 SO Ac PI 38 -0 -2 .0 00 PE ti RA 20 1- 6- 00 00 RS ve MA 13 20 20 56 TE 81 17 17 21 FA 4 78 DE [address] UG TA BL ET JACKSON 65 05 05 9. 10 00 SO Ac MA 86 -0 -2 00 00 PE ti TR 20 1- 6- 0 00 RS ve IP 14 20 20 56 TA 83 17 17 21 FA N 6 82 DE JACKSON LY CC DR 10 UG 0 MG TA BL ET DU 57 05 05 60 30 00 SO Ac LO 23 -0 -2 .0 00 PE ti XE 70 1- 6- 00 00 RS ve TI 01 20 20 54 NE 99 17 17 84 FA 9 20 DE HC LY L DR DR UG 60 MG CA P LA 51 05 05 30 30 00 SO Ac MO 67 -0 -2 .0 00 PE ti TR 24 1- 6- 00 00 RS ve IG 13 20 20 54 IN 30 17 17 84 FA E 4 23 DE [address] UG TA BL ET ME 62 05 05 30 30 00 SO Ac TO 03 -0 -2 .0 00 PE ti SD 70 1- 6- 00 00 RS ve OL 83 20 20 54 OL 11 17 17 81 FA 0 [address] LY CC DR ER UG 50 MG TA B TI 57 04 05 60 30 00 SO Ac ZA 66 -1 -1 .0 00 PE ti NI 40 7- 2- 00 00 RS ve DI 50 20 20 55 NE 31 17 17 77 FA 8 95 DE HC LY L 4 DR MG UG TA BL ET GA 69 04 05 90 30 00 SO Ac BA 09 -1 -1 .0 00 PE ti PE 70 4- 2- 00 00 RS ve NT 81 20 20 55 IN 21 17 17 37 FA 2 64 DE [address] UG TA BL ET CL 00 03 04 90 30 00 SO Ac ON 18 -2 -2 .0 00 PE ti AZ 50 4- 1- 00 00 RS ve EP 06 20 20 55 AM 30 17 17 96 FA 5 78 DE 0. LY [address] UG TA BL ET PH 75 03 04 9. 3 00 SO Ac EN 82 -2 -2 00 00 PE ti AZ 60 4- 1- 0 00 RS ve OP 11 20 20 55 YR 41 17 17 96 FA ID 0 79 DE IN LY E 10 DR 0 UG MG TA B CI 16 03 04 20 10 00 SO Ac SD 57 -2 -2 .0 00 PE ti OF 10 4- 1- 00 00 RS ve LO 41 20 20 55 XA 25 17 17 96 FA CI 0 80 DE N LY HC L DR 50 UG 0 MG TA B JACKSON 55 03 04 9. 10 00 SO Ac MA 11 -2 -2 00 00 PE ti TR 10 4- 1- 0 00 RS ve IP 29 20 20 55 TA 30 17 17 96 FA N 9 81 DE JACKSON LY CC DR 10 UG 0 MG TA BL ET ME 62 03 04 30 30 00 SO Ac TO 03 -2 -2 .0 00 PE ti SD 70 4- 1- 00 00 RS ve OL 83 20 20 54 OL 11 17 17 81 FA 0 56 [address] JACKSON LY CC DR ER UG 50 MG TA B LA 51 03 04 30 30 00 SO Ac MO 67 -2 -2 .0 00 PE ti TR 24 4- 1- 00 00 RS ve IG 13 20 20 54 IN 30 17 17 84 FA E 4 23 DE [address] UG TA BL ET DU 57 03 04 60 30 00 SO Ac LO 23 -2 -2 .0 00 PE ti XE 70 4- 1- 00 00 RS ve TI 01 20 20 54 NE 99 17 17 84 FA 9 20 DE HC LY L DR COX UG 60 MG CA P LE 00 03 04 30 30 00 SO Ac VO 37 -2 -2 .0 00 PE ti TH 81 4- 1- 00 00 RS ve YR 81 20 20 55 OX 37 17 17 37 FA IN 7 65 DE E LY [address] MC UG G TA BL ET SD 68 03 04 30 30 00 SO Ac AV 46 -2 -1 .0 00 PE ti 20 1- 4- 00 00 RS ve TA 19 20 20 54 TI 59 17 17 84 FA N 0 18 DE SO LY DI UM DR UG 10 MG TA B GA 69 03 04 90 30 00 SO Ac BA 09 -1 -0 .0 00 PE ti PE 70 5- 7- 00 00 RS ve NT 81 20 20 55 IN 21 17 17 37 FA 2 64 DE [address] UG TA BL ET TI 57 03 03 60 30 00 SO Ac ZA 66 -0 -3 .0 00 PE ti NI 40 3- 1- 00 00 RS ve DI 50 20 20 55 NE 31 17 17 77 FA 8 95 DE HC LY L 4 DR MG UG TA BL ET CL 00 02 03 90 30 00 SO Ac ON 18 -2 -1 .0 00 PE ti AZ 50 1- 7- 00 00 RS ve EP 06 20 20 55 AM 30 17 17 68 FA 5 48 DE 0. LY [address] UG TA BL ET DU 57 02 03 60 30 00 SO Ac LO 23 -1 -1 .0 00 PE ti XE 70 0- 0- 00 00 RS ve TI 01 20 20 54 NE 99 17 17 84 FA 9 20 DE HC LY L DR DR UG 60 MG CA P LA 51 02 03 30 30 00 SO Ac MO 67 -1 -1 .0 00 PE ti TR 24 0- 0- 00 00 RS ve IG 13 20 20 54 IN 30 17 17 84 FA E 4 23 DE [address] UG TA BL ET ME 62 02 03 30 30 00 SO Ac TO 03 -1 -1 .0 00 PE ti SD 70 0- 0- 00 00 RS ve OL 83 20 20 54 OL 11 17 17 81 FA 0 [address] JACKSON LY CC DR ER UG 50 MG TA B SD 68 02 03 30 30 00 SO Ac AV 46 -1 -1 .0 00 PE ti 20 0- 0- 00 00 RS ve TA 19 20 20 54 TI 59 17 17 84 FA N 0 18 DE SO LY DI UM DR UG 10 MG TA B VE 00 02 03 18 25 00 SO Ac NT 17 -1 -1 .0 00 PE ti OL 30 0- 0- 00 00 RS ve IN 68 20 20 53 22 17 17 86 FA HF 0 44 DE A LY 90 DR MC UG G IN KENNY LE R GA 69 02 03 90 30 00 SO Ac BA 09 -1 -1 .0 00 PE ti PE 70 3- 0- 00 00 RS ve NT 81 20 20 55 IN 21 17 17 37 FA 2 64 DE [address] UG TA BL ET TI 57 01 02 60 30 00 SO Ac ZA 66 -3 -2 .0 00 PE ti NI 40 1- 4- 00 00 RS ve DI 50 20 20 54 NE 31 17 17 84 FA 8 19 DE HC LY L 4 DR MG UG TA BL ET GA 69 05 02 90 30 00 SO Ac BA 09 -1 -1 .0 00 PE ti PE 70 2- 0- 00 00 RS ve NT 81 20 20 54 IN 21 17 17 08 FA 2 85 DE [address] UG TA BL ET CL 00 05 02 89 30 00 SO Ac ON 18 -1 -1 .0 00 PE ti AZ 50 7- 0- 00 00 RS ve EP 06 20 20 55 AM 30 17 17 37 FA 5 63 DE 0. LY [address] UG TA BL ET LE 00 05 02 30 30 00 SO Ac VO 37 -1 -1 .0 00 PE ti TH 81 7- 0- 00 00 RS ve YR 81 20 20 55 OX 37 17 17 37 FA IN 7 65 DE E LY [address] MC UG G TA BL ET TI 57 12 60 30 00 SO Ac ZA 66 -2 -2 .0 00 PE ti NI 40 3- 0- 00 00 RS ve DI 50 20 20 54 NE 31 16 17 84 FA 8 19 DE HC LY L 4 DR MG UG TA BL ET CL 00 12 90 30 00 SO Ac ON 18 -0 -0 .0 00 PE ti AZ 50 8- 9- 00 00 RS ve EP 06 20 20 55 AM 31 16 17 05 FA 0 57 DE 0. LY [address] UG TA BL ET LA 51 12 30 30 00 SO Ac MO 67 -0 -0 .0 00 PE ti TR 24 9- 9- 00 00 RS ve IG 13 20 20 54 IN 30 16 17 84 FA E 4 23 DE [address] UG TA BL ET IB 67 12 90 30 00 SO Ac UP 87 -0 -0 .0 00 PE ti RO 70 9- 9- 00 00 RS ve FE 32 20 20 54 N 10 16 17 69 FA 80 5 72 DE [address] TA UG BL ET ME 62 12 30 30 00 SO Ac TO 03 -0 -0 .0 00 PE ti SD 70 9- 9- 00 00 RS ve OL 83 20 20 54 OL 11 16 17 81 FA 0 56 DE [place] LY CC DR ER UG 50 MG TA B DU 57 12 60 30 00 SO Ac LO 23 -0 -0 .0 00 PE ti XE 70 9- 9- 00 00 RS ve TI 01 20 20 54 NE 99 16 17 84 FA 9 20 DE HC LY L DR UG 60 MG CA P SD 68 12 01 30 30 00 SO Ac AV 46 -0 -0 .0 00 PE ti 20 9- 9- 00 00 RS ve TA 19 20 20 54 TI 59 16 17 84 FA N 0 18 DE SO LY DI UM DR UG 10 MG TA B LE 00 12 01 30 30 00 SO Ac VO 37 -0 -0 .0 00 PE ti TH 81 9 9- 00 00 RS ve YR 81 20 20 54 OX 37 16 17 80 FA IN 7 75 DE E LY [address] DAHIANA UG G TA BL ET GA 69 12 01 90 30 00 SO Ac BA 36 -1 -0 .0 00 PE ti PE 70 3- 9- 00 00 RS ve NT 13 20 20 54 IN 40 16 17 08 FA 6 85 DE [address] SAMUELS TA BL ET GA 68 08 10 5 30 30 SO 38 BE Ac BA 46 -1 -2 .0 PE 17 SS ti PE 20 9- 8- 00 RS 78 ON ve NT 12 20 20 IN [address] 5 DE EP 60 LY HE [address] Kevin SAMUELS TA BL ET LE 00 09 10 5 30 30 SO 38 BE Ac VO 52 -2 -2 .0 PE 52 SS ti TH 71 6 6- 00 RS 17 ON ve YR 34 20 20 OX [address] IN 0 DE EP E LY HE [address] Kevin TALBOT UG G TA BL ET SD 60 10 10 0 12 6 SO 38 HU Ac OM 43 -1 -1 0. PE 68 NT ti ET 20 2- 2- 00 RS 25 ER ve KENNY 60 20 20 0 ZI 41 11 11 FA NA NE 6 DE NC -D LY Y M C SY DR PIERRE UG P 00 10 10 0 30 7 SO 38 MC Ac 59 -0 -0 .0 PE 58 KE ti 10 3- 3- 00 RS 61 DE ve 34 20 20 E 90 11 11 FA JR 5 DE LY WI LL DR CALZADA UG M F GA 68 08 09 5 30 30 SO 38 BE Ac BA 46 -1 -3 .0 PE 17 SS ti PE 20 9- 0- 00 RS 78 ON ve NT 12 20 20 IN [address] 5 DE EP 60 LY HE [address] Brown UG TA BL ET CY 59 09 09 0 7. 7 SO 38 HU Ac CL 74 -2 -2 00 PE 54 NT ti OB 60 8- 9- 0 RS 82 ER ve EN 21 20 20 ZA 11 11 11 FA NA SD 0 DE NC IN LY Y E C 5 DR UG TA BL ET 59 08 09 5 8. 15 SO 38 BE Ac 31 -1 -2 50 PE 17 SS ti 00 9- 8- 0 RS 75 ON ve 57 20 20 [address] 0 DE EP LY HE N DR Kevin SAMUELS CI 65 08 09 5 30 30 SO 38 BE Ac TA 16 -1 -2 .0 PE 17 SS ti LO 20 9- 8- 00 RS 76 ON ve SD 05 20 20 AM [address] 0 DE EP HB LY HE R N 40 DR Kevin SAMUELS MG TA BL ET 00 09 09 0 30 7 SO 38 BE Ac 59 -2 -2 .0 PE 52 SS ti 10 6- 6- 00 RS 15 ON ve 34 20 20 [address] 5 DE EP LY HE N DR Brown UG 00 09 09 0 55 10 SO 38 BE Ac 14 -2 -2 .0 PE 52 SS ti 31 6- 6- 00 RS 16 ON ve 47 20 20 [address] 0 DE EP LY HE N DR Kevin SAMUELS LE 00 09 09 5 30 30 SO 38 BE Ac VO 52 -2 -2 .0 PE 52 SS ti TH 71 6- 6- 00 RS 17 ON ve YR 34 20 20 OX [address] IN 0 DE EP E LY HE [address] Brown UG G TA BL ET GA 68 08 09 5 30 30 SO 38 BE Ac BA 46 -1 -0 .0 PE 17 SS ti PE 20 9- 2- 00 RS 78 ON ve NT 12 20 20 IN [address] 5 DE EP 60 LY HE [address] Brown UG TA BL ET 00 08 08 0 12 30 SO 38 MC Ac 59 -1 -2 0. PE 18 KE ti 10 9- 3- 00 RS 07 DE ve 34 20 20 0 E 90 11 11 FA JR 5 DE LY WI LL DR CALZADA UG M F 59 08 08 5 8. 15 SO 38 BE Ac 31 -1 -1 50 PE 17 SS ti 00 9- 9- 0 RS 75 ON ve 57 20 20 [address] 0 DE EP LY HE N DR Kevin SAMUELS CI 65 08 08 5 30 30 SO 38 BE Ac TA 16 -1 -1 .0 PE 17 SS ti LO 20 9- 9- 00 RS 76 ON ve SD 05 20 20 AM [address] 0 DE EP HB LY HE R N 40 DR A UG MG TA BL ET ET 51 08 08 2 60 30 SO 38 BE Ac OD 67 -1 -1 .0 PE 17 SS ti OL 24 9- 9- 00 RS 77 ON ve AC 01 20 20 [address] 40 1 DE EP 0 LY HE MG N DR A TA UG BL ET GA 00 06 07 1 30 30 SO 37 HU Ac BA 22 -2 -2 .0 PE 72 NT ti PE 82 8- 8- 00 RS 96 ER ve NT 63 20 20 IN 65 11 11 FA NA 0 DE NC 60 LY Y [address] UG TA BL ET 00 06 06 0 55 10 SO 37 HU Ac 14 -2 -2 .0 PE 74 NT ti 31 9 9- 00 RS 13 ER ve 47 20 20 51 11 11 FA NA 0 DE NC LY Y C DR UG IB 55 06 06 0 90 30 SO 37 FL Ac UP 11 -2 -2 .0 PE 72 OR ti RO 10 8 8 RS 95 EN ve FE 68 20 20 CE N 40 11 11 FA 80 5 DE SA 0 LY RA MG H DR L TA UG BL ET GA 00 06 06 1 30 30 SO 37 FL Ac BA 22 -2 -2 .0 PE 72 OR ti PE 82 8- 8- 00 RS 96 EN ve NT 63 20 20 CE IN 65 11 11 FA 0 DE SA 60 LY RA 0 H MG [...] AN Y TA IN BL C ET SD 60 05 05 12 6 HO 10 HU Ac OM 43 -2 -2 0. PK 16 NT ti ET 20 7- 7- 00 IN 99 ER ve KENNY 60 20 20 0 S 1 ZI [address] 6 UG NC -D Y M CO C SY MP RU AN P Y IN C SD 00 05 05 14 7 HO 10 HU Ac ED 60 -2 -2 .0 PK 16 NT ti NI 35 7- 7- 00 IN 99 ER ve SO 33 20 20 S 2 NE [address] ISAURO 8 UG NC 10 Y CO C [...] ti 10 0- 0- 00 IN 74 DE ve 34 20 20 S 9 E 90 11 11 JR 5 UG WI CO LL MP IA AN M Y F IN C SD 00 03 03 55 10 HO 10 HU Ac ED 60 -0 -0 .0 PK 15 NT ti NI 35 3- 3- 00 IN 53 ER ve SO 33 20 20 S 3 NE [address] 1 UG NC Y MG CO C MP TA AN BL Y ET IN C CI 13 03 03 4. 7 HO 10 HU Ac TA 66 -0 -0 00 PK 15 NT ti LO 80 2- 2- 0 IN 50 ER ve SD 01 20 20 S 3 AM [address] UG NC HB Y R CO C 20 MP AN MG Y IN TA C BL ET AM 00 03 03 5 30 30 [...] 20 S [address] NA 5 UG NC Y CO [...] CA Y PS IN UL C E 59 12 [...] PE 60 5- 5- 00 IN 04 DE ve NT 13 20 20 S 1 E IN [address] MOJICA 5 UG 30 WI 0 CO LL [...] N MP A AN Y IN C SD 00 12 12 30 15 HO 10 HU Ac ED 60 -0 -0 .0 PK 13 NT ti NI 35 8- 8- 00 IN 39 ER ve SO 33 20 20 S 9 NE [address] NA 2 UG NC 10 Y CO C MG MP AN TA Y BL IN ET C SD 37 12 12 2 56 28 HO [...] PE 60 5- 8- 00 IN 04 DE ve NT 13 20 20 S 1 [...] 20 20 S [address] 5 UG EP HE CO N [...] PE 60 5- 5- 00 IN 04 DE ve NT 13 20 20 S 1 [...] 2- 2- 00 IN 40 EN ve SD 18 20 20 S 8 CE ED [address] NI 1 UG SA SO RA LO CO H NE MP L 4 AN Y MG IN C DO SE PK 00 01 02 00 24 4 KR 44 MC Ac 60 -2 -1 .0 OG 94 LA ti 33 9- 1- 00 ER 08 UR ve 88 20 20 1 IN 82 10 10 PH 8 AR DO M NA L- LD 71 R 2 LE 00 01 02 00 90 90 [...] S ZA [address] ISAURO SD 6 UG NC IN Y E CO C 10 IN MG C TA BL ET SD 00 09 09 00 36 12 HO [...] S ZA [address] NA SD 1 UG NC IN Y E CO [...] RT MA H CY #1 14 0 AM 00 10 11 00 30 30 [...] CR C EA M LE 00 10 10 03 90 90 [...] ider Refu lity Give sed n IIV3 10- 141 ALCALA No KATIE 7-20 ER OLAS VACC 16 NAN INE COUN SPLI TY T URGE VIRU NT S TU 0.5 T ML DOSA GE IM USE Procedures Procedure DOS Code Location Performer Comment CURRENT 1034F [employer] TOBACCO 7 HEALTH SMOKER SOLUTIONS IN BODY MASS 3008F [employer] INDEX 7 HEALTH DOCUMENTE SOLUTIONS D IN TOBACCO 1000F [employer] USE 7 HEALTH ASSESSED SOLUTIONS IN RADEX 08238 [place] [facility] SPINE 7 MEDICAL LUMBOSACR IMAGING AL ASS MINIMUM 4 VIEWS CULTURE 05593 [facility] BACTERIAL 7 POPPY POPPY [facility] HOLDINGS QUANTTATI VE COLONY COUNT URINE CULTURE 28815 [facility] BCT 7 POPPY POPPY ISOL&PRSM [facility] PTV ID ISOLATE EA URINE SUSCEPTIB 09776 [facility] LTY STDY 7 POPPY POPPY ANTIMICRB HOLDINGS HOLDINGS IAL MICRO/AGA R DILUTJ IIV3 24379 JOSY PICKARD VACCINE 6 [facility] SPLIT URGENT VIRUS 0.5 TREAT ML DOSAGE IM USE IM ADM 84899 JOSY PICKARD PRQ ID 6 [facility] SUBQ/IM URGENT NJXS 1 TREAT VACCINE CYTP 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/ 6 Y [facility] OF Y [facility] OF VAGINAL POPPY POPPY REQ H H INTERP PHYSICIAN CYTP C/V 49991 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 AUTO THIN 6 Y [facility] OF Y [facility] OF LYR POPPY POPPY [place]PJ [place] [address] [facility] THYROID 6 POPPY POPPY STIMULAT[facility] [place] [address] [place] [facility] ALL TRANSVAGI 6 [facility] G0463 [facility] AGUERO OUTPATIEN 6 [facility] T CLIN INC [place] VISIT ASSESS & [place] [address] [facility] THYROID 6 POPPY POPPY [employer]IMUL[employer] [place] [address] [facility] AGUERO ABDOMINAL 6 [facility] REAL INC INC TIME W/IMAGE LIMITED COMPUTERI 27337 AMY OCONNELLD 6 JUS JUS OPHTHALMI C IMAGING RETINA OPHTH 27744 AMY REYES MEDICAL 6 JUS JUS XM&EVAL COMPRE NEW PT 1/> VST URINE 46252 JOSY PICKARD 5 [facility] NAN TEST URGENT VISUAL TREAT COLOR CMPRSN [facility] RADIOLOGI 75022 [facility] 5 [facility] EXAMINATI CLINIC ON KNEE PPLLC 1/2 VIEWS ELECTROEN 71783 [facility] AGUERO CEPHALOGR 5 [facility] AM W/REC INC INC AWAKE&[place] [address] [place] [facility] ALL HEAD/BRAI 5 MEDICAL N W/O IMAGING CONTRAST ASS MATERIAL 3D 84167 [facility] ALL RENDERING 5 MEDICAL W/INTERP IMAGING & ASS POSTPROCE SS SUPERVISI ON MRI 79214 [facility] ALL SPINAL 5 MEDICAL CANAL IMAGING LUMBAR ASS W/O CONTRAST MATERIAL PHYSICAL 16612 [facility] TH[facility]APY [facility] EVALUATIO [facility]RI[facility]RIA N RADIOLOGI 03581 [facility] EXAM 5 CHEST 2 VIEWS FRONTAL&L ATERAL XTRNL 32284 [facility] OCULAR 4 LUZ LUZ PHOTOG W/I&R DOCMT MEDICAL PROGRE VISUAL 20060 [facility] FIELD XM 4 LUZ LUZ UNI/BI W/INTERP INTERMED EXAM FUNDUS 61162 [facility] PHOTOGRAP 4 LUZ LUZ HY W/INTERPR ETATION & REPORT MRI 31932 [facility] NATHANAEL SPINAL 4 MEDICAL ANKIT CANAL IMAGING LUMBAR ASS W/O CONTRAST MATERIAL 3D 88499 [facility] NATHANAEL RENDERING 4 MEDICAL ANKIT W/INTERP IMAGING & ASS POSTPROCE SS SUPERVISI ON BLOOD 24980 [facility] AHMET PERIPHERA L INTERP PHYS W/WRIT REPORT HANDLG&/O 27086 [facility], R CONVEY 4 ORACLE SPECIALIST ORACLE SPECIALIST OF SPEC JOSY FERRIS FOR TR CO HOS CO HOS FROM PT TO LAB RADIOLOGI 59630 [facility], C 4 ORACLE SPECIALIST ORACLE SPECIALIST EXAMINATI JOSY FERRIS ON KNEE 3 CO HOS CO HOS VIEWS RADIOLOGI 32092 [facility] C EXAM 4 EIDER PANKAJ KNEE RADIOLOGY COMPLETE ASSOCIAT 4/MORE VIEWS OPHTH 19160 SCIFRES SCIFRES MEDICAL 4 ANG ANG XM&EVAL COMPRE NEW PT 1/> VST ADMN SET A7003 YOUR YOUR SM VOL [facility] P[facility] NEBULIZR DISPBL NEBULIZER E0570 NIC NIC WITH 1 HOME HOME COMPRESSO MEDICAL MEDICAL R EQUIPME EQUIPME MRI 64564 MICKY NATHANAEL SPINAL 1 MEDICAL ANKIT CANAL IMAGING LUMBAR ASS W/O CONTRAST MATERIAL 3D 91423 [facility] AGUERO RENDERING 1 [facility] W/INTERP INC INC & POSTPROCE SS SUPERVISI ON US SOFT 62274 [place] RUIZ TISSUE 1 [facility] & RADIOLOGY NECK [place] [address] JOSY FERRIS ABDOMINAL 0 CO CO REAL HOSPITAL HOSPITAL TIME W/IMAGE LIMITED SCANNING 20056 [facility] OPHTHALMI 0 [facility] POSTERIOR SGM UNI VISUAL 57798 [facility] FIELD XM 0 [facility] UNI/BI CENTER W/INTERP EXTENDED EXAM DETERMINA 23917 [facility], TION 0 [facility] E STATE FUNDUS 03319 [facility], PHOTOGRAP 0 [facility] CENTER W/INTERPR ETATION & REPORT MRI 40378 MARY C NATHANAEL, SPINAL 0 NATHANAEL MARY CANAL LUMBAR W/[place] [address] L[facility] SANON THYROID 0 [facility] STIMULATI [place] [address] LACI LACI FREE 0 [facility] THYROXINE INC INC CALCIUM 67544 LACI LACI TOTAL 0 [facility] INC INC COLLECTIO 83835 JOSY FERRIS N VENOUS 0 CO CO BLOOD [facility] VENIPUNCT URE RHEUMATOI 84464 JOSY FERRIS D FACTOR 0 [facility] ESAU ANTINUCLE 88588 JOSY FERRIS AR 0 CO CO ANTIBODIE [facility] S DEVIN SEDIMENTA 34437 JOSY FERRIS TION RATE 0 CO CO RBC [facility] NON-AUTOM ATED RADEX HIP 91030 [facility], 0 [facility] [place] RADIOLOGY L COMPLETE ASSOCIATE MINIMUM 2 S PSC VIEWS BLOOD 87977 JOSY FERRIS COUNT 0 CO CO COMPLETE [facility] AUTO&AUTO DIFRNTL WBC COMPREHEN 27863 JOSY FERRIS SIVE 0 [facility] PANEL RADEX 63377 AVENEL JOSELYN, SPINE 9 CLIFF S LUMBOSACR RADIOLOGY AL MINIMUM 4 ASSOCIATE VIEWS S PSC RADEX 45752 JOSY FERRIS SPINE 9 CO CO CERVICAL [facility] 4 OR 5 VIEWS RADEX 63781 AVENEL ALVES, SPINE 9 CLIFF S CERVICAL RADIOLOGY 6 OR MORE VIEWS ASSOCIATE S PSC URNLS DIP 33226 [facility] MANISHMIJorge L 9 DYLAN MOJICA, STICK/TAB INTERNAL NIKOLE F LET RGNT MED NON-AUTO W/O MICRSCP CALCIUM 21269 [facility]I SANON TOTAL 9 [place] [address] LACI SANON FREE 9 [facility] [place] [address] LACI AGUERO THYROID 9 [facility] STIMULATI [place] [address] LACI AGUERO THYROXINE 9 [facility] TOTAL INC INC Encounters Encounter Start End Date Code Location Performer Type Date OFFICE 24332 [facility] OUTPATIEN 7 7 HEALTH T VISIT SOLUTIONS 25 IN MINUTES HOSPITAL LACI - 6 6 [facility] OUTPATIEN INC T OFFICE 57153 [facility] OUT[facility] 6 6 MD BECK, T NEW 30 PSC [facility] LACI - 6 6 [facility] OUTPATIEN [facility] LACI [facility] 6 6 [facility] OUTPATIEN [facility] T OFFICE 52344 JOSY NEERAJ OUTPATIEN 6 6 [facility] T VISIT URGENT 25 TREAT MINUTES OFFICE 29837 LAKESHA CROWDER OUTPATIEN 6 6 ANG ANG T NEW 45 MINUTES OFFICE 44639 [facility] KATHERINE OUTPATIEN 6 6 [facility] A[facility] T VISIT CLINIC 25 PPLLC MINUTES OFFICE 87302 JOSY NEERAJ OUTPATIEN 5 5 [facility] T VISIT URGENT 10 TREAT MINUTES OFFICE 11921 [facility] KATHERINE OUTPATIEN 5 5 [facility] A[facility] T VISIT CLINIC 25 PPLLC MINUTES HOSPITAL LACI - 5 5 [facility] T OFFICE 48431 JOSY NEERAJ OUTPATIEN 5 5 [facility] T VISIT URGENT 15 TREAT MINUTES HOSPITAL LACI - 5 5 [facility] OUTPATIEN INC T OFFICE 19324 [facility] KATHERINE CONSULTAT 5 5 [facility] AALIYAH ION CLINIC NEW/ESTAB PPLLC PATIENT 40 MIN OFFICE 26798 [facility] GRIDER OUTPATIEN 5 5 [facility] MEIR T VISIT CLINIC [address] [facility] - 5 5 [facility] OUTPATIEN [facility] T OFFICE 89558 MARNI MARNI OUTPATIEN 5 5 MEIR MEIR T NEW 30 MINUTES OFFICE 68475 [facility] HABASH OUTPATIEN 4 4 LUZ LUZ T NEW 45 MINUTES OFFICE 81727 [facility] RYAN II OUTPATIEN 4 4 [facility] SLEEP ELA T VISIT AND REHA 25 MINUTES HOSPITAL LCAI - 4 4 [facility] OUTPATIEN INC T OFFICE 06972 [facility] RYAN II OUTPATIEN 4 4 LT SLEEP ELA T NEW 45 AND REHA MINUTES OFFICE 60412 [facility] OUTPATIEN 4 4 [facility] T NEW [address] [facility] - 4 4 [facility] OUTPATIEN T OFFICE 91172 [facility] PETTE[facility] OUTPATIEN 4 4 PHYSICIAN JAM T NEW 30 S GROUP MINUTES HOSPITAL MHC INC, - 4 4 ORACLE SPECIALIST OUTPATIEN JOSY T CO HOS HOSPITAL MHC INC, - 4 4 ORACLE SPECIALIST OUTPATIEN JOSY T CO HOS OFFICE 44549 [facility]IEN 1 1 DYLAN T VISIT INTERNAL 15 MED MINUTES HOSPITAL LACI - 1 1 [facility] OUTPATIEN INC T OFFICE 04571 NEERAJ NEERAJ OUTPATIEN 1 1 ARIANNA NAN T VISIT 15 MINUTES OFFICE 09614 NEERAJ NEERAJ OUTPATIEN 1 1 ARIANNA NAN T VISIT 15 MINUTES OFFICE 77125 [facility] NEERAJ OUTPATIEN 1 1 DYLAN NAN T VISIT INTERNAL 15 MEDI MINUTES OFFICE 82467 [facility] NEERAJ OUTPATIEN 1 1 DYLAN NAN T VISIT INTERNAL 15 MEDI MINUTES OFFICE 61702 [facility] NEERAJ OUTPATIEN 1 1 DYLAN NAN T VISIT INTERNAL 15 MEDI MINUTES OFFICE 50165 [facility] NEERAJ OUTPATIEN 1 1 DYLAN NAN T VISIT INTERNAL 15 MEDI MINUTES OFFICE 76182 [facility] NEERAJ OUTPATIEN 0 0 [facility] NAN T VISIT INTERNAL 10 MEDI MINUTES HOSPITAL JOSY - 0 0 [facility] T OFFICE 75376 [place] NEERAJ OUTPATIEN 0 0 [facility] NAN T VISIT INTERNAL 15 MEDI MINUTES OFFICE 81784 [facility] LISA OUTPATIEN 0 0 [facility] TAYLOR T VISIT INTERNAL 15 MEDI MINUTES OFFICE 88363 [facility] OUTPATIEN 0 0 [facility] 25 MINUTES OFFICE 28919 [facility], OUTPATIEN 0 0 IMPLANT & CAROL R T VISIT 5 ORAL MINUTES [facility] OFFICE 07134 [facility] BESSON, OUTPATIEN 0 0 [facility] MARYCHUY A T VISIT INTERNAL 15 MED MINUTES OFFICE 80560 [facility], OUTPATIEN 0 0 [facility] NEW 45 CENTER MINUTES OFFICE 96773 DERIK BIANCHI, CONSULTAT 0 0 MEDICAL TEMITOPE Brown ION SERV NEW/ESTAB FOUNDATIO PATIENT 40 MIN OFFICE 08922 [facility] MCKEMIE OUTPATIEN 0 0 DYLAN MOJICA, T VISIT INTERNAL NIKOLE F 10 MED MINUTES HOSPITAL LACI - 0 0 [facility] T OFFICE 48698 LISA LISA OUTPATIEN 0 0 [facility] TAYLOR T VISIT 15 MINUTES OFFICE 57322 [facility] BESSON, OUTPATIEN 0 0 [facility] MARY[facility] A T VISIT INTERNAL 15 MED MINUTES HOSPITAL JOSY - 0 0 [facility] JOSY - 9 9 [facility] T EMERGENCY 27304Reese FERRIS 9 9 [facility] T VISIT LIMITED/M INOR PROB EMERGENCY 72906 JOSY MAO, 9 9 [facility] MODERATE SEVERITY OFFICE 11080 [place] MCKEMIE OUTPATIEN 9 9 [facility], T VISIT INTERNAL NIKOLE F 15 MED MINUTES HOSPITAL JOSY - 9 9 [facility] T OFFICE 20186 [place] MCKEMIE OUTPATIEN 9 9 [facility], T VISIT INTERNAL NIKOLE F 15 MED MINUTES OFFICE 77169 MAHIN STOUT OUTPATIEN 9 9 [facility] 10 N02 MINUTES OFFICE 12924 [place] [facility] 9 9 [facility], T VISIT INTERNAL NIKOLE F 15 MED MINUTES HOSPITAL LACI - 9 9 [facility] T OFFICE 45736 LAUREANO TINSLEY, OUTPATIEN 9 9 SHANT Don T VISIT 10 MINUTES OFFICE 11582 MAHIN BARAHONA OUTPATIEN 8 8 CHELSEA DAY T VISIT IIIC 10 N02 MINUTES OFFICE 18514 [place] IVELISSE OUTPATIEN 8 8 DYLAN Brown T VISIT INTERNAL 15 MED MINUTES EMERGENCY 21476 JOSY 8 8 [facility] T VISIT LIMITED/M INOR PROB HOSPITAL JOSY - 8 8 [facility] T
--- OUTSIDE RECORDS SUMMARY | 2017-02-17 19:17 | External Medical Summary Rpt | CCD ---
Author Author , QIANA Thomson QIANA Address Unknown Phone [email or web address] Care Team Providers Care Chuck Wagon Driver Name Role Phone BIRGIT SOLARES MD, PSC, Unavailable Unavailable BIRGIT SOLARES MD, PSC MARYCHUY OVIEDO, Unavailable Unavailable MARYCHUY OVIEDO MANDUJANO, MANDUJANO Unavailable Unavailable MANDUJANO ALL, MANDUJANO ALL Unavailable Unavailable MARNI MEIR, MARNI Unavailable Unavailable MEIR MARNI MEIR, MARNI Unavailable Unavailable MEIR RUIZ MANDY, RUIZ Unavailable Unavailable MANDY REYES JUS, REYES Unavailable Unavailable JUS REYES JUS, REYES Unavailable Unavailable JUS [facility] Unavailable Unavailable AND REHA, [facility] NATHANAEL ANKIT, Unavailable [...] INC CL[facility], Unavailable Unavailable CLIFF ALVES [facility], Unavailable Unavailable [facility], Unavailable Unavailable [facility] Unavailable Unavailable INC, [facility] NEERAJ NEERAJ Unavailable Unavailable NEERAJ ARIANNA, NEERAJ Unavailable Unavailable NAN NEERAJ NAN, NEERAJ Unavailable Unavailable NAN RYAN II ELA, RYAN Unavailable Unavailable II ELA [facility] Unavailable Unavailable IM[facility]ING [facility], [facility] ENRIKE KAREEN, ENRIKE KAREEN Unavailable Unavailable ENRIKE KAREEN, ENRIKE KAREEN Unavailable Unavailable [id number], Unavailable Unavailable [id number] # Unavailable Unavailable [id number], [facility] # [id number] [facility] # Unavailable Unavailable [id number], [facility] # [id number] [facility] Unavailable Unavailable [facility], LAB [...] MAO DENSON AHMET, DENSON Unavailable Unavailable AHMET [facility] Unavailable Unavailable ASSOCIAT, [facility] DEJAE , NIKOLE Unavailable Unavailable F, HAMLET JR, NIKOLE F GIRISHCAROL MAE R, Unavailable Unavailable GIRISH CAR[facility] [employer] [facility] Unavailable Unavailable [facility], [facility], Unavailable Unavailable [facility] Unavailable Unavailable [facility], [facility], Unavailable Unavailable [facility] Unavailable Unavailable [facility], [facility] Unavailable [facility] PETTEY JAM, PETTEY Unavailable Unavailable JAM SCIFRES ANG, SCIFRES Unavailable Unavailable ANG SCIFRES ANG, SCIFRES Unavailable Unavailable ANG [facility], Unavailable Unavailable [facility] Unavailable Unavailable [facility], [facility] Unavailable Unavailable [facility], [facility] Unavailable Unavailable [facility] Unavailable Unavailable [place], [facility] Unavailable Unavailable [facility], [facility], Unavailable Unavailable [facility] LAKESHA ANG, Unavailable Unavailable TEMITOPE MCHUGH A, Unavailable Unavailable ARIAS, TEMITOPE A [facility] Unavailable Unavailable #[id number], [id number], Unavailable [facility]available [facility], Unavailable Unavailable [facility] Purpose Continuity of Care Document - 06-30-2007 through 2016 Problems Code Diagnosis DOS Provider Status [id number] MIGRAINE 12-27-2016 [facility] W/O [facility] NOT INTRACT SOLUTIONS W/O STAT IN MIGRAIN J060 ACUTE 12-27-2016 [facility] LARYNGOPHAR HEALTH YNGITIS SOLUTIONS IN M545 LOW BACK 12-27-2016 [facility] PAIN HEALTH SOLUTIONS IN [id number] SPONDYLOSIS 12-26-2016 [facility] W/O MEDICAL MYELOPATH/R IMAGING ASS ADICULOPATH Y LUMB RGN M5136 OTH 12-26-2016 [facility] INTERVERTEB MEDICAL RAL DISC IMAGING ASS DEGEN LUMBAR REGION N3001 ACUTE 07-22-2016 [facility] CYSTITIS POP[facility] WITH HOLDINGS HEMATURIA R309 PAINFUL 07-22-2016 [facility] MICTURITION [facility] HOLDINGS UNSPECIFIED R319 HEMATURIA 07-22-2016 [facility] UNSPECIFIED [facility] HOLDINGS Z23 ENCOUNTER 02-25-2016 [facility] IMMUNIZATIO URGENT N TREAT Z54306 ENCOUNTER 02-23-2016 LABORATORY ELASTIC ATTACHER CHAINSTITCH EXAM BR[facility] OF GENERAL RTN POPPY H W/ABNORMAL FIND X43152 ENCOUNTER 02-23-2016 LABOR[facility] ELASTIC ATTACHER CHAINSTITCH EXAM [facility] OF GENERAL RTN POPPY H W/O ABNORMAL FIND E038 OTHER 02-22-2016 [facility] SPECIFIED [facility] HYPOTHYROID HOLDINGS ISM H13352 UNSPECIFIED 02-15-2016 [facility] OVARIAN MEDICAL CYST LEFT IMAGING ASS SIDE N938 OTHER SPEC 02-15-2016 [facility] ABNORMAL MEDICAL UTERINE & IMAGING ASS VAGINAL BLEEDING R102 PELVIC AND 02-15-2016 [facility] PERINEAL MEDICAL PAIN IMAGING ASS U30193 RIGHT LOWER 02-15-2016 [facility] ABD[facility] TENDERNESS A78000 LEFT LOWER 02-15-2016 [facility] ABD[facility] TENDERNESS R938 ABNORMAL 02-15-2016 [facility] FIND ON DX MEDICAL IMAGING OTH IMAGING ASS SPEC BODY STRCT J60652 PAIN IN 01-19-2016 [facility] INC O86069 PAIN IN 01-19-2016 [facility] M4806 SPINAL 01-19-2016 BIRGIT SOLARES, STENOSIS , PSC LUMBAR REGION M5126 OTH 01-19-2016 BIRGIT SOLARES INTERVERTEB , PSC RAL DISC DISPLACEMEN T LUMBAR RGN R1011 RIGHT UPPER 12-11-2015 [facility] IM[facility] ASS G608 OTHER 12-07-2015 [facility] NEUROPATHIE S B399 HISTOPLASMO 11-25-2015 [facility] UNSPECIFIED H15293 STAPHYLOMA 11-25-2015 [facility] POSTICUM ANG RIGHT EYE H5211 MYOPIA 11-25-2015 [facility] RIGHT EYE ANG C21783 UNSPECIFIED 11-25-2015 [facility] AMBLYOPIA ANG RIGHT EYE B394 HISTOPLASMO 11-18-2015 [facility] SCHULTE SIS CAPSULATI UNSPECIFIED 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 S05674 REGULAR 11-18-2015 [facility] ASTIGMATISM BILATERAL H524 PRESBYOPIA 11-18-2015 [facility] SCH[facility]TE N925 OTHER 04-17-2015 [facility] IRREGULAR URGENT MENSTRUATIO TREAT N H72701 PAIN IN 04-16-2015 [facility] UNSPECIFIED CLINIC KNEE PPLLC H9319 TINNITUS 04-09-2015 [facility] UNSPECIFIED MEDICAL EAR IMAGING ASS R569 UNSPECIFIED 04-09-2015 [facility]IONS IMAGING ASS M5117 INTERVERTEB 01-30-2015 [facility] D/O INC W/RADICULOP ATHY LS RGN M5127 OT 01-30-2015 [facility] INTER[facility]TE[facility] MEDICAL RAL DISC IMAGING ASS DISPLACEMEN T LS REGION M5137 OT 01-30-2015 [facility] INTER[facility]TE[facility] MEDICAL RAL DISC IMAGING ASS DEGEN LUMBOSACRAL REGION 13138 PAIN IN 12-25-2014 [facility] JOINT, [facility] MULTIPLE [facility] SITES 14445 DISPLCMT 12-25-2014 [facility] LUMBAR CLINIC INTERVERT [facility] DISC W/O MYELOPATHY 7231 CERVICALGIA 12-25-2014 [facility] 7242 LUMBAGO 12-25-2014 [facility] 7295 PAIN IN 12-25-2014 [facility] SOFT [facility] TISSUES OF [facility] LIMB 7820 DISTURBANCE 12-25-2014 [facility] OF SKIN CLINIC SENSATION [facility] 7840 HEADACHE 12-25-2014 [facility] V5869 LONG-TERM 12-25-2014 [facility] (CURRENT) [facility]IN[facility] USE OF [facility] OTHER MEDICATIONS 2448 OTHER 10-30-2014 [facility] SPECIFIED CLINIC ACQUIRED [facility] HYPOTHYROID ISM 2720 PURE 10-30-2014 [facility] HYPERCHOLES CLINIC TEROLEMIA [facility] 01766 RESTLESS 10-30-2014 [facility] LEGS CLINIC SYNDROME [facility] 45175 EXTRINSIC 10-30-2014 [facility] ASTHMA, CLINIC UNSPECIFIED [facility] V571 OTHER 10-29-2014 [facility] THERAPY [place] 79209 ACUTE 05-26-2014 MARNI MEIR ATOPIC CONJUNCTIVI TIS 66719 CHEST PAIN 05-26-2014 ENRIKE KAREEN UNSPECIFIED 7962 ELEVATED BP 05-26-2014 [facility] WORLEY READING WITHOUT DX HYPERTENSIO N V8533 BODY MASS 05-26-2014 MARNI WORLEY INDEX 33.0-33.9 ADULT 55652 BORDERLINE 04-08-2014 HABASH LUZ GLAUC OPEN ANGLE BL FINDINGS LOW RSK 3674 PRESBYOPIA 04-08-2014 HABASH LUZ 69226 UNSPECIFIED 02-17-2014 [facility] ARTHR[facility]ATH[facility] OTHER SPECIFIED SITES 7213 LUMBOSACRAL 02-17-2014 [facility] AND SPONDYLOSIS [facility] WITHOUT MYELOPATHY 83995 DEGEN 02-17-2014 [facility] LUMBAR/LUMB H SLEEP AND OSACRAL REHA INTERVERTEB RAL DISC 37861 SPINAL STEN 02-17-2014 [facility] LUMB REG H SLEEP AND W/O REHA NEUROGENIC CLAUDICATIO N 7244 THORACIC/CARLOS 02-17-2014 [facility] MBOSACRAL H SLEEP AND NEURITIS/RA REHA DICULITIS UNSPEC 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 59471 SCOLIOSIS , 11-11-2013 [facility] IDIOPATHIC EAST V141 PERSONAL 11-11-2013 [facility] HISTORY EAST ALLERGY 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 AGENT 7177 CHONDROMALA 08-30-2013 [facility] 7262 OTHER 08-30-2013 [facility] AFFECTIONS PHYSICIANS OF SHOULDER GROUP REGION NEC 74263 LEUKOCYTOSI 08-08-2013 [facility] UNSPECIFIED 35761 OSTEOARTHRO 08-06-2013 [facility] UNSPEC RADIOLOGY WHETHER ASSOCIAT GEN/LOC LOWER LEG 48244 PAIN IN 08-06-2013 [facility] JOINT, RADIOLOGY LOWER LEG ASSOCIAT 3671 MYOPIA 05-31-2013 [facility] 1120 CANDIDIASIS 04-29-2011 [facility] INTERNAL MED 2449 UNSPECIFIED 04-29-2011 [facility] HYPOTHYROID INTERNAL ISM MED 490 BRONCHITIS 04-29-2011 [facility] NOT [facility]LEY SPECIFIED INTERNAL ACUTE OR MED CHRONIC 4910 SIMPLE 04-29-2011 [facility] 10840 ASTHMA, 04-29-2011 [facility] UNSPECIFIED HOME , MEDICAL UNSPECIFIED EQUIPME STATUS 15015 UNSPECIFIED 04-15-2011 NEER[facility] KELLER ARTHROPATHY , LOWER LEG 7821 RASH AND 04-15-2011 [facility] KELLER OTHER NONSPECIFIC SKIN ERUPTION 87327 OTHER 03-18-2011 [facility] KELLER ANXIETY STATES 7292 UNSPECIFIED 03-18-2011 [facility] KELL[facility] NEURALGIA NEURITIS AND RADICULITIS 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 462 ACUTE 02-09-2011 [facility] PHARYNGITIS [facility] INTERNAL MEDI 4871 INFLUENZA 02-09-2011 [facility] WITH OTHER VALLEY RESPIRATORY INTERNAL MEDI MANIFESTATI ONS 83792 PAIN IN 01-24-2011 [facility] JOINT, VALLEY FOREARM INTERNAL MEDI 7245 UNSPECIFIED 01-24-2011 [facility] BACKACHE VAL[facility] INTERNAL MEDI 17857 OTHER 12-17-2010 [facility] CHRONIC [facility] PAIN INTERNAL MEDI 2409 GOITER, 11-04-2010 [facility] UNSPECIFIED RADIOLOGY ASSOCIAT 89559 UNSPECIFIED 09-24-2010 [facility] ARTHROPATHY INTERNAL MULTIPLE MEDI SITES 07652 ABDOMINAL 04-22-2010 [facility] PA[facility] RIGHT VAL[facility] UPPER INTERNAL QUADRANT MEDI 80551 ABDOMINAL 04-22-2010 [facility] PAIN, VAL[facility] EPIGASTRIC INTERNAL MEDI 5718 OTHER 04-16-2010 [facility] NONALCOHOLI C LIVER DISEASE 87483 DIARRHEA 04-16-2010 [facility] 77982 ESOPHAGEAL 04-07-2010 [facility] REFLUX [facility] INTERNAL MEDI 7226 DEGENERATIO 04-07-2010 [facility] N [facility] INTERVERTEB INTERNAL RAL DISC MEDI SITE UNSPEC 18457 OTH 11-27-2009 [facility] EXTRAPYRAMI [facility] 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 5206 DISTURBANCE 10-23-2009 [facility] S IN [facility] 7862 COUGH 10-12-2009 [facility] INTERNAL MED 75250 UNSPECIFIED 10-10-2009 [facility] SIS RETINITIS 3670 HYPERMETROP 10-10-2009 [facility] 13067 OTHER 10-10-2009 [facility] FIELD DEFECT 33554 PAIN IN 07-10-2009 [facility] PELVIC REGION AND THIGH 73547 OSTEOARTHRO 06-26-2009 [facility] S UNSPEC RADIOLOGY GEN/LOC ASSOCIATES PELV PSC REGION&THIG H 4730 CHRONIC 03-29-2009 [facility] MAXILLARY [facility] SINUSITIS 4731 CHRONIC 03-29-2009 [facility] FRONTAL [facility] SINUSITIS 58838 SPASM OF 01-01-2009 [facility] MUSCLE [facility] INTERNAL MED 91115 SPONDYLOSIS 12-02-2008 [place] UNSPEC RADIOLOGY SITE W/O ASSOCIATES MENTION PSC MYELOPATHY 7831 ABNORMAL 11-28-2008 [facility] WEIGHT GAIN LAREDO INTERNAL MED 96518 ANOMALY OF 09-01-2008 [facility] N02 POSITION UNSPECIFIED 7881 DYSURIA 07-15-2008 [facility] INTERNAL MED 226 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 2459 UNSPECIFIED 06-12-2008 [facility] THYROIDITIS 5210 DENTAL 04-01-2008 [facility] TRAN CARIES [facility] N02 64269 CONTACT 08-08-2007 [facility] DERMATITIS& VALLEY OTH ECZEMA INTERNAL DUE OTH RADIOLOGY PHYSICIAN AGENT 7248 OTHER 06-30-2007 [facility] REFERABLE TO BACK 8470 NECK SPRAIN 06-30-2007 [facility] Medications Na ND Rx Da Fi Fi Am Da Di Ph RX Ph St me C No te ll ll ou ys ag ar # ys at rm s nt no ma ic us Or Da si cy ia de te s n re d LA 00 09 10 55 10 00 SC Ac ED 14 -1 -1 .0 00 [...] CY 68 08 09 30 15 00 SC Ac CL 64 -2 -2 .0 00 L- ti OB 50 9- 2- 00 07 MA ve EN 51 20 20 50 RT ZA 79 17 17 66 LA 0 26 PH IN AR E MA [...] NA 65 08 09 60 30 00 SC Ac LA 16 -2 -2 .0 00 L- ti OX 20 9- 2- 00 07 MA ve EN 19 20 20 50 RT 01 17 17 66 50 1 28 PH 0 AR MG MA CY TA BL #5 ET 91 TO 68 08 09 30 30 00 SC Ac PI 38 -2 -2 .0 00 L- ti RA 20 9- 2- 00 07 MA ve MA 14 20 20 50 RT TE 01 17 17 66 4 29 PH 10 AR 0 MA MG CY TA #5 BL 91 ET ME 59 08 09 21 6 00 SC Ac TH 74 -2 -2 .0 00 L- ti YL 60 9- 2- 00 07 MA ve LA 00 20 20 50 RT ED 10 17 17 64 NI 3 98 PH SO AR LO MA NE CY 4 #5 MG 91 DO SE PK JACKSON 55 08 09 9. 9 00 SC Ac MA 11 -2 -1 00 00 L- ti TR 10 1- 5- 0 07 MA ve IP 29 20 20 50 RT TA 30 17 17 51 N 9 02 PH JACKSON AR CC MA CY 10 0 #5 MG 91 TA BL ET GA 00 08 09 90 30 00 SC Ac BA 22 -2 -1 .0 00 L- ti PE 82 1- 5- 00 04 MA ve NT 63 20 20 53 RT IN 65 17 17 17 0 43 PH 60 AR 0 MA MG CY TA #5 BL 91 ET LA 54 07 08 30 30 00 [facility] AV 45 -2 -2 .0 00 L- ti 80 8- 5- 00 07 MA ve TA 92 20 20 66 RT TI 71 17 17 89 N 6 94 PH SO AR DI MA UM CY 10 #5 71 MG TA B TI 55 07 08 60 30 00 SC Ac ZA 11 -2 -2 .0 00 L- ti NI 10 8- 5- 00 07 MA ve DI 18 20 20 66 RT NE 01 17 17 89 5 96 PH HC AR L MA 4 CY MG #5 TA 71 BL ET DU 57 07 08 60 30 00 SC Ac LO 23 -2 -2 .0 00 L- ti XE 70 8- 5- 00 07 MA ve TI 01 20 20 66 RT NE 93 17 17 89 0 97 PH HC AR L MA DR CY 60 #5 71 MG CA P ME 62 07 08 30 30 00 SC Ac TO 03 -2 -2 .0 00 L- ti LA 70 8- 5- 00 07 MA ve OL 83 20 20 66 RT OL 11 17 17 89 0 95 PH JACKSON AR CC MA CY ER #5 50 71 MG TA B LE 00 07 08 30 30 00 SC Ac VO 78 -2 -1 .0 00 [...] GA 00 07 08 90 30 00 SC Ac BA 22 -2 -1 .0 00 [...] CY TA #5 BL 71 ET LA 54 06 07 30 30 00 SC Ac AV 45 -2 -2 .0 00 L- ti 80 7- 1- 00 07 MA ve TA 92 20 20 66 RT TI 71 17 17 89 N 6 94 PH SO AR DI MA UM CY 10 #5 71 MG TA B ME 62 06 07 30 30 00 WA Ac TO 03 -2 -2 .0 00 L- ti LA 70 7- 1- 00 07 MA ve [...] GA 00 06 07 90 30 00 SC Ac BA 22 -2 -2 .0 00 L- ti PE 82 3- 1- 00 07 MA ve NT 63 20 20 66 RT IN 65 17 17 24 0 39 PH 60 AR 0 MA MG CY TA #5 BL 71 ET LE 00 10 05 30 30 00 SC Ac VO 78 -2 -2 .0 00 L- ti TH 15 3- 1- 00 07 MA ve YR 18 20 20 66 RT OX 69 17 17 24 IN 2 66 PH E AR 12 MA 5 CY MC G #5 TA 71 BL ET PN 00 06 07 0. 1 00 SC Ac EU 00 -1 -1 50 00 L- ti MO 64 6- 4- 0 07 MA ve VA 94 20 20 66 RT X 30 17 17 69 23 0 63 PH AR MA AL CY #5 71 TO 68 10 05 30 30 00 SC Ac PI 38 -1 -0 .0 00 L- ti RA 20 2- 7- 00 07 MA ve MA 13 20 20 66 RT TE 91 17 17 60 4 61 PH 50 AR MA MG CY TA #5 BL 71 ET DU 57 05 06 60 30 00 SC Ac LO 23 -2 -2 .0 00 L- ti XE 70 5- 3- 00 07 MA ve TI 01 20 20 66 RT NE 93 17 17 24 0 67 PH HC AR L MA DR CY 60 #5 71 MG CA P LE 00 05 06 30 30 00 SC Ac VO 78 -2 -2 .0 00 L- ti TH 15 5- 3- 00 07 MA ve YR 18 20 20 66 RT OX 69 17 17 24 IN 2 66 PH E AR 12 MA 5 CY MC G #5 TA 71 BL ET TO 68 05 06 30 30 00 SC Ac PI 38 -2 -2 .0 00 [...] TI 55 05 06 60 30 00 SC Ac ZA 11 -2 -2 .0 00 L- ti NI 10 5- 3- 00 07 MA ve DI 18 20 20 66 RT NE 01 17 17 24 5 41 PH HC AR L MA 4 CY MG #5 TA 71 BL ET GA 00 09 03 90 30 00 SC Ac BA 22 -2 -2 .0 00 L- ti PE 82 5- 3- 00 07 MA ve NT 63 20 20 66 RT IN 65 17 17 24 0 39 PH 60 AR 0 MA MG CY TA #5 BL 71 ET ME 62 05 30 30 00 SC Ac TO 03 -2 -2 .0 00 L- ti LA 70 5- 3- 00 07 MA ve OL 83 20 20 66 RT OL 11 17 17 24 0 48 PH JACKSON AR CC MA CY ER #5 50 71 MG TA B LA 54 09 03 30 30 00 [facility] AV 45 -2 -2 .0 00 L- ti 80 5- 3- 00 07 MA ve TA 92 20 20 66 RT TI 71 17 17 24 N 2 68 PH SO AR DI MA UM CY 10 #5 71 MG TA B LA 69 05 30 30 00 SC Ac MO 09 -2 -2 .0 00 L- ti TR 70 5- 3- 00 07 MA ve IG 15 20 20 66 RT IN 20 17 17 24 E 3 49 PH 20 AR 0 MA MG CY TA #5 BL 71 ET CL 16 09 03 89 30 00 SC Ac ON 72 -3 -2 .0 00 [...] 30 17 17 21 FA 5 77 AL 0. LY [address] UG TA BL ET LE 00 09 02 30 30 00 SO Ac VO 37 -0 -2 .0 00 PE ti TH 81 1- 6- 00 00 RS ve YR 81 20 20 55 OX 37 17 17 37 FA IN 7 65 AL E LY [address] MC UG G TA BL ET LA 68 05 05 30 30 00 SO Ac AV 46 -0 -2 .0 00 PE ti 20 1- 6- 00 00 RS ve TA 19 20 20 54 TI 59 17 17 84 FA N 0 18 AL SO LY DI UM DR UG 10 MG TA B NI 00 05 05 28 28 00 SO Ac CO 53 -0 -2 .0 00 PE ti TI 65 1- 6- 00 00 RS ve NE 89 20 20 56 68 17 17 21 FA 21 8 79 AL LY MG /2 DR 4H UG R PA TC H TO 68 05 05 30 30 00 SO Ac PI 38 -0 -2 .0 00 PE ti RA 20 1- 6- 00 00 RS ve MA 13 20 20 56 TE 81 17 17 21 FA 4 78 AL [address] UG TA BL ET JACKSON 65 05 05 9. 10 00 SO Ac MA 86 -0 -2 00 00 PE ti TR 20 1- 6- 0 00 RS ve IP 14 20 20 56 TA 83 17 17 21 FA N 6 82 AL JACKSON LY CC DR 10 UG 0 MG TA BL ET DU 57 05 05 60 30 00 SO Ac LO 23 -0 -2 .0 00 PE ti XE 70 1- 6- 00 00 RS ve TI 01 20 20 54 NE 99 17 17 84 FA 9 20 AL HC LY L DR DR UG 60 MG CA P LA 51 05 05 30 30 00 SO Ac MO 67 -0 -2 .0 00 PE ti TR 24 1- 6- 00 00 RS ve IG 13 20 20 54 IN 30 17 17 84 FA E 4 23 AL [address] UG TA BL ET ME 62 05 05 30 30 00 SO Ac TO 03 -0 -2 .0 00 PE ti LA 70 1- 6- 00 00 RS ve OL 83 20 20 54 OL 11 17 17 81 FA 0 [address] AL JACKSON LY CC DR ER UG 50 MG TA B TI 57 04 05 60 30 00 SO Ac ZA 66 -1 -1 .0 00 PE ti NI 40 7- 2- 00 00 RS ve DI 50 20 20 55 NE 31 17 17 77 FA 8 95 AL HC LY L 4 DR MG UG TA BL ET GA 69 04 05 90 30 00 SO Ac BA 09 -1 -1 .0 00 PE ti PE 70 4- 2- 00 00 RS ve NT 81 20 20 55 IN 21 17 17 37 FA 2 64 AL [address] UG TA BL ET CL 00 03 04 90 30 00 SO Ac ON 18 -2 -2 .0 00 PE ti AZ 50 4- 1- 00 00 RS ve EP 06 20 20 55 AM 30 17 17 96 FA 5 78 AL 0. LY [address] UG TA BL ET PH 75 03 04 9. 3 00 SO Ac EN 82 -2 -2 00 00 PE ti AZ 60 4- 1- 0 00 RS ve OP 11 20 20 55 YR 41 17 17 96 FA ID 0 79 AL IN LY E 10 DR 0 UG MG TA B CI 16 03 04 20 10 00 SO Ac LA 57 -2 -2 .0 00 PE ti OF 10 4- 1- 00 00 RS ve LO 41 20 20 55 XA 25 17 17 96 FA CI 0 80 AL N LY HC L DR 50 UG 0 MG TA B JACKSON 55 03 04 9. 10 00 SO Ac MA 11 -2 -2 00 00 PE ti TR 10 4- 1- 0 00 RS ve IP 29 20 20 55 TA 30 17 17 96 FA N 9 81 AL JACKSON LY CC DR 10 UG 0 MG TA BL ET ME 62 03 04 30 30 00 SO Ac TO 03 -2 -2 .0 00 PE ti LA 70 4- 1- 00 00 RS ve OL 83 20 20 54 OL 11 17 17 81 FA 0 56 AL JACKSON LY CC DR ER UG 50 MG TA B LA 51 03 04 30 30 00 SO Ac MO 67 -2 -2 .0 00 PE ti TR 24 4- 1- 00 00 RS ve IG 13 20 20 54 IN 30 17 17 84 FA E 4 23 AL [address] UG TA BL ET DU 57 03 04 60 30 00 SO Ac LO 23 -2 -2 .0 00 PE ti XE 70 4- 1- 00 00 RS ve TI 01 20 20 54 NE 99 17 17 84 FA 9 20 AL HC LY L DR COX UG 60 MG CA P LE 00 03 04 30 30 00 SO Ac VO 37 -2 -2 .0 00 PE ti TH 81 4- 1- 00 00 RS ve YR 81 20 20 55 OX 37 17 17 37 FA IN 7 65 AL E LY [address] MC UG G TA BL ET LA 68 03 04 30 30 00 SO Ac AV 46 -2 -1 .0 00 PE ti 20 1- 4- 00 00 RS ve TA 19 20 20 54 TI 59 17 17 84 FA N 0 18 AL SO LY DI UM DR UG 10 MG TA B GA 69 03 04 90 30 00 SO Ac BA 09 -1 -0 .0 00 PE ti PE 70 5- 7- 00 00 RS ve NT 81 20 20 55 IN 21 17 17 37 FA 2 64 AL [address] UG TA BL ET TI 57 03 03 60 30 00 SO Ac ZA 66 -0 -3 .0 00 PE ti NI 40 3- 1- 00 00 RS ve DI 50 20 20 55 NE 31 17 17 77 FA 8 95 AL HC LY L 4 DR MG UG TA BL ET CL 00 02 03 90 30 00 SO Ac ON 18 -2 -1 .0 00 PE ti AZ 50 1- 7- 00 00 RS ve EP 06 20 20 55 AM 30 17 17 68 FA 5 48 AL 0. LY [address] UG TA BL ET DU 57 02 03 60 30 00 SO Ac LO 23 -1 -1 .0 00 PE ti XE 70 0- 0- 00 00 RS ve TI 01 20 20 54 NE 99 17 17 84 FA 9 20 AL HC LY L DR DR UG 60 MG CA P LA 51 02 03 30 30 00 SO Ac MO 67 -1 -1 .0 00 PE ti TR 24 0- 0- 00 00 RS ve IG 13 20 20 54 IN 30 17 17 84 FA E 4 23 AL [address] UG TA BL ET ME 62 02 03 30 30 00 SO Ac TO 03 -1 -1 .0 00 PE ti LA 70 0- 0- 00 00 RS ve OL 83 20 20 54 OL 11 17 17 81 FA 0 56 AL JACKSON LY CC DR ER UG 50 MG TA B LA 68 02 03 30 30 00 SO Ac AV 46 -1 -1 .0 00 PE ti 20 0- 0- 00 00 RS ve TA 19 20 20 54 TI 59 17 17 84 FA N 0 18 AL SO LY DI UM DR UG 10 MG TA B VE 00 02 03 18 25 00 SO Ac NT 17 -1 -1 .0 00 PE ti OL 30 0- 0- 00 00 RS ve IN 68 20 20 53 22 17 17 86 FA HF 0 44 AL A LY 90 DR MC UG G IN KENNY LE R GA 69 02 03 90 30 00 SO Ac BA 09 -1 -1 .0 00 PE ti PE 70 3- 0- 00 00 RS ve NT 81 20 20 55 IN 21 17 17 37 FA 2 64 AL [address] UG TA BL ET TI 57 01 02 60 30 00 SO Ac ZA 66 -3 -2 .0 00 PE ti NI 40 1- 4- 00 00 RS ve DI 50 20 20 54 NE 31 17 17 84 FA 8 19 AL HC LY L 4 DR MG UG TA BL ET GA 69 05 02 90 30 00 SO Ac BA 09 -1 -1 .0 00 PE ti PE 70 2- 0- 00 00 RS ve NT 81 20 20 54 IN 21 17 17 08 FA 2 85 AL [address] UG TA BL ET CL 00 05 02 89 30 00 SO Ac ON 18 -1 -1 .0 00 PE ti AZ 50 7- 0- 00 00 RS ve EP 06 20 20 55 AM 30 17 17 37 FA 5 63 AL 0. LY [address] UG TA BL ET LE 00 05 02 30 30 00 SO Ac VO 37 -1 -1 .0 00 PE ti TH 81 7- 0- 00 00 RS ve YR 81 20 20 55 OX 37 17 17 37 FA IN 7 65 AL E LY [address] MC UG G TA BL ET TI 57 12 60 30 00 SO Ac ZA 66 -2 -2 .0 00 PE ti NI 40 3- 0- 00 00 RS ve DI 50 20 20 54 NE 31 16 17 84 FA 8 19 AL HC LY L 4 DR MG UG TA BL ET CL 00 12 90 30 00 SO Ac ON 18 -0 -0 .0 00 PE ti AZ 50 8- 9- 00 00 RS ve EP 06 20 20 55 AM 31 16 17 05 FA 0 57 AL 0. LY [address] UG TA BL ET LA 51 12 30 30 00 SO Ac MO 67 -0 -0 .0 00 PE ti TR 24 9- 9- 00 00 RS ve IG 13 20 20 54 IN 30 16 17 84 FA E 4 23 AL [address] UG TA BL ET IB 67 12 90 30 00 SO Ac UP 87 -0 -0 .0 00 PE ti RO 70 9- 9- 00 00 RS ve FE 32 20 20 54 N 10 16 17 69 FA 80 5 72 AL [address] TA UG BL ET ME 62 12 30 30 00 SO Ac TO 03 -0 -0 .0 00 PE ti LA 70 9- 9- 00 00 RS ve OL 83 20 20 54 OL 11 16 17 81 FA 0 56 AL [place] LY CC DR ER UG 50 MG TA B DU 57 12 60 30 00 SO Ac LO 23 -0 -0 .0 00 PE ti XE 70 9- 9- 00 00 RS ve TI 01 20 20 54 NE 99 16 17 84 FA 9 20 AL HC LY L DR UG 60 MG CA P LA 68 12 01 30 30 00 SO Ac AV 46 -0 -0 .0 00 PE ti 20 9- 9- 00 00 RS ve TA 19 20 20 54 TI 59 16 17 84 FA N 0 18 AL SO LY DI UM DR UG 10 MG TA B LE 00 12 01 30 30 00 SO Ac VO 37 -0 -0 .0 00 PE ti TH 81 9 9- 00 00 RS ve YR 81 20 20 54 OX 37 16 17 80 FA IN 7 75 AL E LY [address] DAHIANA UG G TA BL ET GA 69 12 01 90 30 00 SO Ac BA 36 -1 -0 .0 00 PE ti PE 70 3- 9- 00 00 RS ve NT 13 20 20 54 IN 40 16 17 08 FA 6 85 AL [address] SAMUELS TA BL ET GA 68 08 10 5 30 30 SO 38 BE Ac BA 46 -1 -2 .0 PE 17 SS ti PE 20 9- 8- 00 RS 78 ON ve NT 12 20 20 IN [address] 5 AL EP 60 LY HE [address] Kevin SAMUELS TA BL ET LE 00 09 10 5 30 30 SO 38 BE Ac VO 52 -2 -2 .0 PE 52 SS ti TH 71 6 6- 00 RS 17 ON ve YR 34 20 20 OX [address] IN 0 AL EP E LY HE [address] Kevin TALBOT UG G TA BL ET LA 60 10 10 0 12 6 SO 38 HU Ac OM 43 -1 -1 0. PE 68 NT ti ET 20 2- 2- 00 RS 25 ER ve KENNY 60 20 20 0 ZI 41 11 11 FA NA NE 6 AL NC -D LY Y M C SY DR PIERRE UG P 00 10 10 0 30 7 SO 38 MC Ac 59 -0 -0 .0 PE 58 KE ti 10 3- 3- 00 RS 61 AL ve 34 20 20 E 90 11 11 FA JR 5 AL LY WI LL DR CALZADA UG M F GA 68 08 09 5 30 30 SO 38 BE Ac BA 46 -1 -3 .0 PE 17 SS ti PE 20 9- 0- 00 RS 78 ON ve NT 12 20 20 IN [address] 5 AL EP 60 LY HE [address] Brown UG TA BL ET CY 59 09 09 0 7. 7 SO 38 HU Ac CL 74 -2 -2 00 PE 54 NT ti OB 60 8- 9- 0 RS 82 ER ve EN 21 20 20 ZA 11 11 11 FA NA LA 0 AL NC IN LY Y E C 5 DR UG TA BL ET 59 08 09 5 8. 15 SO 38 BE Ac 31 -1 -2 50 PE 17 SS ti 00 9- 8- 0 RS 75 ON ve 57 20 20 [address] 0 AL EP LY HE N DR Kevin SAMUELS CI 65 08 09 5 30 30 SO 38 BE Ac TA 16 -1 -2 .0 PE 17 SS ti LO 20 9- 8- 00 RS 76 ON ve LA 05 20 20 AM [address] 0 AL EP HB LY HE R N 40 DR Kevin SAMUELS MG TA BL ET 00 09 09 0 30 7 SO 38 BE Ac 59 -2 -2 .0 PE 52 SS ti 10 6- 6- 00 RS 15 ON ve 34 20 20 [address] 5 AL EP LY HE N DR Brown UG 00 09 09 0 55 10 SO 38 BE Ac 14 -2 -2 .0 PE 52 SS ti 31 6- 6- 00 RS 16 ON ve 47 20 20 [address] 0 AL EP LY HE N DR Kevin SAMUELS LE 00 09 09 5 30 30 SO 38 BE Ac VO 52 -2 -2 .0 PE 52 SS ti TH 71 6- 6- 00 RS 17 ON ve YR 34 20 20 OX [address] IN 0 AL EP E LY HE [address] Brown UG G TA BL ET GA 68 08 09 5 30 30 SO 38 BE Ac BA 46 -1 -0 .0 PE 17 SS ti PE 20 9- 2- 00 RS 78 ON ve NT 12 20 20 IN [address] 5 AL EP 60 LY HE [address] Brown UG TA BL ET 00 08 08 0 12 30 SO 38 MC Ac 59 -1 -2 0. PE 18 KE ti 10 9- 3- 00 RS 07 AL ve 34 20 20 0 E 90 11 11 FA JR 5 AL LY WI LL DR CALZADA UG M F 59 08 08 5 8. 15 SO 38 BE Ac 31 -1 -1 50 PE 17 SS ti 00 9- 9- 0 RS 75 ON ve 57 20 20 [address] 0 AL EP LY HE N DR Kevin SAMUELS CI 65 08 08 5 30 30 SO 38 BE Ac TA 16 -1 -1 .0 PE 17 SS ti LO 20 9- 9- 00 RS 76 ON ve LA 05 20 20 AM [address] 0 AL EP HB LY HE R N 40 DR A UG MG TA BL ET ET 51 08 08 2 60 30 SO 38 BE Ac OD 67 -1 -1 .0 PE 17 SS ti OL 24 9- 9- 00 RS 77 ON ve AC 01 20 20 [address] 40 1 AL EP 0 LY HE MG N DR A TA UG BL ET GA 00 06 07 1 30 30 SO 37 HU Ac BA 22 -2 -2 .0 PE 72 NT ti PE 82 8- 8- 00 RS 96 ER ve NT 63 20 20 IN 65 11 11 FA NA 0 AL NC 60 LY Y [address] UG TA BL ET 00 06 06 0 55 10 SO 37 HU Ac 14 -2 -2 .0 PE 74 NT ti 31 9 9- 00 RS 13 ER ve 47 20 20 51 11 11 FA NA 0 AL NC LY Y C DR UG IB 55 06 06 0 90 30 SO 37 FL Ac UP 11 -2 -2 .0 PE 72 OR ti RO 10 8 8 RS 95 EN ve FE 68 20 20 CE N 40 11 11 FA 80 5 AL SA 0 LY RA MG H DR L TA UG BL ET GA 00 06 06 1 30 30 SO 37 FL Ac BA 22 -2 -2 .0 PE 72 OR ti PE 82 8- 8- 00 RS 96 EN ve NT 63 20 20 CE IN 65 11 11 FA 0 AL SA 60 LY RA 0 H MG [...] AN Y TA IN BL C ET LA 60 05 05 12 6 HO 10 HU Ac OM 43 -2 -2 0. PK 16 NT ti ET 20 7- 7- 00 IN 99 ER ve KENNY 60 20 20 0 S 1 ZI [address] 6 UG NC -D Y M CO C SY MP RU AN P Y IN C LA 00 05 05 14 7 HO 10 [...] ti 10 0- 0- 00 IN 74 AL ve 34 20 20 S 9 E 90 11 11 JR 5 UG WI CO LL MP IA AN M Y F IN C LA 00 03 03 55 10 HO 10 [...] 2- 2- 0 IN 50 ER ve LA 01 20 20 S 3 AM 00 [...] PE 60 5- 5- 00 IN 04 AL ve NT 13 20 20 S 1 [...] N MP A AN Y IN C LA 00 12 12 30 15 HO 10 HU Ac ED 60 -0 -0 .0 PK 13 NT ti NI 35 8- 8- 00 IN 39 ER ve SO 33 20 20 S 9 NE [address] NA 2 UG NC 10 Y CO C MG MP AN TA Y BL IN ET C LA 37 12 12 2 56 28 HO [...] PE 60 5- 8- 00 IN 04 AL ve NT 13 20 20 S 1 [...] PE 60 5- 5- 00 IN 04 AL ve NT 13 20 20 S 1 [...] 2- 2- 00 IN 40 EN ve LA 18 20 20 S 8 CE ED [...] S ZA [address] ISAURO LA 6 UG NC IN Y E CO C 10 IN MG C TA BL ET LA 00 09 09 00 36 12 HO [...] S ZA [address] NA LA 1 UG NC IN Y E CO [...] S ai IN [address] suacedo E 1 UG bl HC e L [...] DOS Code Location Performer Comment CURRENT 1034F [employer] TOBACCO 7 HEALTH SMOKER SOLUTIONS IN BODY MASS 3008F [employer] INDEX 7 HEALTH DOCUMENTE SOLUTIONS D IN TOBACCO 1000F [employer] USE 7 HEALTH ASSESSED SOLUTIONS IN RADEX 82294 [facility] SPINE 7 MEDICAL LUMBOSACR IMAGING AL ASS MINIMUM 4 VIEWS CULTURE 16339 [facility] BACTERIAL 7 POPPY POPPY [employer] QUANTTATI VE COLONY COUNT URINE CULTURE 88832 [facility] BCT 7 POPPY POPPY ISOL&PRSM [employer] PTV ID ISOLATE EA URINE SUSCEPTIB 34250 [facility] LTY STDY 7 POPPY POPPY ANTIMICRB [employer] IAL MICRO/AGA R DILUTJ IIV3 68881 JOSY PICKARD VACCINE 6 [facility] SPLIT URGENT VIRUS 0.5 TREAT ML DOSAGE IM USE IM ADM 85731 JOSY PICKARD PRQ ID 6 [facility] SUBQ/IM URGENT NJXS 1 TREAT VACCINE CYTP 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/ 6 Y [facility] OF Y [facility] OF VAGINAL POPPY POPPY REQ H H INTERP PHYSICIAN CYTP C/V 12070 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 AUTO THIN 6 Y BR[facility] OF Y [facility]ITT[facility] OF LYR POPPY POPPY [place]PJ [place] [address] [facility] THYROID 6 POPPY POPPY STIMULATI [place] [address] [facility] ALL TRANSVAGI 6 MEDICAL NAL IMAGING [facility] G0463 [facility] AGUERO OUTPATIEN 6 [facility] T CLIN INC INC VISIT [place]ESS & [place] [address] [facility] THYROID 6 POPPY POPPY STIMULAT[employer] [place] [address] LACI AGUERO ABDOMINAL 6 [facility] REAL INC INC TIME W/IMAGE LIMITED COMPUTERI 94207 AMY OCONNELLD 6 JUS JUS OPHTHALMI C IMAGING RETINA OPHTH 48088 AMY REYES MEDICAL 6 JUS JUS XM&EVAL COMPRE NEW PT 1/> VST URINE 63361 JOSY PICKARD 5 [facility] NAN TEST URGENT VISUAL TREAT COLOR CMPRSN METHS RADIOLOGI 40650 [facility] 5 ANDRIA EXAMINATI CLINIC ON KNEE PPLLC 1/2 VIEWS ELECTROEN 29144 [facility] AGUERO CEPHALOGR 5 [facility] AM W/REC INC INC AWAKE&[place] [address] [facility] M[facility] ALL HEAD/BRAI 5 MEDICAL N W/O IMAGING CONTRAST ASS MATERIAL 3D 44005 [facility] ALL RENDERING 5 MEDICAL W/INTERP IMAGING & ASS POSTPROCE SS SUPERVISI ON MRI 80240 [facility] ALL SPINAL 5 MEDICAL CANAL IMAGING LUMBAR ASS W/O CONTRAST MATERIAL PHYSICAL 95417 [facility] THERAPY 5 CONTRA [facility] EVALUATIO ANDRIA ANDRIA N RADIOLOGI 44589 [facility] EXAM 5 CHEST 2 VIEWS FRONTAL&L ATERAL XTRNL 56061 [facility] OCULAR 4 LUZ LUZ PHOTOG W/I&R DOCMT MEDICAL PROGRE VISUAL 36398 [facility] FIELD XM 4 LUZ LUZ UNI/BI W/INTERP INTERMED EXAM FUNDUS 52052 [facility] PHOTOGRAP 4 LUZ LUZ HY W/INTERPR ETATION & REPORT MRI 35409 MICK[facility] NATHANAEL SPINAL 4 MEDICAL ANKIT CANAL IMAGING LUMBAR ASS W/O CONTRAST MATERIAL 3D 36926 M[facility] NATHANAEL RENDERING 4 MEDICAL ANKIT W/INTERP IMAGING & ASS POSTPROCE SS SUPERVISI ON BLOOD 42438 [facility] AHMET PERIPHERA L INTERP PHYS W/WRIT REPORT HANDLG&/O 96176 [employer], R CONVEY 4 DISTRIBUTOR ADVERTISING MATERIAL DISTRIBUTOR ADVERTISING MATERIAL OF SPEC JOSY FERRIS FOR TR CO HOS CO HOS FROM PT TO LAB RADIOLOGI 49795 [employer], C 4 DISTRIBUTOR ADVERTISING MATERIAL DISTRIBUTOR ADVERTISING MATERIAL EXAMINATI JOSY FERRIS ON KNEE 3 CO HOS CO HOS VIEWS RADIOLOGI 25208 [facility] C EXAM 4 EIDER PANKAJ KNEE RADIOLOGY COMPLETE ASSOCIAT 4/MORE VIEWS OPHTH 03897 SCIFRES SCIFRES MEDICAL 4 ANG ANG XM&EVAL COMPRE NEW PT 1/> VST ADMN SET A7003 YOUR YOUR SM VOL 1 PHARM[facility]Y [facility] PNEUMAT NEBULIZR DISPBL NEBULIZER E0570 NIC NIC WITH 1 HOME HOME COMPRESSO MEDICAL MEDICAL R EQUIPME EQUIPME MRI 85969 MICKY NATHANAEL SPINAL 1 MEDICAL ANKIT CANAL IMAGING LUMBAR ASS W/O CONTRAST MATERIAL 3D 60373 [facility] AGUERO RENDERING 1 [facility] W/INTERP INC INC & POSTPROCE SS SUPERVISI ON US SOFT 80163 [facility] [place] RUIZ TISSUE 1 [facility] & RADIOLOGY [place]K [place] [address] JOSY FERRIS ABDOMINAL 0 CO CO REAL HOSPITAL HOSPITAL TIME W/IMAGE LIMITED SCANNING 43197 [facility] OPHTHALMI 0 [facility] POSTERIOR SGM UNI VISUAL 90709 [facility] FIELD XM 0 [facility] UNI/BI CENTER W/INTERP EXTENDED EXAM DETERMINA 08417 [facility], TION 0 [facility] E STATE FUNDUS 23843 [facility], PHOTOGRAP 0 [facility] W/INTERPR ETATION & REPORT MRI 94665 MARY C NATHANAEL, SPINAL 0 NATHANAEL MARY CANAL LUMBAR W/[place] [address] LACI SANON THYROID 0 [facility] STIMULATI [place] [address] LACI LACI FREE 0 [facility]OS[facility] THYROXINE INC INC CALCIUM 16828 LACI LACI TOTAL 0 [facility] INC INC COLLECTIO 05514 JOSY FERRIS N VENOUS 0 CO CO BLOOD [facility] VENIPUNCT URE RHEUMATOI 90977 JOSY FERRIS D FACTOR 0 CO CO QUANTITBOSTON DISPENSARY ESAU ANTINUCLE 33044 JOSY FERRIS AR 0 CO CO ANTIBODIE [facility] S DEVIN SEDIMENTA 84296 JOSY FERRIS TION RATE 0 CO CO RBC [facility] NON-AUTOM ATED RADEX HIP 42161 [facility], 0 [facility] [place] RADIOLOGY L COMPLETE ASSOCIATE MINIMUM 2 S PSC VIEWS BLOOD 96129 JOSY FERRIS COUNT 0 CO CO COMPLETE [facility] AUTO&AUTO DIFRNTL WBC COMPREHEN 78587 JOSY FERRIS SIVE 0 [facility] HOSPITAL PANEL RADEX 64204 [facility] JOSELYN, SPINE 9 CLIFF S LUMBOSACR RADIOLOGY AL MINIMUM 4 ASSOCIATE VIEWS S PSC RADEX 79746 JOSY FERRIS SPINE 9 CO CO CERVICAL [facility] 4 OR 5 VIEWS RADEX 60845 MIAMI ALVES, SPINE 9 CLIFF S CERVICAL RADIOLOGY 6 OR MORE VIEWS ASSOCIATE S PSC URNLS DIP 36088 [place] MANISHMIJorge L 9 DYLAN MOJICA, STICK/TAB INTERNAL NIKOLE F LET RGNT MED NON-AUTO W/O MICRSCP CALCIUM 73411 LACI SANON TOTAL 9 [place] [address] LACI SANON FREE 9 [facility] [place] [address] LACI AGUERO THYROID 9 [facility] HOSP STIMULATI [place] [address] LACI AGUERO THYROXINE 9 [facility] HOSP TOTAL INC INC Encounters Encounter Start End Date Code Location Performer Type Date OFFICE 15244 [facility] PICKARD OUTPATIEN 7 7 HEALTH T VISIT SOLUTIONS 25 IN MINUTES HOSPITAL LACI - 6 6 [facility] OUTPATIEN INC T OFFICE 65152 BIRGIT JAEL [facility] OUTPATIEN 6 6 MD BECK, T NEW 30 PSC [facility] LACI - 6 6 [facility] OUTPATIEN [facility] LACI - 6 6 [facility] OUTPATIEN [facility] T OFFICE 35921 JOSY NEERAJ OUTPATIEN 6 6 [facility] T VISIT URGENT 25 TREAT MINUTES OFFICE 10108 LAKESHA CROWDER OUTPATIEN 6 6 ANG ANG T NEW 45 MINUTES OFFICE 30487 [facility] KATHERINE OUTPATIEN 6 6 [facility] AALIYAH T VISIT CLINIC 25 PPLLC MINUTES OFFICE 05779 JOSY NEERAJ OUTPATIEN 5 5 [facility] T VISIT URGENT 10 TREAT MINUTES OFFICE 22970 [facility] KATHERINE OUTPATIEN 5 5 [facility] AALIYAH T VISIT CLINIC 25 PPLLC MINUTES HOSPITAL LACI - 5 5 [facility] INC T OFFICE 80621 JOSY NEERAJ OUTPATIEN 5 5 [facility] T VISIT URGENT 15 TREAT MINUTES HOSPITAL LACI - 5 5 [facility] OUTPATIEN INC T OFFICE 68720 TAT[facility] KATHERINE CONSULTAT 5 5 [facility] AALIYAH ION CLINIC NEW/ESTAB PPLLC PATIENT 40 MIN OFFICE 95782 [facility] GRIDER OUTPATIEN 5 5 [facility] MEIR T VISIT CLINIC [address] [facility] - 5 5 [facility] OUT[facility] T OFFICE 57796 MARNI MARNI OUTPATIEN 5 5 MEIR MEIR T NEW 30 MINUTES OFFICE 89345 [facility] HABASH OUTPATIEN 4 4 LUZ LUZ T NEW 45 MINUTES OFFICE 27308 [facility] RYAN II OUTPATIEN 4 4 [facility] SLEEP ELA T VISIT AND REHA 25 MINUTES HOSPITAL LACI - 4 4 [facility] OUTPATIEN INC T OFFICE 03257 [facility] RYAN II OUTPATIEN 4 4 LT SLEEP ELA T NEW 45 AND REHA MINUTES OFFICE 24851 [facility] OUTPATIEN 4 4 [facility] T NEW [address] [facility] - 4 4 [facility] OUTPATIEN T OFFICE 95318 [facility] PETTEY OUTPATIEN 4 4 PHYSICIAN JAM T NEW 30 S GROUP MINUTES HOSPITAL MHC INC, - 4 4 DISTRIBUTOR ADVERTISING MATERIAL OUTPATIEN JOSY T CO HOS HOSPITAL [facility] INC, - 4 4 DISTRIBUTOR ADVERTISING MATERIAL OUTPATIEN JOSY T CO HOS OFFICE 53268 [facility] OUTPATIEN 1 1 DYLAN T VISIT INTERNAL 15 MED MINUTES HOSPITAL LACI - 1 1 [facility] OUTPATIEN INC T OFFICE 91847 NEERAJ NEERAJ OUTPATIEN 1 1 ARIANNA NAN T VISIT 15 MINUTES OFFICE 99452 NEERAJ NEERAJ OUTPATIEN 1 1 ARIANNA NAN T VISIT 15 MINUTES OFFICE 66048 [facility] NEERAJ OUTPATIEN 1 1 DYLAN NAN T VISIT INTERNAL 15 MEDI MINUTES OFFICE 60878 [facility] NEERAJ OUTPATIEN 1 1 YDLAN NAN T VISIT INTERNAL 15 MEDI MINUTES OFFICE 17915 [facility] NEERAJ OUTPATIEN 1 1 DYLAN NAN T VISIT INTERNAL 15 MEDI MINUTES OFFICE 47242 [facility] NEERAJ OUTPATIEN 1 1 DYLAN NAN T VISIT INTERNAL 15 MEDI MINUTES OFFICE 17466 [facility] NEERAJ OUTPATIEN 0 0 [facility] N[facility] T VISIT INTERNAL 10 MEDI MINUTES HOSPITAL JOSY - 0 0 [facility] T OFFICE 40315 [place] NEERAJ OUTPATIEN 0 0 [facility] NAN T VISIT INTERNAL 15 MEDI MINUTES OFFICE 61255 [facility] LISA OUTPATIEN 0 0 [facility] TAYL[facility] T VISIT INTERNAL 15 MEDI MINUTES OFFICE 41520 [facility] OUTPATIEN 0 0 [facility] T VISIT CENTER 25 MINUTES OFFICE 05479 [facility], OUTPATIEN 0 0 IMPLANT & CAROL R T VISIT 5 ORAL MINUTES [facility] OFFICE 89170 [place] BESSON, OUTPATIEN 0 0 [facility] MARYCHUY A T VISIT INTERNAL 15 MED MINUTES OFFICE 84396 [facility], OUTPATIEN 0 0 [facility] NEW 45 CENTER MINUTES OFFICE 53841 DERIK BIANCHI, CONSULTAT 0 0 MEDICAL TEMITOPE Brown ION SERV NEW/ESTAB FOUNDATIO PATIENT 40 MIN OFFICE 57097 [facility] MCKEMIE OUTPATIEN 0 0 DYLAN MOJICA, T VISIT INTERNAL NIKOLE F 10 MED MINUTES HOSPITAL LACI - 0 0 [facility] T OFFICE 77987 LISA LISA OUTPATIEN 0 0 TAY[facility] TAYLOR T VISIT 15 MINUTES OFFICE 25671 [facility] BESSON, OUTPATIEN 0 0 [facility] MARYCHUY A T VISIT INTERNAL 15 MED MINUTES HOSPITAL JOSY - 0 0 [facility] JOSY - 9 9 [facility] T EMERGENCY 69761Reese FERRIS 9 9 [facility] T VISIT LIMITED/M INOR PROB EMERGENCY 16830 JOSY MAO, 9 9 [facility] T VISIT MODERATE SEVERITY OFFICE 18954 [facility] MCKEMIE OUTPATIEN 9 9 [facility], T VISIT INTERNAL NIKOLE F 15 MED MINUTES HOSPITAL JOSY - 9 9 [facility] T OFFICE 80915 [place] MCKEMIE OUTPATIEN 9 9 [facility], T VISIT INTERNAL NIKOLE F 15 MED MINUTES OFFICE 48975 MAHIN STOUT OUTPATIEN 9 9 CHEL[facility] Luciano T [facility] 10 N02 MINUTES OFFICE 89132 [place] [facility] 9 [facility], T VISIT INTERNAL NIKOLE F 15 MED MINUTES HOSPITAL LACI - 9 9 [facility] 76646 LAUREANO TINSLEY, OUTPATIEN 9 9 SHANT Don T VISIT 10 MINUTES OFFICE 24844 MAHIN BARAHONA OUTPATIEN 8 8 CHEL[facility] DAY T VISIT IIIC 10 N02 MINUTES OFFICE 28760 [place] IVELISSE OUTPATIEN 8 8 DYLAN Brown T VISIT INTERNAL 15 MED MINUTES EMERGENCY 29541 JOSY 8 8 [facility] T VISIT LIMITED/M INOR PROB HOSPITAL JOSY - 8 8 [facility] T
--- OUTSIDE RECORDS SUMMARY | 2017-02-17 19:19 | External Medical Summary Rpt | CCD ---
Author Author , QIANA KIRAN Address Unknown Phone [email or web address] Immunization Name Date Rout CVX Reac Dose Comm Prov Is Faci e tion ent ider Refu lity Give sed n PPV2 06-1 Intr 33 0.5 Hist WALM No WALM 3 6-20 amus mL oric ART5 ART5 17 cula al 71 71 r Info rmat ion - Sour ce Unsp ecif ied
--- OUTSIDE RECORDS SUMMARY | 2017-02-17 19:19 | External Medical Summary Rpt | CCD ---
Author Author , QIANA KIRAN Address Unknown Phone [email or web address] Immunization Name Date Rout CVX Reac Dose Comm Prov Is Faci e tion ent ider Refu lity Give sed n PPV2 06-1 Intr 33 0.5 Hist WALM No WALM 3 6-20 amus mL oric ART5 ART5 17 cula al 71 71 r Info rmat ion - Sour ce Unsp ecif ied
[2017-02-17] MEDS ORDERED: LEVOTHYROXIN0.125 MG PO (20:17)
[2017-02-17 20:24] VITALS: BP 123/79
== END 2017-02-17 20:25 | disposition home or self-care (01) ==
LOC: UTC 18:43 → ER 18:43 → UTC 19:01
DX: E89.0 Postprocedural hypothyroidism (principal); T38.1X6A Underdosing of thyroid hormones and substitutes, initial encounter; Z91.128 Patient's intentional underdosing of medication regimen for other reason; Z76.0 Encounter for issue of repeat prescription; F17.210 Nicotine dependence, cigarettes, uncomplicated; I10 Essential (primary) hypertension; E78.5 Hyperlipidemia, unspecified; F41.9 Anxiety disorder, unspecified; F32.9 Major depressive disorder, single episode, unspecified; Z79.82 Long term (current) use of aspirin; Z79.899 Other long term (current) drug therapy

== ENCOUNTER 2017-03-11 14:09 | Emergency (ER) | payer MEDICAID ==
[~2017-03-11] VITALS: Ht 165.1 cm; Wt 77.1 kg
[~2017-03-11 14:09] MED LIST changes: +LEVOTHYROXIN0.125 MG PO
--- OUTSIDE RECORDS SUMMARY | 2017-03-11 14:13 | External Medical Summary Rpt | CCD ---
Author Author , LOUIS KIRAN Address Unknown Phone [email or web address] Purpose Continuity of Care Document - 02-17-2017 through 2016 Problems Code Diagnosis DOS Provider Status R51 HEADACHE Results Labs Lab Lab Date Result Refere Interp Status Commen Order Detail nces retati t Range on Serum or plasma thyroid stimulating horm (02-17-2017 19:20) Serum 02-17-2 = 7.63 0.358-3 complet or 017 uIU/ml .740 ed plasma 19:20 thyroid stimula ting horm
--- OUTSIDE RECORDS SUMMARY | 2017-03-11 14:13 | External Medical Summary Rpt | CCD ---
Author Author , QIANA KIRAN Address Unknown Phone [email or web address] Immunization Name Date Rout CVX Reac Dose Comm Prov Is Faci e tion ent ider Refu lity Give sed n PPV2 06-1 Intr 33 0.5 Hist WALM No WALM 3 6-20 amus mL oric ART5 ART5 17 cula al 71 71 r Info rmat ion - Sour ce Unsp ecif ied
--- OUTSIDE RECORDS SUMMARY | 2017-03-11 14:13 | External Medical Summary Rpt | CCD ---
Author Author , QIANA KIRAN Address Unknown Phone [email or web address] Immunization Name Date Rout CVX Reac Dose Comm Prov Is Faci e tion ent ider Refu lity Give sed n PPV2 06-1 Intr 33 0.5 Hist WALM No WALM 3 6-20 amus mL oric ART5 ART5 17 cula al 71 71 r Info rmat ion - Sour ce Unsp ecif ied
--- OUTSIDE RECORDS SUMMARY | 2017-03-11 14:13 | External Medical Summary Rpt | CCD ---
Author Author , LOUIS KIRAN Address Unknown Phone [email or web address] Purpose Continuity of Care Document - 02-17-2017 [...]
[2017-03-11] MEDS ORDERED: NYSTATIN SU60 ML/BOT PO (15:11)
[2017-03-11] MEDS ORDERED: PROVENTIL0.09 MG/A1 IH (15:11)
[2017-03-11] MEDS ORDERED: MEDROL 4MG. DOSE4 MG PO (15:11)
--- NOTE | 2017-03-11 15:12 | Urgent Treatment Center Report ---
History of Present Issue Date/Time Seen by Provider 03/11/17 1501 Visit Reason Pt arrived:Walked Presenting Problem:C/O SORE THROAT, BILATERAL EAR PAIN, AND TONGUE/ROOF OF MOUTH PAIN Location if Accident: Onset of symptoms date/time:/ or onset unknown for:MEDICAL HX UNKNOWN Have you (or family members/close friends) recently traveled outside the [place]? N If Yes, where/when: Have you had exposure to infectious disease within the past month? TB? Other? Specify: Source patient, RN notes reviewed Exam Limitations no limitations Comment Patient had bilateral ear infection two weeks ago and was treated with Amoxil. Ears still feel a little itchy. Throat and mouth are sore. Feels like they are on fire to eat or drink. That started 3-4 days ago. Yesterday, her lungs began to feel tight and achy and she complains of mild shortness of breath. No fever. No cough. She does smoke. ALLERGIES Coded Allergies: ceftriaxone (From ROCEPHIN) (SHOCK 01/19/16) Home Medications Active Scripts Methylprednisolone (Medrol Dose Jesse) 4 MG PO UD #1 JESSE Prov: 12/26/16 Levothyroxine Sodium (Levothyroxine 0.125MG) 0.125 MG PO DAILY #30 TAB Prov: 02/17/17 Reported Medications Clonazepam (Klonopin 0.5MG) 0.5 MG PO TID DULOXETINE HCL (Cymbalta 60MG) 60 MG PO DAILY Lamotrigine (Lamictal) 200 MG PO DAILY LEVOTHYROXINE SOD (Synthroid) 0.1 MG PO DAILY Metoprolol Succinate Xl (Toprol Xl) 50 MG PO DAILY Gabapentin (Neurontin) 600 MG PO TID Pravastatin Sodium (Pravachol) 10 MG PO QHS Diclofenac Sodium (Voltaren 50mg) 75 MG PO BID Ibuprofen (Ibuprofen 800MG) 800 MG PO TIDP PRN PAIN Aspirin/Acetaminophen/Caffeine (Migraine Relief Caplet) 1 EACH PO PRN PRN MIGRAINE TIZANIDINE HCL (Tizanidine) 2 MG OR BID Topiramate (Topamax) 100 MG PO BID History Medical History General CAD? No Angina: No MD: No Hypertension? Yes Hyperlipidemia? Yes CHF? No DVT? No PE? No COPD? Yes Asthma? Yes Anemia? No GERD? No Gastric ulcers? No GI Bleed? No Hernia? No Thyroid Problems? Yes Hypothyroidism? No CVA? No Seizures? No Diabetes? No Renal Insuffiency? No UTI? No Stones? No BPH? No GB Disease: No Nephritic Syndrome? No Asplenia? No Hepatitis? No Sickle Cell Disease? No Arthritis? Yes Migraines? No Cataracts? No Glaucoma? No MRSA? No HIV? No TB? No Anxiety? Yes Depression? Yes Cancer? No More? Yes Additional hx: OSTEOARTHRITIS Immunization HX DT/Tetanus NOT SURE Flu NEVER Pneumonia NEVER Surgical Hx Previous Surgery?Y PARTIAL THYROIDECTOMY X2 THYROID Family History Family HX Diabetes Yes CAD No Hypertension Yes Hyperlipidemia No Cancer Yes TB No Social History Smoking Hx Smoker: Current Every Day Smoker Tobacco: Yes Type Cigarettes Packs/day < 1 Pack Alcohol Alcohol: No Review of Systems All Other Systems Reviewed and Negative ENT ear pain, mouth pain, throat pain. Respiratory shortness of breath Physical Exam Vital Signs Vital Signs Date Time Temp Pulse Resp B/P Pulse O2 O2 Flow FiO2 Ox Delivery Rate 03/11 1457 98.0 77 20 163/143 98 General Appearance normal appearance, no apparent distress Ear, Nose, Throat hearing grossly normal, dental caries, gingival disease, thrush Neck normal inspection, non-tender, supple, full range of motion Respiratory Status No: respiratory distress, trachea midline, chest symmetrical. Lung Sounds bilateral: decreased breath sounds. Cardiovascular normal exam, regular rate/rhythm, no peripheral edema, no gallop, no JVD, no murmur, no rub Peripheral Pulses Pulses normal Yes Extremities non-tender, normal range of motion, normal inspection, normal capillary refill Neurologic alert, normal exam, oriented x 3 Mental status normal mood/affect Medical Decision Making LABS/Meds/Orders Pt receiving controlled substance in ED? No Results/Orders Laboratory Tests 03/11/17 1507: Group A Strep Screen NOT DETECTED Orders Procedure Date/time Status [facility] STREP SCREEN 03/11 1507 Complete Departure Departure Time of Disposition 1509 Disposition DC Home or Self Care(routine) Clinical Impression Primary Impression: Thrush Secondary Impressions: Bronchitis Condition STABLE Referrals LUIS PICKARD APRN Patient Instructions DI for Acute Bronchitis, DI for Thrush Discharge Counseling Counseled pt/family regarding diagnosis, test results, medications/RX, home care, follow up needs Prescriptions Current Visit Scripts NYSTATIN (Nystatin Susp 100,000 Units/Ml 60ML) 10 ML PO QID #400 ML Methylprednisolone (Medrol Dose Jesse) 4 MG PO UD #1 JESSE TAKE DIRECTED ON PACKAGING ALBUTEROL (Proventil Hfa Inhaler) 1-2 PUFF IH Q4-6H PRN #1 CAN at 2290
[2017-03-11 15:19] VITALS: BP 121/83
== END 2017-03-11 15:20 | disposition home or self-care (01) ==
LOC: UTC 14:09
DX: J20.9 Acute bronchitis, unspecified (principal); B37.0 Candidal stomatitis; I10 Essential (primary) hypertension; F17.210 Nicotine dependence, cigarettes, uncomplicated